=== PATIENT | male | born 1950 | race Caucasian/White ===

== ENCOUNTER → 2017-09-12 | Outpatient (CLI) | payer MEDICARE ==
--- NOTE | 2017-09-12 11:01 | CT ---
EXAMINATION TYPE: CT chest wo con DATE OF EXAM: 09/12/2017 COMPARISON: NONE HISTORY: Ascending aortic aneurysm CT DLP: 971.5 mGycm. Automated Exposure Control for Dose Reduction was Utilized. TECHNIQUE: CT scan of the thorax is performed without IV contrast. FINDINGS: The proximal ascending aorta measures approximately 4.1 cm. There are coronary artery calci fications present. Atheromatous change also present in the super aortic branch vessels, the descendin g aorta measures 3.2 cm. Lack of contrast could compromise sensitivity. LUNGS: The lungs are grossly clear, there is no concerning parenchymal mass or nodule identified. T here is no pleural effusion or pneumothorax seen. Some strand-like densities in the right upper lobe compatible with scarring. The tracheobronchial tree is patent. MEDIASTINUM: Lack of IV contrast is noted to limit evaluation for mediastinal and especially hilar ad enopathy. Pretracheal lymph node is enlarged at approximately 1.3 cm transverse dimension, there are some small prevascular nodes. No cardiomegaly or pericardial effusion is seen. OTHER: There is a spinal curvature, thoracic spondylosis is present. Liver shows low attenuation whic h may be due to underlying hepatic steatosis. IMPRESSION: Aortic aneurysm as described. Coronary artery disease. Borderline enlarged mediastinal ly mph nodes.
== END | disposition home or self-care (01) ==
LOC: RADCTMAIN 08:53
PROVIDERS: ATTEND Internal Medicine
DX: I71.2 Thoracic aortic aneurysm, without rupture (principal); I25.10 Atherosclerotic heart disease of native coronary artery without angina pectoris; R59.0 Localized enlarged lymph nodes
CPT/HCPCS: 71250

== ENCOUNTER → 2018-01-06 | Outpatient (CLI) | payer MEDICARE ==
--- NOTE | 2018-01-06 16:14 | XR ---
EXAMINATION TYPE: XR chest 2V DATE OF EXAM: 01/06/2018 COMPARISON: 08/15/2015 HISTORY: Shortness of breath TECHNIQUE: Frontal and lateral views of the chest are obtained. FINDINGS: Scattered senescent parenchymal changes noted. Hyperinflation compatible with COPD. No evidence for infiltrate. No evidence for atelectasis. Heart size is stable. Mediastinal structures are stable and grossly unremarkable. No evidence for hilar prominence. Degenerative changes dorsal spine. IMPRESSION: 1. No evidence for acute pulmonary disease.
== END | disposition home or self-care (01) ==
LOC: RADXRMAIN 15:57
PROVIDERS: ATTEND Family Medicine
DX: R05 Cough (principal)
CPT/HCPCS: 71046

== ENCOUNTER → 2018-09-21 | Outpatient (CLI) | payer MEDICARE ==
--- NOTE | 2018-09-22 10:21 | CT ---
EXAMINATION TYPE: CT chest wo con DATE OF EXAM: 09/21/2018 COMPARISON: CT chest September 12, 2017 HISTORY: Follow up for thoracic aortic aneurysm, without rupture. CT DLP: 620.4 mGycm. Automated Exposure Control for Dose Reduction was Utilized. TECHNIQUE: CT scan of the thorax is performed without IV contrast. FINDINGS: LUNGS: There is stable patchy scarring medial right midlung filling of azygoesophageal recess centere d near axial image 28. There is stable right suprahilar scarring with mild bronchiectatic change seen best paracoronal image 77 in the right upper lobe. No new suspicious consolidation is identified. No suspicious nodules or masses are present. There is no pleural effusion or pneumothorax seen. The tr acheobronchial tree is patent. MEDIASTINUM: Lack of IV contrast is noted to limit evaluation for mediastinal and especially hilar ad enopathy. There are no definitive greater than 1 cm hilar or mediastinal lymph nodes. No cardiomega ly or pericardial effusion is seen. Moderate coronary artery calcification LAD and left circumflex di stribution is present. Stable aneurysm of ascending aorta up to 4.1 cm axial image 24. Adjacent main pulmonary artery measures 2.9 cm in diameter. OTHER: Multilevel lateral and anterior spurring in the mid to lower thoracic spine is redemonstrated. IMPRESSION: Stable 4.1 cm aneurysm of ascending aorta.
== END | disposition home or self-care (01) ==
LOC: RADCTMAIN 15:47
PROVIDERS: ATTEND Internal Medicine
DX: I71.2 Thoracic aortic aneurysm, without rupture (principal)
CPT/HCPCS: 71250

== ENCOUNTER 2020-01-26 11:11 | Emergency (ER) | payer MEDICARE ==
[2020-01-26 11:17] VITALS: RESP 18
[2020-01-26] MEDS ORDERED: SODIUM CHLORIDE 0.9% 1,000 ML IV STA (11:31)
--- NOTE | 2020-01-26 11:57 | ED ---
General Adult HPI - General Chief complaint: Recheck/Abnormal Lab/Rx Stated complaint: Low BP Time Seen by Provider: 01/26/20 11:21 Source: patient Mode of arrival: ambulatory Limitations: no limitations - History of Present Illness Initial comments: Patient is a 69-year-old male presenting to emergency Department with a chief c omplaint of dehydration. States yesterday he was out on the sun for prolonged periods of time as she was helping his brother build a deck. States he believes that he drink enough fluids but feels dehydrated. States he was admitted to the hospital several years ago for dehydration and felt the same way. States he called his primary care doctor who advised him to come today ED for evaluation. Patient states yesterday he obtain a blood pressure of 60/55 but believes his machine is not correct. States he otherwise feels great right now. Patient also reports a "lump" on the on his upper back but he has an ultrasound appointment scheduled in 4 days and after forward is scheduled to see a sp ecialist. Patient has any chest pain or shortness of breath, nausea, vomiting, light headedness, dizziness, visual changes, headaches. - Related Data Home Medications Medication Instructions Recorded Confirmed Atorvastatin [Lipitor] 20 mg PO HS 02/28/15 02/14/16 Gabapentin [Neurontin] 200 mg PO HS 02/28/15 02/14/16 Hydrochlorothiazide [Hydrodiuril] 25 mg PO DAILY 02/28/15 02/14/16 Insulin Glargine [Lantus] 100 unit SQ DAILY 02/28/15 02/14/16 Insulin Glulisine [Apidra] 5 - 20 units SQ AC-TID 02/28/15 02/14/16 Loratadine [Claritin] 10 mg PO DAILY 02/28/15 02/14/16 Losartan Potassium [Cozaar] 50 mg PO DAILY 02/28/15 02/14/16 amLODIPine [Norvasc] 10 mg PO DAILY 02/28/15 02/14/16 Aspirin 325 mg PO HS 02/14/16 02/14/16 Allergies Allergy/AdvReac Type Severity Reaction Status Date / Time Iodinated Contrast Media Allergy Unknown Verified 01/26/20 11:18 [Iodinated Contrast Media - IV Dye] Review of Systems ROS Statement: Those systems with pertinent positive or pertinent negative responses have been documented in the HPI. ROS Other: All systems not noted in ROS Statement are negative. Past Medical History Past Medical History: COPD, Diabetes Mellitus, Hyperlipidemia, Hypertension History of Any Multi-Drug Resistant Organisms: None Reported Past Surgical History: No Surgical Hx Reported Past Psychological History: No Psychological Hx Reported Smoking Status: Former smoker Past Alcohol Use History: None Reported Past Drug Use History: None Reported General Exam Limitations: no limitations General appearance: alert, in no apparent distress, obese Head exam: Present: atraumatic, normocephalic, normal inspection Eye exam: Present: normal appearance, PERRL, EOMI Pupils: Present: normal accommodation ENT exam: Present: normal exam, normal oropharynx, mucous membranes moist Neck exam: Present: normal inspection, full ROM Respiratory exam: Present: normal lung sounds bilaterally. Absent: respiratory distress Cardiovascular Exam: Present: regular rate, normal rhythm, normal heart sounds Extremities exam: Present: normal inspection, full ROM Back exam: Present: normal inspection, full ROM, other (5 cm diameter fluid filled like area of swelling noted on the cervical prominence. No overlying cellulitic changes or pain with palpation. Full range of motion of the neck.) Neurological exam: Present: alert, oriented X3 Psychiatric exam: Present: normal affect, normal mood Skin exam: Present: warm, dry, intact, normal color Course Vital Signs 01/26/20 01/26/20 11:13 13:56 Temperature 98.1 F 98.0 F Pulse Rate 83 80 Respiratory 18 18 Rate Blood Pressure 161/88 155/82 O2 Sat by Pulse 97 98 Oximetry EKG Findings - EKG Comments: EKG Findings:: Sinus rhythm no ST or T-wave changes. Ventricular rate 75, WI 202, QRS 112, QTC 457. Medical Decision Making - Medical Decision Making Patient is 69-year-old male presenting to emergency Department with a chief complaint of dehydration. EKG shows sinus rhythm with Q waves in lead 3. Patient has dry mucous membranes.. CBC is unremarkable. CMP shows elevated glucose but the patient is diabetic. There is elevated BUN and creatinine. Patient was given 1 L of bolus fluids. Reevaluation patient reports improvement of symptoms and feels comfortable going home. The mass noted on his cervical prominence is going to be evaluated with ultrasound the next 4 days followed by a visit to the specialist. Return parameters were thoroughly discussed with patient was understanding and agreeable. Case discussed with physician. - Lab Data Result diagrams: 01/26/20 11:46 01/26/20 11:46 Lab Results 01/26/20 01/26/20 Range/Units 11:46 11:46 WBC 6.5 (3.8-10.6) k/uL RBC 5.72 (4.30-5.90) m/uL Hgb 16.6 (13.0-17.5) gm/dL Hct 48.8 (39.0-53.0) % MCV 85.3 (80.0-100.0) fL MCH 29.0 (25.0-35.0) pg MCHC 34.0 (31.0-37.0) g/dL RDW 13.9 (11.5-15.5) % Plt Count 262 (150-450) k/uL Neutrophils % 59 % Lymphocytes % 26 % Monocytes % 7 % Eosinophils % 6 % Basophils % 1 % Neutrophils # 3.8 (1.3-7.7) k/uL Lymphocytes # 1.7 (1.0-4.8) k/uL Monocytes # 0.4 (0-1.0) k/uL Eosinophils # 0.4 (0-0.7) k/uL Basophils # 0.1 (0-0.2) k/uL Sodium 134 L (137-145) mmol/L Potassium 4.3 (3.5-5.1) mmol/L Chloride 95 L (98-107) mmol/L Carbon Dioxide 26 (22-30) mmol/L Anion Gap 13 mmol/L BUN 33 H (9-20) mg/dL Creatinine 1.30 H (0.66-1.25) mg/dL Est GFR (CKD-EPI)AfAm 66 (>60 ml/min/1.73 sqM) Est GFR (CKD-EPI)NonAf 57 (>60 ml/min/1.73 sqM) Glucose 251 H (74-99) mg/dL Calcium 9.6 (8.4-10.2) mg/dL Total Bilirubin 0.9 (0.2-1.3) mg/dL AST 27 (17-59) U/L ALT 25 (4-49) U/L Alkaline Phosphatase 103 (38-126) U/L Total Protein 7.3 (6.3-8.2) g/dL Albumin 4.7 (3.5-5.0) g/dL Disposition Clinical Impression: Dehydration Disposition: HOME SELF-CARE Condition: Stable Instructions (If sedation given, give patient instructions): Dehydration (ED) Additional Instructions: Follow-up with her primary care. Return to emergency department if symptoms worsen. Is patient prescribed a controlled substance at d/c from ED?: No Referrals: Batool Morillo MD [Primary Care Provider] - 1-2 days Time of Disposition: 12:52
[2020-01-26 12:00] LABS: Basophils # (A) 0.1 k/uL (0-0.2); Basophils % (A) 1 %; Eosinophils # (A) 0.4 k/uL (0-0.7); Eosinophils % (A) 6 %; HCT 48.8 % (39.0-53.0); HGB 16.6 gm/dL (13.0-17.5); Lymphocytes # (A) 1.7 k/uL (1.0-4.8); Lymphocytes % (A) 26 %; MCV 85.3 fL (80.0-100.0); Mean Platelet Volume 8.3; Monocytes # (A) 0.4 k/uL (0-1.0); Monocytes % (A) 7 %; Neutrophils # (A) 3.8 k/uL (1.3-7.7); Neutrophils % (A) 59 %; Platelet Count 262 k/uL (150-450); RBC 5.72 m/uL (4.30-5.90); RDW 13.9 % (11.5-15.5); WBC 6.5 k/uL (3.8-10.6)
[2020-01-26 12:38] LABS: Albumin 4.7 g/dL (3.5-5.0); Calcium 9.6 mg/dL (8.4-10.2); Potassium 4.3 mmol/L (3.5-5.1); Total Bilirubin 0.9 mg/dL (0.2-1.3); Total Protein 7.3 g/dL (6.3-8.2)
[2020-01-26 13:57] VITALS: BP 155/82; PULSE 80; TEMP 98
== END 2020-01-26 13:57 | disposition home or self-care (01) ==
LOC: EC 11:11
DX: E86.0 Dehydration (principal); E11.9 Type 2 diabetes mellitus without complications; I10 Essential (primary) hypertension; E78.5 Hyperlipidemia, unspecified; Z79.4 Long term (current) use of insulin; Z79.82 Long term (current) use of aspirin; Z79.899 Other long term (current) drug therapy; Z91.041 Radiographic dye allergy status; Z87.891 Personal history of nicotine dependence
CPT/HCPCS: 36415; 80053; 85025; 93005; 99284

== ENCOUNTER → 2020-02-01 | Outpatient (CLI) | payer MEDICARE ==
--- NOTE | 2020-02-01 09:09 | US ---
EXAMINATION TYPE: US mass soft tissue chest/back DATE OF EXAM: 02/01/2020 COMPARISON: NONE CLINICAL HISTORY: R22.9 Lump on neck. TECHNIQUE/FINDINGS: Targeted grayscale ultrasound was performed of the patient's palpable abnormality . Patient has large visible mass measuring 15cm from end to end with ruler. Very difficult to visualize with ultrasound mass appears solid with few areas of shadowing and a hype rechoic rim and measures 13.3 cm with 4 MHz probe, unable to visualize with superficial probes. IMPRESSION: Palpable and visible mass measuring 15 cm on physical exam is extremely difficult to vis ualize by ultrasound and contains shadowing indicating calcifications or ossific density. CT neck is recommended with contrast for further characterization.
== END | disposition home or self-care (01) ==
LOC: RADUSWWP 07:50
PROVIDERS: ATTEND Family Medicine
DX: R22.2 Localized swelling, mass and lump, trunk (principal)

== ENCOUNTER → 2020-02-22 | Outpatient (CLI) | payer MEDICARE ==
--- NOTE | 2020-02-22 15:35 | CT ---
EXAMINATION TYPE: CT soft tissue neck wo con DATE OF EXAM: 02/22/2020 COMPARISON: 02/22/2016 HISTORY: Lump on back of neck CT DLP: 903.[address] of the neck was performed from the skull base through the lung apices. The lack of cont rast limits evaluation AIRWAY: The supraglottic, glottic, and subglottic portions of the airway appear patent and free of mass. SALIVARY GLANDS: The submandibular and parotid glands are free of mass or inflammatory process. THYROID GLAND: No nodules or masses seen. LYMPH NODES: No adenopathy seen greater than 1cm. LUNG APICES: No nodule or mass is seen. OTHER: Vascular structures are patent. Moderate degenerative change of the cervical spine. No absce ss seen. IMPRESSION: No distinct mass at the site of clinical concern.
== END | disposition home or self-care (01) ==
LOC: RADCTMAIN 13:27
PROVIDERS: ATTEND Family Medicine
DX: R22.2 Localized swelling, mass and lump, trunk (principal)
CPT/HCPCS: 70490

== ENCOUNTER 2020-11-27 10:54 | Observation (INO) | payer MEDICARE ==
--- NOTE | 2020-11-27 11:40 | ED ---
General Adult HPI - General Source: patient, RN notes reviewed Mode of arrival: ambulatory Limitations: no limitations <Marcello Richter - Last Filed: 11/27/20 11:39> - General Source: patient, RN notes reviewed Mode of arrival: ambulatory Limitations: no limitations <Az Amos - Last Filed: 11/27/20 13:22> - General Chief complaint: Chest Pain Stated complaint: Cough/sob/Chest pain - History of Present Illness Initial comments: Patient is a 70-year-old male that presents to emergency department complaining of increased dyspnea and some chest tightness 1 day, his did test positive for Covid approximately a week ago. (Marcello Richter) Patient is a pleasant 62-year-old male presenting to the emergency Department with complaints of chest discomfort. Symptoms have been intermittent over the past several days. Patient had discomfort again this morning in the left chest without radiation. Patient had associated dyspnea. Discomfort was moderate, now resolved. Patient is currently symptom-free. No associated nausea or diaphoresis. Patient also has had some sinus congestion and was recently diagnosed with Covid (Az Amos) - Related Data Home Medications Medication Instructions Recorded Confirmed Atorvastatin [Lipitor] 20 mg PO HS 02/28/15 02/14/16 Gabapentin [Neurontin] 200 mg PO HS 02/28/15 02/14/16 Insulin Glargine [Lantus] 100 unit SQ DAILY 02/28/15 02/14/16 Insulin Glulisine [Apidra] 5 - 20 units SQ AC-TID 02/28/15 02/14/16 Loratadine [Claritin] 10 mg PO DAILY 02/28/15 02/14/16 Losartan Potassium [Cozaar] 50 mg PO DAILY 02/28/15 02/14/16 amLODIPine [Norvasc] 10 mg PO DAILY 02/28/15 02/14/16 hydroCHLOROthiazide [Hydrodiuril] 25 mg PO DAILY 02/28/15 02/14/16 Aspirin 325 mg PO HS 02/14/16 02/14/16 Allergies Allergy/AdvReac Type Severity Reaction Status Date / Time Iodinated Contrast Media Allergy Unknown Verified 11/27/20 11:21 [Iodinated Contrast Media - IV Dye] Review of Systems ROS Other: All systems not noted in ROS Statement are negative. <Marcello Richter - Last Filed: 11/27/20 11:39> ROS Other: All systems not noted in ROS Statement are negative. Constitutional: Denies: fever ENT: Reports: congestion. Denies: ear pain Respiratory: Reports: dyspnea Cardiovascular: Reports: chest pain Endocrine: Denies: fatigue Gastrointestinal: Denies: abdominal pain Genitourinary: Denies: urgency Musculoskeletal: Denies: back pain Skin: Denies: rash Neurological: Denies: weakness <Az Amos - Last Filed: 11/27/20 13:22> ROS Statement: Those systems with pertinent positive or pertinent negative responses have been documented in the HPI. Past Medical History Past Medical History: COPD, Diabetes Mellitus, Hyperlipidemia, Hypertension History of Any Multi-Drug Resistant Organisms: None Reported Past Surgical History: No Surgical Hx Reported Past Psychological History: No Psychological Hx Reported Smoking Status: Former smoker Past Alcohol Use History: Rare Past Drug Use History: None Reported <Marcello Richter - Last Filed: 11/27/20 11:39> General Exam Limitations: no limitations General appearance: alert, in no apparent distress, obese Head exam: Present: atraumatic, normocephalic, normal inspection Eye exam: Present: normal appearance, PERRL, EOMI. Absent: scleral icterus, conjunctival injection, periorbital swelling Neck exam: Present: normal inspection. Absent: tenderness, meningismus, lympha denopathy Respiratory exam: Present: decreased breath sounds. Absent: respiratory distress, wheezes, rales, rhonchi, stridor Cardiovascular Exam: Present: regular rate, normal rhythm, normal heart sounds. Absent: systolic murmur, diastolic murmur, rubs, gallop, clicks GI/Abdominal exam: Present: soft, normal bowel sounds. Absent: distended, tenderness, guarding, rebound, rigid Extremities exam: Present: normal inspection, full ROM, normal capillary refill, other (Patient was in wheelchair.). Absent: tenderness, pedal edema, joint swelling, calf tenderness Neurological exam: Present: alert, oriented X3, CN II-XII intact Psychiatric exam: Present: normal affect, normal mood Skin exam: Present: warm, dry, intact, normal color. Absent: rash <Marcello Richter - Last Filed: 11/27/20 11:39> Limitations: no limitations General appearance: alert Head exam: Present: atraumatic Eye exam: Present: normal appearance, PERRL ENT exam: Present: normal oropharynx Respiratory exam: Present: normal lung sounds bilaterally Cardiovascular Exam: Present: regular rate, normal rhythm Expanded Peripheral pulses: 2+: Radial (R), Radial (L) GI/Abdominal exam: Present: soft. Absent: tenderness Extremities exam: Present: normal inspection. Absent: pedal edema, calf tenderness Neurological exam: Present: alert Psychiatric exam: Present: normal affect, normal mood Skin exam: Present: normal color <Az Amos - Last Filed: 11/27/20 13:22> Course Vital Signs 11/27/20 11:18 Temperature 98 F Pulse Rate 81 Respiratory 18 Rate Blood Pressure 155/62 O2 Sat by Pulse 97 Oximetry EKG Findings - EKG Comments: EKG Findings:: Sinus rhythm at 83. OH 198. QRS 124. QT 406. QTc 477. Normal axis. Nonspecific intraventricular conduction delay. No acute ST change. <Az Amos - Last Filed: 11/27/20 13:22> Medical Decision Making - Lab Data Result diagrams: 11/27/20 11:31 11/27/20 11:31 - Radiology Data Radiology results: image reviewed (Chest x-ray reveals no acute process) <Az Amos - Last Filed: 11/27/20 13:22> - Medical Decision Making Patient updated on results and plan. Dr. Parker has been paged for admission, covering for Dr. Karol Parker. (Az Amos) - Lab Data Lab Results 11/27/20 11/27/20 11/27/20 Range/Units 11:22 11:31 11:31 WBC 6.0 (3.8-10.6) k/uL RBC 5.75 (4.30-5.90) m/uL Hgb 16.7 (13.0-17.5) gm/dL Hct 48.1 (39.0-53.0) % MCV 83.6 (80.0-100.0) fL MCH 29.0 (25.0-35.0) pg MCHC 34.7 (31.0-37.0) g/dL RDW 14.0 (11.5-15.5) % Plt Count 246 (150-450) k/uL MPV 7.8 Neutrophils % 56 % Lymphocytes % 31 % Monocytes % 6 % Eosinophils % 4 % Basophils % 1 % Neutrophils # 3.3 (1.3-7.7) k/uL Lymphocytes # 1.8 (1.0-4.8) k/uL Monocytes # 0.4 (0-1.0) k/uL Eosinophils # 0.3 (0-0.7) k/uL Basophils # 0.1 (0-0.2) k/uL PT 10.2 (9.0-12.0) sec INR 0.9 (<1.2) APTT 24.5 (22.0-30.0) sec Sodium (137-145) mmol/L Potassium (3.5-5.1) mmol/L Chloride (98-107) mmol/L Carbon Dioxide (22-30) mmol/L Anion Gap mmol/L BUN (9-20) mg/dL Creatinine (0.66-1.25) mg/dL Est GFR (CKD-EPI)AfAm (>60 ml/min/1.73 sqM) Est GFR (CKD-EPI)NonAf (>60 ml/min/1.73 sqM) Glucose (74-99) mg/dL Calcium (8.4-10.2) mg/dL Magnesium (1.6-2.3) mg/dL Total Bilirubin (0.2-1.3) mg/dL AST (17-59) U/L ALT (4-49) U/L Alkaline Phosphatase (38-126) U/L Troponin I (0.000-0.034) ng/mL Total Protein (6.3-8.2) g/dL Albumin (3.5-5.0) g/dL Coronavirus (PCR) Not Detected (Not Detectd) 11/27/20 11/27/20 Range/Units 11:31 11:31 WBC (3.8-10.6) k/uL RBC (4.30-5.90) m/uL Hgb (13.0-17.5) gm/dL Hct (39.0-53.0) % MCV (80.0-100.0) fL MCH (25.0-35.0) pg MCHC (31.0-37.0) g/dL RDW (11.5-15.5) % Plt Count (150-450) k/uL MPV Neutrophils % % Lymphocytes % % Monocytes % % Eosinophils % % Basophils % % Neutrophils # (1.3-7.7) k/uL Lymphocytes # (1.0-4.8) k/uL Monocytes # (0-1.0) k/uL Eosinophils # (0-0.7) k/uL Basophils # (0-0.2) k/uL PT (9.0-12.0) sec INR (<1.2) APTT (22.0-30.0) sec Sodium 136 L (137-145) mmol/L Potassium 4.5 (3.5-5.1) mmol/L Chloride 96 L (98-107) mmol/L Carbon Dioxide 28 (22-30) mmol/L Anion Gap 12 mmol/L BUN 31 H (9-20) mg/dL Creatinine 1.26 H (0.66-1.25) mg/dL Est GFR (CKD-EPI)AfAm 68 (>60 ml/min/1.73 sqM) Est GFR (CKD-EPI)NonAf 59 (>60 ml/min/1.73 sqM) Glucose 221 H (74-99) mg/dL Calcium 9.9 (8.4-10.2) mg/dL Magnesium 2.1 (1.6-2.3) mg/dL Total Bilirubin 0.6 (0.2-1.3) mg/dL AST 28 (17-59) U/L ALT 31 (4-49) U/L Alkaline Phosphatase 101 (38-126) U/L Troponin I <0.012 (0.000-0.034) ng/mL Total Protein 7.3 (6.3-8.2) g/dL Albumin 4.8 (3.5-5.0) g/dL Coronavirus (PCR) (Not Detectd) Disposition <Marcello Richter - Last Filed: 11/27/20 11:39> Is patient prescribed a controlled substance at d/c from ED?: No Decision Time: 13:22 <Az Amos - Last Filed: 11/27/20 13:22> Clinical Impression: Chest pain Disposition: ADMITTED IP TO THIS HOSP Referrals: Batool Morillo MD [Primary Care Provider] - 1-2 days
--- NOTE | 2020-11-27 12:04 | XR ---
EXAMINATION TYPE: XR chest 2V DATE OF EXAM: 11/27/2020 COMPARISON: Chest x-ray 01/16/2019, 05/09/2020, CT chest 09/21/2018 HISTORY: Chest pain, cough and shortness of breath TECHNIQUE: Frontal and lateral views of the chest are obtained. FINDINGS: There is no focal air space opacity, pleural effusion, or pneumothorax seen. Strand-like d ensities at the left lung base are likely guest relations representative of scarring. Lung volumes are low and the pa tient is rotated. The cardiac silhouette size is within normal limits. The osseous structures are i ntact, there is thoracic spondylosis. The aorta is aneurysmal. IMPRESSION: No acute cardiopulmonary process. There is some scarring within the lungs. Additional fi ndings above.
[2020-11-27 12:07] LABS: Basophils # (A) 0.1 k/uL (0-0.2); Basophils % (A) 1 %; Eosinophils # (A) 0.3 k/uL (0-0.7); Eosinophils % (A) 4 %; HCT 48.1 % (39.0-53.0); HGB 16.7 gm/dL (13.0-17.5); Lymphocytes # (A) 1.8 k/uL (1.0-4.8); Lymphocytes % (A) 31 %; MCHC 34.7 g/dL (31.0-37.0); MCV 83.6 fL (80.0-100.0); Mean Platelet Volume 7.8; Monocytes # (A) 0.4 k/uL (0-1.0); Monocytes % (A) 6 %; Neutrophils # (A) 3.3 k/uL (1.3-7.7); Neutrophils % (A) 56 %; Platelet Count 246 k/uL (150-450); RBC 5.75 m/uL (4.30-5.90)
[2020-11-27 12:18] LABS: Albumin 4.8 g/dL (3.5-5.0); Calcium 9.9 mg/dL (8.4-10.2); Magnesium 2.1 mg/dL (1.6-2.3); Potassium 4.5 mmol/L (3.5-5.1); Total Bilirubin 0.6 mg/dL (0.2-1.3); Total Protein 7.3 g/dL (6.3-8.2)
[2020-11-27 12:21] LABS: INR 0.9 (<1.2); Partial Thromboplastin Time 24.5 sec (22.0-30.0); Prothrombin Time 10.2 sec (9.0-12.0)
[2020-11-27] MEDS ORDERED: NITROGLYCERIN SL TABS 0.4 MG TAB SUBLINGUAL PRN (13:22)
[2020-11-27] MEDS ORDERED: ASPIRIN 81 MG PO STA (13:22)
[2020-11-27] MEDS: NITROGLYCERIN OINT 1 INCH/GM PACKET TOPICAL SCH ×2 (21:30→22:05)
[2020-11-27] MEDS: FAMOTIDINE 20 MG/2 ML VIAL IV SCH (21:32)
[2020-11-27] MEDS: HEPARIN SODIUM,PORCINE 5,000 UNIT/ML 1 ML VIAL SQ SCH (21:33)
--- NOTE | 2020-11-27 22:02 | P.HPIM ---
History of Present Illness This is a pleasant 70 years old male with past medical history of diabetes mellitus, hypertension, hyperlipidemia. Patient presents because of intermittent chest pain on and off for the last 2 weeks associated with dyspnea. His chest pain is on the left side nonradiating about 2/10 currently, when it comes close only for minutes. It happens every 3 days and average. And associated with dyspnea and patient herself is morbidly obese Bibiana he says that he has history of COPD with chronic cough and white phlegm although noticed some worsening in his coughing recently. He indexes smoker quit about 15 years ago with no alcohol or illicit drugs He denies history of obstructive sleep apnea nor using CPAP/BiPAP at home Because of his chest pain and dyspnea he was admitted to the hospital in view of his history of coronary artery disease with history of stent. His hide buffer is Dr. Dumont. His cloud systems architect is Dr. Denson Vitals are stable Labs reviewed showing unremarkable CBC and liver enzymes. Creatinine is elevated at 1.2 which is at baseline 1.3 last year. Sodium is slightly low at 136. Troponin is negative less than 0.012. Coronal varus not detected. Chest x-ray: No acute process. EKG: Showing normal sinus rhythm at 83 with PVC and QTC [address]-T changes. In the emergency room patient was started on aspirin Review of Systems CONSTITUTIONAL: No fever, no malaise, no fatigue. HEENT: No recent visual problems or hearing problems. Denied any sore throat. CARDIOVASCULAR: No orthopnea, PND, no palpitations, no syncope. PULMONARY: No chest wall tenderness, no hemoptysis. GASTROINTESTINAL: No diarrhea, no nausea, no vomiting, no abdominal pain. Normoactive bowel sounds. NEUROLOGICAL: No headaches, no weakness, no numbness. HEMATOLOGICAL: Denies any bleeding or petechiae. GENITOURINARY: Denies any burning micturition, frequency, or urgency. MUSCULOSKELETAL/RHEUMATOLOGICAL: Denies any joint pain, swelling, or any muscle pain. ENDOCRINE: Denies any polyuria or polydipsia. Past Medical History Past Medical History: COPD, Diabetes Mellitus, Hyperlipidemia, Hypertension History of Any Multi-Drug Resistant Organisms: None Reported Past Surgical History: No Surgical Hx Reported Past Psychological History: No Psychological Hx Reported Smoking Status: Former smoker Past Alcohol Use History: Rare Past Drug Use History: None Reported Medications and Allergies Home Medications Medication Instructions Recorded Confirmed Type Atorvastatin [Lipitor] 20 mg PO HS 02/28/15 11/27/20 History amLODIPine [Norvasc] 10 mg PO DAILY 02/28/15 11/27/20 History Allopurinol [Zyloprim] 100 mg PO DAILY 11/27/20 11/27/20 History Aspirin EC [Ecotrin Low Dose] 81 mg PO HS 11/27/20 11/27/20 History Dapagliflozin Propanediol [Farxiga] 10 mg PO DAILY 11/27/20 11/27/20 History Dulaglutide [Trulicity] 1.5 mg SQ TH 11/27/20 11/27/20 History Ergocalciferol [Vitamin D2 (1250 1,250 mcg PO Q14D 11/27/20 11/27/20 History Mcg = 43978 Iu)] Furosemide [Lasix] 40 mg PO DAILY 11/27/20 11/27/20 History Insulin Glargine,Hum.rec.anlog 30 unit SQ BID 11/27/20 11/27/20 History [Lantus Solostar] Losartan Potassium 100 mg PO DAILY 11/27/20 11/27/20 History Magnesium(Uknown Dose) 1 tab PO DAILY 11/27/20 11/27/20 History Pioglitazone [Actos] 15 mg PO DAILY 11/27/20 11/27/20 History Vitamin C(Unknown Dose) 1 tab PO DAILY 11/27/20 11/27/20 History metFORMIN HCL ER [Glucophage Xr] 1,000 mg PO BID 11/27/20 11/27/20 History Allergies Allergy/AdvReac Type Severity Reaction Status Date / Time Iodinated Contrast Media Allergy Unknown Verified 11/27/20 14:15 [Iodinated Contrast Media - IV Dye] Physical Exam Vitals: Vital Signs Temp Pulse Resp BP Pulse Ox 11/27/20 13:53 75 18 125/98 96 11/27/20 11:18 98 F 81 18 155/62 97 Intake and Output 11/26/20 11/27/20 11/27/20 22:59 06:59 14:59 Other: Weight 154.221 kg -GENERAL: The patient is alert and oriented x3, not in any acute distress. morbidly obese HEENT: Pupils are round and equally reacting to light. EOMI. No scleral icterus. No conjunctival pallor. Normocephalic, atraumatic. No pharyngeal erythema. No thyromegaly. CARDIOVASCULAR: S1 and S2 present. No murmurs, rubs, or gallops. PULMONARY: Chest is clear to auscultation, no wheezing or crackles. ABDOMEN: Soft, nontender, nondistended, normoactive bowel sounds. No palpable organomegaly. MUSCULOSKELETAL: No joint swelling or deformity. EXTREMITIES: No cyanosis, clubbing, or pedal edema. NEUROLOGICAL: Gross neurological examination did not reveal any focal deficits. SKIN: No rashes. 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 We'll do se rial troponins, cardiology consult. Continue with aspirin Also we'll consult pulmonary service for his dyspnea. In the meantime start duonebs and symbicort Patient is on Actos metformin and long-acting insulin 30 units twice a day, hold all these and continue with Levemir 30 units daily and insulin sliding scale as he may be nothing by mouth after midnight Labs and medication were reviewed.. Continue same treatment. Continue with symptomatic treatment. Resume home medication. Monitor lytes and vitals. DVT and GI prophylaxis. Further recommendations depends on the clinical course of the patient DVT prophylaxis: Subcutaneous heparin GI Prophylaxis: Pepcid Prognosis is guarded
[2020-11-28] MEDS: NITROGLYCERIN OINT 1 INCH/GM PACKET TOPICAL SCH ×2 (04:59→12:50)
[2020-11-28] MEDS ORDERED: INSULIN DETEMIR (LEVEMIR) 100 UNIT/ML SYR SQ SCH (07:00)
[2020-11-28] MEDS: ALBUTEROL HFA INHALER INHALATION SCH ×2 (07:40→11:14)
[2020-11-28 07:41] LABS: Glucose,Whole Blood 165 mg/dL (75-99)
[2020-11-28] MEDS ORDERED: IPRATROPIUM-ALBUTEROL 3 ML NEB INHALATION SCH (08:00)
[2020-11-28 08:08] VITALS: RESP 18
[2020-11-28] MEDS: FAMOTIDINE 20 MG/2 ML VIAL IV SCH (08:54)
[2020-11-28] MEDS: INSULIN ASPART (NovoLOG) 100 UNIT/ML VIAL SQ SCH ×3 (08:55→12:50)
[2020-11-28] MEDS: HEPARIN SODIUM,PORCINE 5,000 UNIT/ML 1 ML VIAL SQ SCH (08:56)
[2020-11-28] MEDS ORDERED: FUROSEMIDE 40 MG TAB PO SCH (09:00)
[2020-11-28] MEDS ORDERED: amLODIPine 10 MG TAB PO SCH (09:00)
[2020-11-28] MEDS ORDERED: allopurinoL 100 MG TAB PO SCH (09:00)
[2020-11-28] MEDS ORDERED: LOSARTAN 50 MG TAB PO SCH (09:00)
[2020-11-28] MEDS ORDERED: PIOGLITAZONE 15 MG TAB PO SCH (09:00)
[2020-11-28] MEDS ORDERED: ASPIRIN 325 MG TAB PO SCH (09:00)
[2020-11-28 09:53] LABS: Chol/HDL Ratio 3.63; LDL Cholesterol,Calculated 46.8 mg/dL (0.0-131.0); VLDL Calculation 37.2 mg/dL (5.00-40.00)
--- NOTE | 2020-11-28 10:30 | P.CRDCN ---
History of Present Illness History of present illness: HISTORY OF PRESENTING ILLNESS This is a pleasant 70-year-old male past medical history significant for hypertension, dyslipidemia, coronary artery disease noted in the form of calcification on a CAT scan, type 2 diabetes. He follows in the office with Dr. Martinez. We have been asked to see in consultation for chest pain. Patient states that he's had left-sided dull chest pressure that is intermittent for more than 2 months. It comes and goes. Mostly occurs when patient gets up in the morning. The chest pressure is nonexertional and nonradiating. Nothing makes the pain better and nothing makes the pain worse. Patient states that he presented to the emergency department more concerned for shortness of breath and a dry nonproductive cough. His was recently diagnosed with covid-19. He thought he may have covid-19, sodium present to the emergency department. Patient recently had a Lexiscan stress test at [facility] on 08/03/2020. Results obtained- no evidence o f stress-induced reversible ischemia, EF was 54%. Patient denies palpitations, fatigue, weakness, lightheadedness, syncope. He denies symptoms of orthopnea or PND. He is a former smoker quit in his 40s. He denies alcohol or illicit drug use. Laboratory data reviewed, troponins negative 3, sodium 136, potassium 4.5, creatinine 1.26, magnesium 2.1, d-dimer 0.8, WBC 6.0, hemoglobin 16.7, platelets 246, triglycerides 186, cholesterol 116, LDL 46.8, HDL 32. Vital signs blood pressure 124/85, heart rate in the 70s, afebrile, maintaining oxygen saturation is on room air. Current home cardiac medications include amlodipine 10 mg daily, losartan 100 mg daily, Lasix 40 mg daily, atorvastatin 20 mg nightly, aspirin 81 mg daily. DIAGNOSTICS EKG reveals sinus rhythm, with premature ventricular complexes. T wave inversion in lateral leads consistent with prior EKGs, No significant STT wave abnormalities.. Telemetry tracings indicate sinus rhythm Chest xray No acute cardiopulmonary process. Echocardiogram on 08/29/2020EF 50-55%, aortic valve is calcified, trileaflet Lexiscan stress test 11/2018- negative. Fixed inferior wall defect secondary to soft tissue attenuation without any ischemia. Lexiscan stress test at [facility] on 08/03/2020. Results obtained- no evidence o f stress-induced reversible ischemia, EF was 54%. REVIEW OF SYSTEMS At the time of my exam: CONSTITUTIONAL: Denies fever or chills. CARDIOVASCULAR: + left sided chest pain +shortness of breath, Denies orthopnea, PND or palpitations. RESPIRATORY: +dry nonproductive cough. GASTROINTESTINAL: Denies abdominal pain, diarrhea, constipation, nausea or vomiting. MUSCULOSKELETAL: Denies myalgias. NEUROLOGIC: Denies numbness, tingling, headacbe or weakness. ENDOCRINE: Denies fatigue, weight change, polydipsia or polyurina. GENITOURINARY: Denies burning, hematuria or urgency with micturation. HEMATOLOGIC: Denies history of anemia or bleeding. PHYSICAL EXAMINATION CONSTITUTIONAL: No apparent distress. HEENT: Head is normocephalic. Pupils are equal, round. Sclerae anicteric. Mucous membranes of the mouth are moist. No JVD. No carotid bruit. CHEST EXAMINATION: Lungs are clear to auscultation. No chest wall tenderness is noted on palpation or with deep breathing. HEART EXAMINATION: Regular rate and rhythm. S1, S2 heard. No murmurs, gallops or rub. ABDOMEN: Soft, nontender. Positive bowel sounds. EXTREMITIES: 2+ peripheral pulses, trace bilateral pedal edema and no calf tenderness. SKIN:intact NEUROLOGIC EXAMINATION: Patient is awake, alert and oriented x3. ASSESSMENT Chest pain, atypical acute coronary event has been ruled out Hypertension Obesity BMI 51 Type 2 Diabetes Chronic Kidney Disease PLAN An acute coronary event has been ruled out with no EKG evidence of ischemia and negative cardiac enzymes. Resume home cardiac medications No further cardiac workup at this time. Follow up with Dr. Martinez in the outpatient office Thank you kindly for this consultation. Nurse Practitioner note has been reviewed, I agree with a documented findings and plan of care. Patient was seen and examined. Past Medical History Past Medical History: COPD, Diabetes Mellitus, Hyperlipidemia, Hypertension History of Any Multi-Drug Resistant Organisms: None Reported Past Surgical History: No Surgical Hx Reported Past Psychological History: No Psychological Hx Reported Smoking Status: Former smoker Past Alcohol Use History: Rare Past Drug Use History: None Reported Medications and Allergies Home Medications Medication Instructions Recorded Confirmed Type Atorvastatin [Lipitor] 20 mg PO HS 02/28/15 11/27/20 History amLODIPine [Norvasc] 10 mg PO DAILY 02/28/15 11/27/20 History Allopurinol [Zyloprim] 100 mg PO DAILY 11/27/20 11/27/20 History Aspirin EC [Ecotrin Low Dose] 81 mg PO HS 11/27/20 11/27/20 History Dapagliflozin Propanediol [Farxiga] 10 mg PO DAILY 11/27/20 11/27/20 History Dulaglutide [Trulicity] 1.5 mg SQ TH 11/27/20 11/27/20 History Ergocalciferol [Vitamin D2 (1250 1,250 mcg PO Q14D 11/27/20 11/27/20 History Mcg = 22106 Iu)] Furosemide [Lasix] 40 mg PO DAILY 11/27/20 11/27/20 History Insulin Glargine,Hum.rec.anlog 30 unit SQ BID 11/27/20 11/27/20 History [Lantus Solostar] Losartan Potassium 100 mg PO DAILY 11/27/20 11/27/20 History Magnesium(Uknown Dose) 1 tab PO DAILY 11/27/20 11/27/20 History Pioglitazone [Actos] 15 mg PO DAILY 11/27/20 11/27/20 History Vitamin C(Unknown Dose) 1 tab PO DAILY 11/27/20 11/27/20 History metFORMIN HCL ER [Glucophage Xr] 1,000 mg PO BID 11/27/20 11/27/20 History Allergies Allergy/AdvReac Type Severity Reaction Status Date / Time Iodinated Contrast Media Allergy Unknown Verified 11/27/20 14:15 [Iodinated Contrast Media - IV Dye] Physical Exam Vitals: Vital Signs Temp Pulse Pulse Resp BP BP Pulse Ox 11/28/20 07:00 98.1 F 78 18 124/85 91 L 11/28/20 02:00 98.3 F 70 20 134/68 93 L 11/27/20 22:15 99.1 F 92 150/93 94 L 11/27/20 18:25 96 18 121/69 96 11/27/20 16:36 71 18 131/74 96 11/27/20 13:53 75 18 125/98 96 11/27/20 11:18 98 F 81 18 155/62 97 Intake and Output 11/27/20 11/28/20 11/28/20 22:59 06:59 14:59 Other: Voiding Method Toilet # Voids 1 0 Weight 154.221 kg Results 11/27/20 11:31 11/27/20 11:31 Cardiac Enzymes 11/27/20 11/27/20 11/27/20 Range/Units 11:31 11:31 14:25 AST 28 (17-59) U/L Troponin I <0.012 <0.012 (0.000-0.034) ng/mL 11/27/20 Range/Units 17:21 AST (17-59) U/L Troponin I <0.012 (0.000-0.034) ng/mL Coagulation 11/27/20 Range/Units 11:31 PT 10.2 (9.0-12.0) sec APTT 24.5 (22.0-30.0) sec Lipids 11/28/20 Range/Units 05:48 Triglycerides 186.0 H (0.0-149.0) mg/dL Cholesterol 116 (0-200) mg/dL HDL Cholesterol 32.0 L (40.0-60.0) mg/dL Cholesterol/HDL Ratio 3.63 CBC 11/27/20 Range/Units 11:31 WBC 6.0 (3.8-10.6) k/uL RBC 5.75 (4.30-5.90) m/uL Hgb 16.7 (13.0-17.5) gm/dL Hct 48.1 (39.0-53.0) % Plt Count 246 (150-450) k/uL Comprehensive Metabolic Panel 11/27/20 Range/Units 11:31 Sodium 136 L (137-145) mmol/L Potassium 4.5 (3.5-5.1) mmol/L Chloride 96 L (98-107) mmol/L Carbon Dioxide 28 (22-30) mmol/L BUN 31 H (9-20) mg/dL Creatinine 1.26 H (0.66-1.25) mg/dL Glucose 221 H (74-99) mg/dL Calcium 9.9 (8.4-10.2) mg/dL AST 28 (17-59) U/L ALT 31 (4-49) U/L Alkaline Phosphatase 101 (38-126) U/L Total Protein 7.3 (6.3-8.2) g/dL Albumin 4.8 (3.5-5.0) g/dL Current Medications Generic Name Dose Route Start Last Admin Trade Name Freq PRN Reason Stop Dose Admin Albuterol Sulfate 2 puff 11/28/20 08:00 11/28/20 07:40 Albuterol Hfa Inhaler INHALATION 2 puff RT-TID [facility] Administration Allopurinol 100 mg 11/28/20 09:00 11/28/20 08:56 Allopurinol 100 Mg Tab PO 100 mg DAILY [facility] Administration Amlodipine Besylate 10 mg 11/28/20 09:00 11/28/20 08:56 Amlodipine 10 Mg Tab PO 10 mg DAILY [facility] Administration Aspirin 325 mg 11/28/20 09:00 11/28/20 08:56 Aspirin 325 Mg Tab PO 325 mg DAILY [facility] Administration Atorvastatin Calcium 20 mg 11/28/20 21:00 Atorvastatin 20 Mg Tab PO HS [facility] Budesonide/Formoterol Fumarate 2 puff 11/28/20 22:00 Symbicort 160-4.5 Mcg Inhaler INHALATION RT-BID [facility] Famotidine 20 mg 11/27/20 21:00 11/28/20 08:54 Famotidine 20 Mg/2 Ml Vial IV 20 mg Q12HR [facility] Administration Furosemide 40 mg 11/28/20 09:00 11/28/20 08:56 Furosemide 40 Mg Tab PO 40 mg DAILY [facility] Administration Heparin Sodium (Porcine) 5,000 unit 11/27/20 21:00 11/28/20 08:56 Heparin Sodium,Porcine 5,000 Unit/Ml 1 Ml Vial SQ 5,000 unit Q12HR [facility] Administration Insulin Aspart 0 unit 11/28/20 07:30 11/28/20 09:01 Insulin Aspart (Novolog) 100 Unit/Ml Vial SQ Not Given ACHS [facility] Protocol Insulin Detemir 30 unit 11/28/20 07:00 11/28/20 08:55 Insulin Detemir (Levemir) 100 Unit/Ml Syr SQ 30 unit DAILY@0700 [facility] Administration Losartan Potassium 100 mg 11/28/20 09:00 11/28/20 08:56 Losartan 50 Mg Tab PO 100 mg DAILY [facility] Administration Nitroglycerin 0.4 mg 11/27/20 13:22 Nitroglycerin Sl Tabs 0.4 Mg Tab SUBLINGUAL Q5M PRN Chest Pain Nitroglycerin 1 inch 11/27/20 18:00 11/28/20 04:59 Nitroglycerin Oint 1 Inch/Gm Packet TOPICAL Not Given Q6HR [facility] Intake and Output 11/27/20 11/28/20 11/28/20 22:59 06:59 14:59 Other: Voiding Method Toilet # Voids 1 0 Weight 154.221 kg 11/27/20 11:31 11/27/20 11:31
[2020-11-28 11:38] LABS: Glucose,Whole Blood 191 mg/dL (75-99)
[2020-11-28 15:11] VITALS: BP 141/73; PULSE 77; TEMP 97.9
--- NOTE | 2020-11-28 17:41 | P.CNPUL ---
History of Present Illness Consult date: 11/28/20 Requesting physician: Hortensia Parker Reason for consult: other (Chest pain) Chief complaint: Chest pain History of present illness: This is a 70-year-old white male with history of multiple medical problems including mild asymptomatic COPD, history of diabetes, coronary artery calcification noted on previous CT scan of the chest, normally sees Dr. Scherer on a regular basis. Patient presented to the hospital with 2 months history of left-sided dull chest pressure and pain. The pain has been on on for the last 2 months and it is intermittent. No specific clear-cut trigger factor for the pain. Sometimes it is related to positioning especially when he lays flat. And it is definitely not related to any exertion pain is not radiating, is not associated with diaphoresis, no nausea no vomiting. Denies any cough denies any shortness of breath, patient was concerned that he may have covid 19 infection. Presented to the ER, and his workup was basically nondiagnostic. His EKG showed T-wave inversion in lateral leads similar to previous EKG. Chest x-ray showed no evidence of acute pulmonary process. His echocardiogram was basically unremarkable. Previous stress test at [facility] showed no evidence of stress-induced ischemia. Patient was ready seen by cardiology, and he was basically get cleared to be discharged home. I saw the patient, I felt his pain was atypical, and did not feel any pulmonary workup is necessary at this point. other then chest x-ray which was reviewed and seems to be unremarkable. Review of Systems CONSTITUTIONAL: Negative CARDIOVASCULAR: Chest pain as noted in HPI. RESPIRATORY: Occasional cough. GASTROINTESTINAL: Negative MUSCULOSKELETAL: Negative NEUROLOGIC: Negative ENDOCRINE: Negative GENITOURINARY: Negative HEMATOLOGIC: Negative Psychiatric: Negative. Skin: Negative. Past Medical History Past Medical History: COPD, Diabetes Mellitus, Hyperlipidemia, Hypertension History of Any Multi-Drug Resistant Organisms: None Reported Past Surgical History: No Surgical Hx Reported Past Psychological History: No Psychological Hx Reported Smoking Status: Former smoker Past Alcohol Use History: Rare Past Drug Use History: None Reported Medications and Allergies Home Medications Medication Instructions Recorded Confirmed Type Atorvastatin [Lipitor] 20 mg PO HS 02/28/15 11/27/20 History amLODIPine [Norvasc] 10 mg PO DAILY 02/28/15 11/27/20 History Allopurinol [Zyloprim] 100 mg PO DAILY 11/27/20 11/27/20 History Aspirin EC [Ecotrin Low Dose] 81 mg PO HS 11/27/20 11/27/20 History Dapagliflozin Propanediol [Farxiga] 10 mg PO DAILY 11/27/20 11/27/20 History Dulaglutide [Trulicity] 1.5 mg SQ TH 11/27/20 11/27/20 History Ergocalciferol [Vitamin D2 (1250 1,250 mcg PO Q14D 11/27/20 11/27/20 History Mcg = 38941 Iu)] Furosemide [Lasix] 40 mg PO DAILY 11/27/20 11/27/20 History Losartan Potassium 100 mg PO DAILY 11/27/20 11/27/20 History Magnesium(Uknown Dose) 1 tab PO DAILY 11/27/20 11/27/20 History Pioglitazone [Actos] 15 mg PO DAILY 11/27/20 11/27/20 History Vitamin C(Unknown Dose) 1 tab PO DAILY 11/27/20 11/27/20 History Albuterol Inhaler [Ventolin Hfa 2 puff INHALATION RT-TID #1 inh 11/28/20 Rx Inhaler] Insulin Glargine,Hum.rec.anlog 30 unit SQ BID #1 vial 11/28/20 11/27/20 Rx [Lantus Solostar] metFORMIN HCL [Glucophage] 1,000 mg PO BID #30 tab 11/28/20 Rx Allergies Allergy/AdvReac Type Severity Reaction Status Date / Time Iodinated Contrast Media Allergy Unknown Verified 11/27/20 14:15 [Iodinated Contrast Media - IV Dye] Physical Exam Vitals: Vital Signs Temp Pulse Pulse Resp BP BP Pulse Ox 11/28/20 15:00 97.9 F 77 18 141/73 92 L 11/28/20 07:00 98.1 F 78 18 124/85 91 L 11/28/20 02:00 98.3 F 70 20 134/68 93 L 11/27/20 22:15 99.1 F 92 150/93 94 L 11/27/20 18:25 96 18 121/69 96 Intake and Output 11/28/20 11/28/20 11/28/20 06:59 14:59 22:59 Other: Voiding Method Toilet # Voids 0 3 Physical Exam: Revealed a 70-year-old white male obese in no distress. Head: Atraumatic, normocephalic. HEENT:[Neck is supple.] [No neck masses.] [No thyromegaly.] [No JVD.] Chest: [Clear throughout, no crackles, no rhonchi, no wheezes.] Cardiac Exam: [Normal S1 and S2, no S3 gallop, no murmur.] Abdomen: [Soft, nontender, no megaly, no rebound, no guarding, normal bowel sounds.] Extremities: [No clubbing, no edema, no cyanosis.] Neurological Exam: [No focal neurologic deficit.] Alert and oriented 3. Psychiatric: Normal mood affect and normal mental status examination. Skin: No rashes. [place] skeletal: No limitation in range of motion and no deformities. Results - Laboratory Findings CBC and BMP: 11/27/20 11:31 11/27/20 11:31 PT/INR, D-dimer PT 10.2 sec (9.0-12.0) 11/27/20 11:31 INR 0.9 (<1.2) 11/27/20 11:31 D-Dimer 0.80 mg/L FEU (<0.60) H 11/27/20 11:31 Abnormal lab findings: Abnormal Labs 11/27/20 11/27/20 11/28/20 11:31 11:31 05:48 D-Dimer 0.80 H Sodium 136 L Chloride 96 L BUN 31 H Creatinine 1.26 H Glucose 221 H POC Glucose (mg/dL) Triglycerides 186.0 H HDL Cholesterol 32.0 L 11/28/20 11/28/20 07:37 11:36 D-Dimer Sodium Chloride BUN Creatinine Glucose POC Glucose (mg/dL) 165 H 191 H Triglycerides HDL Cholesterol - Diagnostic Findings Chest x-ray: image reviewed (As noted in HPI.) Assessment and Plan Assessment: Impression: Atypical chest pain History of hypertension Type 2 diabetes Chronic kidney disease Recommendation: Reviewed and discussed with the patient his workup. [place] no pulmonary explanation to his chest pain, and the pain is not pulmonary in nature. Patient could be discharged home if cleared by other consultants on the case. Follow-up on outpatient basis. Time with Patient: Greater than 30
[2020-11-28] MEDS ORDERED: ATORVASTATIN 20 MG TAB PO SCH (21:00)
--- NOTE | 2020-11-28 21:16 | P.DS ---
Providers Date of admission: 11/27/20 13:23 Attending physician: Hortensia Parker Consults: 11/27/20 13:23 Consult Physician Urgent Consulting Provider: Casey Galeana Consult Reason/Comments: cp Do you want consulting provider notified?: Yes 11/27/20 21:49 Consult Physician Routine Consulting Provider: Yodit Kramer Consult Reason/Comments: dyspnea , known to your service Do you want consulting provider notified?: Yes, Notify in am Primary care physician: Batool Morillo [facility] Course: Diagnoses: Chest pain, cardiac causes ruled out and cleared by cardiology and pulmonary for discharge. 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 Patient presents because of intermittent chest pain on and off for the last 2 weeks associated with dyspnea. His chest pain is on the left side nonradiating about 2/10 currently, when it comes close only for minutes. It happens every 3 days and average. Patient evaluated by assistant manager trainee who cleared him for discharge. Also pulmonary service evaluated the patient and found him stable for discharge Patient says that his chest pain has resolved, he denies significant dyspnea Currently. No other symptoms, no GI or urinary symptoms. No fever. He uses 60 units of insulin at home besides for more medication, his sugars controlled with 30 units of insulin only, he explained this by different eating habits at home as he eats all the time and not only as 2-3 meals a day and states that sugar is well controlled on his home regimen, patient was instructed to go back to his home regimen and he agrees, also states he has glucometer and he agrees to monitor his sugar Patient was cleared for discharge by cardiology and pulmonary services Problems and management plan were discussed with the patient and he verbalized understanding and acceptance Patient was found stable and can be discharged home however he needs follow-up as an outpatient. Patient was instructed to follow up with PCP Dr. watkins within one week and patient agrees. Also patient was instructed to follow up with assembler tubing Dr. Denson in 1-2 weeks and his assistant manager trainee Dr. Dumont on 12/15 and he agrees Physical -Gen: patient is a AAOx3, no distress. Morbidly obese CVS: S1-S2, RRR, no murmur Lungs: B/L CTA, no wheezing Abdomen: soft, no distention, no tenderness, positive bowel sounds Extremity: no leg edema or induration Time spent more than 35 minutes Plan - Discharge Summary New Discharge Prescriptions: New metFORMIN HCL [Glucophage] 1,000 mg PO BID #30 tab Albuterol Inhaler [Ventolin Hfa Inhaler] 2 puff INHALATION RT-TID #1 inh Continue Atorvastatin [Lipitor] 20 mg PO HS amLODIPine [Norvasc] 10 mg PO DAILY Furosemide [Lasix] 40 mg PO DAILY Pioglitazone [Actos] 15 mg PO DAILY Magnesium(Uknown Dose) 1 tab PO DAILY Insulin Glargine,Hum.rec.anlog [Lantus Solostar] 30 unit SQ BID #1 vial Vitamin C(Unknown Dose) 1 tab PO DAILY Ergocalciferol [Vitamin D2 (1250 Mcg = 40840 Iu)] 1,250 mcg PO Q14D Dapagliflozin Propanediol [Farxiga] 10 mg PO DAILY Allopurinol [Zyloprim] 100 mg PO DAILY Losartan Potassium 100 mg PO DAILY Aspirin EC [Ecotrin Low Dose] 81 mg PO HS Dulaglutide [Trulicity] 1.5 mg SQ TH Discontinued metFORMIN HCL ER [Glucophage Xr] 1,000 mg PO BID Discharge Medication List Atorvastatin [Lipitor] 20 mg PO HS 02/28/15 [History] amLODIPine [Norvasc] 10 mg PO DAILY 02/28/15 [History] Allopurinol [Zyloprim] 100 mg PO DAILY 11/27/20 [History] Aspirin EC [Ecotrin Low Dose] 81 mg PO HS 11/27/20 [History] Dapagliflozin Propanediol [Farxiga] 10 mg PO DAILY 11/27/20 [History] Dulaglutide [Trulicity] 1.5 mg SQ TH 11/27/20 [History] Ergocalciferol [Vitamin D2 (1250 Mcg = 48456 Iu)] 1,250 mcg PO Q14D 11/27/20 [History] Furosemide [Lasix] 40 mg PO DAILY 11/27/20 [History] Losartan Potassium 100 mg PO DAILY 11/27/20 [History] Magnesium(Uknown Dose) 1 tab PO DAILY 11/27/20 [History] Pioglitazone [Actos] 15 mg PO DAILY 11/27/20 [History] Vitamin C(Unknown Dose) 1 tab PO DAILY 11/27/20 [History] Albuterol Inhaler [Ventolin Hfa Inhaler] 2 puff INHALATION RT-TID #1 inh 11/28/20 [Rx] Insulin Glargine,Hum.rec.anlog [Lantus Solostar] 30 unit SQ BID #1 vial 11/28/20 [Rx] metFORMIN HCL [Glucophage] 1,000 mg PO BID #30 tab 11/28/20 [Rx] Follow up Appointment(s)/Referral(s): Yodit Kramer MD [STAFF PHYSICIAN] - 2 Weeks Batool Morillo MD [Primary Care Provider] - 1-2 days Kevin Martinez MD [STAFF PHYSICIAN] - 12/15/20 2:30 pm Patient Instructions/Handouts: Chest Pain (DC) Activity/Diet/Wound Care/Special Instructions: diabetic 1800k westley diet per day activity is restricted till you see your doctor we recommend you check your glucose 4 times per day , before each meal and at bed time and keep the results in a log book and bring it to your doctor on your appointment date if your glucose less than 70 or more than 400 call 911 and go to emergency room Discharge Disposition: HOME SELF-CARE
[2020-11-28] MEDS ORDERED: SYMBICORT 160-4.5 MCG INHALER INHALATION SCH (22:00)
[2020-11-29] MEDS ORDERED: ASPIRIN 81 MG PO SCH (09:00)
== END 2020-11-28 17:41 | disposition home or self-care (01) ==
LOC: EC 10:54 → 6NMEDSUR 13:23
PROVIDERS: ADMIT Hospitalist; ATTEND Hospitalist
DX: R07.89 Other chest pain (principal); J44.9 Chronic obstructive pulmonary disease, unspecified; I49.3 Ventricular premature depolarization; I12.9 Hypertensive chronic kidney disease with stage 1 through stage 4 chronic kidney disease, or unspecified chronic kidney disease; N18.2 Chronic kidney disease, stage 2 (mild); E11.22 Type 2 diabetes mellitus with diabetic chronic kidney disease; I25.10 Atherosclerotic heart disease of native coronary artery without angina pectoris; R09.81 Nasal congestion; E78.5 Hyperlipidemia, unspecified; Z20.822 Contact with and (suspected) exposure to COVID-19; E66.01 Morbid (severe) obesity due to excess calories; Z68.43 Body mass index [BMI] 50.0-59.9, adult; Z79.4 Long term (current) use of insulin; Z79.82 Long term (current) use of aspirin; Z79.899 Other long term (current) drug therapy; Z91.041 Radiographic dye allergy status; Z87.891 Personal history of nicotine dependence; Z95.5 Presence of coronary angioplasty implant and graft
CPT/HCPCS: 96376; 96372 ×2; 93005 ×2; 96374; 99285; 36415; 94640; 85379; 80061; 80053; 83735; 84484; 85025; 85610; 85730; 87635; 71046; G0378 ×2; J1644 ×2

== ENCOUNTER 2020-12-05 13:44 | Inpatient (IN) | payer MEDICARE ==
--- NOTE | 2020-12-05 16:03 | ED ---
General Adult HPI - General Source: patient Mode of arrival: ambulatory Limitations: no limitations <Serafin Guerrero - Last Filed: 12/05/20 16:03> <Marcello Richter - Last Filed: 12/05/20 19:02> <Romario Bingham - Last Filed: 12/05/20 19:58> - General Chief complaint: Upper Respiratory Infection Stated complaint: + covid/Dr. gallegos IV infusion - History of Present Illness Initial comments: 62-year-old male presents to emergency Department with chief complaint cough and congestion. Patient was sent here by his primary care physician for monoclonal antibody infusion. (Serafin Guerrero) Patient is a 70-year-old male that presents to the emergency department complaining of Covid like symptoms with cough, congestion and increased dyspnea. He noted that his tested positive on approximately November 27 and that he tested positive on December 01. He notes that since then he's progressively got worse. He does not use oxygen at home even with a history of COPD. He was sent here by his primary care to get monoclonal antibody therapy. She denied any pain while sitting up in bed during exam and interview. He did have a cough that was dry and nonproductive while answering questions. He denied any nausea vomiting diarrhea constipation fever fatigue chills pain (Marcello Richter) - Related Data Home Medications Medication Instructions Recorded Confirmed Atorvastatin [Lipitor] 20 mg PO HS 02/28/15 11/27/20 amLODIPine [Norvasc] 10 mg PO DAILY 02/28/15 11/27/20 Allopurinol [Zyloprim] 100 mg PO DAILY 11/27/20 11/27/20 Aspirin EC [Ecotrin Low Dose] 81 mg PO HS 11/27/20 11/27/20 Dapagliflozin Propanediol [Farxiga] 10 mg PO DAILY 11/27/20 11/27/20 Dulaglutide [Trulicity] 1.5 mg SQ TH 11/27/20 11/27/20 Ergocalciferol [Vitamin D2 (1250 1,250 mcg PO Q14D 11/27/20 11/27/20 Mcg = 63899 Iu)] Furosemide [Lasix] 40 mg PO DAILY 11/27/20 11/27/20 Losartan Potassium 100 mg PO DAILY 11/27/20 11/27/20 Magnesium(Uknown Dose) 1 tab PO DAILY 11/27/20 11/27/20 Pioglitazone [Actos] 15 mg PO DAILY 11/27/20 11/27/20 Vitamin C(Unknown Dose) 1 tab PO DAILY 11/27/20 11/27/20 Previous Rx's Medication Instructions Recorded Albuterol Inhaler [Ventolin Hfa 2 puff INHALATION RT-TID #1 inh 11/28/20 Inhaler] Insulin Glargine,Hum.rec.anlog 30 unit SQ BID #1 vial 11/28/20 [Lantus Solostar] metFORMIN HCL [Glucophage] 1,000 mg PO BID #30 tab 11/28/20 Allergies Allergy/AdvReac Type Severity Reaction Status Date / Time Iodinated Contrast Media Allergy Unknown Verified 12/05/20 15:59 [Iodinated Contrast Media - IV Dye] Review of Systems ROS Other: All systems not noted in ROS Statement are negative. <Serafin Guerrero - Last Filed: 12/05/20 16:03> ROS Other: All systems not noted in ROS Statement are negative. <Marcello Richter - Last Filed: 12/05/20 19:02> ROS Other: All systems not noted in ROS Statement are negative. <Romario Bingham - Last Filed: 12/05/20 19:58> ROS Statement: Those systems with pertinent positive or pertinent negative responses have been documented in the HPI. Past Medical History Past Medical History: COPD, Diabetes Mellitus, Hyperlipidemia, Hypertension Additional Past Medical History / Comment(s): Covid 4/ History of Any Multi-Drug Resistant Organisms: None Reported Past Surgical History: No Surgical Hx Reported Past Psychological History: No Psychological Hx Reported Smoking Status: Former smoker Past Alcohol Use History: Rare Past Drug Use History: None Reported <Serafin Guerrero - Last Filed: 12/05/20 16:03> General Exam Limitations: no limitations <Serafin Guerrero - Last Filed: 12/05/20 16:03> General appearance: alert, in no apparent distress, obese Head exam: Present: atraumatic, normocephalic, normal inspection Eye exam: Present: normal appearance, PERRL, EOMI. Absent: scleral icterus, conjunctival injection, periorbital swelling Neck exam: Present: normal inspection. Absent: tenderness, meningismus, lymphadenopathy Respiratory exam: Present: normal lung sounds bilaterally. Absent: respiratory distress, wheezes, rales, rhonchi, stridor Cardiovascular Exam: Present: regular rate, normal rhythm, normal heart sounds. Absent: systolic murmur, diastolic murmur, rubs, gallop, clicks GI/Abdominal exam: Present: soft, normal bowel sounds. Absent: distended, te nderness, guarding, rebound, rigid Extremities exam: Present: normal inspection, full ROM, normal capillary refill. Absent: tenderness, pedal edema, joint swelling, calf tenderness Neurological exam: Present: alert, oriented X3, CN II-XII intact Psychiatric exam: Present: normal affect, normal mood Skin exam: Present: warm, dry, intact, normal color. Absent: rash <Marcello Richter - Last Filed: 12/05/20 19:02> Course <Romario Bingham - Last Filed: 12/05/20 19:58> Vital Signs 12/05/20 12/05/20 15:55 18:49 Temperature 99.5 F Pulse Rate 101 H Respiratory 22 26 H Rate Blood Pressure 136/89 O2 Sat by Pulse 91 L Oximetry - Reevaluation(s) Reevaluation #1: 12/05/20 19:57 Case, H&P, test results and ED management thus far were discussed with ELLIE Best. He accepts hospital admission on behalf of himself and Dr. Parker. He agrees with pulmonology consultation. He has no further recommendations at this time. (Romario Bingham) Medical Decision Making - Lab Data Result diagrams: 12/05/20 18:39 12/05/20 18:39 - EKG Data -: EKG Interpreted by Oh EKG shows normal: sinus rhythm Rate: normal - Radiology Data Radiology results: report reviewed, image reviewed <Marcello Richter - Last Filed: 12/05/20 19:02> - Lab Data Result diagrams: 12/05/20 18:39 12/05/20 18:39 <Romario Bingham - Last Filed: 12/05/20 19:58> - Medical Decision Making 70-year-old male sent by primary care for monoclonal antibody therapy. Patient tested positive on December 01. Labs, EKG, chest x-ray, 4 L oxygen via nasal cannula ordered. Labs: Creatinine 1.42 LDH 1164 C-reactive protein 65.2 (Marcello Richter) Patient has evidence of Covid pneumonia on CXR, and he is hypoxic with room air oxygen saturation in the high 80s. Patient's d-dimer is negative. He was given IV Decadron in the ED. ELLIE Juanito Best has accepted hospital admission. A pulmonology consultation was placed. (Romario Bingham) - Lab Data Lab Results 12/05/20 12/05/20 12/05/20 Range/Units 17:19 18:39 18:39 WBC 5.1 (3.8-10.6) k/uL RBC 6.14 H (4.30-5.90) m/uL Hgb 17.1 (13.0-17.5) gm/dL Hct 50.6 (39.0-53.0) % MCV 82.4 (80.0-100.0) fL MCH 27.9 (25.0-35.0) pg MCHC 33.9 (31.0-37.0) g/dL RDW 13.8 (11.5-15.5) % Plt Count 204 (150-450) k/uL MPV 7.6 Neutrophils % 77 % Lymphocytes % 14 % Monocytes % 6 % Eosinophils % 1 % Basophils % 1 % Neutrophils # 3.9 (1.3-7.7) k/uL Lymphocytes # 0.7 L (1.0-4.8) k/uL Monocytes # 0.3 (0-1.0) k/uL Eosinophils # 0.0 (0-0.7) k/uL Basophils # 0.1 (0-0.2) k/uL PT 10.1 (9.0-12.0) sec INR 0.9 (<1.2) APTT 25.3 (22.0-30.0) sec D-Dimer 0.44 (<0.60) mg/L FEU Sodium (137-145) mmol/L Potassium (3.5-5.1) mmol/L Chloride (98-107) mmol/L Carbon Dioxide (22-30) mmol/L Anion Gap mmol/L BUN (9-20) mg/dL Creatinine (0.66-1.25) mg/dL Est GFR (CKD-EPI)AfAm (>60 ml/min/1.73 sqM) Est GFR (CKD-EPI)NonAf (>60 ml/min/1.73 sqM) Glucose (74-99) mg/dL Plasma Lactic Acid [place] (0.7-2.0) mmol/L Calcium (8.4-10.2) mg/dL Magnesium (1.6-2.3) mg/dL Total Bilirubin (0.2-1.3) mg/dL AST (17-59) U/L ALT (4-49) U/L Alkaline Phosphatase (38-126) U/L Lactate Dehydrogenase (313-618) U/L C-Reactive Protein (<10.0) mg/L Total Protein (6.3-8.2) g/dL Albumin (3.5-5.0) g/dL Coronavirus (PCR) Detected A (Not Detectd) 12/05/20 12/05/20 Range/Units 18:39 18:39 WBC (3.8-10.6) k/uL RBC (4.30-5.90) m/uL Hgb (13.0-17.5) gm/dL Hct (39.0-53.0) % MCV (80.0-100.0) fL MCH (25.0-35.0) pg MCHC (31.0-37.0) g/dL RDW (11.5-15.5) % Plt Count (150-450) k/uL MPV Neutrophils % % Lymphocytes % % Monocytes % % Eosinophils % % Basophils % % Neutrophils # (1.3-7.7) k/uL Lymphocytes # (1.0-4.8) k/uL Monocytes # (0-1.0) k/uL Eosinophils # (0-0.7) k/uL Basophils # (0-0.2) k/uL PT (9.0-12.0) sec INR (<1.2) APTT (22.0-30.0) sec D-Dimer (<0.60) mg/L FEU Sodium 136 L (137-145) mmol/L Potassium 4.4 (3.5-5.1) mmol/L Chloride 94 L (98-107) mmol/L Carbon Dioxide 28 (22-30) mmol/L Anion Gap 14 mmol/L BUN 40 H (9-20) mg/dL Creatinine 1.42 H (0.66-1.25) mg/dL Est GFR (CKD-EPI)AfAm 59 (>60 ml/min/1.73 sqM) Est GFR (CKD-EPI)NonAf 51 (>60 ml/min/1.73 sqM) Glucose 240 H (74-99) mg/dL Plasma Lactic Acid [place] 1.3 (0.7-2.0) mmol/L Calcium 8.9 (8.4-10.2) mg/dL Magnesium 2.4 H (1.6-2.3) mg/dL Total Bilirubin 0.6 (0.2-1.3) mg/dL AST 54 (17-59) U/L ALT 38 (4-49) U/L Alkaline Phosphatase 101 (38-126) U/L Lactate Dehydrogenase 1164 H (313-618) U/L C-Reactive Protein 65.2 H (<10.0) mg/L Total Protein 6.8 (6.3-8.2) g/dL Albumin 4.2 (3.5-5.0) g/dL Coronavirus (PCR) (Not Detectd) - EKG Data EKG Comments: Ventricular rate 96 bpm, IL interval 174 ms, QRS duration 106 ms, QT/QTC 368/464 ms, PRT axes 34/1/74. Normal sinus rhythm, minimal voltage criteria for LVH may be normal variant, inferior infarct, age undetermined, abnormal ECG. (Marcello Richter) - Radiology Data Chest x-ray: Vague perihilar and basilar interstitial infiltrates. Correlate clinically for developing pneumonia. (Marcello Richter) Disposition <Serafin Guerrero - Last Filed: 12/05/20 16:03> <Marcello Richter - Last Filed: 12/05/20 19:02> Is patient prescribed a controlled substance at d/c from ED?: No Time of Disposition: 19:54 <Romario Bingham - Last Filed: 12/05/20 19:58> Clinical Impression: Pneumonia due to COVID-19 virus, Hypoxia Disposition: ADMITTED IP TO THIS HOSP Condition: Stable Referrals: Batool Morillo MD [Primary Care Provider] - 1-2 days
--- NOTE | 2020-12-05 16:32 | XR ---
EXAMINATION TYPE: XR chest 2V DATE OF EXAM: 12/05/2020 COMPARISON: 11/27/2020 HISTORY: Shortness of breath TECHNIQUE: Frontal and lateral views of the chest are obtained. FINDINGS: Scattered senescent parenchymal changes noted. Hyperinflation compatible with COPD. Vague perihilar and basilar interstitial infiltrates. Correlate clinically for developing pneumonia. Heart size is stable. Mediastinal structures are stable and grossly unremarkable. No evidence for hilar prominence. Degenerative changes dorsal spine. IMPRESSION: 1. Vague perihilar and basilar interstitial infiltrates. Correlate clinically for developing pneumoni a.
[2020-12-05 18:49] LABS: Basophils # (A) 0.1 k/uL (0-0.2); Basophils % (A) 1 %; Eosinophils % (A) 1 %; HCT 50.6 % (39.0-53.0); HGB 17.1 gm/dL (13.0-17.5); Lymphocytes # (A) 0.7 k/uL (1.0-4.8); Lymphocytes % (A) 14 %; MCH 27.9 pg (25.0-35.0); MCHC 33.9 g/dL (31.0-37.0); MCV 82.4 fL (80.0-100.0); Mean Platelet Volume 7.6; Monocytes # (A) 0.3 k/uL (0-1.0); Monocytes % (A) 6 %; Neutrophils # (A) 3.9 k/uL (1.3-7.7); Neutrophils % (A) 77 %; Platelet Count 204 k/uL (150-450); RBC 6.14 m/uL (4.30-5.90); RDW 13.8 % (11.5-15.5); WBC 5.1 k/uL (3.8-10.6)
[2020-12-05 18:59] LABS: Albumin 4.2 g/dL (3.5-5.0); C Reactive Protein 65.2 mg/L (<10.0); Calcium 8.9 mg/dL (8.4-10.2); Magnesium 2.4 mg/dL (1.6-2.3); Potassium 4.4 mmol/L (3.5-5.1); Total Bilirubin 0.6 mg/dL (0.2-1.3); Total Protein 6.8 g/dL (6.3-8.2)
[2020-12-05 19:14] LABS: INR 0.9 (<1.2); Partial Thromboplastin Time 25.3 sec (22.0-30.0); Prothrombin Time 10.1 sec (9.0-12.0)
[2020-12-05] MEDS ORDERED: DEXAMETHASONE SOD PHOSPHATE 4 MG/ML 1 ML VIAL IV STA (19:14)
[2020-12-05 23:08] LABS: Glucose,Whole Blood 190 mg/dL (75-99)
[2020-12-05] MEDS: INSULIN DETEMIR (LEVEMIR) 100 UNIT/ML SYR SQ SCH (23:39)
[2020-12-05] MEDS: INSULIN ASPART (NovoLOG) 100 UNIT/ML VIAL SQ SCH (23:39)
[2020-12-06] MEDS ORDERED: INSULIN ASPART (NovoLOG) 100 UNIT/ML VIAL SQ SCH (07:30)
[2020-12-06 07:58] LABS: Glucose,Whole Blood 227 mg/dL (75-99)
[2020-12-06] MEDS: INSULIN ASPART (NovoLOG) 100 UNIT/ML VIAL SQ SCH ×4 (08:18→21:23)
[2020-12-06] MEDS: LOSARTAN 50 MG TAB PO SCH (08:19)
[2020-12-06] MEDS: allopurinoL 100 MG TAB PO SCH (08:19)
[2020-12-06] MEDS: amLODIPine 10 MG TAB PO SCH (08:19)
[2020-12-06] MEDS: NON FORMULARY DRUG (Dapagliflozin Propanediol [Farxiga] 10 MG Tablet) PO SCH (08:47)
[2020-12-06] MEDS ORDERED: metFORMIN 500 MG TAB PO SCH (09:00)
[2020-12-06] MEDS ORDERED: FUROSEMIDE 40 MG TAB PO SCH (09:00)
[2020-12-06] MEDS: ALBUTEROL HFA INHALER INHALATION PRN ×3 (09:22→16:47)
[2020-12-06 09:43] LABS: Basophils # (A) 0.01 X 10*3/uL (0.00-0.10); Basophils % (A) 0.2 %; Eosinophils # (A) 0 X 10*3/uL (0.04-0.35); Eosinophils % (A) 0 %; HCT 50.5 % (39.6-50.0); HGB 16.5 g/dL (13.0-17.0); Lymphocytes % (A) 17.8 %; MCH 27.9 pg (27.0-32.0); MCHC 32.7 g/dL (32.0-37.0); MCV 85.3 fL (80.0-97.0); Mean Platelet Volume 11.1 fL (9.5-12.2); Monocytes # (A) 0.26 X 10*3/uL (0.20-1.00); Monocytes % (A) 5.8 %; Neutrophils # (A) 3.42 X 10*3/uL (1.80-7.70); Platelet Count 227 X 10*3/uL (140-440); RBC 5.92 X 10*6/uL (4.40-5.60)
[2020-12-06] MEDS: INSULIN DETEMIR (LEVEMIR) 100 UNIT/ML SYR SQ SCH ×2 (10:05→21:23)
[2020-12-06] MEDS: PIOGLITAZONE 15 MG TAB PO SCH (10:05)
[2020-12-06] MEDS: ASCORBIC ACID 500 MG TAB PO SCH ×2 (10:16→21:22)
[2020-12-06] MEDS: ZINC SULFATE 220 MG CAP PO SCH (10:16)
[2020-12-06] MEDS: SODIUM CHLORIDE 0.9% 1,000 ML IV SCH ×2 (10:17→23:08)
[2020-12-06 10:38] LABS: African American GFR (CKD) 54.7 (60.0-200.0); Anion Gap 13.6 mmol/L (4.00-12.00); BUN/Creat Ratio 28.67 Ratio (12.00-20.00); Calcium 8.8 mg/dL (8.7-10.3); Carbon Dioxide 27.4 mmol/L (21.6-31.8); Non-African American GFR(CKD) 47.2 (60.0-200.0); Potassium 4.5 mmol/L (3.5-5.5)
[2020-12-06] MEDS ORDERED: ENOXAPARIN 40 MG/0.4 ML SYRINGE SQ SCH (10:45)
--- NOTE | 2020-12-06 11:11 | P.CNPUL ---
History of Present Illness Consult date: 12/06/20 Requesting physician: Hortensia Parker Reason for consult: dyspnea, cough, hypoxemia, pneumonia, abnormal CXR/CT Chief complaint: Shortness of breath, cough. History of present illness: 62-year-old male, who presents to the emergency department, with a chief complaint of cough, and congestion. The patient hasn't been feeling well all the way back even before November 27. He was in the ER on the and he tells me he tested negative for coronavirus. The patient sees a family doctor, and my partner for his chronic lung disease. More recently, his symptoms have progressed, and he came into the emergency room to be evaluated. He's complaining of shortness breath, chest congestion, and cough. He is coughing up some phlegm. No fever or chills. He is currently on saline at 75 mL an hour, a nd 4 L nasal cannula. He apparently tested positive on December 01. Again he been sick for 12-14 days. Because of this, he would not be a candidate for REM. He could get vitamins, Ecotrin dry, Lovenox, and, convalescent plasma. White count 4.5, hemoglobin 16.5, hematocrit 50.5, and platelet count 327,000. D-dimer is 0.44. Sodium 138, potassium 4.5, chloride 97, CO2 27, anion gap 14, BUN 43, and creatinine 1.5. LDH is 1164. C-reactive protein 65.2. Pro-calcitonin level was 0.13. Chest x-ray shows bilateral infiltrates. Review of Systems REVIEW OF SYSTEMS: CONSTITUTIONAL: Fatigue and weakness. NEUROLOGIC: [ Negative.] HEENT: [ Negative.] CARDIAC: [Negative.] PULMONARY: Shortness of breath, cough, chest congestion. GI: [Negative.] : [Negative.] RHEUMATOLOGIC: [ Negative.] IMMUNOLOGIC: [ Negative.] ENDOCRINE: [Negative. ] DERMATOLOGIC: [Negative.] Past Medical History Past Medical History: Coronary Artery Disease (CAD), COPD, Diabetes Mellitus, Hyperlipidemia, Hypertension, Osteoarthritis (OA), Pneumonia, Renal Disease, Vascular Disorder Additional Past Medical History / Comment(s): Pt tested covid + on 12/01/[address] Morillo's office. Other hx: Current bronchitis, IDDM type II, neuropathy bilateral feet/hands, CKD stage II-III, cardiac valve disease, murmur, aneurysm per pt, arthritis in back/chrinic back pain/past vertebral fractures, occasional lower leg/pedal edema, bilateral cataracts. History of Any Multi-Drug Resistant Organisms: None Reported Past Surgical History: No Surgical Hx Reported Additional Past Surgical History / Comment(s): Bronchoscopy, colonoscopies. Additional Past Anesthesia/Blood Transfusion Reaction / Comment(s): Pt states he stopped breathing during bronchoscopy. Smoking Status: Former smoker - Past Family History Father Family Medical History: Coronary Artery Disease (CAD) Additional Family Medical History / Comment(s): Father lived to be 85 yrs old. Mother Family Medical History: Cancer Additional Family Medical History / Comment(s): Mother of lung cancer. She was a smoker. Medications and Allergies Home Medications Medication Instructions Recorded Confirmed Type Atorvastatin [Lipitor] 20 mg PO HS 02/28/15 12/05/20 History amLODIPine [Norvasc] 10 mg PO DAILY 02/28/15 12/05/20 History Allopurinol [Zyloprim] 100 mg PO DAILY 11/27/20 12/05/20 History Aspirin EC [Ecotrin Low Dose] 81 mg PO HS 11/27/20 12/05/20 History Dapagliflozin Propanediol [Farxiga] 10 mg PO DAILY 11/27/20 12/05/20 History Ergocalciferol [Vitamin D2 (1250 1,250 mcg PO Q14D 11/27/20 12/05/20 History Mcg = 22865 Iu)] Furosemide [Lasix] 40 mg PO DAILY 11/27/20 12/05/20 History Losartan Potassium 100 mg PO DAILY 11/27/20 12/05/20 History Magnesium(Uknown Dose) 1 tab PO DAILY 11/27/20 12/05/20 History Pioglitazone [Actos] 15 mg PO DAILY 11/27/20 12/05/20 History Vitamin C(Unknown Dose) 1 tab PO DAILY 11/27/20 12/05/20 History Insulin Glargine,Hum.rec.anlog 30 unit SQ BID #1 vial 11/28/20 12/05/20 Rx [Lantus Solostar] metFORMIN HCL [Glucophage] 1,000 mg PO BID #30 tab 11/28/20 12/05/20 Rx Albuterol Inhaler [Ventolin Hfa 2 puff INHALATION RT-QID PRN 12/05/20 12/05/20 History Inhaler] Azithromycin [Zithromax] See Taper PO DIRECTED 12/05/20 12/05/20 History Dulaglutide [Trulicity] 3 mg SQ TH 12/05/20 12/05/20 History methylPREDNISolone [Medrol Dose See Taper PO DIRECTED 12/05/20 12/05/20 History Pack] Allergies Allergy/AdvReac Type Severity Reaction Status Date / Time Iodinated Contrast Media Allergy Unknown Verified 12/05/20 20:39 [Iodinated Contrast Media - IV Dye] Physical Exam Osteopathic Statement: *. No significant issues noted on an osteopathic structural exam other than those noted in the History and Physical/Consult. Vitals: Vital Signs Temp Pulse Pulse Resp BP BP Pulse Ox 12/06/20 07:52 98.2 F 78 18 157/79 91 L 12/06/20 06:00 97.9 F 72 18 133/81 96 12/05/20 23:41 99.7 F H 81 18 141/78 90 L 12/05/20 21:00 84 16 146/86 92 L 12/05/20 18:49 26 H 12/05/20 15:55 99.5 F 101 H 22 136/89 91 L Intake and Output 12/05/20 12/06/20 12/06/20 22:59 06:59 14:59 Other: Weight 154.221 kg 154.221 kg No acute distress, oriented 3. Currently on 4 L. No conversational dyspnea or use of accessory muscles. HEENT examination is grossly unremarkable. Neck supple. Full range of motion. No adenopathy thyromegaly or neck vein distention. Cardiovascular examination reveals regular rhythm rate. S1-S2 normal. No S3 or S4. No discernible murmur noted. Heart rate 70 bpm. Lungs reveal bilateral rhonchi. No wheezes or crackles. Breath sounds equal bilaterally. Abdomen soft bowel sounds are heard. No masses or tenderness. Extremities are intact. No cyanosis clubbing or edema. Skin is without rash or lesion. Neurologic examination is brief but nonfocal. Results - Laboratory Findings CBC and BMP: 12/06/20 04:49 12/06/20 04:49 PT/INR, D-dimer PT 10.1 sec (9.0-12.0) 12/05/20 18:39 INR 0.9 (<1.2) 12/05/20 18:39 D-Dimer 0.44 mg/L FEU (<0.60) 12/05/20 18:39 Abnormal lab findings: Abnormal Labs 12/05/20 12/05/20 12/05/20 17:19 18:39 18:39 RBC 6.14 H Hct Lymphocytes # 0.7 L Eosinophils # Sodium 136 L Chloride 94 L Anion Gap BUN 40 H Creatinine 1.42 H Est GFR (CKD-EPI)AfAm Est GFR (CKD-EPI)NonAf BUN/Creatinine Ratio Glucose 240 H POC Glucose (mg/dL) Magnesium 2.4 H Lactate Dehydrogenase 1164 H C-Reactive Protein 65.2 H Procalcitonin Coronavirus (PCR) Detected A 12/05/20 12/05/20 12/06/20 18:39 23:06 04:49 RBC 5.92 H Hct 50.5 H Lymphocytes # 0.80 L Eosinophils # 0 L Sodium Chloride Anion Gap BUN Creatinine Est GFR (CKD-EPI)AfAm Est GFR (CKD-EPI)NonAf BUN/Creatinine Ratio Glucose POC Glucose (mg/dL) 190 H Magnesium Lactate Dehydrogenase C-Reactive Protein Procalcitonin 0.13 H Coronavirus (PCR) 12/06/20 12/06/20 04:49 07:51 RBC Hct Lymphocytes # Eosinophils # Sodium Chloride Anion Gap 13.60 H BUN 43.0 H Creatinine Est GFR (CKD-EPI)AfAm 54.7 L Est GFR (CKD-EPI)NonAf 47.2 L BUN/Creatinine Ratio 28.67 H Glucose 268 H POC Glucose (mg/dL) 227 H Magnesium Lactate Dehydrogenase C-Reactive Protein Procalcitonin Coronavirus (PCR) - Diagnostic Findings Chest x-ray: image reviewed Assessment and Plan Assessment: Acute hypoxemic respiratory failure secondary to COVID 19 pneumonia/pneumonitis. History of COPD/chronic bronchitis. History of diabetes mellitus. History of hyperlipidemia. History of hypertension. Previous history of tobacco use. Plan: Plan dated 12/06/2020. The patient should get vitamin C, vitamin D3, and zinc. In addition, the patient should get Decadron, 6 mg a day, and Lovenox 40 mg subcu daily. The patient is not a candidate for REM. Continue to watch patient closely. Additional recommendations and suggestions are forthcoming. The patient does have risk factors for deterioration including COPD, and obesity. Additional recommendations and suggestions are forthcoming. Prognosis is guarded. Time with Patient: Greater than 30
[2020-12-06 11:56] LABS: Glucose,Whole Blood 287 mg/dL (75-99)
--- NOTE | 2020-12-06 12:51 | P.HPIM ---
History of Present Illness 62-year-old the female came in with cough congestion symptoms has been going on since November 27 and patient was tested negative in for Covid 19. Patient's symptoms continued to get worse patient was complaining of cough shortness of breath found to be hypoxic present in 4 L of oxygen. Patient denied any symptoms of diarrhea was having some nausea no vomiting. Patient has elevated inflammatory markers creatinine of 1.5 d-dimer of 0.44. Patient had a low-grade fever last night. Review of Systems REVIEW OF SYSTEMS: CONSTITUTIONAL: As mentioned in HPI HEENT: No recent visual problems or hearing problems. Denied any sore throat. CARDIOVASCULAR: No chest pain, orthopnea, PND, no palpitations, no syncope. PULMONARY: As mentioned in HPI GASTROINTESTINAL: No diarrhea, no vomiting, no abdominal pain. NEUROLOGICAL: No headaches, no weakness, no numbness. HEMATOLOGICAL: Denies any bleeding or petechiae. GENITOURINARY: Denies any burning micturition, frequency, or urgency. MUSCULOSKELETAL/RHEUMATOLOGICAL: Denies any joint pain, swelling, or any muscle pain. ENDOCRINE: Denies any polyuria or polydipsia. The rest of the 14-point review of systems is negative. Past Medical History Past Medical History: Coronary Artery Disease (CAD), COPD, Diabetes Mellitus, Hyperlipidemia, Hypertension, Osteoarthritis (OA), Pneumonia, Renal Disease, Vas cular Disorder Additional Past Medical History / Comment(s): Pt tested covid + on 12/01/[address] Morillo's office. Other hx: Current bronchitis, IDDM type II, neuropathy bilateral feet/hands, CKD stage II-III, cardiac valve disease, murmur, aneurysm per pt, arthritis in back/chrinic back pain/past vertebral fractures, occasional lower leg/pedal edema, bilateral cataracts. History of Any Multi-Drug Resistant Organisms: None Reported Past Surgical History: No Surgical Hx Reported Additional Past Surgical History / Comment(s): Bronchoscopy, colonoscopies. Additional Past Anesthesia/Blood Transfusion Reaction / Comment(s): Pt states he stopped breathing during bronchoscopy. Smoking Status: Former smoker - Past Family History Father Family Medical History: Coronary Artery Disease (CAD) Additional Family Medical History / Comment(s): Father lived to be 85 yrs old. Mother Family Medical History: Cancer Additional Family Medical History / Comment(s): Mother of lung cancer. She was a smoker. Medications and Allergies Home Medications Medication Instructions Recorded Confirmed Type Atorvastatin [Lipitor] 20 mg PO HS 02/28/15 12/05/20 History amLODIPine [Norvasc] 10 mg PO DAILY 02/28/15 12/05/20 History Allopurinol [Zyloprim] 100 mg PO DAILY 11/27/20 12/05/20 History Aspirin EC [Ecotrin Low Dose] 81 mg PO HS 11/27/20 12/05/20 History Dapagliflozin Propanediol [Farxiga] 10 mg PO DAILY 11/27/20 12/05/20 History Ergocalciferol [Vitamin D2 (1250 1,250 mcg PO Q14D 11/27/20 12/05/20 History Mcg = 56930 Iu)] Furosemide [Lasix] 40 mg PO DAILY 11/27/20 12/05/20 History Losartan Potassium 100 mg PO DAILY 11/27/20 12/05/20 History Magnesium(Uknown Dose) 1 tab PO DAILY 11/27/20 12/05/20 History Pioglitazone [Actos] 15 mg PO DAILY 11/27/20 12/05/20 History Vitamin C(Unknown Dose) 1 tab PO DAILY 11/27/20 12/05/20 History Insulin Glargine,Hum.rec.anlog 30 unit SQ BID #1 vial 11/28/20 12/05/20 Rx [Lantus Solostar] metFORMIN HCL [Glucophage] 1,000 mg PO BID #30 tab 11/28/20 12/05/20 Rx Albuterol Inhaler [Ventolin Hfa 2 puff INHALATION RT-QID PRN 12/05/20 12/05/20 History Inhaler] Azithromycin [Zithromax] See Taper PO DIRECTED 12/05/20 12/05/20 History Dulaglutide [Trulicity] 3 mg SQ TH 12/05/20 12/05/20 History methylPREDNISolone [Medrol Dose See Taper PO DIRECTED 12/05/20 12/05/20 His tory Pack] Allergies Allergy/AdvReac Type Severity Reaction Status Date / Time Iodinated Contrast Media Allergy Unknown Verified 12/05/20 20:39 [Iodinated Contrast Media - IV Dye] Physical Exam Vitals: Vital Signs Temp Pulse Pulse Resp BP BP Pulse Ox 12/06/20 11:13 90 L 12/06/20 11:07 98 F 24 141/79 12/06/20 07:52 98.2 F 78 18 157/79 91 L 12/06/20 06:00 97.9 F 72 18 133/81 96 12/05/20 23:41 99.7 F H 81 18 141/78 90 L 12/05/20 21:00 84 16 146/86 92 L 12/05/20 18:49 26 H 12/05/20 15:55 99.5 F 101 H 22 136/89 91 L Intake and Output 12/05/20 12/06/20 12/06/20 22:59 06:59 14:59 Other: Weight 154.221 kg 154.221 kg PHYSICAL EXAMINATION: GENERAL: The patient is alert and oriented x3, not in any acute distress. Well developed, well nourished. HEENT: Pupils are round and equally reacting to light. EOMI. No scleral icterus. No conjunctival pallor. Normocephalic, atraumatic. No pharyngeal erythema. No thyromegaly. CARDIOVASCULAR: S1 and S2 present. No murmurs, rubs, or gallops. PULMONARY: Chest is clear to auscultation, no wheezing or crackles. ABDOMEN: Soft, nontender, nondistended, normoactive bowel sounds. No palpable organomegaly. MUSCULOSKELETAL: No joint swelling or deformity. EXTREMITIES: No cyanosis, clubbing, or pedal edema. NEUROLOGICAL: Gross neurological examination did not reveal any focal deficits. SKIN: No rashes. Results CBC & Chem 7: 12/06/20 04:49 12/06/20 04:49 Labs: Abnormal Lab Results - Last 24 Hours (Table) 12/05/20 12/05/20 12/05/20 Range/Units 17:19 18:39 18:39 RBC 6.14 H (4.30-5.90) m/uL Hct (39.6-50.0) % Lymphocytes # 0.7 L (1.0-4.8) k/uL Eosinophils # (0.04-0.35) X 10*3/uL Sodium 136 L (137-145) mmol/L Chloride 94 L (98-107) mmol/L Anion Gap (4.00-12.00) mmol/L BUN 40 H (9-20) mg/dL Creatinine 1.42 H (0.66-1.25) mg/dL Est GFR (CKD-EPI)AfAm (60.0-200.0) Est GFR (CKD-EPI)NonAf (60.0-200.0) BUN/Creatinine Ratio (12.00-20.00) Ratio Glucose 240 H (74-99) mg/dL POC Glucose (mg/dL) (75-99) mg/dL Magnesium 2.4 H (1.6-2.3) mg/dL Lactate Dehydrogenase 1164 H (313-618) U/L C-Reactive Protein 65.2 H (<10.0) mg/L Procalcitonin (0.02-0.09) ng/mL Coronavirus (PCR) Detected A (Not Detectd) 12/05/20 12/05/20 12/06/20 Range/Units 18:39 23:06 04:49 RBC 5.92 H (4.30-5.90) m/uL Hct 50.5 H (39.6-50.0) % Lymphocytes # 0.80 L (1.0-4.8) k/uL Eosinophils # 0 L (0.04-0.35) X 10*3/uL Sodium (137-145) mmol/L Chloride (98-107) mmol/L Anion Gap (4.00-12.00) mmol/L BUN (9-20) mg/dL Creatinine (0.66-1.25) mg/dL Est GFR (CKD-EPI)AfAm (60.0-200.0) Est GFR (CKD-EPI)NonAf (60.0-200.0) BUN/Creatinine Ratio (12.00-20.00) Ratio Glucose (74-99) mg/dL POC Glucose (mg/dL) 190 H (75-99) mg/dL Magnesium (1.6-2.3) mg/dL Lactate Dehydrogenase (313-618) U/L C-Reactive Protein (<10.0) mg/L Procalcitonin 0.13 H (0.02-0.09) ng/mL Coronavirus (PCR) (Not Detectd) 12/06/20 12/06/20 12/06/20 Range/Units 04:49 07:51 11:54 RBC (4.30-5.90) m/uL Hct (39.6-50.0) % Lymphocytes # (1.0-4.8) k/uL Eosinophils # (0.04-0.35) X 10*3/uL Sodium (137-145) mmol/L Chloride (98-107) mmol/L Anion Gap 13.60 H (4.00-12.00) mmol/L BUN 43.0 H (9-20) mg/dL Creatinine (0.66-1.25) mg/dL Est GFR (CKD-EPI)AfAm 54.7 L (60.0-200.0) Est GFR (CKD-EPI)NonAf 47.2 L (60.0-200.0) BUN/Creatinine Ratio 28.67 H (12.00-20.00) Ratio Glucose 268 H (74-99) mg/dL POC Glucose (mg/dL) 227 H 287 H (75-99) mg/dL Magnesium (1.6-2.3) mg/dL Lactate Dehydrogenase (313-618) U/L C-Reactive Protein (<10.0) mg/L Procalcitonin (0.02-0.09) ng/mL Coronavirus (PCR) (Not Detectd) Thrombosis Risk Factor Assmnt - Choose All That Apply Any of the Below Risk Factors Present?: Yes Each Factor Represents 1 point: Abnormal pulmonary function (COPD), Obesity (BMI >25), Serious lung disease incl. pneumonia (< 1month) Other Risk Factors: Yes Each Risk Factor Represents 2 Points: Age 61-74 years Other congenital or acquired thrombophilia - If yes, enter type in comment: No Thrombosis Risk Factor Assessment Total Risk Factor Score: 5 Thrombosis Risk Factor Assessment Level: High Risk Assessment and Plan Plan: -Acute hypoxic respiratory failure secondary to covid 19 pneumonia.: Continue the support With oxygen,, Decadron, Covid vitamins, not a candidate for Remdesivir. COPD without any acute exacerbation Acute renal failure on chronic kidney disease stage III acute renal failure secondary to renal azotemia dehydration patient will be continued on IV fluids repeat basic metabolic profile tomorrow -Hyperlipidemia -Hypertension -Type 2 diabetes mellitus -DVT prophylaxis with subcutaneous heparin because of his renal failure
[2020-12-06 13:28] LABS: Ferritin 397.4 ng/mL (22.0-322.0)
[2020-12-06] MEDS: HEPARIN SODIUM,PORCINE/PF 5,000 UNIT/0.5 ML SYRINGE SQ SCH ×2 (15:14→23:09)
[2020-12-06 16:42] LABS: Glucose,Whole Blood 225 mg/dL (75-99)
[2020-12-06 21:04] LABS: Glucose,Whole Blood 218 mg/dL (75-99)
[2020-12-06] MEDS: ASPIRIN 81 MG PO SCH (21:22)
[2020-12-06] MEDS: ATORVASTATIN 20 MG TAB PO SCH (21:22)
[2020-12-07 07:29] LABS: Glucose,Whole Blood 96 mg/dL (75-99)
[2020-12-07] MEDS: ALBUTEROL HFA INHALER INHALATION PRN ×3 (07:32→18:59)
[2020-12-07] MEDS: INSULIN ASPART (NovoLOG) 100 UNIT/ML VIAL SQ SCH ×4 (08:09→20:22)
[2020-12-07] MEDS: NON FORMULARY DRUG (Dapagliflozin Propanediol [Farxiga] 10 MG Tablet) PO SCH (08:48)
[2020-12-07] MEDS: HEPARIN SODIUM,PORCINE/PF 5,000 UNIT/0.5 ML SYRINGE SQ SCH (09:08)
[2020-12-07] MEDS: PIOGLITAZONE 15 MG TAB PO SCH (09:08)
[2020-12-07] MEDS: ASCORBIC ACID 500 MG TAB PO SCH ×2 (09:09→20:22)
[2020-12-07] MEDS: allopurinoL 100 MG TAB PO SCH (09:09)
[2020-12-07] MEDS: ZINC SULFATE 220 MG CAP PO SCH (09:09)
[2020-12-07] MEDS ORDERED: DEXAMETHASONE SOD PHOSPHATE 10 MG/ML 1 ML VIAL IV SCH (09:45)
[2020-12-07] MEDS ORDERED: guaiFENesin-Coden 100-10MG/5ML 10 ML CUP PO SCH (09:45)
--- NOTE | 2020-12-07 11:10 | P.PN ---
Subjective Progress Note Date: 12/07/20 Principal diagnosis: Dyspnea, hypoxia, COVID 19 70-year-old male, who presents to the emergency department, with a chief complaint of cough, and congestion. The patient hasn't been feeling well all the way back even before November 27. He was in the ER on the and he tells me he tested negative for coronavirus. The patient sees a family doctor, and my partner for his chronic lung disease. More recently, his symptoms have progressed, and he came into the emergency room to be evaluated. He's complaining of shortness breath, chest congestion, and cough. He is coughing up some phlegm. No fever or chills. He is currently on saline at 75 mL an hour, and 4 L nasal cannula. He apparently tested positive on December 01. Again he been sick for 12-14 days. Because of this, he would not be a candidate for REM. He could get vitamins, Ecotrin dry, Lovenox, and, convalescent plasma. White count 4.5, hemoglobin 16.5, hematocrit 50.5, and platelet count 327,000. D-dimer is 0.44. Sodium 138, potassium 4.5, chloride 97, CO2 27, anion gap 14, BUN 43, and creatinine 1.5. LDH is 1164. C-reactive protein 65.2. Pro-calcitonin level was 0.13. Chest x-ray shows bilateral infiltrates. On 12/07/2020 patient seen in follow-up on medical surgical floor, he is currently on 6 L of oxygen which has been increased since yesterday, and his pulse ox is at 92%, he does easily desaturate into the low 70s with exertion and ambulation to the bathroom, patient was out of the window for Remdesivir, he recently dose of Decadron, he is on subcutaneous heparin 8 mg every 8 hours, he is on vitamins, states he still feeling lousy, coughing a lot. Still not able to take in a lot of by mouth, he is on IV hydration 0.9 normal saline at rate is 75 ML per hour, no new labs from today, we will order a set of inflammatory markers, follow-up d-dimer. Lung sounds are diminished, with some fine crackles bilaterally. No wheezing. Objective - Vital Signs Vital signs: Vital Signs Temp 98.3 F 12/07/20 08:00 Pulse 88 12/07/20 08:00 Resp 20 12/07/20 08:54 BP 113/67 12/07/20 08:00 Pulse Ox 92 L 12/07/20 08:54 Intake & Output 12/06/20 12/07/20 12/07/20 18:59 06:59 18:59 Intake Total 1380 Balance 1380 Weight 154.221 kg Intake: Intake, IV Titration 900 Amount Sodium Chloride 0.9% 1, 900 000 ml @ 75 mls/hr IV . [id number] [facility] Rx#:[id number] Oral 480 Other: # Voids 3 4 - Exam GENERAL EXAM: Sleepy, but easily arousable, 70-year-old morbidly obese white male, appears a fatigued, reluctant to interact, frequent nonproductive cough, currently on 6 L of oxygen pulse ox is 92%, comfortable in no apparent distress. HEAD: Normocephalic/atraumatic. EYES: Normal reaction of pupils, equal size. Conjunctiva pink, sclera white. NOSE: Clear with pink turbinates. THROAT: No erythema or exudates. NECK: No masses, no JVD, no thyroid enlargement, no adenopathy. CHEST: No chest wall deformity. Symmetrical expansion. LUNGS: Diminished breath sounds bilaterally, with bilateral crackles CVS: Regular rate and rhythm, normal S1 and S2, no gallops, no murmurs, no rubs ABDOMEN: Soft, nontender. No hepatosplenomegaly, normal bowel sounds, no guarding or rigidity. EXTREMITIES: No clubbing, no edema, no cyanosis, 2+ pulses and upper and lower extremities. MUSCULOSKELETAL: Muscle strength and tone normal. SPINE: No scoliosis or deformity SKIN: No rashes CENTRAL NERVOUS SYSTEM: Alert and oriented -3. No focal deficits, tone is normal in all 4 extremities. - Labs CBC & Chem 7: 12/06/20 04:49 12/06/20 04:49 Labs: Abnormal Lab Results - Last 24 Hours (Table) 12/05/20 12/06/20 12/06/20 Range/Units 18:39 11:54 16:41 POC Glucose (mg/dL) 287 H 225 H (75-99) mg/dL Ferritin 397.4 H (22.0-322.0) ng/mL 12/06/20 Range/Units 20:59 POC Glucose (mg/dL) 218 H (75-99) mg/dL Ferritin (22.0-322.0) ng/mL Microbiology - Last 24 Hours (Table) 12/05/20 18:39 Blood Culture - Preliminary Blood No Growth after 24 hours 12/05/20 18:20 Blood Culture - Preliminary Blood No Growth after 24 hours Assessment and Plan Plan: Assessment: #1. Acute hypoxic respiratory failure related to acute COVID 19 related pneumonia, patient was out of the window for Remdesivir, he's been treated with steroids, prophylactic anticoagulation, vitamins and supportive medical treatment #2. History of COPD/chronic bronchitis #3. History of diabetes mellitus type 2 #4. History of hypertension #5. History of hyperlipidemia #6. Morbid obesity with a BMI of 51.7 kg/m #7. Previous history of tobacco use Plan: We will add the Decadron back on at 6 mg IV push daily, we will switch heparin to subcutaneous Lovenox at prophylactic dose as there is mild anti-inflammatory benefit to Lovenox compared subcutaneous heparin. Continue vitamins, we'll obtain follow-up labs, and follow-up chest x-ray today. Continue to closely follow clinical course, overall prognosis is guarded, will offer a unit of convalescent plasma I performed a history & physical examination of the patient and discussed their management with my nurse practitioner, Sridevi Cannon. I reviewed the nurse practitioner's note and agree with the documented findings and plan of care. Lung sounds are positive for diminished breath sounds with bilateral crackles. The findings and the impression was discussed with the patient. I attest to the documentation by the nurse practitioner. Time with Patient: Less than 30
--- NOTE | 2020-12-07 11:31 | P.PN ---
Subjective 62-year-old the female came in with cough congestion symptoms has been going on since November 27 and patient was tested negative in for Covid 19. Patient's symptoms continued to get worse patient was complaining of cough shortness of breath found to be hypoxic present in 4 L of oxygen. Patient denied any symptoms of diarrhea was having some nausea no vomiting. Patient has elevated inflammatory markers creatinine of 1.5 d-dimer of 0.44. Patient had a low-grade fever last night. 12/07/2020 Patient is presently in 6 L of oxygen his respiratory status is bit worse patient denied any complaints is bit slow because of his Parkinson's. Patient is also receiving normal saline at 75 mL/h repeat labs are still pending. Constitutional: Denied any fatigue denied any fever. Cardio vascular: denied any chest pain, palpitations Gastrointestinal denied any nausea vomiting Pulmonary: Denied any shortness of breath cough Neurologic denied any new focal deficits All inpatient medications were reviewed and appropriate changes in these medic ations as dictated in the interval history and assessment and plan. Objective - Vital Signs Vital signs: Vital Signs Temp 98.3 F 12/07/20 08:00 Pulse 88 12/07/20 08:00 Resp 20 12/07/20 08:54 BP 113/67 12/07/20 08:00 Pulse Ox 92 L 12/07/20 08:54 Intake & Output 12/06/20 12/07/20 12/07/20 18:59 06:59 18:59 Intake Total 1380 Balance 1380 Weight 154.221 kg Intake: Intake, IV Titration 900 Amount Sodium Chloride 0.9% 1, 900 000 ml @ 75 mls/hr IV . [id number] [facility] Rx#:[id number] Oral 480 Other: # Voids 3 4 - Exam PHYSICAL EXAMINATION: GENERAL: The patient is alert and oriented x3, not in any acute distress. Well developed, well nourished. HEENT: Pupils are round and equally reacting to light. EOMI. No scleral icterus. No conjunctival pallor. Normocephalic, atraumatic. No pharyngeal erythema. No t hyromegaly. CARDIOVASCULAR: S1 and S2 present. No murmurs, rubs, or gallops. PULMONARY: Chest is clear to auscultation, no wheezing or crackles. ABDOMEN: Soft, nontender, nondistended, normoactive bowel sounds. No palpable organomegaly. MUSCULOSKELETAL: No joint swelling or deformity. EXTREMITIES: No cyanosis, clubbing, or pedal edema. NEUROLOGICAL: Gross neurological examination did not reveal any focal deficits. SKIN: No rashes. - Labs CBC & Chem 7: 12/06/20 04:49 12/06/20 04:49 Labs: Abnormal Lab Results - Last 24 Hours (Table) 12/05/20 12/06/20 12/06/20 Range/Units 18:39 11:54 16:41 POC Glucose (mg/dL) 287 H 225 H (75-99) mg/dL Ferritin 397.4 H (22.0-322.0) ng/mL 12/06/20 Range/Units 20:59 POC Glucose (mg/dL) 218 H (75-99) mg/dL Ferritin (22.0-322.0) ng/mL Microbiology - Last 24 Hours (Table) 12/05/20 18:39 Blood Culture - Preliminary Blood No Growth after 24 hours 12/05/20 18:20 Blood Culture - Preliminary Blood No Growth after 24 hours Assessment and Plan Plan: -Acute hypoxic respiratory failure secondary to covid 19 pneumonia.: Continue the support With oxygen,, Decadron, Covid vitamins, not a candidate for Remdesivir. Patient is presently on 6 L of oxygen. COPD without any acute exacerbation Acute renal failure on chronic kidney disease stage III acute renal failure secondary to renal azotemia dehydration patient will be continued on IV fluids repeat basic metabolic profile tomorrow -Hyperlipidemia -Hypertension -Type 2 diabetes mellitus -DVT prophylaxis with subcutaneous heparin because of his renal failure
--- NOTE | 2020-12-07 11:45 | P.PN ---
Subjective 62-year-old the female came in with cough congestion symptoms has been going on since November 27 and patient was tested negative in for Covid 19. Patient's symptoms continued to get worse patient was complaining of cough shortness of breath found to be hypoxic present in 4 L of oxygen. Patient denied any symptoms of diarrhea was having some nausea no vomiting. Patient has elevated inflammatory markers creatinine of 1.5 d-dimer of 0.44. Patient had a low-grade fever last night. 12/07/2020 Patient is presently in 6 L of oxygen his respiratory status is bit worse , patient doesn't feel well feels sick and short of breath. Patient is also receiving normal saline at 75 mL/h repeat labs are still pending. Constitutional: As mentioned interval history Cardio vascular: denied any chest pain, palpitations Gastrointestinal denied any nausea vomiting Pulmonary: As mentioned in the interval history Neurologic denied any new focal deficits All inpatient medications were reviewed and appropriate changes in these medications as dictated in the interval history and assessment and plan. Objective - Vital Signs Vital signs: Vital Signs Temp 98.3 F 12/07/20 08:00 Pulse 88 12/07/20 08:00 Resp 20 12/07/20 08:54 BP 113/67 12/07/20 08:00 Pulse Ox 86 L 12/07/20 11:30 Intake & Output 12/06/20 12/07/20 12/07/20 18:59 06:59 18:59 Intake Total 1380 Balance 1380 Weight 154.221 kg Intake: Intake, IV Titration 900 Amount Sodium Chloride 0.9% 1, 900 000 ml @ 75 mls/hr IV . [id number] [facility] Rx#:[id number] Oral 480 Other: # Voids 3 4 - Exam PHYSICAL EXAMINATION: GENERAL: The patient is alert and oriented x3, not in any acute distress. Well developed, well nourished. HEENT: Pupils are round and equally reacting to light. EOMI. No scleral icterus. No conjunctival pallor. Normocephalic, atraumatic. No pharyngeal erythema. No thyromegaly. CARDIOVASCULAR: S1 and S2 present. No murmurs, rubs, or gallops. PULMONARY: Chest is clear to auscultation, no wheezing or crackles. ABDOMEN: Soft, nontender, nondistended, normoactive bowel sounds. No palpable organomegaly. MUSCULOSKELETAL: No joint swelling or deformity. EXTREMITIES: No cyanosis, clubbing, or pedal edema. NEUROLOGICAL: Gross neurological examination did not reveal any focal deficits. SKIN: No rashes. - Labs CBC & Chem 7: 12/06/20 04:49 12/06/20 04:49 Labs: Abnormal Lab Results - Last 24 Hours (Table) 12/05/20 12/06/20 12/06/20 Range/Units 18:39 11:54 16:41 POC Glucose (mg/dL) 287 H 225 H (75-99) mg/dL Ferritin 397.4 H (22.0-322.0) ng/mL 12/06/20 Range/Units 20:59 POC Glucose (mg/dL) 218 H (75-99) mg/dL Ferritin (22.0-322.0) ng/mL Microbiology - Last 24 Hours (Table) 12/05/20 18:39 Blood Culture - Preliminary Blood No Growth after 24 hours 12/05/20 18:20 Blood Culture - Preliminary Blood No Growth after 24 hours Assessment and Plan Plan: -Acute hypoxic respiratory failure secondary to covid 19 pneumonia.: Continue the support With oxygen,, Decadron, Covid vitamins, not a candidate for Remdesivir. Patient is presently on 6 L of oxygen. COPD without any acute exacerbation Acute renal failure on chronic kidney disease stage III acute renal failure secondary to renal azotemia dehydration patient will be continued on IV fluids repeat basic metabolic profile tomorrow -Hyperlipidemia -Hypertension -Type 2 diabetes mellitus -DVT prophylaxis with subcutaneous heparin because of his renal failure
[2020-12-07 11:49] LABS: Basophils % (A) 0 %; Eosinophils % (A) 0 %; HCT 46.4 % (39.0-53.0); HGB 15.9 gm/dL (13.0-17.5); Lymphocytes # (A) 0.9 k/uL (1.0-4.8); Lymphocytes % (A) 13 %; MCH 28.3 pg (25.0-35.0); MCHC 34.3 g/dL (31.0-37.0); MCV 82.5 fL (80.0-100.0); Mean Platelet Volume 7.8; Monocytes # (A) 0.2 k/uL (0-1.0); Monocytes % (A) 3 %; Neutrophils # (A) 5.7 k/uL (1.3-7.7); Neutrophils % (A) 82 %; Platelet Count 226 k/uL (150-450); RBC 5.63 m/uL (4.30-5.90); RDW 13.6 % (11.5-15.5)
[2020-12-07 12:00] LABS: Albumin 3.3 g/dL (3.5-5.0); C Reactive Protein 57.6 mg/L (<10.0); Calcium 7.9 mg/dL (8.4-10.2); Potassium 3.8 mmol/L (3.5-5.1); Total Bilirubin 0.5 mg/dL (0.2-1.3); Total Protein 5.7 g/dL (6.3-8.2)
[2020-12-07] MEDS: amLODIPine 10 MG TAB PO SCH (12:04)
[2020-12-07] MEDS: INSULIN DETEMIR (LEVEMIR) 100 UNIT/ML SYR SQ SCH ×2 (12:05→20:21)
[2020-12-07] MEDS: LOSARTAN 50 MG TAB PO SCH (12:05)
[2020-12-07 12:08] LABS: Glucose,Whole Blood 124 mg/dL (75-99)
[2020-12-07] MEDS: ENOXAPARIN 40 MG/0.4 ML SYRINGE SQ SCH (12:31)
[2020-12-07] MEDS: SODIUM CHLORIDE 0.9% 1,000 ML IV SCH (12:32)
--- NOTE | 2020-12-07 12:45 | XR ---
EXAMINATION TYPE: XR chest 1V portable DATE OF EXAM: 12/07/2020 COMPARISON: 12/05/2020 HISTORY: Shortness of breath, cough TECHNIQUE: Single frontal view of the chest is obtained. FINDINGS: Patchy bilateral infiltrates are stable. Heart size is enlarged. Ectasia of the aorta is s table. No pneumothorax. Osseous structures are stable. IMPRESSION: 1. Patchy bilateral diffuse infiltrates correlate for pneumonia.
[2020-12-07 17:01] LABS: Glucose,Whole Blood 156 mg/dL (75-99)
[2020-12-07 19:55] LABS: Glucose,Whole Blood 257 mg/dL (75-99)
[2020-12-07] MEDS: DULAGLUTIDE 3 MG/0.5 ML SQ SCH (20:20)
[2020-12-07] MEDS: ASPIRIN 81 MG PO SCH (20:22)
[2020-12-07] MEDS: ATORVASTATIN 20 MG TAB PO SCH (20:22)
[2020-12-08] MEDS: guaiFENesin-Coden 100-10MG/5ML 10 ML CUP PO SCH ×6 (01:08→23:39)
[2020-12-08] MEDS: SODIUM CHLORIDE 0.9% 1,000 ML IV SCH ×2 (02:01→15:45)
[2020-12-08 07:07] LABS: ALT 25 U/L (4-49); AST 53 U/L (17-59); African American GFR (CKD) >90 (>60 ml/min/1.73 sqM); Albumin 3.3 g/dL (3.5-5.0); Alkaline Phosphatase 84 U/L (38-126); Anion Gap 7 mmol/L; Blood Urea Nitrogen 26 mg/dL (9-20); C Reactive Protein 76.6 mg/L (<10.0); Calcium 8.1 mg/dL (8.4-10.2); Carbon Dioxide 31 mmol/L (22-30); Chloride 100 mmol/L (98-107); Glucose 174 mg/dL (74-99); LDH 2137 U/L (313-618); Non-African American GFR(CKD) 80 (>60 ml/min/1.73 sqM); Potassium 4.7 mmol/L (3.5-5.1); Sodium 138 mmol/L (137-145); Total Bilirubin 0.5 mg/dL (0.2-1.3); Total Protein 5.7 g/dL (6.3-8.2)
[2020-12-08 07:17] LABS: Glucose,Whole Blood 178 mg/dL (75-99)
[2020-12-08] MEDS: ALBUTEROL HFA INHALER INHALATION PRN ×2 (07:44→15:33)
[2020-12-08] MEDS ORDERED: FUROSEMIDE 10 MG/ML 4 ML VIAL IV STA (08:12)
[2020-12-08] MEDS: methylPREDNISolone SOD SUCCI 125 MG/2 ML VIAL IV SCH ×4 (08:28→23:40)
[2020-12-08] MEDS: INSULIN ASPART (NovoLOG) 100 UNIT/ML VIAL SQ SCH ×4 (08:33→21:13)
[2020-12-08] MEDS: NON FORMULARY DRUG (Dapagliflozin Propanediol [Farxiga] 10 MG Tablet) PO SCH (09:22)
[2020-12-08 09:51] LABS: ABG Base Excess 6.1 mmol/L; ABG HCO3 30 mmol/L (21-25); ABG Oxygen Saturation 89.4 % (94-97); ABG PCO2 43 mmHg (35-45); ABG PH 7.45 (7.35-7.45); ABG TCO2 31 mmol/L (19-24); Allen Test Performed? Yes
[2020-12-08 09:53] LABS: ABG PO2 55 mmHg (83-108)
[2020-12-08] MEDS ORDERED: TOCILIZUMAB 800 MG in SODIUM CHLORIDE 0.9% 60 ML IV ONE (10:00)
[2020-12-08] MEDS: ZINC SULFATE 220 MG CAP PO SCH (10:23)
[2020-12-08] MEDS: ASCORBIC ACID 500 MG TAB PO SCH ×2 (10:23→22:04)
[2020-12-08] MEDS: allopurinoL 100 MG TAB PO SCH (10:23)
[2020-12-08] MEDS: INSULIN DETEMIR (LEVEMIR) 100 UNIT/ML SYR SQ SCH ×2 (10:24→21:13)
[2020-12-08] MEDS: ENOXAPARIN 40 MG/0.4 ML SYRINGE SQ SCH (10:24)
[2020-12-08] MEDS: LOSARTAN 50 MG TAB PO SCH (10:26)
[2020-12-08] MEDS: PIOGLITAZONE 15 MG TAB PO SCH (10:26)
[2020-12-08 10:46] LABS: Glucose,Whole Blood 156 mg/dL (75-99)
[2020-12-08 11:42] LABS: Glucose,Whole Blood 141 mg/dL (75-99)
--- NOTE | 2020-12-08 14:20 | P.PN ---
Subjective Progress Note Date: 12/08/20 Principal diagnosis: Dyspnea, hypoxia, COVID 19 70-year-old male, who presents to the emergency department, with a chief complaint of cough, and congestion. The patient hasn't been feeling well all the way back even before November 27. He was in the ER on the and he tells me he tested negative for coronavirus. The patient sees a family doctor, and my partner for his chronic lung disease. More recently, his symptoms have progressed, and he came into the emergency room to be evaluated. He's complaining of shortness breath, chest congestion, and cough. He is coughing up some phlegm. No fever or chills. He is currently on saline at 75 mL an hour, and 4 L nasal cannula. He apparently tested positive on December 01. Again he been sick for 12-14 days. Because of this, he would not be a candidate for REM. He could get vitamins, Ecotrin dry, Lovenox, and, convalescent plasma. White count 4.5, hemoglobin 16.5, hematocrit 50.5, and platelet count 327,000. D-dimer is 0.44. Sodium 138, potassium 4.5, chloride 97, CO2 27, anion gap 14, BUN 43, and creatinine 1.5. LDH is 1164. C-reactive protein 65.2. Pro-calcitonin level was 0.13. Chest x-ray shows bilateral infiltrates. On 12/07/2020 patient seen in follow-up on medical surgical floor, he is currently on 6 L of oxygen which has been increased since yesterday, and his pulse ox is at 92%, he does easily desaturate into the low 70s with exertion and ambulation to the bathroom, patient was out of the window for Remdesivir, he recently dose of Decadron, he is on subcutaneous heparin 8 mg every 8 hours, he is on vitamins, states he still feeling lousy, coughing a lot. Still not able to take in a lot of by mouth, he is on IV hydration 0.9 normal saline at rate is 75 ML per hour, no new labs from today, we will order a set of inflammatory markers, follow-up d-dimer. Lung sounds are diminished, with some fine crackles bilaterally. No wheezing. On 12/08/2020 patient is seen in follow-up on medical surgical floor, overnight his breathing has Been much worse, he was placed on 15 L high flow oxygen and her percent nonrebreather, he still desaturating, he was subsequently placed on BiPAP support with pressures of 14/6 and FiO2 of 100%, last day he received 1 unit of convalescent plasma, today's chest x-ray still shows diffuse infiltrates, she was given a dose of IV Lasix, Buchanan catheter was placed, we switched his Decadron to IV Solu-Medrol 60 mg every 6 hours. He continued to struggle with his breathing, the decision was made to transfer the patient to the intensive care unit. Gas was obtained on the BiPAP support pressures of 14/6 and FiO2 100%, showing pO2 of 55, pCO2 43, and pH of 7.45, and subsequently his IPAP was increased to 16. Today's labs have been reviewed, showing sodium of 139, potassium is 4.7, CO2 is 31, B1 is 26, creatinine 0.98, LDH is increased at 2137, and CRP is 76. Blood culture is negative 2. Today's d-dimer is 0.47 Objective - Vital Signs Vital signs: Vital Signs Temp 98.7 F 12/08/20 07:15 Pulse 84 12/08/20 07:15 Resp 28 H 12/08/20 12:00 BP 151/86 12/08/20 10:05 Pulse Ox 88 L 12/08/20 07:15 Intake & Output 12/07/20 12/08/20 12/08/20 18:59 06:59 18:59 Intake Total 496 200 Output Total 1000 1950 Balance -504 -1750 Intake: IV 140 Sodium Chloride 0.9% 1, 40 000 ml @ 20 mls/hr IV . Q24H [facility] Rx#:[id number] Tocilizumab 800 mg In 100 Sodium Chloride 0.9% 60 ml @ 100 mls/hr IV ONCE ONE Rx#:[id number] Oral 180 60 Blood Product 316 Ffp Convalescent Plasma 316 Cpd Unit [id number] Output: Urine 1000 1950 Uretheral (Buchanan) 1600 Other: Voiding Method Toilet Indwelling Catheter # Voids 2 2 - Exam GENERAL EXAM: Sleepy, but easily arousable, 70-year-old morbidly obese white male, patient is currently on BiPAP support with pressures of 14/6 and FiO2 of 100%, GERD and tachypneic and breathing frequent cough HEAD: Normocephalic/atraumatic. EYES: Normal reaction of pupils, equal size. Conjunctiva pink, sclera white. NOSE: Clear with pink turbinates. THROAT: No erythema or exudates. NECK: No masses, no JVD, no thyroid enlargement, no adenopathy. CHEST: No chest wall deformity. Symmetrical expansion. LUNGS: Diminished breath sounds bilaterally, with bilateral crackles CVS: Regular rate and rhythm, normal S1 and S2, no gallops, no murmurs, no rubs ABDOMEN: Soft, nontender. No hepatosplenomegaly, normal bowel sounds, no guarding or rigidity. EXTREMITIES: No clubbing, no edema, no cyanosis, 2+ pulses and upper and lower extremities. MUSCULOSKELETAL: Muscle strength and tone normal. SPINE: No scoliosis or deformity SKIN: No rashes CENTRAL NERVOUS SYSTEM: Alert and oriented -3. No focal deficits, tone is normal in all 4 extremities. - Labs CBC & Chem 7: 12/07/20 11:23 12/08/20 06:02 Labs: Abnormal Lab Results - Last 24 Hours (Table) 12/07/20 12/07/20 12/08/20 Range/Units 16:59 19:53 06:02 ABG pO2 (83-108) mmHg ABG HCO3 (21-25) mmol/L ABG Total CO2 (19-24) mmol/L ABG O2 Saturation (94-97) % Carbon Dioxide 31 H (22-30) mmol/L BUN 26 H (9-20) mg/dL Glucose 174 H (74-99) mg/dL POC Glucose (mg/dL) 156 H 257 H (75-99) mg/dL Calcium 8.1 L (8.4-10.2) mg/dL Lactate Dehydrogenase 2137 H (313-618) U/L C-Reactive Protein 76.6 H (<10.0) mg/L Total Protein 5.7 L (6.3-8.2) g/dL Albumin 3.3 L (3.5-5.0) g/dL 12/08/20 12/08/20 12/08/20 Range/Units 07:01 09:48 10:44 ABG pO2 55 L* (83-108) mmHg ABG HCO3 30 H (21-25) mmol/L ABG Total CO2 31 H (19-24) mmol/L ABG O2 Saturation 89.4 L (94-97) % Carbon Dioxide (22-30) mmol/L BUN (9-20) mg/dL Glucose (74-99) mg/dL POC Glucose (mg/dL) 178 H 156 H (75-99) mg/dL Calcium (8.4-10.2) mg/dL Lactate Dehydrogenase (313-618) U/L C-Reactive Protein (<10.0) mg/L Total Protein (6.3-8.2) g/dL Albumin (3.5-5.0) g/dL 12/08/20 Range/Units 11:41 ABG pO2 (83-108) mmHg ABG HCO3 (21-25) mmol/L ABG Total CO2 (19-24) mmol/L ABG O2 Saturation (94-97) % Carbon Dioxide (22-30) mmol/L BUN (9-20) mg/dL Glucose (74-99) mg/dL POC Glucose (mg/dL) 141 H (75-99) mg/dL Calcium (8.4-10.2) mg/dL Lactate Dehydrogenase (313-618) U/L C-Reactive Protein (<10.0) mg/L Total Protein (6.3-8.2) g/dL Albumin (3.5-5.0) g/dL Microbiology - Last 24 Hours (Table) 12/05/20 18:39 Blood Culture - Preliminary Blood No Growth after 48 hours 12/05/20 18:20 Blood Culture - Preliminary Blood No Growth after 48 hours Assessment and Plan Plan: Assessment: #1. Acute hypoxic respiratory failure related to acute COVID 19 related [facility], patient was out of the window for Remdesivir, he's been treated with steroids, prophylactic anticoagulation, vitamins and supportive medical treatment. Transferred to the intensive care unit on 12/08/2020 for worsening hypoxemia, on BiPAP support #2. History of COPD/chronic bronchitis #3. History of diabetes mellitus type 2 #4. History of hypertension #5. History of hyperlipidemia #6. Morbid obesity with a BMI of 51.7 kg/m #7. Previous history of tobacco use Plan: Transfer the patient to the intensive care unit, continue BiPAP support, currently at 16/6 and FiO2 100%, patient was given a dose of IV Lasix, his Decadron has been increased to Solu-Medrol 60 mgrams every 6 hours, will continue same dose Lovenox, we'll give the patient 1 dose of Actemra 800 mg. We'll continue to closely follow in the intensive care unit, overall prognosis is quite guarded I performed a history & physical examination of the patient and discussed their management with my nurse practitioner, Sridevi Cannon. I reviewed the nurse practitioner's note and agree with the documented findings and plan of care. Lung sounds are positive for diminished breath sounds with bilateral crackles. The findings and the impression was discussed with the patient. I attest to the documentation by the nurse practitioner. Time with Patient: Greater than 30
--- NOTE | 2020-12-08 15:34 | P.PN ---
Subjective 62-year-old the female came in with cough congestion symptoms has been going on since November 27 and patient was tested negative in for Covid 19. Patient's symptoms continued to get worse patient was complaining of cough shortness of breath found to be hypoxic present in 4 L of oxygen. Patient denied any symptoms of diarrhea was having some nausea no vomiting. Patient has elevated inflammatory markers creatinine of 1.5 d-dimer of 0.44. Patient had a low-grade fever last night. 12/07/2020 Patient is presently in 6 L of oxygen his respiratory status is bit worse , patient doesn't feel well feels sick and short of breath. Patient is also receiving normal saline at 75 mL/h repeat labs are still pending. 12/08/2020 Patient the breathing has been worse patient was on 9:15 liters and the 100% nonrebreather and was still desaturating was patient was started on BiPAP was transferred to ICU patient is presently on 100% FiO2 with the IPAP/EPAP , patient did receive plasma patient is presently on Solu-Medrol continues to have elevated inflammatory markers. Constitutional: As mentioned interval history Cardio vascular: denied any chest pain, palpitations Gastrointestinal denied any nausea vomiting Pulmonary: As mentioned in the interval history Neurologic denied any new focal deficits All inpatient medications were reviewed and appropriate changes in these medications as dictated in the interval history and assessment and plan. Objective - Vital Signs Vital signs: Vital Signs Temp 98.7 F 12/08/20 07:15 Pulse 84 12/08/20 07:15 Resp 28 H 12/08/20 12:00 BP 151/86 12/08/20 10:05 Pulse Ox 88 L 12/08/20 07:15 Intake & Output 12/07/20 12/08/20 12/08/20 18:59 06:59 18:59 Intake Total 496 200 Output Total 1000 1950 Balance -969 -2891 Intake: IV 140 Sodium Chloride 0.9% 1, 40 000 ml @ 20 mls/hr IV . Q24H [facility] Rx#:[id number] Tocilizumab 800 mg In 100 Sodium Chloride 0.9% 60 ml @ 100 mls/hr IV ONCE ONE Rx#:[id number] Oral 180 60 Blood Product 316 Ffp Convalescent Plasma 316 Cpd Unit [id number] Output: Urine 1000 1950 Uretheral (Buchanan) 1600 Other: Voiding Method Toilet Indwelling Catheter # Voids 2 2 - Exam PHYSICAL EXAMINATION: GENERAL: The patient is alert and oriented x3, patient is not in respiratory distress on BiPAP, obese. Well developed, well nourished. HEENT: Pupils are round and equally reacting to light. EOMI. No scleral icterus. No conjunctival pallor. Normocephalic, atraumatic. No pharyngeal erythema. No thyromegaly. CARDIOVASCULAR: S1 and S2 present. No murmurs, rubs, or gallops. PULMONARY: Chest is clear to auscultation, no wheezing or crackles. ABDOMEN: Soft, nontender, nondistended, normoactive bowel sounds. No palpable organomegaly. MUSCULOSKELETAL: No joint swelling or deformity. EXTREMITIES: No cyanosis, clubbing, or pedal edema. NEUROLOGICAL: Gross neurological examination did not reveal any focal deficits. SKIN: No rashes. - Labs CBC & Chem 7: 12/07/20 11:23 12/08/20 06:02 Labs: Abnormal Lab Results - Last 24 Hours (Table) 12/07/20 12/07/20 12/08/20 Range/Units 16:59 19:53 06:02 ABG pO2 (83-108) mmHg ABG HCO3 (21-25) mmol/L ABG Total CO2 (19-24) mmol/L ABG O2 Saturation (94-97) % Carbon Dioxide 31 H (22-30) mmol/L BUN 26 H (9-20) mg/dL Glucose 174 H (74-99) mg/dL POC Glucose (mg/dL) 156 H 257 H (75-99) mg/dL Calcium 8.1 L (8.4-10.2) mg/dL Lactate Dehydrogenase 2137 H (313-618) U/L C-Reactive Protein 76.6 H (<10.0) mg/L Total Protein 5.7 L (6.3-8.2) g/dL Albumin 3.3 L (3.5-5.0) g/dL 12/08/20 12/08/20 12/08/20 Range/Units 07:01 09:48 10:44 ABG pO2 55 L* (83-108) mmHg ABG HCO3 30 H (21-25) mmol/L ABG Total CO2 31 H (19-24) mmol/L ABG O2 Saturation 89.4 L (94-97) % Carbon Dioxide (22-30) mmol/L BUN (9-20) mg/dL Glucose (74-99) mg/dL POC Glucose (mg/dL) 178 H 156 H (75-99) mg/dL Calcium (8.4-10.2) mg/dL Lactate Dehydrogenase (313-618) U/L C-Reactive Protein (<10.0) mg/L Total Protein (6.3-8.2) g/dL Albumin (3.5-5.0) g/dL 12/08/20 Range/Units 11:41 ABG pO2 (83-108) mmHg ABG HCO3 (21-25) mmol/L ABG Total CO2 (19-24) mmol/L ABG O2 Saturation (94-97) % Carbon Dioxide (22-30) mmol/L BUN (9-20) mg/dL Glucose (74-99) mg/dL POC Glucose (mg/dL) 141 H (75-99) mg/dL Calcium (8.4-10.2) mg/dL Lactate Dehydrogenase (313-618) U/L C-Reactive Protein (<10.0) mg/L Total Protein (6.3-8.2) g/dL Albumin (3.5-5.0) g/dL Microbiology - Last 24 Hours (Table) 12/05/20 18:39 Blood Culture - Preliminary Blood No Growth after 48 hours 12/05/20 18:20 Blood Culture - Preliminary Blood No Growth after 48 hours Assessment and Plan Plan: -Acute hypoxic respiratory failure secondary to covid 19 pneumonia.: Continue the support With oxygen,, Decadron, Covid vitamins, not a candidate for Remdesivir. Much worse compared to yesterday patient is on BiPAP now. Patient is presently in ICU COPD without any acute exacerbation Acute renal failure on chronic kidney disease stage III acute renal failure secondary to renal azotemia dehydration patient will be continued on IV fluids repeat basic metabolic profile tomorrow -Hyperlipidemia -Hypertension -Type 2 diabetes mellitus -DVT prophylaxis with subcutaneous heparin because of his renal failure
[2020-12-08 17:37] LABS: Glucose,Whole Blood 263 mg/dL (75-99)
[2020-12-08 20:50] LABS: Glucose,Whole Blood 246 mg/dL (75-99)
[2020-12-08] MEDS: ASPIRIN 81 MG PO SCH (22:04)
[2020-12-08] MEDS: ATORVASTATIN 20 MG TAB PO SCH (22:04)
[2020-12-09] MEDS: methylPREDNISolone SOD SUCCI 125 MG/2 ML VIAL IV SCH ×4 (06:50→23:43)
[2020-12-09] MEDS: guaiFENesin-Coden 100-10MG/5ML 10 ML CUP PO SCH ×4 (06:51→23:44)
[2020-12-09] MEDS: ALBUTEROL HFA INHALER INHALATION PRN ×4 (07:59→19:49)
[2020-12-09] MEDS: NON FORMULARY DRUG (Dapagliflozin Propanediol [Farxiga] 10 MG Tablet) PO SCH (08:41)
[2020-12-09 08:51] LABS: Glucose,Whole Blood 237 mg/dL (75-99)
[2020-12-09] MEDS: ENOXAPARIN 40 MG/0.4 ML SYRINGE SQ SCH (08:58)
[2020-12-09] MEDS: INSULIN DETEMIR (LEVEMIR) 100 UNIT/ML SYR SQ SCH ×2 (08:59→20:30)
[2020-12-09] MEDS: INSULIN ASPART (NovoLOG) 100 UNIT/ML VIAL SQ SCH ×4 (08:59→20:33)
[2020-12-09] MEDS: PIOGLITAZONE 15 MG TAB PO SCH (09:00)
[2020-12-09] MEDS: ASCORBIC ACID 500 MG TAB PO SCH ×2 (09:00→20:25)
[2020-12-09] MEDS: ZINC SULFATE 220 MG CAP PO SCH (09:00)
[2020-12-09] MEDS: LOSARTAN 50 MG TAB PO SCH (09:00)
[2020-12-09] MEDS: allopurinoL 100 MG TAB PO SCH (09:00)
[2020-12-09 10:36] LABS: Basophils % (A) 0 %; Eosinophils % (A) 0 %; HCT 47.7 % (39.0-53.0); HGB 15.6 gm/dL (13.0-17.5); Lymphocytes # (A) 0.5 k/uL (1.0-4.8); Lymphocytes % (A) 7 %; MCH 27.3 pg (25.0-35.0); MCHC 32.8 g/dL (31.0-37.0); MCV 83.4 fL (80.0-100.0); Mean Platelet Volume 8.1; Monocytes # (A) 0.2 k/uL (0-1.0); Monocytes % (A) 3 %; Neutrophils # (A) 6.2 k/uL (1.3-7.7); Neutrophils % (A) 89 %; Platelet Count 263 k/uL (150-450); RBC 5.72 m/uL (4.30-5.90); RDW 14.1 % (11.5-15.5)
[2020-12-09 10:51] LABS: African American GFR (CKD) >90 (>60 ml/min/1.73 sqM); Anion Gap 7 mmol/L; Blood Urea Nitrogen 26 mg/dL (9-20); Calcium 8.2 mg/dL (8.4-10.2); Carbon Dioxide 30 mmol/L (22-30); Chloride 101 mmol/L (98-107); Glucose 261 mg/dL (74-99); Magnesium 2.7 mg/dL (1.6-2.3); Non-African American GFR(CKD) >90 (>60 ml/min/1.73 sqM); Phosphorus 2.7 mg/dL (2.5-4.5); Potassium 4.2 mmol/L (3.5-5.1); Sodium 138 mmol/L (137-145)
[2020-12-09 11:29] LABS: Glucose,Whole Blood 219 mg/dL (75-99)
--- NOTE | 2020-12-09 11:50 | P.PN ---
Subjective Progress Note Date: 12/09/20 Principal diagnosis: CoVID 19 pneumonia 70-year-old male, who presents to the emergency department, with a chief complaint of cough, and congestion. The patient hasn't been feeling well all the way back even before November 27. He was in the ER on the and he tells me he tested negative for coronavirus. The patient sees a family doctor, and my partner for his chronic lung disease. More recently, his symptoms have progressed, and he came into the emergency room to be evaluated. He's complaining of shortness breath, chest congestion, and cough. He is coughing up some phlegm. No fever or chills. He is currently on saline at 75 mL an hour, and 4 L nasal cannula. He apparently tested positive on December 01. Again he been sick for 12-14 days. Because of this, he would not be a candidate for REM. He could get vitamins, Ecotrin dry, Lovenox, and, convalescent plasma. White count 4.5, hemoglobin 16.5, hematocrit 50.5, and platelet count 327,000. D-dimer is 0.44. Sodium 138, potassium 4.5, chloride 97, CO2 27, anion gap 14, BUN 43, and creatinine 1.5. LDH is 1164. C-reactive protein 65.2. Pro-calcitonin level was 0.13. Chest x-ray shows bilateral infiltrates. On 12/07/2020 patient seen in follow-up on medical surgical floor, he is currently on 6 L of oxygen which has been increased since yesterday, and his pulse ox is at 92%, he does easily desaturate into the low 70s with exertion and ambulation to the bathroom, patient was out of the window for Remdesivir, he recently dose of Decadron, he is on subcutaneous heparin 8 mg every 8 hours, he is on vitamins, states he still feeling lousy, coughing a lot. Still not able to take in a lot of by mouth, he is on IV hydration 0.9 normal saline at rate is 75 ML per hour, no new labs from today, we will order a set of inflammatory markers, follow-up d-dimer. Lung sounds are diminished, with some fine crackles bilaterally. No wheezing. On 12/08/2020 patient is seen in follow-up on medical surgical floor, overnight his breathing has Been much worse, he was placed on 15 L high flow oxygen and h er percent nonrebreather, he still desaturating, he was subsequently placed on BiPAP support with pressures of 14/6 and FiO2 of 100%, last day he received 1 unit of convalescent plasma, today's chest x-ray still shows diffuse infiltrates, she was given a dose of IV Lasix, Buchanan catheter was placed, we switched his Decadron to IV Solu-Medrol 60 mg every 6 hours. He continued to struggle with his breathing, the decision was made to transfer the patient to the intensive care unit. Gas was obtained on the BiPAP support pressures of 14/6 and FiO2 100%, showing pO2 of 55, pCO2 43, and pH of 7.45, and subsequently his IPAP was increased to 16. Today's labs have been reviewed, showing sodium of 139, potassium is 4.7, CO2 is 31, B1 is 26, creatinine 0.98, LDH is increased at 2137, and CRP is 76. Blood culture is negative 2. Today's d-dimer is 0.47 The patient is seen today 12/09/2020 in follow-up in the intensive care unit. He required increasing oxygen supplementation including BiPAP currently 16/600% FiO2. He was transferred here for closer monitoring. He is 0.9 normal saline at 10 mL per hour. Yesterday's blood gases revealed a PaO2 of 55, pCO2 43 and as pH of 7.45 on 100% FiO2. He did receive 1 unit of convalescent plasma. Blood cultures reveal no growth. White count 7.0. Hemoglobin 15.6. Lymphocytes 0.5. Sodium 138. Potassium 4.2. Creatinine 0.83. Glucose 261. He remains on Lovenox, IV Solu-Medrol, vitamin supplements. Objective - Vital Signs Vital signs: Vital Signs Temp 98.0 F 12/09/20 08:00 Pulse 78 12/09/20 11:00 Resp 23 12/09/20 11:00 BP 145/69 12/09/20 11:00 Pulse Ox 89 L 12/09/20 11:00 Intake & Output 12/08/20 12/09/20 12/09/20 18:59 06:59 18:59 Intake Total 460 500 200 Output Total 2450 1300 250 Balance -1989 Weight 150.3 kg Intake: IV 340 150 50 Sodium Chloride 0.9% 1, 140 150 50 000 ml @ 20 mls/hr IV . Q24H [facility] Rx#:[id number] Tocilizumab 800 mg In 200 Sodium Chloride 0.9% 60 ml @ 100 mls/hr IV ONCE ONE Rx#:[id number] Intake, IV Titration 30 Amount Sodium Chloride 0.9% 1, 30 000 ml @ 20 mls/hr IV . Q24H [facility] Rx#:[id number] Oral 120 320 150 Output: Urine 2450 1300 250 Uretheral (Buchanan) 1600 Other: Voiding Method Indwelling Catheter Indwelling Catheter Indwelling Catheter # Voids 2 - Exam GENERAL EXAM: Sleepy, but easily arousable, 70-year-old morbidly obese male, currently on BiPAP support with pressures of 16/6 and FiO2 of 100% HEAD: Normocephalic/atraumatic. EYES: Normal reaction of pupils, equal size. Conjunctiva pink, sclera white. NOSE: Clear with pink turbinates. THROAT: No erythema or exudates. NECK: No masses, no JVD, no thyroid enlargement, no adenopathy. CHEST: No chest wall deformity. Symmetrical expansion. LUNGS: Diminished breath sounds bilaterally, with bilateral crackles CVS: Regular rate and rhythm, normal S1 and S2, no gallops, no murmurs, no rubs ABDOMEN: Soft, nontender. No hepatosplenomegaly, normal bowel sounds, no g uarding or rigidity. EXTREMITIES: No clubbing, no edema, no cyanosis, 2+ pulses and upper and lower extremities. MUSCULOSKELETAL: Muscle strength and tone normal. SPINE: No scoliosis or deformity SKIN: No rashes CENTRAL NERVOUS SYSTEM: Alert and oriented -3. No focal deficits, tone is normal in all 4 extremities. - Labs CBC & Chem 7: 12/09/20 09:41 12/09/20 09:41 Labs: Abnormal Lab Results - Last 24 Hours (Table) 12/08/20 12/08/20 12/08/20 Range/Units 11:41 17:35 20:48 Lymphocytes # (1.0-4.8) k/uL BUN (9-20) mg/dL Glucose (74-99) mg/dL POC Glucose (mg/dL) 141 H 263 H 246 H (75-99) mg/dL Calcium (8.4-10.2) mg/dL Magnesium (1.6-2.3) mg/dL 12/09/20 12/09/20 12/09/20 Range/Units 08:50 09:41 09:41 Lymphocytes # 0.5 L (1.0-4.8) k/uL BUN 26 H (9-20) mg/dL Glucose 261 H (74-99) mg/dL POC Glucose (mg/dL) 237 H (75-99) mg/dL Calcium 8.2 L (8.4-10.2) mg/dL Magnesium 2.7 H (1.6-2.3) mg/dL 12/09/20 Range/Units 11:28 Lymphocytes # (1.0-4.8) k/uL BUN (9-20) mg/dL Glucose (74-99) mg/dL POC Glucose (mg/dL) 219 H (75-99) mg/dL Calcium (8.4-10.2) mg/dL Magnesium (1.6-2.3) mg/dL Microbiology - Last 24 Hours (Table) 12/05/20 18:39 Blood Culture - Preliminary Blood No Growth after 72 hours 12/05/20 18:20 Blood Culture - Preliminary Blood No Growth after 72 hours Assessment and Plan Assessment: 1 Acute hypoxic respiratory failure related to acute COVID 19 related pneumonia, patient was out of the window for Remdesivir. Received tocilizumab and convalescent plasma. Transferred to the intensive care unit on 12/08/2020 for worsening hypoxemia, on BiPAP support currently at 16/6 and 100% 2 History of COPD/chronic bronchitis 3 History of diabetes mellitus type 2 4 History of hypertension 5 History of hyperlipidemia 6 Morbid obesity with a BMI of 51.7 kg/m 7 Previous history of tobacco use Plan: The patient is seen and evaluated by Dr. Corado We'll continue with the current BiPAP settings for now Continue IV Solu-Medrol, Lovenox, vitamin supplement Received convalescent plasma 1, tocilizumab Continue to monitor closely here in the ICU Repeat chest x-ray, inflammatory markers in the a.m. We'll continue to follow and make further recommendations based on his clinical status I, the cosigning physician, performed a history & physical examination of the patient. Lungs sounds with crackles in the bilateral posterior bases Maintaining O2 saturations in the 90s on 100% FiO2 via the BiPAP 16/. I discussed the assessment and plan of care with my nurse practitioner, Ariana Pretty. I attest to the above note as dictated by her.
--- NOTE | 2020-12-09 13:48 | P.PN ---
Subjective 62-year-old the female came in with cough congestion symptoms has been going on since November 27 and patient was tested negative in for Covid 19. Patient's symptoms continued to get worse patient was complaining of cough shortness of breath found to be hypoxic present in 4 L of oxygen. Patient denied any symptoms of diarrhea was having some nausea no vomiting. Patient has elevated inflammatory markers creatinine of 1.5 d-dimer of 0.44. Patient had a low-grade fever last night. 12/07/2020 Patient is presently in 6 L of oxygen his respiratory status is bit worse , patient doesn't feel well feels sick and short of breath. Patient is also receiving normal saline at 75 mL/h repeat labs are still pending. 12/08/2020 Patient the breathing has been worse patient was on 9:15 liters and the 100% nonrebreather and was still desaturating was patient was started on BiPAP was transferred to ICU patient is presently on 100% FiO2 with the IPAP/EPAP /, patient did receive plasma patient is presently on Solu-Medrol continues to have elevated inflammatory markers. 12/09/2020 Patient remains on 100% FiO2 on BiPAP. And looks better with no significant improvement in his respiratory status doesn't desaturate then easily when he removes his BiPAP mask. Constitutional: As mentioned interval history Cardio vascular: denied any chest pain, palpitations Gastrointestinal denied any nausea vomiting Pulmonary: As mentioned in the interval history Neurologic denied any new focal deficits All inpatient medications were reviewed and appropriate changes in these medications as dictated in the interval history and assessment and plan. Objective - Vital Signs Vital signs: Vital Signs Temp 98.2 F 12/09/20 12:00 Pulse 78 12/09/20 13:00 Resp 24 12/09/20 12:00 BP 164/99 12/09/20 13:00 Pulse Ox 87 L 12/09/20 13:00 Intake & Output 12/08/20 12/09/20 12/09/20 18:59 06:59 18:59 Intake Total 460 500 320 Output Total 2450 1300 500 Balance -1989800 -180 Weight 150.3 kg Intake: IV 340 150 70 Sodium Chloride 0.9% 1, 140 150 70 000 ml @ 20 mls/hr IV . Q24H [facility] Rx#:[id number] Tocilizumab 800 mg In 200 Sodium Chloride 0.9% 60 ml @ 100 mls/hr IV ONCE ONE Rx#:[id number] Intake, IV Titration 30 Amount Sodium Chloride 0.9% 1, 30 000 ml @ 20 mls/hr IV . Q24H [facility] Rx#:[id number] Oral 120 320 250 Output: Urine 2450 1300 500 Uretheral (Buchanan) 1600 Other: Voiding Method Indwelling Catheter Indwelling Catheter Indwelling Catheter # Voids 2 - Exam PHYSICAL EXAMINATION: GENERAL: The patient is alert and oriented x3, patient is not in respiratory distress on BiPAP, obese. Well developed, well nourished. HEENT: Pupils are round and equally reacting to light. EOMI. No scleral icterus. No conjunctival pallor. Normocephalic, atraumatic. No pharyngeal erythema. No thyromegaly. CARDIOVASCULAR: S1 and S2 present. No murmurs, rubs, or gallops. PULMONARY: Chest is clear to auscultation, no wheezing or crackles. ABDOMEN: Soft, nontender, nondistended, normoactive bowel sounds. No palpable organomegaly. MUSCULOSKELETAL: No joint swelling or deformity. EXTREMITIES: No cyanosis, clubbing, or pedal edema. NEUROLOGICAL: Gross neurological examination did not reveal any focal deficits. SKIN: No rashes. - Labs CBC & Chem 7: 12/09/20 09:41 12/09/20 09:41 Labs: Abnormal Lab Results - Last 24 Hours (Table) 12/08/20 12/08/20 12/09/20 Range/Units 17:35 20:48 08:50 Lymphocytes # (1.0-4.8) k/uL BUN (9-20) mg/dL Glucose (74-99) mg/dL POC Glucose (mg/dL) 263 H 246 H 237 H (75-99) mg/dL Calcium (8.4-10.2) mg/dL Magnesium (1.6-2.3) mg/dL 12/09/20 12/09/20 12/09/20 Range/Units 09:41 09:41 11:28 Lymphocytes # 0.5 L (1.0-4.8) k/uL BUN 26 H (9-20) mg/dL Glucose 261 H (74-99) mg/dL POC Glucose (mg/dL) 219 H (75-99) mg/dL Calcium 8.2 L (8.4-10.2) mg/dL Magnesium 2.7 H (1.6-2.3) mg/dL Microbiology - Last 24 Hours (Table) 12/05/20 18:39 Blood Culture - Preliminary Blood No Growth after 72 hours 12/05/20 18:20 Blood Culture - Preliminary Blood No Growth after 72 hours Assessment and Plan Plan: -Acute hypoxic respiratory failure secondary to covid 19 pneumonia.: Continue the support With oxygen,, Decadron, Covid vitamins, not a candidate for Remdesivir. Much worse compared to yesterday patient is on BiPAP now. Patient is presently in ICU COPD without any acute exacerbation Acute renal failure on chronic kidney disease stage III acute renal failure secondary to renal azotemia dehydration patient will be continued on IV fluids repeat basic metabolic profile tomorrow -Hyperlipidemia -Hypertension -Type 2 diabetes mellitus -DVT prophylaxis with subcutaneous heparin because of his renal failure
[2020-12-09 17:15] LABS: Glucose,Whole Blood 204 mg/dL (75-99)
[2020-12-09] MEDS: SODIUM CHLORIDE 0.9% 1,000 ML IV SCH (17:31)
[2020-12-09] MEDS: ATORVASTATIN 20 MG TAB PO SCH (20:25)
[2020-12-09] MEDS: ASPIRIN 81 MG PO SCH (20:25)
[2020-12-09 20:30] LABS: Glucose,Whole Blood 182 mg/dL (75-99)
[2020-12-10 05:13] LABS: C Reactive Protein 46.3 mg/L (<10.0)
[2020-12-10] MEDS: guaiFENesin-Coden 100-10MG/5ML 10 ML CUP PO SCH ×3 (05:53→15:15)
[2020-12-10] MEDS: methylPREDNISolone SOD SUCCI 125 MG/2 ML VIAL IV SCH ×3 (05:53→16:57)
[2020-12-10] MEDS: ALBUTEROL HFA INHALER INHALATION PRN ×4 (08:12→19:39)
--- NOTE | 2020-12-10 08:26 | XR ---
EXAMINATION TYPE: XR chest 1V DATE OF EXAM: 12/10/2020 COMPARISON: 12/07/2020 INDICATION: Increased O2 demand TECHNIQUE: Single frontal view of the chest is obtained. FINDINGS: The heart size is prominent. The pulmonary vasculature is normal. Mild diffuse increased lung markings are present slightly greater in the mid to lower lung lee. IMPRESSION: 1. Mild increasing bibasilar infiltrates. Correlate for a focal pneumonia
[2020-12-10] MEDS: NON FORMULARY DRUG (Dapagliflozin Propanediol [Farxiga] 10 MG Tablet) PO SCH (08:29)
[2020-12-10] MEDS: allopurinoL 100 MG TAB PO SCH (08:32)
[2020-12-10] MEDS: PIOGLITAZONE 15 MG TAB PO SCH (08:32)
[2020-12-10] MEDS: ZINC SULFATE 220 MG CAP PO SCH (08:32)
[2020-12-10] MEDS: LOSARTAN 50 MG TAB PO SCH (08:32)
[2020-12-10] MEDS: ENOXAPARIN 40 MG/0.4 ML SYRINGE SQ SCH (08:32)
[2020-12-10] MEDS: ASCORBIC ACID 500 MG TAB PO SCH ×2 (08:32→21:42)
[2020-12-10 08:38] LABS: Glucose,Whole Blood 184 mg/dL (75-99)
[2020-12-10] MEDS: INSULIN ASPART (NovoLOG) 100 UNIT/ML VIAL SQ SCH ×5 (08:40→23:53)
[2020-12-10] MEDS: INSULIN DETEMIR (LEVEMIR) 100 UNIT/ML SYR SQ SCH ×2 (08:40→21:42)
[2020-12-10 08:45] LABS: ABG Base Excess 5.2 mmol/L; ABG HCO3 30 mmol/L (21-25); ABG Oxygen Saturation 89.8 % (94-97); ABG PCO2 43 mmHg (35-45); ABG PH 7.45 (7.35-7.45); Allen Test Performed? Yes
[2020-12-10 08:46] LABS: ABG PO2 55 mmHg (83-108)
[2020-12-10] MEDS ORDERED: propofoL 100 ML IV ONE (09:05)
[2020-12-10] MEDS ORDERED: SUCCINYLCHOLINE CHLORIDE VIAL 200 MG/10 ML VIAL IV ONE (09:20)
[2020-12-10] MEDS ORDERED: PROPOFOL 10 MG/ML 20 ML VIAL IV ONE (09:20)
[2020-12-10] MEDS ORDERED: CISATRACURIUM 2 MG/ML 5 ML VIAL IV ONE ×2 (09:26→09:58)
[2020-12-10 09:58] LABS: Basophils % (A) 0 %; Eosinophils % (A) 0 %; HCT 47.9 % (39.0-53.0); HGB 16.6 gm/dL (13.0-17.5); Lymphocytes # (A) 0.7 k/uL (1.0-4.8); Lymphocytes % (A) 7 %; MCH 28.5 pg (25.0-35.0); MCHC 34.6 g/dL (31.0-37.0); MCV 82.3 fL (80.0-100.0); Mean Platelet Volume 8.3; Monocytes # (A) 0.4 k/uL (0-1.0); Monocytes % (A) 4 %; Neutrophils # (A) 8.4 k/uL (1.3-7.7); Neutrophils % (A) 88 %; Platelet Count 300 k/uL (150-450); RBC 5.82 m/uL (4.30-5.90); RDW 13.6 % (11.5-15.5); WBC 9.6 k/uL (3.8-10.6)
[2020-12-10 10:05] LABS: ABG Base Excess 2.3 mmol/L; ABG HCO3 30 mmol/L (21-25); ABG Oxygen Saturation 66.6 % (94-97); ABG PCO2 58 mmHg (35-45); ABG PH 7.33 (7.35-7.45)
[2020-12-10 10:06] LABS: ABG PO2 39 mmHg (83-108)
[2020-12-10 10:11] LABS: African American GFR (CKD) >90 (>60 ml/min/1.73 sqM); Anion Gap 4 mmol/L; Blood Urea Nitrogen 29 mg/dL (9-20); Calcium 8.5 mg/dL (8.4-10.2); Carbon Dioxide 33 mmol/L (22-30); Chloride 102 mmol/L (98-107); Glucose 199 mg/dL (74-99); Magnesium 2.7 mg/dL (1.6-2.3); Non-African American GFR(CKD) >90 (>60 ml/min/1.73 sqM); Phosphorus 2.8 mg/dL (2.5-4.5); Potassium 4.4 mmol/L (3.5-5.1); Sodium 139 mmol/L (137-145)
[2020-12-10] MEDS: CISATRACURIUM 200 MG in SODIUM CHLORIDE 0.9% 180 ML IV SCH (10:20)
--- NOTE | 2020-12-10 10:24 | XR ---
EXAMINATION TYPE: XR chest 1V portable DATE OF EXAM: 12/10/2020 COMPARISON: 12/10/2020 INDICATION: Respiratory failure TECHNIQUE: Single frontal view of the chest is obtained. FINDINGS: The heart size is enlarged. The pulmonary vasculature is prominent. Patchy infiltrates are present bilaterally. Findings are worsening over the interval. There is interval placement of an endotracheal tube with tip 4.6 cm above the neil. Nasogastric tub e transverses the thorax. Left central venous catheter is present with the tip in the superior vena c henrique. No pneumothorax is evident. IMPRESSION: 1. Diffuse increasing patchy infiltrates. Correlate for atypical pneumonia. 2. Lines and catheters discussed above.
[2020-12-10] MEDS ORDERED: SODIUM CHLORIDE 0.9% 1,000 ML IV ONE (11:13)
[2020-12-10] MEDS: ARTIFICIAL TEARS-HYPROMELLOSE DROPS 15 ML BTL BOTH EYES SCH ×2 (11:26→15:15)
--- NOTE | 2020-12-10 11:45 | PCN ---
PROCEDURE NOTE PULMONARY/CRITICAL CARE PROCEDURE NOTE: PROCEDURE: Right radial arterial line. PREOP DIAGNOSIS: Frequent blood draws and blood gas monitoring. POSTOP DIAGNOSIS: Frequent blood draws and blood gas monitoring. LIME MIXER: Dr. Corado and Dr. Pretty. ARTERIAL LINE PLACEMENT: Indications: Hemodynamic monitoring. A time-out was completed verifying correct patient, procedure, site, positioning, and implant(s) or special equipment if applicable. Chong's test was performed to ensure adequate perfusion. The patient's right wrist was prepped and draped in sterile fashion. 1% Lidocaine was used to anesthetize the area. An 18G Arrow arterial line was introduced into the right radial artery. The catheter was threaded over the guide wire and the needle was removed with appropriate pulsatile blood return. Blood loss was minimal. The catheter was then sutured in place to the skin and a sterile dressing applied. Perfusion to the extremity distal to the point of catheter insertion was checked and found to be adequate. The patient tolerated the procedure well and there were no complications. There was informed consent and universal timeout. There were no immediate complications. There was good blood return and waveform. The catheter was sutured in place. Sterile dressing was applied by the nurse. There was no immediate complication. The patient tolerated the procedure well. MMODL / IJN: [id number] /
--- NOTE | 2020-12-10 11:45 | PCN ---
PROCEDURE NOTE PROCEDURE PERFORMED: Left internal jugular triple-lumen catheter. PREOP DIAGNOSIS: Administration of fluids and pressors. POSTOP DIAGNOSIS: Administration of fluids and pressors. OPERATORS: Dr. Corado and Dr. Pretty. TRIPLE LUMEN CATHETER PLACEMENT: Indication: Hemodynamic monitoring/Intravenous access. A time-out was completed verifying correct patient, procedure, site, positioning, and implant(s) or special equipment if applicable. The patient was placed in a dependent position appropriate for triple lumen catheter placement based on the vein to be cannulated. The patient's left neck was prepped and draped in sterile fashion. 1% Lidocaine was used to anesthetize the surrounding skin area. A triple lumen 9F Cordis catheter was introduced into the left internal jugular vein using Seldinger technique. The catheter was threaded smoothly over the guide wire and appropriate blood return was obtained. Each lumen of the catheter was evacuated of air and flushed with sterile saline. The catheter was then sutured in place to the skin and a sterile dressing applied. Perfusion to the extremity distal to the point of catheter insertion was checked and found to be adequate. There was informed consent universal timeout. There was no immediate complication. There was good blood return from all 3 ports. The patient tolerated the procedure well. The catheter was sutured in place. Sterile dressing was applied by the nurse. The catheter was seen in the area of the superior vena caval and right atrial junction. A chest x-ray was ordered. There was no immediate complication. Patient tolerated the procedure well. MMODL / IJN: [id number] /
[2020-12-10 12:06] LABS: Glucose,Whole Blood 194 mg/dL (75-99)
--- NOTE | 2020-12-10 12:20 | P.PN ---
Subjective Progress Note Date: 12/10/20 Principal diagnosis: CoVID 19 pneumonia 70-year-old male, who presents to the emergency department, with a chief complaint of cough, and congestion. The patient hasn't been feeling well all the way back even before November 27. He was in the ER on the and he tells me he tested negative for coronavirus. The patient sees a family doctor, and my partner for his chronic lung disease. More recently, his symptoms have progressed, and he came into the emergency room to be evaluated. He's complaining of shortness breath, chest congestion, and cough. He is coughing up some phlegm. No fever or chills. He is currently on saline at 75 mL an hour, and 4 L nasal cannula. He apparently tested positive on December 01. Again he been sick for 12-14 days. Because of this, he would not be a candidate for REM. He could get vitamins, Ecotrin dry, Lovenox, and, convalescent plasma. White count 4.5, hemoglobin 16.5, hematocrit 50.5, and platelet count 327,000. D-dimer is 0.44. Sodium 138, potassium 4.5, chloride 97, CO2 27, anion gap 14, BUN 43, and creatinine 1.5. LDH is 1164. C-reactive protein 65.2. Pro-calcitonin level was 0.13. Chest x-ray shows bilateral infiltrates. On 12/07/2020 patient seen in follow-up on medical surgical floor, he is currently on 6 L of oxygen which has been increased since yesterday, and his pulse ox is at 92%, he does easily desaturate into the low 70s with exertion and ambulation to the bathroom, patient was out of the window for Remdesivir, he recently dose of Decadron, he is on subcutaneous heparin 8 mg every 8 hours, he is on vitamins, states he still feeling lousy, coughing a lot. Still not able to take in a lot of by mouth, he is on IV hydration 0.9 normal saline at rate is 75 ML per hour, no new labs from today, we will order a set of inflammatory markers, follow-up d-dimer. Lung sounds are diminished, with some fine crackles bilaterally. No wheezing. On 12/08/2020 patient is seen in follow-up on medical surgical floor, overnight his breathing has Been much worse, he was placed on 15 L high flow oxygen and h er percent nonrebreather, he still desaturating, he was subsequently placed on BiPAP support with pressures of 14/6 and FiO2 of 100%, last day he received 1 unit of convalescent plasma, today's chest x-ray still shows diffuse infiltrates, she was given a dose of IV Lasix, Buchanan catheter was placed, we switched his Decadron to IV Solu-Medrol 60 mg every 6 hours. He continued to struggle with his breathing, the decision was made to transfer the patient to the intensive care unit. Gas was obtained on the BiPAP support pressures of 14/6 and FiO2 100%, showing pO2 of 55, pCO2 43, and pH of 7.45, and subsequently his IPAP was increased to 16. Today's labs have been reviewed, showing sodium of 139, potassium is 4.7, CO2 is 31, B1 is 26, creatinine 0.98, LDH is increased at 2137, and CRP is 76. Blood culture is negative 2. Today's d-dimer is 0.47 The patient is seen today 12/09/2020 in follow-up in the intensive care unit. He required increasing oxygen supplementation including BiPAP currently 16/600% FiO2. He was transferred here for closer monitoring. He is 0.9 normal saline at 10 mL per hour. Yesterday's blood gases revealed a PaO2 of 55, pCO2 43 and as pH of 7.45 on 100% FiO2. He did receive 1 unit of convalescent plasma. Blood cultures reveal no growth. White count 7.0. Hemoglobin 15.6. Lymphocytes 0.5. Sodium 138. Potassium 4.2. Creatinine 0.83. Glucose 261. He remains on Lovenox, IV Solu-Medrol, vitamin supplements. The patient is seen today 12/10/2020 in follow-up in the intensive care unit. He was still on BiPAP 16/6 at 100% FiO2. Blood gases revealed a PaO2 of 55, pCO2 43, 7.45 on 100% FiO2. White count 9.6. Hemoglobin 16.6. Lymphocytes 0.7. Sodium 139. Potassium 4.4. Creatinine 0.78. As this morning went on the patient became to fatigue required intubation and mechanical ventilatory support. Vent settings of assist control mode, rate 24, FiO2 450, FiO2 100% and a PEEP of 10. Follow-up blood gases revealed a PaO2 of 39, pCO2 of 58, pH 7.33 on 100% FiO2. At that time the PEEP was increased to 15. He is sedated on propofol at 60 mcg/kg/m. Nimbex at 1 mcg/kg/m. He received an additional liter of fluid. He has 0.9 and 20 ML's per hour currently. He remains on IV Solu- Medrol, Lovenox, vitamin supplements. Left internal jugular catheter was placed, right radial arterial line placed. Nasogastric tube placed. Chest x-ray reveals diffuse increasing patchy infiltrates. Objective - Vital Signs Vital signs: Vital Signs Temp 98.7 F 12/10/20 06:18 Pulse 67 12/10/20 07:03 Resp 28 H 12/10/20 07:03 BP 147/93 12/10/20 07:03 Pulse Ox 81 L 12/10/20 08:12 Intake & Output 12/09/20 12/10/20 12/10/20 18:59 06:59 18:59 Intake Total 620 440 80.85 Output Total 845 615 50 Balance -225 -175 30.85 Weight 150 kg Intake: IV 120 50 Sodium Chloride 0.9% 1, 120 50 000 ml @ 20 mls/hr IV . Q24H [facility] Rx#:[id number] Intake, IV Titration 80.85 Amount propofoL 1,000 mg In 80.85 Empty Bag 1 bag @ Titrate IV .Q0M [facility] Rx#: [id number] Oral 500 390 Output: Urine 845 615 50 Other: Voiding Method Indwelling Catheter Indwelling Catheter - Exam GENERAL EXAM: Intubated, sedated 70-year-old morbidly obese male, currently on the mechanical ventilator with FiO2 100% and a PEEP of 15 HEAD: Normocephalic/atraumatic. EYES: Normal reaction of pupils, equal size. Conjunctiva pink, sclera white. NOSE: Clear with pink turbinates. THROAT: Oral endotracheal and gastric tubes are secured in place. No erythema or exudates. NECK: No masses, no JVD, no thyroid enlargement, no adenopathy. CHEST: No chest wall deformity. Symmetrical expansion. Left IJ catheter in place LUNGS: Diminished breath sounds bilaterally, with bilateral crackles CVS: Regular rate and rhythm, normal S1 and S2, no gallops, no murmurs, no rubs ABDOMEN: Soft, nontender. No hepatosplenomegaly, normal bowel sounds, no guarding or rigidity. EXTREMITIES: No clubbing, no edema, no cyanosis, 2+ pulses and upper and lower extremities. MUSCULOSKELETAL: Muscle strength and tone normal. SPINE: No scoliosis or deformity SKIN: No rashes CENTRAL NERVOUS SYSTEM: Sedated. Intubated. No focal deficits, tone is normal in all 4 extremities. - Labs CBC & Chem 7: 12/10/20 08:45 12/10/20 08:45 Labs: Abnormal Lab Results - Last 24 Hours (Table) 12/09/20 12/09/20 12/10/20 Range/Units 17:13 20:29 04:23 Neutrophils # (1.3-7.7) k/uL Lymphocytes # (1.0-4.8) k/uL D-Dimer 1.54 H (<0.60) mg/L FEU ABG pH (7.35-7.45) ABG pCO2 (35-45) mmHg ABG pO2 (83-108) mmHg ABG HCO3 (21-25) mmol/L ABG O2 Saturation (94-97) % Carbon Dioxide (22-30) mmol/L BUN (9-20) mg/dL Glucose (74-99) mg/dL POC Glucose (mg/dL) 204 H 182 H (75-99) mg/dL Magnesium (1.6-2.3) mg/dL Lactate Dehydrogenase (313-618) U/L C-Reactive Protein (<10.0) mg/L 12/10/20 12/10/20 12/10/20 Range/Units 04:23 08:26 08:37 Neutrophils # (1.3-7.7) k/uL Lymphocytes # (1.0-4.8) k/uL D-Dimer (<0.60) mg/L FEU ABG pH (7.35-7.45) ABG pCO2 (35-45) mmHg ABG pO2 55 L* (83-108) mmHg ABG HCO3 30 H (21-25) mmol/L ABG O2 Saturation 89.8 L (94-97) % Carbon Dioxide (22-30) mmol/L BUN (9-20) mg/dL Glucose (74-99) mg/dL POC Glucose (mg/dL) 184 H (75-99) mg/dL Magnesium (1.6-2.3) mg/dL Lactate Dehydrogenase 2559 H (313-618) U/L C-Reactive Protein 46.3 H (<10.0) mg/L 12/10/20 12/10/20 12/10/20 Range/Units 08:45 08:45 09:59 Neutrophils # 8.4 H (1.3-7.7) k/uL Lymphocytes # 0.7 L (1.0-4.8) k/uL D-Dimer (<0.60) mg/L FEU ABG pH 7.33 L (7.35-7.45) ABG pCO2 58 H (35-45) mmHg ABG pO2 39 L* (83-108) mmHg ABG HCO3 30 H (21-25) mmol/L ABG O2 Saturation 66.6 L (94-97) % Carbon Dioxide 33 H (22-30) mmol/L BUN 29 H (9-20) mg/dL Glucose 199 H (74-99) mg/dL POC Glucose (mg/dL) (75-99) mg/dL Magnesium 2.7 H (1.6-2.3) mg/dL Lactate Dehydrogenase (313-618) U/L C-Reactive Protein (<10.0) mg/L 12/10/20 Range/Units 12:05 Neutrophils # (1.3-7.7) k/uL Lymphocytes # (1.0-4.8) k/uL D-Dimer (<0.60) mg/L FEU ABG pH (7.35-7.45) ABG pCO2 (35-45) mmHg ABG pO2 (83-108) mmHg ABG HCO3 (21-25) mmol/L ABG O2 Saturation (94-97) % Carbon Dioxide (22-30) mmol/L BUN (9-20) mg/dL Glucose (74-99) mg/dL POC Glucose (mg/dL) 194 H (75-99) mg/dL Magnesium (1.6-2.3) mg/dL Lactate Dehydrogenase (313-618) U/L C-Reactive Protein (<10.0) mg/L Microbiology - Last 24 Hours (Table) 12/05/20 18:39 Blood Culture - Preliminary Blood No Growth after 96 hours 12/05/20 18:20 Blood Culture - Preliminary Blood No Growth after 96 hours Assessment and Plan Assessment: 1 Acute hypoxic respiratory failure related to acute COVID 19 related pneumonia, patient was out of the window for Remdesivir. Received tocilizumab and convalescent plasma. Transferred to the intensive care unit on 12/08/2020 for worsening hypoxemia, on BiPAP support at 16/6 and 100%, subsequent intubation and placed on mechanical ventilator on 12/10/2020. 2 History of COPD/chronic bronchitis 3 History of diabetes mellitus type 2 4 History of hypertension 5 History of hyperlipidemia 6 Morbid obesity with a BMI of 51.7 kg/m 7 Previous history of tobacco use Plan: The patient is seen and evaluated by Dr. Corado The patient became too fatigued and hypoxemic on BiPAP Intubated and placed on mechanical ventilator this morning Currently on 100percent FiO2 and a PEEP of 15 Continue IV Solu-Medrol, Lovenox, vitamin supplement Received convalescent plasma 1, tocilizumab Repeat chest x-ray, inflammatory markers in the a.m. We'll continue to follow and make further recommendations based on his clinical status Critical care time, not including procedures, 40 minutes. I, the cosigning physician, performed a history & physical examination of the patient. Lungs sounds with crackles in the bilateral posterior bases Maintaining O2 saturations in the 90s on 100% FiO2 and a PEEP of 15 via the mechanical ventilator I discussed the assessment and plan of care with my nurse practitioner, Ariana Pretty. I attest to the above note as dictated by her.
[2020-12-10] MEDS: SODIUM CHLORIDE 0.9% 1,000 ML IV SCH (15:15)
--- NOTE | 2020-12-10 15:29 | P.PN ---
Subjective 62-year-old the female came in with cough congestion symptoms has been going on since November 27 and patient was tested negative in for Covid 19. Patient's symptoms continued to get worse patient was complaining of cough shortness of breath found to be hypoxic present in 4 L of oxygen. Patient denied any symptoms of diarrhea was having some nausea no vomiting. Patient has elevated inflammatory markers creatinine of 1.5 d-dimer of 0.44. Patient had a low-grade fever last night. 12/07/2020 Patient is presently in 6 L of oxygen his respiratory status is bit worse , patient doesn't feel well feels sick and short of breath. Patient is also receiving normal saline at 75 mL/h repeat labs are still pending. 12/08/2020 Patient the breathing has been worse patient was on 9:15 liters and the 100% nonrebreather and was still desaturating was patient was started on BiPAP was transferred to ICU patient is presently on 100% FiO2 with the IPAP/EPAP , patient did receive plasma patient is presently on Solu-Medrol continues to have elevated inflammatory markers. 12/09/2020 Patient remains on 100% FiO2 on BiPAP. And looks better with no significant improvement in his respiratory status doesn't desaturate then easily when he removes his BiPAP mask. 12/10/2020 Patient respiratory status worsened patient was desaturating on 100% BiPAP patient was subsequently intubated patient is on mechanical ventilator patient is on FiO2 of 20% PEEP of 10. Patient is on propofol and Nimbex as well. Review of systems: Unable to obtain due to his clinical condition All inpatient medications were reviewed and appropriate changes in these medications as dictated in the interval history and assessment and plan. Objective - Vital Signs Vital signs: Vital Signs Temp 98.2 F 12/10/20 12:00 Pulse 80 12/10/20 14:00 Resp 24 12/10/20 14:00 BP 166/87 12/10/20 09:00 Pulse Ox 66 L 12/10/20 14:09 Intake & Output 12/09/20 12/10/20 12/10/20 18:59 06:59 18:59 Intake Total 791 701 2857.55 Output Total 845 615 290 Balance -225 -175 2215.55 Weight 150 kg Intake: IV 888 65 4305 Sodium Chloride 0.9% 1, 120 50 100 000 ml @ 20 mls/hr IV . Q24H [facility] Rx#:[id number] Sodium Chloride 0.9% 1, 2000 000 ml @ 999 mls/hr IV . Q1H1M [facility] Rx#:[id number] Intake, IV Titration 255.55 Amount propofoL 1,000 mg In 255.55 Empty Bag 1 bag @ Titrate IV .Q0M [facility] Rx#: [id number] Oral 500 390 150 Output: Urine 845 615 290 Other: Voiding Method Indwelling Catheter Indwelling Catheter Indwelling Catheter ABP, PAP, CO, CI - Last Documented Arterial Blood Pressure 128/56 - Exam PHYSICAL EXAMINATION: GENERAL: The patient is alert and oriented x3, patient is not in respiratory distress on BiPAP, obese. Well developed, well nourished. HEENT: Pupils are round and equally reacting to light. EOMI. No scleral icterus. No conjunctival pallor. Normocephalic, atraumatic. No pharyngeal erythema. No thyromegaly. CARDIOVASCULAR: S1 and S2 present. No murmurs, rubs, or gallops. PULMONARY: Chest is clear to auscultation, no wheezing or crackles. ABDOMEN: Soft, nontender, nondistended, normoactive bowel sounds. No palpable organomegaly. MUSCULOSKELETAL: No joint swelling or deformity. EXTREMITIES: No cyanosis, clubbing, or pedal edema. NEUROLOGICAL: Gross neurological examination did not reveal any focal deficits. SKIN: No rashes. - Labs CBC & Chem 7: 12/10/20 08:45 12/10/20 08:45 Labs: Abnormal Lab Results - Last 24 Hours (Table) 12/09/20 12/09/20 12/10/20 Range/Units 17:13 20:29 04:23 Neutrophils # (1.3-7.7) k/uL Lymphocytes # (1.0-4.8) k/uL D-Dimer 1.54 H (<0.60) mg/L FEU ABG pH (7.35-7.45) ABG pCO2 (35-45) mmHg ABG pO2 (83-108) mmHg ABG HCO3 (21-25) mmol/L ABG O2 Saturation (94-97) % Carbon Dioxide (22-30) mmol/L BUN (9-20) mg/dL Glucose (74-99) mg/dL POC Glucose (mg/dL) 204 H 182 H (75-99) mg/dL Magnesium (1.6-2.3) mg/dL Lactate Dehydrogenase (313-618) U/L C-Reactive Protein (<10.0) mg/L 12/10/20 12/10/20 12/10/20 Range/Units 04:23 08:26 08:37 Neutrophils # (1.3-7.7) k/uL Lymphocytes # (1.0-4.8) k/uL D-Dimer (<0.60) mg/L FEU ABG pH (7.35-7.45) ABG pCO2 (35-45) mmHg ABG pO2 55 L* (83-108) mmHg ABG HCO3 30 H (21-25) mmol/L ABG O2 Saturation 89.8 L (94-97) % Carbon Dioxide (22-30) mmol/L BUN (9-20) mg/dL Glucose (74-99) mg/dL POC Glucose (mg/dL) 184 H (75-99) mg/dL Magnesium (1.6-2.3) mg/dL Lactate Dehydrogenase 2559 H (313-618) U/L C-Reactive Protein 46.3 H (<10.0) mg/L 12/10/20 12/10/20 12/10/20 Range/Units 08:45 08:45 09:59 Neutrophils # 8.4 H (1.3-7.7) k/uL Lymphocytes # 0.7 L (1.0-4.8) k/uL D-Dimer (<0.60) mg/L FEU ABG pH 7.33 L (7.35-7.45) ABG pCO2 58 H (35-45) mmHg ABG pO2 39 L* (83-108) mmHg ABG HCO3 30 H (21-25) mmol/L ABG O2 Saturation 66.6 L (94-97) % Carbon Dioxide 33 H (22-30) mmol/L BUN 29 H (9-20) mg/dL Glucose 199 H (74-99) mg/dL POC Glucose (mg/dL) (75-99) mg/dL Magnesium 2.7 H (1.6-2.3) mg/dL Lactate Dehydrogenase (313-618) U/L C-Reactive Protein (<10.0) mg/L 12/10/20 Range/Units 12:05 Neutrophils # (1.3-7.7) k/uL Lymphocytes # (1.0-4.8) k/uL D-Dimer (<0.60) mg/L FEU ABG pH (7.35-7.45) ABG pCO2 (35-45) mmHg ABG pO2 (83-108) mmHg ABG HCO3 (21-25) mmol/L ABG O2 Saturation (94-97) % Carbon Dioxide (22-30) mmol/L BUN (9-20) mg/dL Glucose (74-99) mg/dL POC Glucose (mg/dL) 194 H (75-99) mg/dL Magnesium (1.6-2.3) mg/dL Lactate Dehydrogenase (313-618) U/L C-Reactive Protein (<10.0) mg/L Microbiology - Last 24 Hours (Table) 12/05/20 18:39 Blood Culture - Preliminary Blood No Growth after 96 hours 12/05/20 18:20 Blood Culture - Preliminary Blood No Growth after 96 hours Assessment and Plan Plan: -Acute hypoxic respiratory failure secondary to covid 19 pneumonia.: Continue the support With oxygen,, Decadron, Covid vitamins, not a candidate for Remdesivir. Patient is presently intubated respiratory status has worsened. Patient is intubated on now for 07/21/2021 COPD with acute exacerbation Acute renal failure on chronic kidney disease stage III acute renal failure secondary to renal azotemia dehydration patient will be continued on IV fluids repeat basic metabolic profile tomorrow -Hyperlipidemia -Hypertension -Type 2 diabetes mellitus -DVT prophylaxis with subcutaneous heparin because of his renal failure
[2020-12-10 17:23] LABS: Glucose,Whole Blood 244 mg/dL (75-99)
[2020-12-10 21:42] LABS: Glucose,Whole Blood 251 mg/dL (75-99)
[2020-12-10] MEDS: ATORVASTATIN 20 MG TAB PO SCH (21:42)
[2020-12-10] MEDS: ASPIRIN 81 MG PO SCH (21:42)
[2020-12-10] MEDS: CHLORHEXIDINE GLUCONATE 15 ML CUP MUCOUS MEM SCH (21:42)
[2020-12-10 23:40] LABS: Glucose,Whole Blood 274 mg/dL (75-99)
[2020-12-11] MEDS: methylPREDNISolone SOD SUCCI 125 MG/2 ML VIAL IV SCH ×5 (00:20→23:17)
[2020-12-11] MEDS: guaiFENesin-Coden 100-10MG/5ML 10 ML CUP PO SCH ×5 (00:21→23:17)
[2020-12-11] MEDS: ARTIFICIAL TEARS-HYPROMELLOSE DROPS 15 ML BTL BOTH EYES SCH ×6 (02:10→20:03)
[2020-12-11 04:20] LABS: Basophils % (A) 0 %; Eosinophils % (A) 0 %; HCT 48.3 % (39.0-53.0); HGB 15.7 gm/dL (13.0-17.5); Lymphocytes # (A) 0.2 k/uL (1.0-4.8); Lymphocytes % (A) 2 %; MCH 27.6 pg (25.0-35.0); MCHC 32.6 g/dL (31.0-37.0); MCV 84.9 fL (80.0-100.0); Mean Platelet Volume 7.5; Monocytes # (A) 0.2 k/uL (0-1.0); Monocytes % (A) 3 %; Neutrophils # (A) 8.1 k/uL (1.3-7.7); Neutrophils % (A) 95 %; Platelet Count 276 k/uL (150-450); RBC 5.69 m/uL (4.30-5.90); RDW 13.9 % (11.5-15.5); WBC 8.5 k/uL (3.8-10.6)
[2020-12-11 04:45] LABS: ALT 15 U/L (4-49); AST 24 U/L (17-59); African American GFR (CKD) >90 (>60 ml/min/1.73 sqM); Alkaline Phosphatase 98 U/L (38-126); Anion Gap 5 mmol/L; Blood Urea Nitrogen 37 mg/dL (9-20); C Reactive Protein 30.1 mg/L (<10.0); Calcium 8.2 mg/dL (8.4-10.2); Carbon Dioxide 30 mmol/L (22-30); Chloride 102 mmol/L (98-107); Creatine Kinase 37 U/L (55-170); Glucose 250 mg/dL (74-99); LDH 1799 U/L (313-618); Non-African American GFR(CKD) 82 (>60 ml/min/1.73 sqM); Potassium 4.5 mmol/L (3.5-5.1); Sodium 137 mmol/L (137-145); Total Bilirubin 0.5 mg/dL (0.2-1.3); Total Protein 5.3 g/dL (6.3-8.2)
[2020-12-11 06:02] LABS: Glucose,Whole Blood 264 mg/dL (75-99)
[2020-12-11] MEDS: INSULIN ASPART (NovoLOG) 100 UNIT/ML VIAL SQ SCH ×4 (06:03→20:17)
[2020-12-11 06:21] LABS: ABG Base Excess 4.5 mmol/L; ABG HCO3 32 mmol/L (21-25); ABG Oxygen Saturation 94.4 % (94-97); ABG PH 7.24 (7.35-7.45); ABG PO2 79 mmHg (83-108); ABG TCO2 34 mmol/L (19-24); Allen Test Performed? Yes
[2020-12-11 06:23] LABS: ABG PCO2 74 mmHg (35-45)
--- NOTE | 2020-12-11 07:38 | P.PN ---
Subjective Progress Note Date: 12/11/20 On 12/11/2020 on seeing the patient for a follow-up. This is a case of a 70-year-old male patient COVID 19 related pneumonia and hypoxic respiratory failure. The patient was transferred to the intensive care unit because of ongoing difficulties with hypoxemia and shortness of breath and the patient was treated with BiPAP and ultimately the patient to be intubated and placed on a mechanical ventilator. At this point in time, the patient's control mode at the rate of 24 with a tidal volume of 450 and FiO2 of 100% with a PEEP of 15. Note that during the course of the treatment, the patient received convalescent plasma, Tocilizumab and the patient is also received steroids. Patient is known to have COPD, diabetes mellitus type 2, hypertension and hyperlipidemia. The patient is morbidly obese and carries a body mass index of 50.3. The patient is currently sedated with propofol running at 60 mg/kg/m. The patient is also paralyzed with Nimbex at 0.5 mcg/kg per minute. The patient is a triple lumen catheter in the left IJ. The patient has a right radial arterial line. NG tube is in place and tube feeds were restarted. The patient has a CRP of 30and a LDH level of 1799 and this is based on labs that was obtained yesterday on 12/10/2020. Meanwhile, the patient remains on Solu Medrol 60 mg every 6 hours IV, Lovenox 40 mg subcu for DVT prophylaxis, and the patient is also on Levemir insulin for blood sugar control @ 30 units twice a day along with a NovoLog sliding scale coverage. The chest x-ray showing diffuse bilateral pulmonary infiltrates, consolidations interstitial infiltrates in addition orotracheal tube which is an inadequate location 2 cm above the neil. D-dimer is at 4.26. The blood gases from today showing a pH of 7.24 with pCO2 of 74 and pO2 of 79. This was an FiO2 of 100%. The peak and static pressures on a mechanical ventilator are 36/34 respectively. Objective - Vital Signs Vital signs: Vital Signs Temp 99.1 F 12/11/20 04:00 Pulse 86 12/11/20 07:00 Resp 24 12/11/20 07:00 BP 166/87 12/10/20 09:00 Pulse Ox 93 L 12/11/20 07:00 Intake & Output 12/10/20 12/11/20 12/11/20 18:59 06:59 18:59 Intake Total 2778.25 672.4 23 Output Total 430 595 60 Balance 2348.25 77.4 -37 Weight 152.5 kg Intake: IV 2180 258 23 Sodium Chloride 0.9% 1, 180 240 20 000 ml @ 20 mls/hr IV . Q24H [facility] Rx#:[id number] Sodium Chloride 0.9% 1, 2000 000 ml @ 999 mls/hr IV . Q1H1M [facility] Rx#:[id number] pressure bag 18 3 Intake, IV Titration 448.25 414.4 Amount Cisatracurium 200 mg In 127.2 Sodium Chloride 0.9% 180 ml @ 1 MCG/KG/MIN 9 mls/ hr IV .[id number] [facility] Rx#: [id number] propofoL 1,000 mg In 448.25 287.2 Empty Bag 1 bag @ Titrate IV .Q0M [facility] Rx#: [id number] Oral 150 Output: Urine 430 595 60 Other: Voiding Method Indwelling Catheter Indwelling Catheter ABP, PAP, CO, CI - Last Documented Arterial Blood Pressure 158/68 - Exam GENERAL EXAM: Intubated, sedated 70-year-old morbidly obese male, currently on the mechanical ventilator with FiO2 100% and a PEEP of 15, tidal volume of 450, currently sedated and paralyzed. HEAD: Normocephalic/atraumatic. EYES: Normal reaction of pupils, equal size. Conjunctiva pink, sclera white. NOSE: Clear with pink turbinates. THROAT: Oral endotracheal and gastric tubes are secured in place. No erythema or exudates. NECK: No masses, no JVD, no thyroid enlargement, no adenopathy. CHEST: No chest wall deformity. Symmetrical expansion. Left IJ catheter in place LUNGS: Diminished breath sounds bilaterally, with bilateral crackles CVS: Regular rate and rhythm, normal S1 and S2, no gallops, no murmurs, no rubs ABDOMEN: Soft, nontender. No hepatosplenomegaly, normal bowel sounds, no guarding or rigidity. EXTREMITIES: No clubbing, no edema, no cyanosis, 2+ pulses and upper and lower extremities. MUSCULOSKELETAL: Muscle strength and tone normal. SPINE: No scoliosis or deformity SKIN: No rashes CENTRAL NERVOUS SYSTEM: Sedated. Intubated. No focal deficits, tone is normal in all 4 extremities. - Labs CBC & Chem 7: 12/11/20 03:50 12/11/20 03:50 Labs: Abnormal Lab Results - Last 24 Hours (Table) 12/10/20 12/10/20 12/10/20 Range/Units 08:26 08:37 08:45 Neutrophils # 8.4 H (1.3-7.7) k/uL Lymphocytes # 0.7 L (1.0-4.8) k/uL D-Dimer (<0.60) mg/L FEU ABG pH (7.35-7.45) ABG pCO2 (35-45) mmHg ABG pO2 55 L* (83-108) mmHg ABG HCO3 30 H (21-25) mmol/L ABG Total CO2 (19-24) mmol/L ABG O2 Saturation 89.8 L (94-97) % Carbon Dioxide (22-30) mmol/L BUN (9-20) mg/dL Glucose (74-99) mg/dL POC Glucose (mg/dL) 184 H (75-99) mg/dL Calcium (8.4-10.2) mg/dL Magnesium (1.6-2.3) mg/dL Lactate Dehydrogenase (313-618) U/L Creatine Kinase (55-170) U/L C-Reactive Protein (<10.0) mg/L Total Protein (6.3-8.2) g/dL Albumin (3.5-5.0) g/dL 12/10/20 12/10/20 12/10/20 Range/Units 08:45 09:59 12:05 Neutrophils # (1.3-7.7) k/uL Lymphocytes # (1.0-4.8) k/uL D-Dimer (<0.60) mg/L FEU ABG pH 7.33 L (7.35-7.45) ABG pCO2 58 H (35-45) mmHg ABG pO2 39 L* (83-108) mmHg ABG HCO3 30 H (21-25) mmol/L ABG Total CO2 (19-24) mmol/L ABG O2 Saturation 66.6 L (94-97) % Carbon Dioxide 33 H (22-30) mmol/L BUN 29 H (9-20) mg/dL Glucose 199 H (74-99) mg/dL POC Glucose (mg/dL) 194 H (75-99) mg/dL Calcium (8.4-10.2) mg/dL Magnesium 2.7 H (1.6-2.3) mg/dL Lactate Dehydrogenase (313-618) U/L Creatine Kinase (55-170) U/L C-Reactive Protein (<10.0) mg/L Total Protein (6.3-8.2) g/dL Albumin (3.5-5.0) g/dL 12/10/20 12/10/20 12/10/20 Range/Units 17:21 21:40 23:39 Neutrophils # (1.3-7.7) k/uL Lymphocytes # (1.0-4.8) k/uL D-Dimer (<0.60) mg/L FEU ABG pH (7.35-7.45) ABG pCO2 (35-45) mmHg ABG pO2 (83-108) mmHg ABG HCO3 (21-25) mmol/L ABG Total CO2 (19-24) mmol/L ABG O2 Saturation (94-97) % Carbon Dioxide (22-30) mmol/L BUN (9-20) mg/dL Glucose (74-99) mg/dL POC Glucose (mg/dL) 244 H 251 H 274 H (75-99) mg/dL Calcium (8.4-10.2) mg/dL Magnesium (1.6-2.3) mg/dL Lactate Dehydrogenase (313-618) U/L Creatine Kinase (55-170) U/L C-Reactive Protein (<10.0) mg/L Total Protein (6.3-8.2) g/dL Albumin (3.5-5.0) g/dL 12/11/20 12/11/20 12/11/20 Range/Units 03:50 03:50 03:50 Neutrophils # 8.1 H (1.3-7.7) k/uL Lymphocytes # 0.2 L (1.0-4.8) k/uL D-Dimer 4.26 H (<0.60) mg/L FEU ABG pH (7.35-7.45) ABG pCO2 (35-45) mmHg ABG pO2 (83-108) mmHg ABG HCO3 (21-25) mmol/L ABG Total CO2 (19-24) mmol/L ABG O2 Saturation (94-97) % Carbon Dioxide (22-30) mmol/L BUN 37 H (9-20) mg/dL Glucose 250 H (74-99) mg/dL POC Glucose (mg/dL) (75-99) mg/dL Calcium 8.2 L (8.4-10.2) mg/dL Magnesium (1.6-2.3) mg/dL Lactate Dehydrogenase 1799 H (313-618) U/L Creatine Kinase 37 L (55-170) U/L C-Reactive Protein 30.1 H (<10.0) mg/L Total Protein 5.3 L (6.3-8.2) g/dL Albumin 3.0 L (3.5-5.0) g/dL 12/11/20 12/11/20 Range/Units 06:00 06:18 Neutrophils # (1.3-7.7) k/uL Lymphocytes # (1.0-4.8) k/uL D-Dimer (<0.60) mg/L FEU ABG pH 7.24 L (7.35-7.45) ABG pCO2 74 H* (35-45) mmHg ABG pO2 79 L (83-108) mmHg ABG HCO3 32 H (21-25) mmol/L ABG Total CO2 34 H (19-24) mmol/L ABG O2 Saturation (94-97) % Carbon Dioxide (22-30) mmol/L BUN (9-20) mg/dL Glucose (74-99) mg/dL POC Glucose (mg/dL) 264 H (75-99) mg/dL Calcium (8.4-10.2) mg/dL Magnesium (1.6-2.3) mg/dL Lactate Dehydrogenase (313-618) U/L Creatine Kinase (55-170) U/L C-Reactive Protein (<10.0) mg/L Total Protein (6.3-8.2) g/dL Albumin (3.5-5.0) g/dL Microbiology - Last 24 Hours (Table) 12/05/20 18:39 Blood Culture - Preliminary Blood No Growth after 120 hours 12/05/20 18:20 Blood Culture - Preliminary Blood No Growth after 120 hours Assessment and Plan Plan: 1 Acute hypoxic respiratory failure related to acute COVID 19 related pneumonia, patient was out of the window for Remdesivir. Received tocilizumab and convalescent plasma. Transferred to the intensive care unit on 12/08/2020 for worsening hypoxemia, on BiPAP support, subsequent intubation and placed on mechanical ventilator on 12/10/2020. . Chest x-ray showing diffuse bilateral pulmonary infiltrates. Orotracheal tube is in a good location. Chest x-ray was noted. Blood gases were noted. We'll proceed with low tidal volume mechanical ventilation and allow permissive hypercapnia. Continue IV Solu-Medrol. Continue anticoagulation with Lovenox. Monitor the inflammatory markers. The peak and static pressures are quite elevated. The patient is barely oxygenating on a PEEP of 15 with an FiO2 of 100%. 2 History of COPD/chronic bronchitis 3 History of diabetes mellitus type 2, currently on Levemir insulin 30 units twice a day along with his scale 4 History of hypertension 5 History of hyperlipidemia 6 Morbid obesity with a BMI of 51.7 kg/m 7 Previous history of tobacco use Plan: Keep the patient sedated and paralyzed for now Keep ventilator support , drop the tidal volume to 400, increase the PEEP up to 18 and keep the FiO2 at 100% and drop the flow down to 60. If oxygenation improves, we'll gradually wean down the FiO2. Chest x-ray and blood gases were noted Continue IV Solu Medrol 60 mg every 6 hours Lovenox and adjust the dose to 70 mg every 12 hours for a d-dimer of 4.28 Monitor inflammatory markers including d-dimer Enteral feeding for nutritional support and this will be started today Monitor fluid balance Received convalescent plasma 1, tocilizumab Repeat chest x-ray, inflammatory markers in the a.m. IV fluids at [facility]. We'll continue to follow and make further recommendations based on his clinical status Critical care time, >30 min minutes. Time with Patient: Greater than 30
[2020-12-11] MEDS: ALBUTEROL HFA INHALER INHALATION PRN ×4 (07:57→19:35)
--- NOTE | 2020-12-11 09:11 | XR ---
EXAMINATION TYPE: XR chest 1V portable DATE OF EXAM: 12/11/2020 COMPARISON: 12/10/2020 HISTORY: Respiratory failure TECHNIQUE: Single frontal view of the chest is obtained. FINDINGS: ET tube, NG tube and central line stable. Diffuse bilateral alveolar and interstitial stab le. No pneumothorax. Small bilateral pleural effusions. Heart size enlarged. IMPRESSION: Diffuse bilateral infiltrate stable
[2020-12-11] MEDS: ASCORBIC ACID 500 MG TAB PO SCH ×2 (09:24→20:04)
[2020-12-11] MEDS: ZINC SULFATE 220 MG CAP PO SCH (09:24)
[2020-12-11] MEDS: allopurinoL 100 MG TAB PO SCH (09:24)
[2020-12-11] MEDS: CHLORHEXIDINE GLUCONATE 15 ML CUP MUCOUS MEM SCH ×2 (09:24→20:03)
[2020-12-11] MEDS: LOSARTAN 50 MG TAB PO SCH (09:24)
[2020-12-11] MEDS: NON FORMULARY DRUG (Dapagliflozin Propanediol [Farxiga] 10 MG Tablet) PO SCH (09:26)
[2020-12-11] MEDS: INSULIN DETEMIR (LEVEMIR) 100 UNIT/ML SYR SQ SCH (09:30)
[2020-12-11] MEDS: PIOGLITAZONE 15 MG TAB PO SCH (09:30)
[2020-12-11] MEDS: ENOXAPARIN 80 MG/0.8 ML SYRINGE SQ SCH ×2 (09:45→20:16)
[2020-12-11] MEDS: CISATRACURIUM 200 MG in SODIUM CHLORIDE 0.9% 180 ML IV SCH (09:45)
[2020-12-11 12:21] LABS: Glucose,Whole Blood 363 mg/dL (75-99)
--- NOTE | 2020-12-11 15:06 | P.PN ---
Subjective 62-year-old the female came in with cough congestion symptoms has been going on since November 27 and patient was tested negative in for Covid 19. Patient's symptoms continued to get worse patient was complaining of cough shortness of breath found to be hypoxic present in 4 L of oxygen. Patient denied any symptoms of diarrhea was having some nausea no vomiting. Patient has elevated inflammatory markers creatinine of 1.5 d-dimer of 0.44. Patient had a low-grade fever last night. 12/07/2020 Patient is presently in 6 L of oxygen his respiratory status is bit worse , patient doesn't feel well feels sick and short of breath. Patient is also receiving normal saline at 75 mL/h repeat labs are still pending. 12/08/2020 Patient the breathing has been worse patient was on 9:15 liters and the 100% nonrebreather and was still desaturating was patient was started on BiPAP was transferred to ICU patient is presently on 100% FiO2 with the IPAP/EPAP , patient did receive plasma patient is presently on Solu-Medrol continues to have elevated inflammatory markers. 12/09/2020 Patient remains on 100% FiO2 on BiPAP. And looks better with no significant improvement in his respiratory status doesn't desaturate then easily when he removes his BiPAP mask. 12/10/2020 Patient respiratory status worsened patient was desaturating on 100% BiPAP patient was subsequently intubated patient is on mechanical ventilator patient is on FiO2 of 20% PEEP of 10. Patient is on propofol and Nimbex as well. 12/11/2020 Patient is presently on 90% FiO2 still PEEP of 15. Still sedated and paralyzed. was started on solid Medrol and the patient blood sugars are very high patient's long-acting insulin dose will be increased to 45 units twice a day will be continued on sliding scale insulin Review of systems: Unable to obtain due to his clinical condition All inpatient medications were reviewed and appropriate changes in these medications as dictated in the interval history and assessment and plan. Objective - Vital Signs Vital signs: Vital Signs Temp 97.5 F L 12/11/20 12:00 Pulse 87 12/11/20 14:00 Resp 24 12/11/20 14:00 BP 136/73 12/11/20 14:00 Pulse Ox 92 L 12/11/20 14:00 Intake & Output 12/10/20 12/11/20 12/11/20 18:59 06:59 18:59 Intake Total 2778.25 772.4 315.775 Output Total 430 595 645 Balance 2348.25 177.4 -329.225 Weight 152.5 kg 152.5 kg Intake: IV 2180 258 184 Sodium Chloride 0.9% 1, 180 240 160 000 ml @ 20 mls/hr IV . Q24H [facility] Rx#:[id number] Sodium Chloride 0.9% 1, 2000 000 ml @ 999 mls/hr IV . Q1H1M [facility] Rx#:[id number] pressure bag 18 24 Intake, IV Titration 448.25 514.4 41.775 Amount Cisatracurium 200 mg In 127.2 41.775 Sodium Chloride 0.9% 180 ml @ 1 MCG/KG/MIN 9 mls/ hr IV .[id number] [facility] Rx#: [id number] propofoL 1,000 mg In 448.25 387.2 Empty Bag 1 bag @ Titrate IV .Q0M [facility] Rx#: [id number] Oral 150 Tube Feeding 60 Other 30 Output: Gastric Drainage 200 Urine 430 595 445 Other: Voiding Method Indwelling Catheter Indwelling Catheter Indwelling Catheter ABP, PAP, CO, CI - Last Documented Arterial Blood Pressure 119/57 - Exam PHYSICAL EXAMINATION: GENERAL: Patient is intubated sedated and paralyzed HEENT: Pupils are round and equally reacting to light. EOMI. No scleral icterus. No conjunctival pallor. Normocephalic, atraumatic. No pharyngeal erythema. No thyromegaly. CARDIOVASCULAR: S1 and S2 present. No murmurs, rubs, or gallops. PULMONARY: Bibasilar crackles were appreciated ABDOMEN: Soft, nontender, nondistended, normoactive bowel sounds. No palpable organomegaly. MUSCULOSKELETAL: No joint swelling or deformity. EXTREMITIES: No cyanosis, clubbing, or pedal edema. NEUROLOGICAL: Sedated SKIN: No rashes. - Labs CBC & Chem 7: 12/11/20 03:50 12/11/20 03:50 Labs: Abnormal Lab Results - Last 24 Hours (Table) 12/10/20 12/10/20 12/10/20 Range/Units 17:21 21:40 23:39 Neutrophils # (1.3-7.7) k/uL Lymphocytes # (1.0-4.8) k/uL D-Dimer (<0.60) mg/L FEU ABG pH (7.35-7.45) ABG pCO2 (35-45) mmHg ABG pO2 (83-108) mmHg ABG HCO3 (21-25) mmol/L ABG Total CO2 (19-24) mmol/L BUN (9-20) mg/dL Glucose (74-99) mg/dL POC Glucose (mg/dL) 244 H 251 H 274 H (75-99) mg/dL Calcium (8.4-10.2) mg/dL Lactate Dehydrogenase (313-618) U/L Creatine Kinase (55-170) U/L C-Reactive Protein (<10.0) mg/L Total Protein (6.3-8.2) g/dL Albumin (3.5-5.0) g/dL 12/11/20 12/11/20 12/11/20 Range/Units 03:50 03:50 03:50 Neutrophils # 8.1 H (1.3-7.7) k/uL Lymphocytes # 0.2 L (1.0-4.8) k/uL D-Dimer 4.26 H (<0.60) mg/L FEU ABG pH (7.35-7.45) ABG pCO2 (35-45) mmHg ABG pO2 (83-108) mmHg ABG HCO3 (21-25) mmol/L ABG Total CO2 (19-24) mmol/L BUN 37 H (9-20) mg/dL Glucose 250 H (74-99) mg/dL POC Glucose (mg/dL) (75-99) mg/dL Calcium 8.2 L (8.4-10.2) mg/dL Lactate Dehydrogenase 1799 H (313-618) U/L Creatine Kinase 37 L (55-170) U/L C-Reactive Protein 30.1 H (<10.0) mg/L Total Protein 5.3 L (6.3-8.2) g/dL Albumin 3.0 L (3.5-5.0) g/dL 12/11/20 12/11/20 12/11/20 Range/Units 06:00 06:18 12:20 Neutrophils # (1.3-7.7) k/uL Lymphocytes # (1.0-4.8) k/uL D-Dimer (<0.60) mg/L FEU ABG pH 7.24 L (7.35-7.45) ABG pCO2 74 H* (35-45) mmHg ABG pO2 79 L (83-108) mmHg ABG HCO3 32 H (21-25) mmol/L ABG Total CO2 34 H (19-24) mmol/L BUN (9-20) mg/dL Glucose (74-99) mg/dL POC Glucose (mg/dL) 264 H 363 H (75-99) mg/dL Calcium (8.4-10.2) mg/dL Lactate Dehydrogenase (313-618) U/L Creatine Kinase (55-170) U/L C-Reactive Protein (<10.0) mg/L Total Protein (6.3-8.2) g/dL Albumin (3.5-5.0) g/dL Microbiology - Last 24 Hours (Table) 12/05/20 18:39 Blood Culture - Preliminary Blood No Growth after 120 hours 12/05/20 18:20 Blood Culture - Preliminary Blood No Growth after 120 hours Assessment and Plan Plan: -Acute hypoxic respiratory failure secondary to covid 19 pneumonia.: Patient is on IV Solu-Medrol Covid vitamins, not a candidate for Remdesivir. Patient is presently intubated respiratory status has worsened. Patient is intubated on now for 07/21/2021 COPD with acute exacerbation Acute renal failure on chronic kidney disease stage III acute renal failure secondary to renal azotemia dehydration patient will be continued on IV fluids repeat basic metabolic profile tomorrow -Hyperlipidemia -Hypertension -Type 2 diabetes mellitus uncontrolled elevated blood sugars patient's Levemir dose is being increased as mentioned above -DVT prophylaxis with subcutaneous heparin because of his renal failure
[2020-12-11 16:19] LABS: Glucose,Whole Blood 368 mg/dL (75-99)
[2020-12-11 17:02] LABS: ABG Base Excess 1.1 mmol/L; ABG HCO3 31 mmol/L (21-25); ABG Oxygen Saturation 93.2 % (94-97); ABG PO2 77 mmHg (83-108); ABG TCO2 34 mmol/L (19-24); Allen Test Performed? Yes
[2020-12-11 17:09] LABS: ABG PCO2 99 mmHg (35-45)
[2020-12-11] MEDS ORDERED: SODIUM BICARB 8.4% 50 ML SYR (1 MEQ/ML) ONE ×2 (17:31)
[2020-12-11] MEDS: SODIUM CHLORIDE 0.9% 1,000 ML IV SCH (17:34)
[2020-12-11 19:09] LABS: ABG Base Excess 4.2 mmol/L; ABG HCO3 32 mmol/L (21-25); ABG Oxygen Saturation 92.8 % (94-97); ABG PH 7.23 (7.35-7.45); ABG PO2 66 mmHg (83-108); ABG TCO2 34 mmol/L (19-24); Allen Test Performed? Yes
[2020-12-11 19:10] LABS: ABG PCO2 77 mmHg (35-45)
[2020-12-11] MEDS: ATORVASTATIN 20 MG TAB PO SCH (20:04)
[2020-12-11] MEDS: ASPIRIN 81 MG PO SCH (20:04)
[2020-12-11 20:11] LABS: Glucose,Whole Blood 383 mg/dL (75-99)
[2020-12-11] MEDS ORDERED: INSULIN DETEMIR (LEVEMIR) 100 UNIT/ML SYR SQ SCH (21:00)
[2020-12-11 23:28] LABS: Glucose,Whole Blood 337 mg/dL (75-99)
[2020-12-11] MEDS ORDERED: INSULIN REGULAR BOLUS (FROM DRIP BAG) IV PRN (23:30)
[2020-12-11] MEDS: INSULIN REGULAR 100 UNIT in SODIUM CHLORIDE 0.9% 100 ML IV SCH (23:53)
[2020-12-12] MEDS: ARTIFICIAL TEARS-HYPROMELLOSE DROPS 15 ML BTL BOTH EYES SCH ×6 (00:01→21:18)
[2020-12-12] MEDS: guaiFENesin-Coden 100-10MG/5ML 10 ML CUP PO SCH (00:01)
[2020-12-12] MEDS: HYDROmorphone 0.5 MG/0.5 ML SYRINGE IVP PRN ×2 (00:05→19:38)
[2020-12-12 00:41] LABS: Glucose,Whole Blood 326 mg/dL (75-99)
[2020-12-12 01:11] LABS: Glucose,Whole Blood 317 mg/dL (75-99)
[2020-12-12 01:53] LABS: Glucose,Whole Blood 282 mg/dL (75-99)
[2020-12-12 02:54] LABS: Glucose,Whole Blood 263 mg/dL (75-99)
[2020-12-12 04:15] LABS: Glucose,Whole Blood 226 mg/dL (75-99)
[2020-12-12 04:45] LABS: Basophils % (A) 0 %; Eosinophils % (A) 0 %; HGB 15.2 gm/dL (13.0-17.5); Lymphocytes # (A) 0.1 k/uL (1.0-4.8); Lymphocytes % (A) 1 %; MCH 27.9 pg (25.0-35.0); MCHC 33.1 g/dL (31.0-37.0); MCV 84.3 fL (80.0-100.0); Mean Platelet Volume 7.7; Monocytes # (A) 0.3 k/uL (0-1.0); Monocytes % (A) 3 %; Neutrophils # (A) 9.4 k/uL (1.3-7.7); Neutrophils % (A) 95 %; Platelet Count 226 k/uL (150-450); RBC 5.45 m/uL (4.30-5.90); RDW 13.8 % (11.5-15.5); WBC 9.9 k/uL (3.8-10.6)
[2020-12-12 05:04] LABS: Potassium 3.9 mmol/L (3.5-5.1)
[2020-12-12 05:05] LABS: ABG Base Excess 6.9 mmol/L; ABG HCO3 34 mmol/L (21-25); ABG Oxygen Saturation 95.2 % (94-97); ABG PH 7.28 (7.35-7.45); ABG PO2 77 mmHg (83-108); ABG TCO2 36 mmol/L (19-24); Allen Test Performed? Yes
[2020-12-12 05:07] LABS: Albumin 2.7 g/dL (3.5-5.0); C Reactive Protein 20.9 mg/L (<10.0); Calcium 8.1 mg/dL (8.4-10.2); Total Bilirubin 0.4 mg/dL (0.2-1.3)
[2020-12-12 05:07] LABS: ABG PCO2 72 mmHg (35-45)
[2020-12-12 05:32] LABS: Glucose,Whole Blood 199 mg/dL (75-99)
[2020-12-12] MEDS: methylPREDNISolone SOD SUCCI 125 MG/2 ML VIAL IV SCH ×4 (05:38→23:00)
[2020-12-12 06:06] LABS: Glucose,Whole Blood 214 mg/dL (75-99)
[2020-12-12 07:12] LABS: Glucose,Whole Blood 236 mg/dL (75-99)
--- NOTE | 2020-12-12 07:41 | P.PN ---
Subjective Progress Note Date: 12/12/20 On 12/11/2020 on seeing the patient for a follow-up. This is a case of a 70-year-old male patient COVID 19 related pneumonia and hypoxic respiratory failure. The patient was transferred to the intensive care unit because of ongoing difficulties with hypoxemia and shortness of breath and the patient was treated with BiPAP and ultimately the patient to be intubated and placed on a mechanical ventilator. At this point in time, the patient's control mode at the rate of 24 with a tidal volume of 450 and FiO2 of 100% with a PEEP of 15. Note that during the course of the treatment, the patient received convalescent plasma, Tocilizumab and the patient is also received steroids. Patient is known to have COPD, diabetes mellitus type 2, hypertension and hyperlipidemia. The patient is morbidly obese and carries a body mass index of 50.3. The patient is currently sedated with propofol running at 60 mg/kg/m. The patient is also paralyzed with Nimbex at 0.5 mcg/kg per minute. The patient is a triple lumen catheter in the left IJ. The patient has a right radial arterial line. NG tube is in place and tube feeds were restarted. The patient has a CRP of 30and a LDH level of 1799 and this is based on labs that was obtained yesterday on 12/10/2020. Meanwhile, the patient remains on Solu Medrol 60 mg every 6 hours IV, Lovenox 40 mg subcu for DVT prophylaxis, and the patient is also on Levemir insulin for blood sugar control @ 30 units twice a day along with a NovoLog sliding scale coverage. The chest x-ray showing diffuse bilateral pulmonary infiltrates, consolidations interstitial infiltrates in addition orotracheal tube which is an inadequate location 2 cm above the neil. D-dimer is at 4.26. The blood gases from today showing a pH of 7.24 with pCO2 of 74 and pO2 of 79. This was an FiO2 of 100%. The peak and static pressures on a mechanical ventilator are 36/34 respectively. 12/12/2020 the patient is being seen for a follow-up. This is a case of 70-year-old male patient with Covid 19 related pneumonia and secondary hypoxic respiratory failure. The patient has been intubated since 12/11/2019. The patient currently is sedated and the patient is currently on propofol running at 60 mcg/kg per minute and the patient is also on Nimbex at 0.7 mg/kg per minute. The patient is currently on a mechanical ventilator. The patient on assist control mode with a tidal volume of 400 rate of 34, PEEP of 18 and FiO2 of 80%. The morning blood gases showed improvement and acid base status. His pH is at 7.27 with a pCO2 of 72 and pO2 of 76. His chest x-ray is showing bilateral pulmonary infiltrates most on the lower lobes and the patient has extensive consolidations. ET tube is very high and the trachea and can be pushed down easily. The overall pulmonary infiltrates are essentially stable for now. The patient remains on treatment and the patient is receiving Solu-Medrol 60 mg IV every 6 hours. The patient is also on Lovenox 70 mg subcu every 12 hours. In terms of his inflammatory markers, the patient has an LDH level of 1247 which is improved compared to yesterday and his CRP is down to 20.9. This morning, we having an issue with the patient's ventilator as the patient is losing some volume. I think this is related to the ET tube which is high in the trachea (to be pushed out. On his blood work, the patient has developed an acute kidney injury. His creatinine is up 1.4 with a BUN of 51 and this is of a new finding. The neck fluid balance has been in the order of positive fluid balance of 1.6 L over the past 24 hours. The patient is a triple lumen catheter in his left IJ. NG tube is also in place and the patient is receiving enteral feeding for nutritional support and the patient is currently on vitamin H. At the rate of 36 an hour. He is currently at goal. He is known to have COPD, diabetes mellitus type 2, hypertension and hyperlipidemia. His BMI is a 52. His blood sugar control is through insulin drip running at 11 units an hour and the Lantus and the NovoLog sliding scale were discontinued. Actos can be also discontin ued. Objective - Vital Signs Vital signs: Vital Signs Temp 98 F 12/12/20 04:00 Pulse 90 12/12/20 06:00 Resp 33 H 12/12/20 06:00 BP 115/64 12/12/20 05:00 Pulse Ox 94 L 12/12/20 06:00 Intake & Output 0412/12/20 12/12/20 18:59 06:59 18:59 Intake Total 520.795 0728.142 9.831 Output Total 840 505 Balance -262.253 4030.142 9.831 Weight 152.5 kg 155.8 kg Intake: IV 276 1256 Sodium Chloride 0.9% 1, 240 1220 000 ml @ 20 mls/hr IV . Q24H [facility] Rx#:[id number] pressure bag 36 36 Intake, IV Titration 195.760 531.142 9.831 Amount Cisatracurium 200 mg In 41.775 105.382 Sodium Chloride 0.9% 180 ml @ 1 MCG/KG/MIN 9 mls/ hr IV .[id number] [facility] Rx#: [id number] Insulin Regular 100 unit 80.228 9.831 In Sodium Chloride 0.9% 100 ml @ Per Protocol IV .Q0M [facility] Rx#:[id number] propofoL 1,000 mg In 153.985 345.532 Empty Bag 1 bag @ Titrate IV .Q0M [facility] Rx#: [id number] Tube Feeding 180 360 Other 60 90 Output: Gastric Drainage 200 Urine 640 505 Other: Voiding Method Indwelling Catheter Indwelling Catheter ABP, PAP, CO, CI - Last Documented Arterial Blood Pressure 160/62 - Exam GENERAL EXAM: Intubated, sedated 70-year-old morbidly obese male, currently on the mechanical ventilator with FiO2 100% and a PEEP of 18, tidal volume of 400, currently sedated and paralyzed. HEAD: Normocephalic/atraumatic. EYES: Normal reaction of pupils, equal size. Conjunctiva pink, sclera white. NOSE: Clear with pink turbinates. THROAT: Oral endotracheal and gastric tubes are secured in place. No erythema or exudates. NECK: No masses, no JVD, no thyroid enlargement, no adenopathy. CHEST: No chest wall deformity. Symmetrical expansion. Left IJ catheter in place LUNGS: Diminished breath sounds bilaterally, with bilateral crackles CVS: Regular rate and rhythm, normal S1 and S2, no gallops, no murmurs, no rubs ABDOMEN: Soft, nontender. No hepatosplenomegaly, normal bowel sounds, no gu arding or rigidity. EXTREMITIES: No clubbing, no edema, no cyanosis, 2+ pulses and upper and lower e xtremities. MUSCULOSKELETAL: Muscle strength and tone normal. SPINE: No scoliosis or deformity SKIN: No rashes CENTRAL NERVOUS SYSTEM: Sedated. Intubated. No focal deficits, tone is normal in all 4 extremities. - Labs CBC & Chem 7: 12/12/20 04:10 12/12/20 04:10 Labs: Abnormal Lab Results - Last 24 Hours (Table) 12/11/20 12/11/20 12/11/20 Range/Units 12:20 16:18 16:59 Neutrophils # (1.3-7.7) k/uL Lymphocytes # (1.0-4.8) k/uL ABG pH 7.10 L* (7.35-7.45) ABG pCO2 99 H* (35-45) mmHg ABG pO2 77 L (83-108) mmHg ABG HCO3 31 H (21-25) mmol/L ABG Total CO2 34 H (19-24) mmol/L ABG O2 Saturation 93.2 L (94-97) % Carbon Dioxide (22-30) mmol/L BUN (9-20) mg/dL Creatinine (0.66-1.25) mg/dL Glucose (74-99) mg/dL POC Glucose (mg/dL) 363 H 368 H (75-99) mg/dL Calcium (8.4-10.2) mg/dL Lactate Dehydrogenase (313-618) U/L C-Reactive Protein (<10.0) mg/L Total Protein (6.3-8.2) g/dL Albumin (3.5-5.0) g/dL 12/11/20 12/11/20 12/11/20 Range/Units 19:05 20:09 23:27 Neutrophils # (1.3-7.7) k/uL Lymphocytes # (1.0-4.8) k/uL ABG pH 7.23 L (7.35-7.45) ABG pCO2 77 H* (35-45) mmHg ABG pO2 66 L (83-108) mmHg ABG HCO3 32 H (21-25) mmol/L ABG Total CO2 34 H (19-24) mmol/L ABG O2 Saturation 92.8 L (94-97) % Carbon Dioxide (22-30) mmol/L BUN (9-20) mg/dL Creatinine (0.66-1.25) mg/dL Glucose (74-99) mg/dL POC Glucose (mg/dL) 383 H 337 H (75-99) mg/dL Calcium (8.4-10.2) mg/dL Lactate Dehydrogenase (313-618) U/L C-Reactive Protein (<10.0) mg/L Total Protein (6.3-8.2) g/dL Albumin (3.5-5.0) g/dL 12/12/20 12/12/20 12/12/20 Range/Units 00:39 01:09 01:52 Neutrophils # (1.3-7.7) k/uL Lymphocytes # (1.0-4.8) k/uL ABG pH (7.35-7.45) ABG pCO2 (35-45) mmHg ABG pO2 (83-108) mmHg ABG HCO3 (21-25) mmol/L ABG Total CO2 (19-24) mmol/L ABG O2 Saturation (94-97) % Carbon Dioxide (22-30) mmol/L BUN (9-20) mg/dL Creatinine (0.66-1.25) mg/dL Glucose (74-99) mg/dL POC Glucose (mg/dL) 326 H 317 H 282 H (75-99) mg/dL Calcium (8.4-10.2) mg/dL Lactate Dehydrogenase (313-618) U/L C-Reactive Protein (<10.0) mg/L Total Protein (6.3-8.2) g/dL Albumin (3.5-5.0) g/dL 12/12/20 12/12/20 12/12/20 Range/Units 02:53 04:10 04:10 Neutrophils # 9.4 H (1.3-7.7) k/uL Lymphocytes # 0.1 L (1.0-4.8) k/uL ABG pH (7.35-7.45) ABG pCO2 (35-45) mmHg ABG pO2 (83-108) mmHg ABG HCO3 (21-25) mmol/L ABG Total CO2 (19-24) mmol/L ABG O2 Saturation (94-97) % Carbon Dioxide 33 H (22-30) mmol/L BUN 51 H (9-20) mg/dL Creatinine 1.40 H (0.66-1.25) mg/dL Glucose 236 H (74-99) mg/dL POC Glucose (mg/dL) 263 H (75-99) mg/dL Calcium 8.1 L (8.4-10.2) mg/dL Lactate Dehydrogenase 1247 H (313-618) U/L C-Reactive Protein 20.9 H (<10.0) mg/L Total Protein 5.0 L (6.3-8.2) g/dL Albumin 2.7 L (3.5-5.0) g/dL 12/12/20 12/12/20 12/12/20 Range/Units 04:13 04:59 05:30 Neutrophils # (1.3-7.7) k/uL Lymphocytes # (1.0-4.8) k/uL ABG pH 7.28 L (7.35-7.45) ABG pCO2 72 H* (35-45) mmHg ABG pO2 77 L (83-108) mmHg ABG HCO3 34 H (21-25) mmol/L ABG Total CO2 36 H (19-24) mmol/L ABG O2 Saturation (94-97) % Carbon Dioxide (22-30) mmol/L BUN (9-20) mg/dL Creatinine (0.66-1.25) mg/dL Glucose (74-99) mg/dL POC Glucose (mg/dL) 226 H 199 H (75-99) mg/dL Calcium (8.4-10.2) mg/dL Lactate Dehydrogenase (313-618) U/L C-Reactive Protein (<10.0) mg/L Total Protein (6.3-8.2) g/dL Albumin (3.5-5.0) g/dL 12/12/20 12/12/20 Range/Units 06:03 07:10 Neutrophils # (1.3-7.7) k/uL Lymphocytes # (1.0-4.8) k/uL ABG pH (7.35-7.45) ABG pCO2 (35-45) mmHg ABG pO2 (83-108) mmHg ABG HCO3 (21-25) mmol/L ABG Total CO2 (19-24) mmol/L ABG O2 Saturation (94-97) % Carbon Dioxide (22-30) mmol/L BUN (9-20) mg/dL Creatinine (0.66-1.25) mg/dL Glucose (74-99) mg/dL POC Glucose (mg/dL) 214 H 236 H (75-99) mg/dL Calcium (8.4-10.2) mg/dL Lactate Dehydrogenase (313-618) U/L C-Reactive Protein (<10.0) mg/L Total Protein (6.3-8.2) g/dL Albumin (3.5-5.0) g/dL Microbiology - Last 24 Hours (Table) 12/05/20 18:39 Blood Culture - Final Blood No Growth after 144 hours 12/05/20 18:20 Blood Culture - Final Blood No Growth after 144 hours Assessment and Plan Plan: 1 Acute hypoxic respiratory failure related to acute COVID 19 related pneumonia , patient was out of the window for Remdesivir. Received tocilizumab and convalescent plasma. Transferred to the intensive care unit on 12/08/2020 for worsening hypoxemia, on BiPAP support, subsequent intubation and placed on mechanical ventilator on 12/10/2020. The peak and static pressures are r emaining to be elevated. The patient has a stable chest x-ray. Blood gases was noted that there is some improvement in her acid base status of the patient was given bicarb replacement. Most recent blood gas was noted. Chest x-ray was also noted. No room for improvement of his oxygenation. The patient is having leaks around the orotracheal tube. The ET tube needs to be pushed in. 2 History of COPD/chronic bronchitis 3 History of diabetes mellitus type 2, currently on insulin drip for blood sugar control 4 History of hypertension 5 History of hyperlipidemia 6 Morbid obesity with a BMI of 52 kg/m 7 Previous history of tobacco use 8 acute kidney injury, probably related to hypotension that occurred yesterday, considered hypotension-induced ATN. The patient's urine output is adequate at 30 mL an hour. Plan: Keep the patient sedated and paralyzed for now The pushed ET tube in for 2 cm Give the patient paralytic holiday Keep the patient sedated with propofol Keep ventilator support , drop the tidal volume to 400, increase the PEEP up to 18 and keep the FiO2 at 80% . If oxygenation improves, we'll gradually wean down the FiO2. Chest x-ray and blood gases were noted Continue IV Solu Medrol 60 mg every 6 hours Lovenox and adjust the dose to 70 mg every 12 hours for a d-dimer of 4.28 Monitor inflammatory markers including d-dimer Enteral feeding for nutritional support and this will be started today Monitor fluid balance Received convalescent plasma 1, tocilizumab Repeat chest x-ray, inflammatory markers in the a.m. IV fluids at [facility]. Insulin drip for blood sugar control currently running at 11 units an hour We'll continue to follow and make further recommendations based on his clinical status Critical care time, >30 min minutes. Time with Patient: Greater than 30
[2020-12-12 07:56] LABS: Glucose,Whole Blood 213 mg/dL (75-99)
[2020-12-12] MEDS: ALBUTEROL HFA INHALER INHALATION PRN ×4 (08:31→19:23)
--- NOTE | 2020-12-12 08:45 | XR ---
EXAMINATION TYPE: XR chest 1V portable DATE OF EXAM: 12/12/2020 COMPARISON: 12/11/2020 HISTORY: Tube placement TECHNIQUE: Single frontal view of the chest is obtained. FINDINGS: ET and NG tube stable. Central line stable. Diffuse bilateral alveolar and interstitial in filtrates stable with tiny bilateral effusion. Heart size stable. Atherosclerotic change aorta. IMPRESSION: Diffuse bilateral infiltrates correlate for ARDS, diffuse pneumonia or pulmonary edema. Findings stable.
[2020-12-12] MEDS: ENOXAPARIN 80 MG/0.8 ML SYRINGE SQ SCH ×2 (09:10→20:27)
[2020-12-12] MEDS: ASCORBIC ACID 500 MG TAB PO SCH ×2 (09:11→20:26)
[2020-12-12] MEDS: LOSARTAN 50 MG TAB PO SCH (09:11)
[2020-12-12] MEDS: CHLORHEXIDINE GLUCONATE 15 ML CUP MUCOUS MEM SCH ×2 (09:11→20:27)
[2020-12-12] MEDS: allopurinoL 100 MG TAB PO SCH (09:11)
[2020-12-12] MEDS: ZINC SULFATE 220 MG CAP PO SCH (09:11)
[2020-12-12] MEDS: CISATRACURIUM 200 MG in SODIUM CHLORIDE 0.9% 180 ML IV SCH ×2 (09:12→09:15)
[2020-12-12] MEDS: NON FORMULARY DRUG (Dapagliflozin Propanediol [Farxiga] 10 MG Tablet) PO SCH (09:13)
[2020-12-12 10:11] LABS: Glucose,Whole Blood 241 mg/dL (75-99)
[2020-12-12 11:33] LABS: Glucose,Whole Blood 267 mg/dL (75-99)
[2020-12-12] MEDS: INSULIN REGULAR 100 UNIT in SODIUM CHLORIDE 0.9% 100 ML IV SCH ×3 (11:36→20:20)
[2020-12-12 12:14] LABS: Glucose,Whole Blood 257 mg/dL (75-99)
--- NOTE | 2020-12-12 12:42 | P.PN ---
Subjective 62-year-old the female came in with cough congestion symptoms has been going on since November 27 and patient was tested negative in for Covid 19. Patient's symptoms continued to get worse patient was complaining of cough shortness of breath found to be hypoxic present in 4 L of oxygen. Patient denied any symptoms of diarrhea was having some nausea no vomiting. Patient has elevated inflammatory markers creatinine of 1.5 d-dimer of 0.44. Patient had a low-grade fever last night. 12/07/2020 Patient is presently in 6 L of oxygen his respiratory status is bit worse , patient doesn't feel well feels sick and short of breath. Patient is also receiving normal saline at 75 mL/h repeat labs are still pending. 12/08/2020 Patient the breathing has been worse patient was on 9:15 liters and the 100% nonrebreather and was still desaturating was patient was started on BiPAP was transferred to ICU patient is presently on 100% FiO2 with the IPAP/EPAP , patient did receive plasma patient is presently on Solu-Medrol continues to have elevated inflammatory markers. 12/09/2020 Patient remains on 100% FiO2 on BiPAP. And looks better with no significant improvement in his respiratory status doesn't desaturate then easily when he removes his BiPAP mask. 12/10/2020 Patient respiratory status worsened patient was desaturating on 100% BiPAP patient was subsequently intubated patient is on mechanical ventilator patient is on FiO2 of 20% PEEP of 10. Patient is on propofol and Nimbex as well. 12/11/2020 Patient is presently on 90% FiO2 still PEEP of 15. Still sedated and paralyzed. was started on solid Medrol and the patient blood sugars are very high patient's long-acting insulin dose will be increased to 45 units twice a day will be continued on sliding scale insulin 12/12/2020 Patient is on IV insulin drip which will be continued at this time. Insulin drip was started by pulmonology. Patient remains on propofol and Nimbex on mechanical ventilator with assist-control ventilation 80% FiO2 PEEP of 18 tender volume 400 with set up respiratory rate of around 34. Patient remains on IV steroids improved inflammatory markers patient is on Lovenox 70 twice a day reacting and is around 1.4. If creatinine goes up we need to cut down on Lovenox. Review of systems: Unable to obtain due to his clinical condition All inpatient medications were reviewed and appropriate changes in these medications as dictated in the interval history and assessment and plan. Objective - Vital Signs Vital signs: Vital Signs Temp 98.1 F 12/12/20 12:00 Pulse 104 H 12/12/20 12:30 Resp 34 H 12/12/20 12:30 BP 123/71 12/12/20 12:00 Pulse Ox 95 12/12/20 12:30 Intake & Output 12/11/20 12/12/20 12/12/20 18:59 06:59 18:59 Intake Total 289.308 4424.142 519.812 Output Total 840 505 275 Balance -172.115 7484.142 244.812 Weight 152.5 kg 155.8 kg Intake: IV 276 1256 138 Sodium Chloride 0.9% 1, 240 1220 120 000 ml @ 20 mls/hr IV . Q24H [facility] Rx#:[id number] pressure bag 36 36 18 Intake, IV Titration 195.760 531.142 141.812 Amount Cisatracurium 200 mg In 41.775 105.382 18.375 Sodium Chloride 0.9% 180 ml @ 1 MCG/KG/MIN 9 mls/ hr IV .[id number] [facility] Rx#: [id number] Insulin Regular 100 unit 80.228 29.357 In Sodium Chloride 0.9% 100 ml @ Per Protocol IV .Q0M [facility] Rx#:[id number] propofoL 1,000 mg In 153.985 345.532 94.080 Empty Bag 1 bag @ Titrate IV .Q0M [facility] Rx#: [id number] Tube Feeding 180 360 180 Other 60 90 60 Output: Gastric Drainage 200 Urine 640 505 275 Other: Voiding Method Indwelling Catheter Indwelling Catheter Indwelling Catheter ABP, PAP, CO, CI - Last Documented Arterial Blood Pressure 219/97 - Exam PHYSICAL EXAMINATION: GENERAL: Patient is intubated sedated and paralyzed HEENT: Pupils are round and equally reacting to light. EOMI. No scleral icterus. No conjunctival pallor. Normocephalic, atraumatic. No pharyngeal erythema. No thyromegaly. CARDIOVASCULAR: S1 and S2 present. No murmurs, rubs, or gallops. PULMONARY: Bibasilar crackles were appreciated ABDOMEN: Soft, nontender, nondistended, normoactive bowel sounds. No palpable organomegaly. MUSCULOSKELETAL: No joint swelling or deformity. EXTREMITIES: No cyanosis, clubbing, or pedal edema. NEUROLOGICAL: Sedated SKIN: No rashes. - Labs CBC & Chem 7: 12/12/20 04:10 12/12/20 04:10 Labs: Abnormal Lab Results - Last 24 Hours (Table) 12/11/20 12/11/20 12/11/20 Range/Units 16:18 16:59 19:05 Neutrophils # (1.3-7.7) k/uL Lymphocytes # (1.0-4.8) k/uL ABG pH 7.10 L* 7.23 L (7.35-7.45) ABG pCO2 99 H* 77 H* (35-45) mmHg ABG pO2 77 L 66 L (83-108) mmHg ABG HCO3 31 H 32 H (21-25) mmol/L ABG Total CO2 34 H 34 H (19-24) mmol/L ABG O2 Saturation 93.2 L 92.8 L (94-97) % Carbon Dioxide (22-30) mmol/L BUN (9-20) mg/dL Creatinine (0.66-1.25) mg/dL Glucose (74-99) mg/dL POC Glucose (mg/dL) 368 H (75-99) mg/dL Calcium (8.4-10.2) mg/dL Lactate Dehydrogenase (313-618) U/L C-Reactive Protein (<10.0) mg/L Total Protein (6.3-8.2) g/dL Albumin (3.5-5.0) g/dL 12/11/20 12/11/20 12/12/20 Range/Units 20:09 23:27 00:39 Neutrophils # (1.3-7.7) k/uL Lymphocytes # (1.0-4.8) k/uL ABG pH (7.35-7.45) ABG pCO2 (35-45) mmHg ABG pO2 (83-108) mmHg ABG HCO3 (21-25) mmol/L ABG Total CO2 (19-24) mmol/L ABG O2 Saturation (94-97) % Carbon Dioxide (22-30) mmol/L BUN (9-20) mg/dL Creatinine (0.66-1.25) mg/dL Glucose (74-99) mg/dL POC Glucose (mg/dL) 383 H 337 H 326 H (75-99) mg/dL Calcium (8.4-10.2) mg/dL Lactate Dehydrogenase (313-618) U/L C-Reactive Protein (<10.0) mg/L Total Protein (6.3-8.2) g/dL Albumin (3.5-5.0) g/dL 12/12/20 12/12/20 12/12/20 Range/Units 01:09 01:52 02:53 Neutrophils # (1.3-7.7) k/uL Lymphocytes # (1.0-4.8) k/uL ABG pH (7.35-7.45) ABG pCO2 (35-45) mmHg ABG pO2 (83-108) mmHg ABG HCO3 (21-25) mmol/L ABG Total CO2 (19-24) mmol/L ABG O2 Saturation (94-97) % Carbon Dioxide (22-30) mmol/L BUN (9-20) mg/dL Creatinine (0.66-1.25) mg/dL Glucose (74-99) mg/dL POC Glucose (mg/dL) 317 H 282 H 263 H (75-99) mg/dL Calcium (8.4-10.2) mg/dL Lactate Dehydrogenase (313-618) U/L C-Reactive Protein (<10.0) mg/L Total Protein (6.3-8.2) g/dL Albumin (3.5-5.0) g/dL 12/12/20 12/12/20 12/12/20 Range/Units 04:10 04:10 04:13 Neutrophils # 9.4 H (1.3-7.7) k/uL Lymphocytes # 0.1 L (1.0-4.8) k/uL ABG pH (7.35-7.45) ABG pCO2 (35-45) mmHg ABG pO2 (83-108) mmHg ABG HCO3 (21-25) mmol/L ABG Total CO2 (19-24) mmol/L ABG O2 Saturation (94-97) % Carbon Dioxide 33 H (22-30) mmol/L BUN 51 H (9-20) mg/dL Creatinine 1.40 H (0.66-1.25) mg/dL Glucose 236 H (74-99) mg/dL POC Glucose (mg/dL) 226 H (75-99) mg/dL Calcium 8.1 L (8.4-10.2) mg/dL Lactate Dehydrogenase 1247 H (313-618) U/L C-Reactive Protein 20.9 H (<10.0) mg/L Total Protein 5.0 L (6.3-8.2) g/dL Albumin 2.7 L (3.5-5.0) g/dL 12/12/20 12/12/20 12/12/20 Range/Units 04:59 05:30 06:03 Neutrophils # (1.3-7.7) k/uL Lymphocytes # (1.0-4.8) k/uL ABG pH 7.28 L (7.35-7.45) ABG pCO2 72 H* (35-45) mmHg ABG pO2 77 L (83-108) mmHg ABG HCO3 34 H (21-25) mmol/L ABG Total CO2 36 H (19-24) mmol/L ABG O2 Saturation (94-97) % Carbon Dioxide (22-30) mmol/L BUN (9-20) mg/dL Creatinine (0.66-1.25) mg/dL Glucose (74-99) mg/dL POC Glucose (mg/dL) 199 H 214 H (75-99) mg/dL Calcium (8.4-10.2) mg/dL Lactate Dehydrogenase (313-618) U/L C-Reactive Protein (<10.0) mg/L Total Protein (6.3-8.2) g/dL Albumin (3.5-5.0) g/dL 12/12/20 12/12/20 12/12/20 Range/Units 07:10 07:54 10:10 Neutrophils # (1.3-7.7) k/uL Lymphocytes # (1.0-4.8) k/uL ABG pH (7.35-7.45) ABG pCO2 (35-45) mmHg ABG pO2 (83-108) mmHg ABG HCO3 (21-25) mmol/L ABG Total CO2 (19-24) mmol/L ABG O2 Saturation (94-97) % Carbon Dioxide (22-30) mmol/L BUN (9-20) mg/dL Creatinine (0.66-1.25) mg/dL Glucose (74-99) mg/dL POC Glucose (mg/dL) 236 H 213 H 241 H (75-99) mg/dL Calcium (8.4-10.2) mg/dL Lactate Dehydrogenase (313-618) U/L C-Reactive Protein (<10.0) mg/L Total Protein (6.3-8.2) g/dL Albumin (3.5-5.0) g/dL 12/12/20 12/12/20 Range/Units 11:29 12:12 Neutrophils # (1.3-7.7) k/uL Lymphocytes # (1.0-4.8) k/uL ABG pH (7.35-7.45) ABG pCO2 (35-45) mmHg ABG pO2 (83-108) mmHg ABG HCO3 (21-25) mmol/L ABG Total CO2 (19-24) mmol/L ABG O2 Saturation (94-97) % Carbon Dioxide (22-30) mmol/L BUN (9-20) mg/dL Creatinine (0.66-1.25) mg/dL Glucose (74-99) mg/dL POC Glucose (mg/dL) 267 H 257 H (75-99) mg/dL Calcium (8.4-10.2) mg/dL Lactate Dehydrogenase (313-618) U/L C-Reactive Protein (<10.0) mg/L Total Protein (6.3-8.2) g/dL Albumin (3.5-5.0) g/dL Microbiology - Last 24 Hours (Table) 12/05/20 18:39 Blood Culture - Final Blood No Growth after 144 hours 12/05/20 18:20 Blood Culture - Final Blood No Growth after 144 hours Assessment and Plan Plan: -Acute hypoxic respiratory failure secondary to covid 19 pneumonia.: Patient is on IV Solu-Medrol Covid vitamins, not a candidate for Remdesivir. Patient is presently intubated respiratory status has worsened. Patient is intubated on now for 07/21/2021 COPD with acute exacerbation Acute renal failure on chronic kidney disease stage III acute renal failure secondary to renal azotemia dehydration patient will be continued on IV fluids repeat basic metabolic profile tomorrow -Hyperlipidemia -Hypertension -Type 2 diabetes mellitus uncontrolled elevated blood sugars, patient is now started on insulin drip. -DVT prophylaxis with subcutaneous heparin because of his renal failure
[2020-12-12 13:16] LABS: Glucose,Whole Blood 266 mg/dL (75-99)
[2020-12-12 14:01] LABS: Ferritin 592.3 ng/mL (22.0-322.0)
[2020-12-12 15:07] LABS: Glucose,Whole Blood 264 mg/dL (75-99)
[2020-12-12] MEDS ORDERED: CLEVIDIPINE BUTYRATE 25 MG/50 ML VIAL IV ONE (16:59)
[2020-12-12 17:14] LABS: Glucose,Whole Blood 245 mg/dL (75-99)
[2020-12-12] MEDS ORDERED: CLEVIDIPINE BUTYRATE 25 MG in EMPTY BAG 1 BAG IV SCH (17:15)
[2020-12-12 18:13] LABS: Glucose,Whole Blood 221 mg/dL (75-99)
[2020-12-12 18:56] LABS: Glucose,Whole Blood 244 mg/dL (75-99)
[2020-12-12] MEDS: fentaNYL (PF). 1,000 MCG in SODIUM CHLORIDE 0.9% 80 ML IV SCH (19:51)
[2020-12-12 20:16] LABS: Glucose,Whole Blood 172 mg/dL (75-99)
[2020-12-12] MEDS: ASPIRIN 81 MG PO SCH (20:26)
[2020-12-12] MEDS: ATORVASTATIN 20 MG TAB PO SCH (20:26)
[2020-12-12 20:52] LABS: Glucose,Whole Blood 157 mg/dL (75-99)
[2020-12-12] MEDS ORDERED: INSULIN DETEMIR (LEVEMIR) 100 UNIT/ML SYR SQ SCH (21:00)
[2020-12-12 22:05] LABS: Glucose,Whole Blood 135 mg/dL (75-99)
[2020-12-12 23:06] LABS: Glucose,Whole Blood 128 mg/dL (75-99)
[2020-12-12 23:51] LABS: Glucose,Whole Blood 132 mg/dL (75-99)
[2020-12-13] MEDS: ARTIFICIAL TEARS-HYPROMELLOSE DROPS 15 ML BTL BOTH EYES SCH ×6 (00:29→20:25)
[2020-12-13 01:03] LABS: Glucose,Whole Blood 133 mg/dL (75-99)
[2020-12-13 03:13] LABS: Glucose,Whole Blood 196 mg/dL (75-99)
[2020-12-13] MEDS: SODIUM CHLORIDE 0.9% 1,000 ML IV SCH ×2 (03:35→18:32)
[2020-12-13 04:10] LABS: Glucose,Whole Blood 157 mg/dL (75-99)
[2020-12-13 04:42] LABS: ABG Base Excess 8.3 mmol/L; ABG HCO3 35 mmol/L (21-25); ABG Oxygen Saturation 97.6 % (94-97); ABG PH 7.26 (7.35-7.45); ABG PO2 104 mmHg (83-108); ABG TCO2 38 mmol/L (19-24); Allen Test Performed? Yes
[2020-12-13 04:47] LABS: ABG PCO2 79 mmHg (35-45)
[2020-12-13 04:54] LABS: Glucose,Whole Blood 160 mg/dL (75-99)
[2020-12-13 05:17] LABS: Basophils % (A) 0 %; Eosinophils % (A) 0 %; HCT 50.5 % (39.0-53.0); HGB 15.8 gm/dL (13.0-17.5); Lymphocytes # (A) 0.4 k/uL (1.0-4.8); Lymphocytes % (A) 3 %; MCH 26.8 pg (25.0-35.0); MCHC 31.2 g/dL (31.0-37.0); MCV 85.9 fL (80.0-100.0); Mean Platelet Volume 7.7; Monocytes # (A) 0.3 k/uL (0-1.0); Monocytes % (A) 2 %; Neutrophils # (A) 13.1 k/uL (1.3-7.7); Neutrophils % (A) 94 %; Platelet Count 267 k/uL (150-450); RBC 5.88 m/uL (4.30-5.90); RDW 14.3 % (11.5-15.5); WBC 13.9 k/uL (3.8-10.6)
[2020-12-13] MEDS: CISATRACURIUM 200 MG in SODIUM CHLORIDE 0.9% 180 ML IV SCH (05:44)
[2020-12-13] MEDS: methylPREDNISolone SOD SUCCI 125 MG/2 ML VIAL IV SCH ×3 (05:45→17:56)
[2020-12-13 05:53] LABS: C Reactive Protein 13.5 mg/L (<10.0); Calcium 8.6 mg/dL (8.4-10.2); Potassium 4.5 mmol/L (3.5-5.1); Total Bilirubin 0.4 mg/dL (0.2-1.3); Total Protein 5.2 g/dL (6.3-8.2)
[2020-12-13 06:02] LABS: Glucose,Whole Blood 152 mg/dL (75-99)
--- NOTE | 2020-12-13 06:57 | P.PN ---
Subjective Progress Note Date: 12/13/20 On 12/11/2020 on seeing the patient for a follow-up. This is a case of a 70-year-old male patient COVID 19 related pneumonia and hypoxic respiratory failure. The patient was transferred to the intensive care unit because of ongoing difficulties with hypoxemia and shortness of breath and the patient was treated with BiPAP and ultimately the patient to be intubated and placed on a mechanical ventilator. At this point in time, the patient's control mode at the rate of 24 with a tidal volume of 450 and FiO2 of 100% with a PEEP of 15. Note that during the course of the treatment, the patient received convalescent plasma, Tocilizumab and the patient is also received steroids. Patient is known to have COPD, diabetes mellitus type 2, hypertension and hyperlipidemia. The patient is morbidly obese and carries a body mass index of 50.3. The patient is currently sedated with propofol running at 60 mg/kg/m. The patient is also paralyzed with Nimbex at 0.5 mcg/kg per minute. The patient is a triple lumen catheter in the left IJ. The patient has a right radial arterial line. NG tube is in place and tube feeds were restarted. The patient has a CRP of 30and a LDH level of 1799 and this is based on labs that was obtained yesterday on 12/10/2020. Meanwhile, the patient remains on Solu Medrol 60 mg every 6 hours IV, Lovenox 40 mg subcu for DVT prophylaxis, and the patient is also on Levemir insulin for blood sugar control @ 30 units twice a day along with a NovoLog sliding scale coverage. The chest x-ray showing diffuse bilateral pulmonary infiltrates, consolidations interstitial infiltrates in addition orotracheal tube which is an inadequate location 2 cm above the neil. D-dimer is at 4.26. The blood gases from today showing a pH of 7.24 with pCO2 of 74 and pO2 of 79. This was an FiO2 of 100%. The peak and static pressures on a mechanical ventilator are 36/34 respectively. 12/12/2020 the patient is being seen for a follow-up. This is a case of 70-year-old male patient with Covid 19 related pneumonia and secondary hypoxic respiratory failure. The patient has been intubated since 12/11/2019. The patient currently is sedated and the patient is currently on propofol running at 60 mcg/kg per minute and the patient is also on Nimbex at 0.7 mg/kg per minute. The patient is currently on a mechanical ventilator. The patient on assist control mode with a tidal volume of 400 rate of 34, PEEP of 18 and FiO2 of 80%. The morning blood gases showed improvement and acid base status. His pH is at 7.27 with a pCO2 of 72 and pO2 of 76. His chest x-ray is showing bilateral pulmonary infiltrates most on the lower lobes and the patient has extensive consolidations. ET tube is very high and the trachea and can be pushed down easily. The overall pulmonary infiltrates are essentially stable for now. The patient remains on treatment and the patient is receiving Solu-Medrol 60 mg IV every 6 hours. The patient is also on Lovenox 70 mg subcu every 12 hours. In terms of his inflammatory markers, the patient has an LDH level of 1247 which is improved compared to yesterday and his CRP is down to 20.9. This morning, we having an issue with the patient's ventilator as the patient is losing some volume. I think this is related to the ET tube which is high in the trachea (to be pushed out. On his blood work, the patient has developed an acute kidney injury. His creatinine is up 1.4 with a BUN of 51 and this is of a new finding. The neck fluid balance has been in the order of positive fluid balance of 1.6 L over the past 24 hours. The patient is a triple lumen catheter in his left IJ. NG tube is also in place and the patient is receiving enteral feeding for nutritional support and the patient is currently on vitamin H. At the rate of 36 an hour. He is currently at goal. He is known to have COPD, diabetes mellitus type 2, hypertension and hyperlipidemia. His BMI is a 52. His blood sugar control is through insulin drip running at 11 units an hour and the Lantus and the NovoLog sliding scale were discontinued. Actos can be also discontin ued. 12/12 2020, the patient remains intubated on mechanical ventilator. This morning, per report is running at 50 mcg/kg per minute and the patient also paralyzed with Nimbex at 0.7 mcg/kg per minute. He remains on a mechanical ventilator. He is an assist-control with a tidal volume of 400 and the dates of 34 and a PEEP of 18 and FiO2 of 80%. The blood gases from today is showing a pH of 7.26 with a pCO2 of 79 and pO2 of 104. Note that overnight, the patient was also started on fentanyl for elevated PRESSURE and attempt to wean off the propofol and Nimbex. The follow-up chest x-ray was done today. I will say there is some limited improvement in the aeration. There is also some possible limited improvement in the left lower lobe consolidation. ET tube is very highly trachea needs to be pushed in. The NG tube is in place. The patient is receiving enteral feeding for nutritional support and the patient is currently on vital high protein at the rate of 36 this is an hour. He is currently still at goal. He remains on steroids in the patient on IV Solu-Medrol 60 mg every 6 hours. He is on Lovenox 70 mg subcutaneous every 12 hours. His d-dimer today that 3.53 and his LDH level is 1226 and his CRP is at 13.6. His CPKs up to 75. BUN is at 61 with a creatinine of 1.09 and a white cell count is normal at 15.9. No major interval changes condition since yesterday. Her net fluid balance over the past 24 hours and then +1.6 L for yesterday and +2.5 L for today before. He is getting some increased swelling in the upper and lower extremities bilaterally. Objective - Vital Signs Vital signs: Vital Signs Temp 98.2 F 12/13/20 04:00 Pulse 98 12/13/20 06:00 Resp 34 H 12/13/20 06:00 BP 93/54 12/13/20 00:00 Pulse Ox 92 L 12/13/20 06:00 Intake & Output 12/12/20 12/12/20 12/13/20 06:59 18:59 06:59 Intake Total 2237.142 6953.080 2438.239 Output Total 605 939 9766 Balance 1732.142 447.894 340.239 Weight 155.8 kg 155.8 kg Intake: IV 1256 253 276 Sodium Chloride 0.9% 1, 1220 220 240 000 ml @ 20 mls/hr IV . Q24H [facility] Rx#:[id number] pressure bag 36 33 36 Intake, IV Titration 531.142 434.894 694.239 Amount Cisatracurium 200 mg In 105.382 18.375 129.045 Sodium Chloride 0.9% 180 ml @ 1 MCG/KG/MIN 9 mls/ hr IV .[id number] [facility] Rx#: [id number] Clevidipine Butyrate 25 0.667 49.333 mg In Empty Bag 1 bag @ 1 MG/HR 2 mls/hr IV .Q24H [facility] Rx#:[id number] Insulin Regular 100 unit 80.228 121.772 In Sodium Chloride 0.9% 100 ml @ Per Protocol IV .Q0M [facility] Rx#:[id number] Insulin Regular 100 unit 41.730 In Sodium Chloride 0.9% 100 ml @ Per Protocol IV .Q0M [facility] Rx#:[id number] fentaNYL (PF). 1,000 mcg 65.616 In Sodium Chloride 0.9% 80 ml @ Per Protocol IV . Q0M [facility] Rx#:[id number] propofoL 1,000 mg In 345.532 294.080 408.515 Empty Bag 1 bag @ Titrate IV .Q0M [facility] Rx#: [id number] Tube Feeding 360 330 360 Other 90 90 90 Output: Urine 755 320 4305 Other: Voiding Method Indwelling Catheter Indwelling Catheter Indwelling Catheter ABP, PAP, CO, CI - Last Documented Arterial Blood Pressure 152/62 - Exam GENERAL EXAM: Intubated, sedated 70-year-old morbidly obese male, currently on the mechanical ventilator with FiO2 80% and a PEEP of 18, tidal volume of 400, currently sedated and paralyzed. HEAD: Normocephalic/atraumatic. EYES: Normal reaction of pupils, equal size. Conjunctiva pink, sclera white. NOSE: Clear with pink turbinates. THROAT: Oral endotracheal and gastric tubes are secured in place. No erythema or exudates. NECK: No masses, no JVD, no thyroid enlargement, no adenopathy. CHEST: No chest wall deformity. Symmetrical expansion. Left IJ catheter in place LUNGS: Diminished breath sounds bilaterally, with bilateral crackles CVS: Regular rate and rhythm, normal S1 and S2, no gallops, no murmurs, no rubs ABDOMEN: Soft, nontender. No hepatosplenomegaly, normal bowel sounds, no guarding or rigidity. EXTREMITIES: No clubbing, no edema, no cyanosis, 2+ pulses and upper and lower extremities. MUSCULOSKELETAL: Muscle strength and tone normal. SPINE: No scoliosis or deformity SKIN: No rashes CENTRAL NERVOUS SYSTEM: Sedated. Intubated. No focal deficits, tone is normal in all 4 extremities. - Labs CBC & Chem 7: 12/13/20 04:45 12/13/20 04:45 Labs: Abnormal Lab Results - Last 24 Hours (Table) 12/12/20 12/12/20 12/12/20 Range/Units 04:10 07:10 07:54 WBC (3.8-10.6) k/uL Neutrophils # (1.3-7.7) k/uL Lymphocytes # (1.0-4.8) k/uL D-Dimer (<0.60) mg/L FEU ABG pH (7.35-7.45) ABG pCO2 (35-45) mmHg ABG HCO3 (21-25) mmol/L ABG Total CO2 (19-24) mmol/L ABG O2 Saturation (94-97) % Carbon Dioxide (22-30) mmol/L BUN (9-20) mg/dL Glucose (74-99) mg/dL POC Glucose (mg/dL) 236 H 213 H (75-99) mg/dL Ferritin 592.3 H (22.0-322.0) ng/mL Lactate Dehydrogenase (313-618) U/L Creatine Kinase (55-170) U/L C-Reactive Protein (<10.0) mg/L Total Protein (6.3-8.2) g/dL Albumin (3.5-5.0) g/dL 12/12/20 12/12/20 12/12/20 Range/Units 10:10 11:29 12:12 WBC (3.8-10.6) k/uL Neutrophils # (1.3-7.7) k/uL Lymphocytes # (1.0-4.8) k/uL D-Dimer (<0.60) mg/L FEU ABG pH (7.35-7.45) ABG pCO2 (35-45) mmHg ABG HCO3 (21-25) mmol/L ABG Total CO2 (19-24) mmol/L ABG O2 Saturation (94-97) % Carbon Dioxide (22-30) mmol/L BUN (9-20) mg/dL Glucose (74-99) mg/dL POC Glucose (mg/dL) 241 H 267 H 257 H (75-99) mg/dL Ferritin (22.0-322.0) ng/mL Lactate Dehydrogenase (313-618) U/L Creatine Kinase (55-170) U/L C-Reactive Protein (<10.0) mg/L Total Protein (6.3-8.2) g/dL Albumin (3.5-5.0) g/dL 12/12/20 12/12/20 12/12/20 Range/Units 13:14 15:06 17:12 WBC (3.8-10.6) k/uL Neutrophils # (1.3-7.7) k/uL Lymphocytes # (1.0-4.8) k/uL D-Dimer (<0.60) mg/L FEU ABG pH (7.35-7.45) ABG pCO2 (35-45) mmHg ABG HCO3 (21-25) mmol/L ABG Total CO2 (19-24) mmol/L ABG O2 Saturation (94-97) % Carbon Dioxide (22-30) mmol/L BUN (9-20) mg/dL Glucose (74-99) mg/dL POC Glucose (mg/dL) 266 H 264 H 245 H (75-99) mg/dL Ferritin (22.0-322.0) ng/mL Lactate Dehydrogenase (313-618) U/L Creatine Kinase (55-170) U/L C-Reactive Protein (<10.0) mg/L Total Protein (6.3-8.2) g/dL Albumin (3.5-5.0) g/dL 12/12/20 12/12/20 12/12/20 Range/Units 18:11 18:55 20:15 WBC (3.8-10.6) k/uL Neutrophils # (1.3-7.7) k/uL Lymphocytes # (1.0-4.8) k/uL D-Dimer (<0.60) mg/L FEU ABG pH (7.35-7.45) ABG pCO2 (35-45) mmHg ABG HCO3 (21-25) mmol/L ABG Total CO2 (19-24) mmol/L ABG O2 Saturation (94-97) % Carbon Dioxide (22-30) mmol/L BUN (9-20) mg/dL Glucose (74-99) mg/dL POC Glucose (mg/dL) 221 H 244 H 172 H (75-99) mg/dL Ferritin (22.0-322.0) ng/mL Lactate Dehydrogenase (313-618) U/L Creatine Kinase (55-170) U/L C-Reactive Protein (<10.0) mg/L Total Protein (6.3-8.2) g/dL Albumin (3.5-5.0) g/dL 12/12/20 12/12/20 12/12/20 Range/Units 20:51 22:04 23:05 WBC (3.8-10.6) k/uL Neutrophils # (1.3-7.7) k/uL Lymphocytes # (1.0-4.8) k/uL D-Dimer (<0.60) mg/L FEU ABG pH (7.35-7.45) ABG pCO2 (35-45) mmHg ABG HCO3 (21-25) mmol/L ABG Total CO2 (19-24) mmol/L ABG O2 Saturation (94-97) % Carbon Dioxide (22-30) mmol/L BUN (9-20) mg/dL Glucose (74-99) mg/dL POC Glucose (mg/dL) 157 H 135 H 128 H (75-99) mg/dL Ferritin (22.0-322.0) ng/mL Lactate Dehydrogenase (313-618) U/L Creatine Kinase (55-170) U/L C-Reactive Protein (<10.0) mg/L Total Protein (6.3-8.2) g/dL Albumin (3.5-5.0) g/dL 12/12/20 12/13/20 12/13/20 Range/Units 23:49 01:02 03:11 WBC (3.8-10.6) k/uL Neutrophils # (1.3-7.7) k/uL Lymphocytes # (1.0-4.8) k/uL D-Dimer (<0.60) mg/L FEU ABG pH (7.35-7.45) ABG pCO2 (35-45) mmHg ABG HCO3 (21-25) mmol/L ABG Total CO2 (19-24) mmol/L ABG O2 Saturation (94-97) % Carbon Dioxide (22-30) mmol/L BUN (9-20) mg/dL Glucose (74-99) mg/dL POC Glucose (mg/dL) 132 H 133 H 196 H (75-99) mg/dL Ferritin (22.0-322.0) ng/mL Lactate Dehydrogenase (313-618) U/L Creatine Kinase (55-170) U/L C-Reactive Protein (<10.0) mg/L Total Protein (6.3-8.2) g/dL Albumin (3.5-5.0) g/dL 12/13/20 12/13/20 12/13/20 Range/Units 04:08 04:30 04:45 WBC 13.9 H (3.8-10.6) k/uL Neutrophils # 13.1 H (1.3-7.7) k/uL Lymphocytes # 0.4 L (1.0-4.8) k/uL D-Dimer (<0.60) mg/L FEU ABG pH 7.26 L (7.35-7.45) ABG pCO2 79 H* (35-45) mmHg ABG HCO3 35 H (21-25) mmol/L ABG Total CO2 38 H (19-24) mmol/L ABG O2 Saturation 97.6 H (94-97) % Carbon Dioxide (22-30) mmol/L BUN (9-20) mg/dL Glucose (74-99) mg/dL POC Glucose (mg/dL) 157 H (75-99) mg/dL Ferritin (22.0-322.0) ng/mL Lactate Dehydrogenase (313-618) U/L Creatine Kinase (55-170) U/L C-Reactive Protein (<10.0) mg/L Total Protein (6.3-8.2) g/dL Albumin (3.5-5.0) g/dL 12/13/20 12/13/20 12/13/20 Range/Units 04:45 04:45 04:53 WBC (3.8-10.6) k/uL Neutrophils # (1.3-7.7) k/uL Lymphocytes # (1.0-4.8) k/uL D-Dimer 3.53 H (<0.60) mg/L FEU ABG pH (7.35-7.45) ABG pCO2 (35-45) mmHg ABG HCO3 (21-25) mmol/L ABG Total CO2 (19-24) mmol/L ABG O2 Saturation (94-97) % Carbon Dioxide 36 H (22-30) mmol/L BUN 61 H (9-20) mg/dL Glucose 163 H (74-99) mg/dL POC Glucose (mg/dL) 160 H (75-99) mg/dL Ferritin (22.0-322.0) ng/mL Lactate Dehydrogenase 1226 H (313-618) U/L Creatine Kinase 275 H (55-170) U/L C-Reactive Protein 13.5 H (<10.0) mg/L Total Protein 5.2 L (6.3-8.2) g/dL Albumin 3.0 L (3.5-5.0) g/dL 12/13/20 Range/Units 06:00 WBC (3.8-10.6) k/uL Neutrophils # (1.3-7.7) k/uL Lymphocytes # (1.0-4.8) k/uL D-Dimer (<0.60) mg/L FEU ABG pH (7.35-7.45) ABG pCO2 (35-45) mmHg ABG HCO3 (21-25) mmol/L ABG Total CO2 (19-24) mmol/L ABG O2 Saturation (94-97) % Carbon Dioxide (22-30) mmol/L BUN (9-20) mg/dL Glucose (74-99) mg/dL POC Glucose (mg/dL) 152 H (75-99) mg/dL Ferritin (22.0-322.0) ng/mL Lactate Dehydrogenase (313-618) U/L Creatine Kinase (55-170) U/L C-Reactive Protein (<10.0) mg/L Total Protein (6.3-8.2) g/dL Albumin (3.5-5.0) g/dL Assessment and Plan Plan: 1 Acute hypoxic respiratory failure related to acute COVID 19 related pneumonia, patient was out of the window for Remdesivir. Received tocilizumab and convalescent plasma. Transferred to the intensive care unit on 12/08/2020 for worsening hypoxemia, on BiPAP support, subsequent intubation and placed on mechanical ventilator on 12/10/2020. The peak and static pressures are remaining to be elevated. Your pressure today's a 34 with a static pressure of 27. The patient has a stable chest x-ray. He has was noted. Chest x-ray was also noted. ET tube needs to be pushed in and the patient is having some limited amount of air leak on a mechanical ventilator. 2 History of COPD/chronic bronchitis 3 History of diabetes mellitus type 2, currently on Levemir insulin 4 History of hypertension 5 History of hyperlipidemia 6 Morbid obesity with a BMI of 52 kg/m 7 Previous history of tobacco use 8 acute kidney injury, probably related to hypotension that occurred yesterday, considered hypotension-induced ATN. The patient's urine output is adequate at 30 mL an hour. The patient has adequate urine output for now. He is in a positive fluid balance. He'll be started on Lasix. He was started on Lasix once a day 40 mg IV every 24 hours. Plan: Keep the patient sedated and paralyzed for now, fentanyl was added and paralytics are going to be discontinued today. The pushed ET tube in for 2 cm Give the patient paralytic holiday Keep the patient sedated with propofol and fentanyl for sedation Keep ventilator support , drop the tidal volume to 400, increase the PEEP up to 18 and keep the FiO2 at 80% . If oxygenation improves, we'll gradually wean down the FiO2. I would like to stop the leak around ET tube first and then provide some further weaning of FiO2 Chest x-ray and blood gases were noted Continue IV Solu Medrol 60 mg every 6 hours Lovenox and adjust the dose to 40 mg every 24 hours for a d-dimer of 3.53 Monitor inflammatory markers including d-dimer Enteral feeding for nutritional support Monitor fluid balance, give the patient Lasix 40 mg every 24 hours Received convalescent plasma 1, tocilizumab Repeat chest x-ray, inflammatory markers in the a.m. IV fluids at [facility]. Levimir insulin 45 U daily and the patient is currently off the insulin drip. He is also on a scale for blood sugar control. We'll continue to follow and make further recommendations based on his clinical status Critical care time, >30 min minutes. Time with Patient: Greater than 30
[2020-12-13] MEDS ORDERED: INSULIN DETEMIR (LEVEMIR) 100 UNIT/ML SYR SQ SCH ×2 (07:00→13:19)
[2020-12-13 07:04] LABS: Glucose,Whole Blood 121 mg/dL (75-99)
[2020-12-13] MEDS: ALBUTEROL HFA INHALER INHALATION PRN ×2 (07:50→15:51)
--- NOTE | 2020-12-13 08:21 | XR ---
EXAMINATION TYPE: XR chest 1V portable DATE OF EXAM: 12/13/2020 COMPARISON: Prior chest x-ray 12/13/2020 at earlier time HISTORY: Intubated TECHNIQUE: Single frontal view of the chest is obtained. FINDINGS: There is been interval endotracheal tube placement. Endotracheal tube is overlying appropr iate position. There are overlying leads. No other significant interval change is evident. IMPRESSION: No evident complication status post intubation.
--- NOTE | 2020-12-13 08:26 | XR ---
EXAMINATION TYPE: XR chest 1V portable DATE OF EXAM: 12/13/2020 COMPARISON: Chest x-ray 12/12/2020 HISTORY: Intubated, Covid TECHNIQUE: Single frontal view of the chest is obtained. FINDINGS: Endotracheal tube, NG tube, left jugular central venous catheter are overlying similar pos itions, endotracheal tube near the thoracic inlet level. Bilateral airspace disease is again noted. T here are overlying leads. No evident pneumothorax or pleural effusion. Cardiomediastinal silhouette i s within normal limits. IMPRESSION: Correlate for pneumonia, ARDS, congestive heart failure
[2020-12-13] MEDS: ENOXAPARIN 40 MG/0.4 ML SYRINGE SQ SCH (08:52)
[2020-12-13] MEDS: CHLORHEXIDINE GLUCONATE 15 ML CUP MUCOUS MEM SCH ×2 (08:52→20:25)
[2020-12-13] MEDS: LOSARTAN 50 MG TAB PO SCH (08:53)
[2020-12-13] MEDS: NON FORMULARY DRUG (Dapagliflozin Propanediol [Farxiga] 10 MG Tablet) PO SCH (08:53)
[2020-12-13] MEDS: ASCORBIC ACID 500 MG TAB PO SCH ×2 (08:53→20:25)
[2020-12-13] MEDS: ZINC SULFATE 220 MG CAP PO SCH (08:53)
[2020-12-13] MEDS: allopurinoL 100 MG TAB PO SCH (08:53)
[2020-12-13] MEDS ORDERED: FUROSEMIDE 10 MG/ML 4 ML VIAL IV SCH (09:00)
[2020-12-13] MEDS: fentaNYL (PF). 1,000 MCG in SODIUM CHLORIDE 0.9% 80 ML IV SCH ×2 (09:00→21:59)
[2020-12-13 10:13] LABS: Glucose,Whole Blood 192 mg/dL (75-99)
[2020-12-13] MEDS: INSULIN REGULAR 100 UNIT in SODIUM CHLORIDE 0.9% 100 ML IV SCH (10:14)
[2020-12-13 10:59] LABS: Glucose,Whole Blood 192 mg/dL (75-99)
[2020-12-13] MEDS: NOREPINEPHRINE 8 MG in SODIUM CHLORIDE 0.9% 250 ML IV SCH (11:07)
[2020-12-13 11:46] LABS: Glucose,Whole Blood 151 mg/dL (75-99)
--- NOTE | 2020-12-13 13:19 | P.PN ---
Subjective 62-year-old the female came in with cough congestion symptoms has been going on since November 27 and patient was tested negative in for Covid 19. Patient's symptoms continued to get worse patient was complaining of cough shortness of breath found to be hypoxic present in 4 L of oxygen. Patient denied any symptoms of diarrhea was having some nausea no vomiting. Patient has elevated inflammatory markers creatinine of 1.5 d-dimer of 0.44. Patient had a low-grade fever last night. 12/07/2020 Patient is presently in 6 L of oxygen his respiratory status is bit worse , patient doesn't feel well feels sick and short of breath. Patient is also receiving normal saline at 75 mL/h repeat labs are still pending. 12/08/2020 Patient the breathing has been worse patient was on 9:15 liters and the 100% nonrebreather and was still desaturating was patient was started on BiPAP was transferred to ICU patient is presently on 100% FiO2 with the IPAP/EPAP , patient did receive plasma patient is presently on Solu-Medrol continues to have elevated inflammatory markers. 12/09/2020 Patient remains on 100% FiO2 on BiPAP. And looks better with no significant improvement in his respiratory status doesn't desaturate then easily when he removes his BiPAP mask. 12/10/2020 Patient respiratory status worsened patient was desaturating on 100% BiPAP patient was subsequently intubated patient is on mechanical ventilator patient is on FiO2 of 20% PEEP of 10. Patient is on propofol and Nimbex as well. 12/11/2020 Patient is presently on 90% FiO2 still PEEP of 15. Still sedated and paralyzed. was started on solid Medrol and the patient blood sugars are very high patient's long-acting insulin dose will be increased to 45 units twice a day will be continued on sliding scale insulin 12/12/2020 Patient is on IV insulin drip which will be continued at this time. Insulin drip was started by pulmonology. Patient remains on propofol and Nimbex on mechanical ventilator with assist-control ventilation 80% FiO2 PEEP of 18 tender volume 400 with set up respiratory rate of around 34. Patient remains on IV steroids improved inflammatory markers patient is on Lovenox 70 twice a day reacting and is around 1.4. If creatinine goes up we need to cut down on Lovenox. Review of systems: Unable to obtain due to his clinical condition 12/13/2020 Patient remains on Nimbex drip propofol drip and remains on ventilatory support at the 80% FiO2. Patient's serum creatinine did improve. Patient remains on IV Lasix at this time. Patient is being continued on Lovenox. Patient is on IV insulin because of high dose steroids and patient is a poorly controlled diabetic. IV insulin was discontinued patient will be started on 55 units twice a day along with steroids scale. Patient probably can have every 4 hourly boluses of her short-acting insulin depending on his sliding scale insulin requirements. Patient the is receiving tube feedings. All inpatient medications were reviewed and appropriate changes in these medications as dictated in the interval history and assessment and plan. Objective - Vital Signs Vital signs: Vital Signs Temp 100.4 F H 12/13/20 12:00 Pulse 91 12/13/20 12:00 Resp 34 H 12/13/20 12:00 BP 150/84 12/13/20 08:30 Pulse Ox 94 L 12/13/20 12:00 Intake & Output 12/12/20 12/13/20 12/13/20 18:59 06:59 18:59 Intake Total 9281.830 7386.507 623.083 Output Total 660 1080 910 Balance 447.894 412.507 -286.917 Weight 155.8 kg 158 kg Intake: IV 253 276 115 Sodium Chloride 0.9% 1, 220 240 100 000 ml @ 20 mls/hr IV . Q24H [facility] Rx#:[id number] pressure bag 33 36 15 Intake, IV Titration 434.894 766.507 298.083 Amount Cisatracurium 200 mg In 18.375 136.290 8.85 Sodium Chloride 0.9% 180 ml @ 1 MCG/KG/MIN 9 mls/ hr IV .[id number] [facility] Rx#: [id number] Clevidipine Butyrate 25 0.667 49.333 mg In Empty Bag 1 bag @ 1 MG/HR 2 mls/hr IV .Q24H [facility] Rx#:[id number] Insulin Regular 100 unit 121.772 In Sodium Chloride 0.9% 100 ml @ Per Protocol IV .Q0M [facility] Rx#:[id number] Insulin Regular 100 unit 41.730 61.476 In Sodium Chloride 0.9% 100 ml @ Per Protocol IV .Q0M [facility] Rx#:[id number] fentaNYL (PF). 1,000 mcg 65.616 31.161 In Sodium Chloride 0.9% 80 ml @ Per Protocol IV . Q0M [facility] Rx#:[id number] propofoL 1,000 mg In 294.080 473.538 196.596 Empty Bag 1 bag @ Titrate IV .Q0M [facility] Rx#: [id number] Tube Feeding 330 360 150 Other 90 90 60 Output: Urine 660 1080 910 Other: Voiding Method Indwelling Catheter Indwelling Catheter Indwelling Catheter ABP, PAP, CO, CI - Last Documented Arterial Blood Pressure 122/51 - Exam PHYSICAL EXAMINATION: GENERAL: Patient is intubated sedated and paralyzed HEENT: Pupils are round and equally reacting to light. EOMI. No scleral icterus. No conjunctival pallor. Normocephalic, atraumatic. No pharyngeal erythema. No thyromegaly. CARDIOVASCULAR: S1 and S2 present. No murmurs, rubs, or gallops. PULMONARY: Bibasilar crackles were appreciated ABDOMEN: Soft, nontender, nondistended, normoactive bowel sounds. No palpable organomegaly. MUSCULOSKELETAL: No joint swelling or deformity. EXTREMITIES: No cyanosis, clubbing, or pedal edema. NEUROLOGICAL: Sedated SKIN: No rashes. - Labs CBC & Chem 7: 12/13/20 04:45 12/13/20 04:45 Labs: Abnormal Lab Results - Last 24 Hours (Table) 12/12/20 12/12/20 12/12/20 Range/Units 04:10 13:14 15:06 WBC (3.8-10.6) k/uL Neutrophils # (1.3-7.7) k/uL Lymphocytes # (1.0-4.8) k/uL D-Dimer (<0.60) mg/L FEU ABG pH (7.35-7.45) ABG pCO2 (35-45) mmHg ABG HCO3 (21-25) mmol/L ABG Total CO2 (19-24) mmol/L ABG O2 Saturation (94-97) % Carbon Dioxide (22-30) mmol/L BUN (9-20) mg/dL Glucose (74-99) mg/dL POC Glucose (mg/dL) 266 H 264 H (75-99) mg/dL Ferritin 592.3 H (22.0-322.0) ng/mL Lactate Dehydrogenase (313-618) U/L Creatine Kinase (55-170) U/L C-Reactive Protein (<10.0) mg/L Total Protein (6.3-8.2) g/dL Albumin (3.5-5.0) g/dL 12/12/20 12/12/20 12/12/20 Range/Units 17:12 18:11 18:55 WBC (3.8-10.6) k/uL Neutrophils # (1.3-7.7) k/uL Lymphocytes # (1.0-4.8) k/uL D-Dimer (<0.60) mg/L FEU ABG pH (7.35-7.45) ABG pCO2 (35-45) mmHg ABG HCO3 (21-25) mmol/L ABG Total CO2 (19-24) mmol/L ABG O2 Saturation (94-97) % Carbon Dioxide (22-30) mmol/L BUN (9-20) mg/dL Glucose (74-99) mg/dL POC Glucose (mg/dL) 245 H 221 H 244 H (75-99) mg/dL Ferritin (22.0-322.0) ng/mL Lactate Dehydrogenase (313-618) U/L Creatine Kinase (55-170) U/L C-Reactive Protein (<10.0) mg/L Total Protein (6.3-8.2) g/dL Albumin (3.5-5.0) g/dL 12/12/20 12/12/20 12/12/20 Range/Units 20:15 20:51 22:04 WBC (3.8-10.6) k/uL Neutrophils # (1.3-7.7) k/uL Lymphocytes # (1.0-4.8) k/uL D-Dimer (<0.60) mg/L FEU ABG pH (7.35-7.45) ABG pCO2 (35-45) mmHg ABG HCO3 (21-25) mmol/L ABG Total CO2 (19-24) mmol/L ABG O2 Saturation (94-97) % Carbon Dioxide (22-30) mmol/L BUN (9-20) mg/dL Glucose (74-99) mg/dL POC Glucose (mg/dL) 172 H 157 H 135 H (75-99) mg/dL Ferritin (22.0-322.0) ng/mL Lactate Dehydrogenase (313-618) U/L Creatine Kinase (55-170) U/L C-Reactive Protein (<10.0) mg/L Total Protein (6.3-8.2) g/dL Albumin (3.5-5.0) g/dL 12/12/20 12/12/20 12/13/20 Range/Units 23:05 23:49 01:02 WBC (3.8-10.6) k/uL Neutrophils # (1.3-7.7) k/uL Lymphocytes # (1.0-4.8) k/uL D-Dimer (<0.60) mg/L FEU ABG pH (7.35-7.45) ABG pCO2 (35-45) mmHg ABG HCO3 (21-25) mmol/L ABG Total CO2 (19-24) mmol/L ABG O2 Saturation (94-97) % Carbon Dioxide (22-30) mmol/L BUN (9-20) mg/dL Glucose (74-99) mg/dL POC Glucose (mg/dL) 128 H 132 H 133 H (75-99) mg/dL Ferritin (22.0-322.0) ng/mL Lactate Dehydrogenase (313-618) U/L Creatine Kinase (55-170) U/L C-Reactive Protein (<10.0) mg/L Total Protein (6.3-8.2) g/dL Albumin (3.5-5.0) g/dL 12/13/20 12/13/20 12/13/20 Range/Units 03:11 04:08 04:30 WBC (3.8-10.6) k/uL Neutrophils # (1.3-7.7) k/uL Lymphocytes # (1.0-4.8) k/uL D-Dimer (<0.60) mg/L FEU ABG pH 7.26 L (7.35-7.45) ABG pCO2 79 H* (35-45) mmHg ABG HCO3 35 H (21-25) mmol/L ABG Total CO2 38 H (19-24) mmol/L ABG O2 Saturation 97.6 H (94-97) % Carbon Dioxide (22-30) mmol/L BUN (9-20) mg/dL Glucose (74-99) mg/dL POC Glucose (mg/dL) 196 H 157 H (75-99) mg/dL Ferritin (22.0-322.0) ng/mL Lactate Dehydrogenase (313-618) U/L Creatine Kinase (55-170) U/L C-Reactive Protein (<10.0) mg/L Total Protein (6.3-8.2) g/dL Albumin (3.5-5.0) g/dL 12/13/20 12/13/20 12/13/20 Range/Units 04:45 04:45 04:45 WBC 13.9 H (3.8-10.6) k/uL Neutrophils # 13.1 H (1.3-7.7) k/uL Lymphocytes # 0.4 L (1.0-4.8) k/uL D-Dimer 3.53 H (<0.60) mg/L FEU ABG pH (7.35-7.45) ABG pCO2 (35-45) mmHg ABG HCO3 (21-25) mmol/L ABG Total CO2 (19-24) mmol/L ABG O2 Saturation (94-97) % Carbon Dioxide 36 H (22-30) mmol/L BUN 61 H (9-20) mg/dL Glucose 163 H (74-99) mg/dL POC Glucose (mg/dL) (75-99) mg/dL Ferritin (22.0-322.0) ng/mL Lactate Dehydrogenase 1226 H (313-618) U/L Creatine Kinase 275 H (55-170) U/L C-Reactive Protein 13.5 H (<10.0) mg/L Total Protein 5.2 L (6.3-8.2) g/dL Albumin 3.0 L (3.5-5.0) g/dL 12/13/20 12/13/20 12/13/20 Range/Units 04:53 06:00 07:02 WBC (3.8-10.6) k/uL Neutrophils # (1.3-7.7) k/uL Lymphocytes # (1.0-4.8) k/uL D-Dimer (<0.60) mg/L FEU ABG pH (7.35-7.45) ABG pCO2 (35-45) mmHg ABG HCO3 (21-25) mmol/L ABG Total CO2 (19-24) mmol/L ABG O2 Saturation (94-97) % Carbon Dioxide (22-30) mmol/L BUN (9-20) mg/dL Glucose (74-99) mg/dL POC Glucose (mg/dL) 160 H 152 H 121 H (75-99) mg/dL Ferritin (22.0-322.0) ng/mL Lactate Dehydrogenase (313-618) U/L Creatine Kinase (55-170) U/L C-Reactive Protein (<10.0) mg/L Total Protein (6.3-8.2) g/dL Albumin (3.5-5.0) g/dL 12/13/20 12/13/20 12/13/20 Range/Units 10:12 10:58 11:45 WBC (3.8-10.6) k/uL Neutrophils # (1.3-7.7) k/uL Lymphocytes # (1.0-4.8) k/uL D-Dimer (<0.60) mg/L FEU ABG pH (7.35-7.45) ABG pCO2 (35-45) mmHg ABG HCO3 (21-25) mmol/L ABG Total CO2 (19-24) mmol/L ABG O2 Saturation (94-97) % Carbon Dioxide (22-30) mmol/L BUN (9-20) mg/dL Glucose (74-99) mg/dL POC Glucose (mg/dL) 192 H 192 H 151 H (75-99) mg/dL Ferritin (22.0-322.0) ng/mL Lactate Dehydrogenase (313-618) U/L Creatine Kinase (55-170) U/L C-Reactive Protein (<10.0) mg/L Total Protein (6.3-8.2) g/dL Albumin (3.5-5.0) g/dL Assessment and Plan Plan: -Acute hypoxic respiratory failure secondary to covid 19 pneumonia.: Patient is on IV Solu-Medrol Covid vitamins, not a candidate for Remdesivir. Patient is presently intubated respiratory status has worsened. Patient is intubated on now for 07/21/2021 COPD with acute exacerbation Acute renal failure on chronic kidney disease stage III acute renal failure secondary to renal azotemia dehydration patient will be continued on IV fluids repeat basic metabolic profile tomorrow -Hyperlipidemia -Hypertension -Type 2 diabetes mellitus uncontrolled elevated blood sugars, patient is being started on subcutaneous insulin now insulin-dependent is being discontinued -DVT prophylaxis with subcutaneous heparin because of his renal failure
[2020-12-13 13:34] LABS: Glucose,Whole Blood 149 mg/dL (75-99)
[2020-12-13] MEDS: ACETAMINOPHEN TAB 325 MG TAB PO PRN (13:40)
[2020-12-13] MEDS: INSULIN DETEMIR (LEVEMIR) 100 UNIT/ML SYR SQ SCH ×2 (13:58→19:49)
[2020-12-13 15:43] LABS: Glucose,Whole Blood 216 mg/dL (75-99)
[2020-12-13] MEDS: INSULIN ASPART (NovoLOG) 100 UNIT/ML VIAL SQ SCH ×2 (16:09→20:13)
[2020-12-13] MEDS ORDERED: FUROSEMIDE 10 MG/ML 4 ML VIAL IV STA (18:15)
[2020-12-13 20:03] LABS: Glucose,Whole Blood 245 mg/dL (75-99)
[2020-12-13] MEDS: ASPIRIN 81 MG PO SCH (20:25)
[2020-12-13] MEDS: ATORVASTATIN 20 MG TAB PO SCH (20:25)
[2020-12-14 00:01] LABS: Glucose,Whole Blood 226 mg/dL (75-99)
[2020-12-14] MEDS: methylPREDNISolone SOD SUCCI 125 MG/2 ML VIAL IV SCH ×5 (00:28→23:45)
[2020-12-14] MEDS: INSULIN ASPART (NovoLOG) 100 UNIT/ML VIAL SQ SCH ×7 (00:28→23:46)
[2020-12-14] MEDS: ARTIFICIAL TEARS-HYPROMELLOSE DROPS 15 ML BTL BOTH EYES SCH ×7 (00:30→23:45)
[2020-12-14 04:04] LABS: Glucose,Whole Blood 235 mg/dL (75-99)
[2020-12-14 04:29] LABS: Basophils % (A) 0 %; Eosinophils % (A) 0 %; HCT 45.5 % (39.0-53.0); HGB 14.3 gm/dL (13.0-17.5); Lymphocytes # (A) 0.3 k/uL (1.0-4.8); Lymphocytes % (A) 2 %; MCH 27.1 pg (25.0-35.0); MCHC 31.4 g/dL (31.0-37.0); MCV 86.3 fL (80.0-100.0); Mean Platelet Volume 8.1; Monocytes # (A) 0.4 k/uL (0-1.0); Monocytes % (A) 3 %; Neutrophils # (A) 11.9 k/uL (1.3-7.7); Neutrophils % (A) 93 %; Platelet Count 286 k/uL (150-450); RBC 5.27 m/uL (4.30-5.90); RDW 14.4 % (11.5-15.5); WBC 12.7 k/uL (3.8-10.6)
[2020-12-14 04:39] LABS: Albumin 2.6 g/dL (3.5-5.0); C Reactive Protein 9.9 mg/L (<10.0); Calcium 8.5 mg/dL (8.4-10.2); Potassium 5.1 mmol/L (3.5-5.1); Total Bilirubin 0.4 mg/dL (0.2-1.3); Total Protein 4.7 g/dL (6.3-8.2)
[2020-12-14 05:01] LABS: ABG Base Excess 11.5 mmol/L; ABG HCO3 37 mmol/L (21-25); ABG Oxygen Saturation 96.8 % (94-97); ABG PCO2 70 mmHg (35-45); ABG PH 7.34 (7.35-7.45); ABG PO2 92 mmHg (83-108); ABG TCO2 39 mmol/L (19-24); Allen Test Performed? Yes
[2020-12-14] MEDS: CISATRACURIUM 200 MG in SODIUM CHLORIDE 0.9% 180 ML IV SCH (05:52)
[2020-12-14] MEDS: INSULIN DETEMIR (LEVEMIR) 100 UNIT/ML SYR SQ SCH ×2 (05:59→20:26)
--- NOTE | 2020-12-14 06:35 | P.PN ---
Subjective Progress Note Date: 12/14/20 On 12/11/2020 on seeing the patient for a follow-up. This is a case of a 70-year-old male patient COVID 19 related pneumonia and hypoxic respiratory failure. The patient was transferred to the intensive care unit because of ongoing difficulties with hypoxemia and shortness of breath and the patient was treated with BiPAP and ultimately the patient to be intubated and placed on a mechanical ventilator. At this point in time, the patient's control mode at the rate of 24 with a tidal volume of 450 and FiO2 of 100% with a PEEP of 15. Note that during the course of the treatment, the patient received convalescent plasma, Tocilizumab and the patient is also received steroids. Patient is known to have COPD, diabetes mellitus type 2, hypertension and hyperlipidemia. The patient is morbidly obese and carries a body mass index of 50.3. The patient is currently sedated with propofol running at 60 mg/kg/m. The patient is also paralyzed with Nimbex at 0.5 mcg/kg per minute. The patient is a triple lumen catheter in the left IJ. The patient has a right radial arterial line. NG tube is in place and tube feeds were restarted. The patient has a CRP of 30and a LDH level of 1799 and this is based on labs that was obtained yesterday on 12/10/2020. Meanwhile, the patient remains on Solu Medrol 60 mg every 6 hours IV, Lovenox 40 mg subcu for DVT prophylaxis, and the patient is also on Levemir insulin for blood sugar control @ 30 units twice a day along with a NovoLog sliding scale coverage. The chest x-ray showing diffuse bilateral pulmonary infiltrates, consolidations interstitial infiltrates in addition orotracheal tube which is an inadequate location 2 cm above the neil. D-dimer is at 4.26. The blood gases from today showing a pH of 7.24 with pCO2 of 74 and pO2 of 79. This was an FiO2 of 100%. The peak and static pressures on a mechanical ventilator are 36/34 respectively. 12/12/2020 the patient is being seen for a follow-up. This is a case of 70-year-old male patient with Covid 19 related pneumonia and secondary hypoxic respiratory failure. The patient has been intubated since 12/11/2019. The patient currently is sedated and the patient is currently on propofol running at 60 mcg/kg per minute and the patient is also on Nimbex at 0.7 mg/kg per minute. The patient is currently on a mechanical ventilator. The patient on assist control mode with a tidal volume of 400 rate of 34, PEEP of 18 and FiO2 of 80%. The morning blood gases showed improvement and acid base status. His pH is at 7.27 with a pCO2 of 72 and pO2 of 76. His chest x-ray is showing bilateral pulmonary infiltrates most on the lower lobes and the patient has extensive consolidations. ET tube is very high and the trachea and can be pushed down easily. The overall pulmonary infiltrates are essentially stable for now. The patient remains on treatment and the patient is receiving Solu-Medrol 60 mg IV every 6 hours. The patient is also on Lovenox 70 mg subcu every 12 hours. In terms of his inflammatory markers, the patient has an LDH level of 1247 which is improved compared to yesterday and his CRP is down to 20.9. This morning, we having an issue with the patient's ventilator as the patient is losing some volume. I think this is related to the ET tube which is high in the trachea (to be pushed out. On his blood work, the patient has developed an acute kidney injury. His creatinine is up 1.4 with a BUN of 51 and this is of a new finding. The neck fluid balance has been in the order of positive fluid balance of 1.6 L over the past 24 hours. The patient is a triple lumen catheter in his left IJ. NG tube is also in place and the patient is receiving enteral feeding for nutritional support and the patient is currently on vitamin H. At the rate of 36 an hour. He is currently at goal. He is known to have COPD, diabetes mellitus type 2, hypertension and hyperlipidemia. His BMI is a 52. His blood sugar control is through insulin drip running at 11 units an hour and the Lantus and the NovoLog sliding scale were discontinued. Actos can be also discontin ued. 2020, the patient remains intubated on mechanical ventilator. This morning, per report is running at 50 mcg/kg per minute and the patient also paralyzed with Nimbex at 0.7 mcg/kg per minute. He remains on a mechanical ventilator. He is an assist-control with a tidal volume of 400 and the dates of 34 and a PEEP of 18 and FiO2 of 80%. The blood gases from today is showing a pH of 7.26 with a pCO2 of 79 and pO2 of 104. Note that overnight, the patient was also started on fentanyl for elevated PRESSURE and attempt to wean off the propofol and Nimbex. The follow-up chest x-ray was done today. I will say there is some limited improvement in the aeration. There is also some possible limited improvement in the left lower lobe consolidation. ET tube is very highly trachea needs to be pushed in. The NG tube is in place. The patient is receiving enteral feeding for nutritional support and the patient is currently on vital high protein at the rate of 36 this is an hour. He is currently still at goal. He remains on steroids in the patient on IV Solu-Medrol 60 mg every 6 hours. He is on Lovenox 70 mg subcutaneous every 12 hours. His d-dimer today that 3.53 and his LDH level is 1226 and his CRP is at 13.6. His CPKs up to 75. BUN is at 61 with a creatinine of 1.09 and a white cell count is normal at 15.9. No major interval changes condition since yesterday. Her net fluid balance over the past 24 hours and then +1.6 L for yesterday and +2.5 L for today before. He is getting some increased swelling in the upper and lower extremities bilaterally. 12/14/2020, the patient is still intubated on a mechanical ventilator, sedated and paralyzed. On today's evaluation, propofol is running at 50 mcg/kg per minute which is essentially same as yesterday and the patient is also paralyzed with Nimbex at 0.8 mitral respiratory failure after minutes. The patient is also on fentanyl at a low dose which will be essentially discontinued today. In terms of vent support, the patient remains on assist control mode of ventilation. On today's evaluation the patient is on a mechanical ventilator volume cycle mode with a tidal volume of 400 and a rate of 34 and a PEEP of 18 with an FiO2 of 80%. Her blood gases from today is showing a pH of 7.33 with a pCO2 of 69 pO2 of 92. Peak anesthetic pressures are both elevated. The peak airway pressures are 36 and the static pressure is around 34. Note that the patient was having leak from his orotracheal tube. The tube was exchanged yesterday by [facility]. On today's evaluation, the decubitus in a good location and the patient does not have any leaks. Meanwhile, repeat chest x-ray was done and the patient continues to have diffuse breath and pulmonary infiltrates left more than right. The patient has an orogastric and orotracheal tube are both of them are in good location. Meanwhile, the patient hemodynamically is doing well. We don't have him on any pressors for now. He has required low-dose pressors robbi ier. He is producing adequate amount of urine output. The fluid balance has been +1.6 L over the past 24 hours and the patient is having some increased edema in all 4 extremities. He has gained weight over this past several days. Currently is receiving Lasix 40 mg IV every 24 hours. In regards to his COVID- 19 pneumonia, the patient has a d-dimer of 2.9 with a LDH level of 1082 and a CRP level of 9.9. The numbers have slightly improved compared to yesterday. The patient remains on steroids in the patient is receiving IV Solu-Medrol 60 mg every 6 hours. The patient remains on Lovenox 40 mg subcu for DVT prophylaxis. Blood sugar control as well as Levemir 55 units twice a day along with a sliding scale coverage. IV fluids are currently running at [facility] and the patient is receiving enteral feeding for nutritional support in the form of vital high protein at the rate of 30 mL an hour which is at goal. He is afebrile. He was given a paralytic holiday yesterday. He was off the paralysis for several hours and ultimately the patient became asynchronous and hypoxic and he had to be paralyzed again. The same is going to be done today. Objective - Vital Signs Vital signs: Vital Signs Temp 100.6 F H 12/14/20 04:00 Pulse 53 L 12/14/20 04:00 Resp 34 H 12/14/20 04:00 BP 150/84 12/13/20 08:30 Pulse Ox 95 12/14/20 04:00 Intake & Output 12/13/20 12/13/20 12/14/20 06:59 18:59 06:59 Intake Total 5205.925 7197.151 1476.553 Output Total 1080 1685 1890 Balance 412.507 -194.849 -413.447 Weight 158 kg Intake: IV 276 276 253 Sodium Chloride 0.9% 1, 240 240 220 000 ml @ 20 mls/hr IV . Q24H [facility] Rx#:[id number] pressure bag 36 36 33 Intake, IV Titration 766.507 544.151 803.553 Amount Cisatracurium 200 mg In 136.290 8.85 134.04 Sodium Chloride 0.9% 180 ml @ 1 MCG/KG/MIN 9 mls/ hr IV .[id number] [facility] Rx#: [id number] Clevidipine Butyrate 25 49.333 mg In Empty Bag 1 bag @ 1 MG/HR 2 mls/hr IV .Q24H [facility] Rx#:[id number] Insulin Regular 100 unit 41.730 61.476 In Sodium Chloride 0.9% 100 ml @ Per Protocol IV .Q0M [facility] Rx#:[id number] Norepinephrine 8 mg In 47.135 101.199 Sodium Chloride 0.9% 250 ml @ 0.05 MCG/KG/MIN 15. 287 mls/hr IV .[id number] [facility] Rx#:[id number] fentaNYL (PF). 1,000 mcg 65.616 31.161 93.818 In Sodium Chloride 0.9% 80 ml @ Per Protocol IV . Q0M [facility] Rx#:[id number] propofoL 1,000 mg In 473.538 395.529 474.496 Empty Bag 1 bag @ Titrate IV .Q0M [facility] Rx#: [id number] Tube Feeding 360 360 330 Other 90 310 90 Output: Urine 1080 1685 1890 Other: Voiding Method Indwelling Catheter Indwelling Catheter Indwelling Catheter ABP, PAP, CO, CI - Last Documented Arterial Blood Pressure 116/59 - Exam GENERAL EXAM: Intubated, sedated 70-year-old morbidly obese male, currently on the mechanical ventilator with FiO2 80% and a PEEP of 18, tidal volume of 400, currently sedated and paralyzed. HEAD: Normocephalic/atraumatic. EYES: Normal reaction of pupils, equal size. Conjunctiva pink, sclera white. NOSE: Clear with pink turbinates. THROAT: Oral endotracheal and gastric tubes are secured in place. No erythema or exudates. NECK: No masses, no JVD, no thyroid enlargement, no adenopathy. CHEST: No chest wall deformity. Symmetrical expansion. Left IJ catheter in place LUNGS: Diminished breath sounds bilaterally, with bilateral crackles CVS: Regular rate and rhythm, normal S1 and S2, no gallops, no murmurs, no rubs ABDOMEN: Soft, nontender. No hepatosplenomegaly, normal bowel sounds, no guarding or rigidity. EXTREMITIES: No clubbing, no edema, no cyanosis, 2+ pulses and upper and lower extremities. MUSCULOSKELETAL: Muscle strength and tone normal. SPINE: No scoliosis or deformity SKIN: No rashes CENTRAL NERVOUS SYSTEM: Sedated. Intubated. No focal deficits, tone is normal in all 4 extremities. - Labs CBC & Chem 7: 12/14/20 03:55 12/14/20 03:55 Labs: Abnormal Lab Results - Last 24 Hours (Table) 12/13/20 12/13/20 12/13/20 Range/Units 07:02 10:12 10:58 WBC (3.8-10.6) k/uL Neutrophils # (1.3-7.7) k/uL Lymphocytes # (1.0-4.8) k/uL D-Dimer (<0.60) mg/L FEU ABG pH (7.35-7.45) ABG pCO2 (35-45) mmHg ABG HCO3 (21-25) mmol/L ABG Total CO2 (19-24) mmol/L Carbon Dioxide (22-30) mmol/L BUN (9-20) mg/dL Creatinine (0.66-1.25) mg/dL Glucose (74-99) mg/dL POC Glucose (mg/dL) 121 H 192 H 192 H (75-99) mg/dL Lactate Dehydrogenase (313-618) U/L Total Protein (6.3-8.2) g/dL Albumin (3.5-5.0) g/dL 12/13/20 12/13/20 12/13/20 Range/Units 11:45 13:33 15:41 WBC (3.8-10.6) k/uL Neutrophils # (1.3-7.7) k/uL Lymphocytes # (1.0-4.8) k/uL D-Dimer (<0.60) mg/L FEU ABG pH (7.35-7.45) ABG pCO2 (35-45) mmHg ABG HCO3 (21-25) mmol/L ABG Total CO2 (19-24) mmol/L Carbon Dioxide (22-30) mmol/L BUN (9-20) mg/dL Creatinine (0.66-1.25) mg/dL Glucose (74-99) mg/dL POC Glucose (mg/dL) 151 H 149 H 216 H (75-99) mg/dL Lactate Dehydrogenase (313-618) U/L Total Protein (6.3-8.2) g/dL Albumin (3.5-5.0) g/dL 12/13/20 12/13/20 12/14/20 Range/Units 20:02 23:59 03:55 WBC 12.7 H (3.8-10.6) k/uL Neutrophils # 11.9 H (1.3-7.7) k/uL Lymphocytes # 0.3 L (1.0-4.8) k/uL D-Dimer (<0.60) mg/L FEU ABG pH (7.35-7.45) ABG pCO2 (35-45) mmHg ABG HCO3 (21-25) mmol/L ABG Total CO2 (19-24) mmol/L Carbon Dioxide (22-30) mmol/L BUN (9-20) mg/dL Creatinine (0.66-1.25) mg/dL Glucose (74-99) mg/dL POC Glucose (mg/dL) 245 H 226 H (75-99) mg/dL Lactate Dehydrogenase (313-618) U/L Total Protein (6.3-8.2) g/dL Albumin (3.5-5.0) g/dL 12/14/20 12/14/20 12/14/20 Range/Units 03:55 03:55 04:03 WBC (3.8-10.6) k/uL Neutrophils # (1.3-7.7) k/uL Lymphocytes # (1.0-4.8) k/uL D-Dimer 2.91 H (<0.60) mg/L FEU ABG pH (7.35-7.45) ABG pCO2 (35-45) mmHg ABG HCO3 (21-25) mmol/L ABG Total CO2 (19-24) mmol/L Carbon Dioxide 37 H (22-30) mmol/L BUN 76 H (9-20) mg/dL Creatinine 1.31 H (0.66-1.25) mg/dL Glucose 255 H (74-99) mg/dL POC Glucose (mg/dL) 235 H (75-99) mg/dL Lactate Dehydrogenase 1082 H (313-618) U/L Total Protein 4.7 L (6.3-8.2) g/dL Albumin 2.6 L (3.5-5.0) g/dL 12/14/20 Range/Units 04:49 WBC (3.8-10.6) k/uL Neutrophils # (1.3-7.7) k/uL Lymphocytes # (1.0-4.8) k/uL D-Dimer (<0.60) mg/L FEU ABG pH 7.34 L (7.35-7.45) ABG pCO2 70 H (35-45) mmHg ABG HCO3 37 H (21-25) mmol/L ABG Total CO2 39 H (19-24) mmol/L Carbon Dioxide (22-30) mmol/L BUN (9-20) mg/dL Creatinine (0.66-1.25) mg/dL Glucose (74-99) mg/dL POC Glucose (mg/dL) (75-99) mg/dL Lactate Dehydrogenase (313-618) U/L Total Protein (6.3-8.2) g/dL Albumin (3.5-5.0) g/dL Assessment and Plan Plan: 1 ARDS and secondary acute hypoxic respiratory failure related to acute COVID 19 related pneumonia, patient was out of the window for Remdesivir. Received tocilizumab and convalescent plasma. Transferred to the intensive care unit on 12/08/2020 for worsening hypoxemia, on BiPAP support, subsequent intubation and placed on mechanical ventilator on 12/10/2020. The peak and static pressures airway pressures continued to be elevated. The patient continues to have some permissive hypercapnia and a blood gas in the chest x-ray was noted. No major improvement in the chest x-ray findings. FiO2 may be weaned today as the patient's vaccination is stable for now. He remains sedated and paralyzed. The paralytic holiday was given yesterday and essentially failed. The patient continues to be on a combination of fentanyl, propofol and the patient is also on the backs for paralysis. 2 History of COPD/chronic bronchitis 3 History of diabetes mellitus type 2, currently on Levemir insulin 4 History of hypertension 5 History of hyperlipidemia 6 Morbid obesity with a BMI of 52 kg/m 7 Previous history of tobacco use 8 acute kidney injury, probably related to hypotension that occurred yesterday, considered hypotension-induced ATN. The patient is producing adequate amount of urine output. Creatinine today is at 1.31 9 enteral feeding for nutritional support with vital high protein. Plan: Keep the patient sedated and paralyzed for now, stop the fentanyl.. The patient paralytic holiday. Replaced her orotracheal tube yesterday without any complications Wean down the FiO2 to 60% if possible and monitor the pulse ox Check triglyceride levels Chest x-ray and blood gases from today were noted Continued IV Solu-Medrol Inflammatory markers are slightly improved compared to yesterday Continue enteral feeding for nutritional support Monitor fluid balance, give the patient Lasix 40 mg every 24 hours Received convalescent plasma 1, tocilizumab Repeat chest x-ray, inflammatory markers in the a.m. IV fluids at KVO. Increase the Lasix to 40 mg every 12 hours Levimir insulin 55 U daily and the patient is currently off the insulin drip. He is also on a scale for blood sugar control. We'll continue to follow and make further recommendations based on his clinical status Critical care time, >30 min minutes. Time with Patient: Greater than 30
[2020-12-14] MEDS: ALBUTEROL HFA INHALER INHALATION PRN ×4 (07:20→20:15)
[2020-12-14 07:44] LABS: Glucose,Whole Blood 216 mg/dL (75-99)
--- NOTE | 2020-12-14 08:22 | XR ---
EXAMINATION TYPE: XR chest 1V portable DATE OF EXAM: 12/14/2020 COMPARISON: Chest x-ray 12/13/2020 HISTORY: Intubated TECHNIQUE: Single frontal view of the chest is obtained. FINDINGS: Endotracheal tube and NG tube, left jugular central venous catheter are all appropriately placed. Bilateral airspace disease is again noted. Cardiac mediastinal silhouette is unchanged accoun ting for rotation. No evident pneumothorax or pleural effusion. IMPRESSION: Findings are similar, correlate for pneumonia, edema, ARDS
[2020-12-14] MEDS: NOREPINEPHRINE 8 MG in SODIUM CHLORIDE 0.9% 250 ML IV SCH ×2 (08:58→23:43)
[2020-12-14] MEDS: ZINC SULFATE 220 MG CAP PO SCH (09:24)
[2020-12-14] MEDS: ENOXAPARIN 40 MG/0.4 ML SYRINGE SQ SCH (09:24)
[2020-12-14] MEDS: CHLORHEXIDINE GLUCONATE 15 ML CUP MUCOUS MEM SCH ×2 (09:24→20:02)
[2020-12-14] MEDS: allopurinoL 100 MG TAB PO SCH (09:24)
[2020-12-14] MEDS: LOSARTAN 50 MG TAB PO SCH (09:24)
[2020-12-14] MEDS: NON FORMULARY DRUG (Dapagliflozin Propanediol [Farxiga] 10 MG Tablet) PO SCH (09:24)
[2020-12-14] MEDS: ASCORBIC ACID 500 MG TAB PO SCH ×2 (09:24→20:02)
[2020-12-14] MEDS: FUROSEMIDE 10 MG/ML 4 ML VIAL IV SCH ×2 (09:25→20:02)
[2020-12-14 10:01] LABS: Ferritin 491.2 ng/mL (22.0-322.0)
[2020-12-14 11:30] LABS: Glucose,Whole Blood 205 mg/dL (75-99)
[2020-12-14] MEDS: SODIUM CHLORIDE 0.9% 1,000 ML IV SCH (15:06)
[2020-12-14 15:53] LABS: Glucose,Whole Blood 214 mg/dL (75-99)
--- NOTE | 2020-12-14 16:32 | P.PN ---
Subjective 62-year-old the female came in with cough congestion symptoms has been going on since November 27 and patient was tested negative in for Covid 19. Patient's symptoms continued to get worse patient was complaining of cough shortness of breath found to be hypoxic present in 4 L of oxygen. Patient denied any symptoms of diarrhea was having some nausea no vomiting. Patient has elevated inflammatory markers creatinine of 1.5 d-dimer of 0.44. Patient had a low-grade fever last night. 12/07/2020 Patient is presently in 6 L of oxygen his respiratory status is bit worse , patient doesn't feel well feels sick and short of breath. Patient is also receiving normal saline at 75 mL/h repeat labs are still pending. 12/08/2020 Patient the breathing has been worse patient was on 9:15 liters and the 100% nonrebreather and was still desaturating was patient was started on BiPAP was transferred to ICU patient is presently on 100% FiO2 with the IPAP/EPAP , patient did receive plasma patient is presently on Solu-Medrol continues to have elevated inflammatory markers. 12/09/2020 Patient remains on 100% FiO2 on BiPAP. And looks better with no significant improvement in his respiratory status doesn't desaturate then easily when he removes his BiPAP mask. 12/10/2020 Patient respiratory status worsened patient was desaturating on 100% BiPAP patient was subsequently intubated patient is on mechanical ventilator patient is on FiO2 of 20% PEEP of 10. Patient is on propofol and Nimbex as well. 12/11/2020 Patient is presently on 90% FiO2 still PEEP of 15. Still sedated and paralyzed. was started on solid Medrol and the patient blood sugars are very high patient's long-acting insulin dose will be increased to 45 units twice a day will be continued on sliding scale insulin 12/12/2020 Patient is on IV insulin drip which will be continued at this time. Insulin drip was started by pulmonology. Patient remains on propofol and Nimbex on mechanical ventilator with assist-control ventilation 80% FiO2 PEEP of 18 tender volume 400 with set up respiratory rate of around 34. Patient remains on IV steroids improved inflammatory markers patient is on Lovenox 70 twice a day reacting and is around 1.4. If creatinine goes up we need to cut down on Lovenox. Review of systems: Unable to obtain due to his clinical condition 12/13/2020 Patient remains on Nimbex drip propofol drip and remains on ventilatory support at the 80% FiO2. Patient's serum creatinine did improve. Patient remains on IV Lasix at this time. Patient is being continued on Lovenox. Patient is on IV insulin because of high dose steroids and patient is a poorly controlled diabetic. IV insulin was discontinued patient will be started on 55 units twice a day along with steroids scale. Patient probably can have every 4 hourly boluses of her short-acting insulin depending on his sliding scale insulin requirements. Patient the is receiving tube feedings. 12/14/2020 Patient remains intubated and sedated. Patient is still on antibiotics and a low-dose of the norepinephrine patient remains on FiO2 of 80% no significant improvement. Patient the is on PEEP of 18, patient's endotracheal tube was exchanged yesterday because of the leak patient is positive fluid balance patient is on Lasix at this time patient's inflammatory markers did improve compared to yesterday remains on Solu-Medrol. Patient is an 55 units twice a day of Levemir along with sliding scale with fairly well-controlled blood sugars mildly elevated blood sugars but didn't cover with sliding scale All inpatient medications were reviewed and appropriate changes in these medications as dictated in the interval history and assessment and plan. Objective - Vital Signs Vital signs: Vital Signs Temp 99.7 F H 12/14/20 12:00 Pulse 98 12/14/20 15:00 Resp 34 H 12/14/20 15:00 BP 114/63 12/14/20 13:00 Pulse Ox 94 L 12/14/20 15:00 Intake & Output 12/13/20 12/14/20 12/14/20 18:59 06:59 18:59 Intake Total 1967.638 1699.007 284 Output Total 1685 1965 275 Balance -194.849 -431.993 9 Weight 156.9 kg Intake: IV 276 276 184 Sodium Chloride 0.9% 1, 240 240 160 000 ml @ 20 mls/hr IV . [facility] Rx#:[id number] pressure bag 36 36 24 Intake, IV Titration 544.151 807.007 100 Amount Cisatracurium 200 mg In 8.85 134.04 Sodium Chloride 0.9% 180 ml @ 1 MCG/KG/MIN 9 mls/ hr IV .[id number] [facility] Rx#: [id number] Insulin Regular 100 unit 61.476 In Sodium Chloride 0.9% 100 ml @ Per Protocol IV .Q0M [facility] Rx#:[id number] Norepinephrine 8 mg In 47.135 101.199 Sodium Chloride 0.9% 250 ml @ 0.05 MCG/KG/MIN 15. 287 mls/hr IV .[id number] [facility] Rx#:[id number] fentaNYL (PF). 1,000 mcg 31.161 97.272 In Sodium Chloride 0.9% 80 ml @ Per Protocol IV . Q0M [facility] Rx#:[id number] propofoL 1,000 mg In 395.529 474.496 100 Empty Bag 1 bag @ Titrate IV .Q0M [facility] Rx#: [id number] Tube Feeding 360 360 Other 310 90 Output: Urine 1685 1965 275 Other: Voiding Method Indwelling Catheter Indwelling Catheter Indwelling Catheter ABP, PAP, CO, CI - Last Documented Arterial Blood Pressure 159/73 - Exam PHYSICAL EXAMINATION: GENERAL: Patient is intubated sedated and paralyzed HEENT: Pupils are round and equally reacting to light. EOMI. No scleral icterus. No conjunctival pallor. Normocephalic, atraumatic. No pharyngeal erythema. No thyromegaly. CARDIOVASCULAR: S1 and S2 present. No murmurs, rubs, or gallops. PULMONARY: Bibasilar crackles were appreciated ABDOMEN: Soft, nontender, nondistended, normoactive bowel sounds. No palpable organomegaly. MUSCULOSKELETAL: No joint swelling or deformity. EXTREMITIES: No cyanosis, clubbing, or pedal edema. NEUROLOGICAL: Sedated SKIN: No rashes. - Labs CBC & Chem 7: 12/14/20 03:55 12/14/20 03:55 Labs: Abnormal Lab Results - Last 24 Hours (Table) 12/13/20 12/13/20 12/14/20 Range/Units 20:02 23:59 03:55 WBC 12.7 H (3.8-10.6) k/uL Neutrophils # 11.9 H (1.3-7.7) k/uL Lymphocytes # 0.3 L (1.0-4.8) k/uL D-Dimer (<0.60) mg/L FEU ABG pH (7.35-7.45) ABG pCO2 (35-45) mmHg ABG HCO3 (21-25) mmol/L ABG Total CO2 (19-24) mmol/L Carbon Dioxide (22-30) mmol/L BUN (9-20) mg/dL Creatinine (0.66-1.25) mg/dL Glucose (74-99) mg/dL POC Glucose (mg/dL) 245 H 226 H (75-99) mg/dL Ferritin (22.0-322.0) ng/mL Lactate Dehydrogenase (313-618) U/L Total Protein (6.3-8.2) g/dL Albumin (3.5-5.0) g/dL 12/14/20 12/14/20 12/14/20 Range/Units 03:55 03:55 04:03 WBC (3.8-10.6) k/uL Neutrophils # (1.3-7.7) k/uL Lymphocytes # (1.0-4.8) k/uL D-Dimer 2.91 H (<0.60) mg/L FEU ABG pH (7.35-7.45) ABG pCO2 (35-45) mmHg ABG HCO3 (21-25) mmol/L ABG Total CO2 (19-24) mmol/L Carbon Dioxide 37 H (22-30) mmol/L BUN 76 H (9-20) mg/dL Creatinine 1.31 H (0.66-1.25) mg/dL Glucose 255 H (74-99) mg/dL POC Glucose (mg/dL) 235 H (75-99) mg/dL Ferritin 491.2 H (22.0-322.0) ng/mL Lactate Dehydrogenase 1082 H (313-618) U/L Total Protein 4.7 L (6.3-8.2) g/dL Albumin 2.6 L (3.5-5.0) g/dL 12/14/20 12/14/20 12/14/20 Range/Units 04:49 07:42 11:28 WBC (3.8-10.6) k/uL Neutrophils # (1.3-7.7) k/uL Lymphocytes # (1.0-4.8) k/uL D-Dimer (<0.60) mg/L FEU ABG pH 7.34 L (7.35-7.45) ABG pCO2 70 H (35-45) mmHg ABG HCO3 37 H (21-25) mmol/L ABG Total CO2 39 H (19-24) mmol/L Carbon Dioxide (22-30) mmol/L BUN (9-20) mg/dL Creatinine (0.66-1.25) mg/dL Glucose (74-99) mg/dL POC Glucose (mg/dL) 216 H 205 H (75-99) mg/dL Ferritin (22.0-322.0) ng/mL Lactate Dehydrogenase (313-618) U/L Total Protein (6.3-8.2) g/dL Albumin (3.5-5.0) g/dL 12/14/20 Range/Units 15:52 WBC (3.8-10.6) k/uL Neutrophils # (1.3-7.7) k/uL Lymphocytes # (1.0-4.8) k/uL D-Dimer (<0.60) mg/L FEU ABG pH (7.35-7.45) ABG pCO2 (35-45) mmHg ABG HCO3 (21-25) mmol/L ABG Total CO2 (19-24) mmol/L Carbon Dioxide (22-30) mmol/L BUN (9-20) mg/dL Creatinine (0.66-1.25) mg/dL Glucose (74-99) mg/dL POC Glucose (mg/dL) 214 H (75-99) mg/dL Ferritin (22.0-322.0) ng/mL Lactate Dehydrogenase (313-618) U/L Total Protein (6.3-8.2) g/dL Albumin (3.5-5.0) g/dL Assessment and Plan Plan: -Acute hypoxic respiratory failure secondary to covid 19 pneumonia.: Patient is on IV Solu-Medrol Covid vitamins, not a candidate for Remdesivir. Patient is presently intubated respiratory status has worsened. Patient is intubated on now for 07/21/2021 COPD with acute exacerbation Acute renal failure on chronic kidney disease stage III acute renal failure secondary to renal azotemia dehydration patient will be continued on IV fluids repeat basic metabolic profile tomorrow -Hyperlipidemia -Hypertension -Type 2 diabetes mellitus uncontrolled elevated blood sugars, patient is an above-mentioned regimen we'll increase the long-acting insulin to 60 twice a day continue with sliding scale insulin -DVT prophylaxis with subcutaneous heparin because of his renal failure
[2020-12-14] MEDS: fentaNYL (PF). 1,000 MCG in SODIUM CHLORIDE 0.9% 80 ML IV SCH ×2 (19:15→21:59)
[2020-12-14] MEDS: ASPIRIN 81 MG PO SCH (20:02)
[2020-12-14] MEDS: ATORVASTATIN 20 MG TAB PO SCH (20:03)
[2020-12-14 20:32] LABS: Glucose,Whole Blood 197 mg/dL (75-99)
[2020-12-14] MEDS: DULAGLUTIDE 3 MG/0.5 ML SQ SCH (22:26)
[2020-12-14 23:41] LABS: Glucose,Whole Blood 184 mg/dL (75-99)
[2020-12-15] MEDS: ACETAMINOPHEN TAB 325 MG TAB PO PRN (00:30)
[2020-12-15] MEDS: CISATRACURIUM 200 MG in SODIUM CHLORIDE 0.9% 180 ML IV SCH ×2 (02:35→09:37)
[2020-12-15] MEDS: fentaNYL (PF). 1,000 MCG in SODIUM CHLORIDE 0.9% 80 ML IV SCH (03:29)
[2020-12-15] MEDS: ARTIFICIAL TEARS-HYPROMELLOSE DROPS 15 ML BTL BOTH EYES SCH ×5 (03:30→21:09)
[2020-12-15 03:57] LABS: Glucose,Whole Blood 174 mg/dL (75-99)
[2020-12-15 04:10] LABS: Basophils # (A) 0.1 k/uL (0-0.2); Basophils % (A) 1 %; Eosinophils % (A) 0 %; HCT 44.3 % (39.0-53.0); HGB 14.4 gm/dL (13.0-17.5); Lymphocytes # (A) 0.3 k/uL (1.0-4.8); Lymphocytes % (A) 2 %; MCH 27.6 pg (25.0-35.0); MCHC 32.5 g/dL (31.0-37.0); MCV 84.9 fL (80.0-100.0); Mean Platelet Volume 8.4; Monocytes # (A) 0.5 k/uL (0-1.0); Monocytes % (A) 4 %; Neutrophils # (A) 10.6 k/uL (1.3-7.7); Neutrophils % (A) 92 %; Platelet Count 287 k/uL (150-450); RBC 5.22 m/uL (4.30-5.90); RDW 13.8 % (11.5-15.5); WBC 11.6 k/uL (3.8-10.6)
[2020-12-15] MEDS: INSULIN ASPART (NovoLOG) 100 UNIT/ML VIAL SQ SCH ×5 (04:24→20:25)
[2020-12-15 04:30] LABS: Albumin 2.8 g/dL (3.5-5.0); C Reactive Protein 7.4 mg/L (<10.0); Calcium 8.6 mg/dL (8.4-10.2); Potassium 5.2 mmol/L (3.5-5.1); Total Bilirubin 0.4 mg/dL (0.2-1.3); Total Protein 4.9 g/dL (6.3-8.2)
[2020-12-15 04:47] LABS: ABG Base Excess 17.3 mmol/L; ABG Oxygen Saturation 93.2 % (94-97); ABG PCO2 70 mmHg (35-45); ABG PH 7.39 (7.35-7.45); ABG PO2 70 mmHg (83-108); ABG TCO2 45 mmol/L (19-24); Allen Test Performed? Yes
[2020-12-15 04:52] LABS: ABG HCO3 42 mmol/L (21-25)
--- NOTE | 2020-12-15 06:57 | P.PN ---
Subjective Progress Note Date: 12/15/20 On 12/11/2020 on seeing the patient for a follow-up. This is a case of a 70-year-old male patient COVID 19 related pneumonia and hypoxic respiratory failure. The patient was transferred to the intensive care unit because of ongoing difficulties with hypoxemia and shortness of breath and the patient was treated with BiPAP and ultimately the patient to be intubated and placed on a mechanical ventilator. At this point in time, the patient's control mode at the rate of 24 with a tidal volume of 450 and FiO2 of 100% with a PEEP of 15. Note that during the course of the treatment, the patient received convalescent plasma, Tocilizumab and the patient is also received steroids. Patient is known to have COPD, diabetes mellitus type 2, hypertension and hyperlipidemia. The patient is morbidly obese and carries a body mass index of 50.3. The patient is currently sedated with propofol running at 60 mg/kg/m. The patient is also paralyzed with Nimbex at 0.5 mcg/kg per minute. The patient is a triple lumen catheter in the left IJ. The patient has a right radial arterial line. NG tube is in place and tube feeds were restarted. The patient has a CRP of 30and a LDH level of 1799 and this is based on labs that was obtained yesterday on 12/10/2020. Meanwhile, the patient remains on Solu Medrol 60 mg every 6 hours IV, Lovenox 40 mg subcu for DVT prophylaxis, and the patient is also on Levemir insulin for blood sugar control @ 30 units twice a day along with a NovoLog sliding scale coverage. The chest x-ray showing diffuse bilateral pulmonary infiltrates, consolidations interstitial infiltrates in addition orotracheal tube which is an inadequate location 2 cm above the neil. D-dimer is at 4.26. The blood gases from today showing a pH of 7.24 with pCO2 of 74 and pO2 of 79. This was an FiO2 of 100%. The peak and static pressures on a mechanical ventilator are 36/34 respectively. 12/12/2020 the patient is being seen for a follow-up. This is a case of 70-year-old male patient with Covid 19 related pneumonia and secondary hypoxic respiratory failure. The patient has been intubated since 12/11/2019. The patient currently is sedated and the patient is currently on propofol running at 60 mcg/kg per minute and the patient is also on Nimbex at 0.7 mg/kg per minute. The patient is currently on a mechanical ventilator. The patient on assist control mode with a tidal volume of 400 rate of 34, PEEP of 18 and FiO2 of 80%. The morning blood gases showed improvement and acid base status. His pH is at 7.27 with a pCO2 of 72 and pO2 of 76. His chest x-ray is showing bilateral pulmonary infiltrates most on the lower lobes and the patient has extensive consolidations. ET tube is very high and the trachea and can be pushed down easily. The overall pulmonary infiltrates are essentially stable for now. The patient remains on treatment and the patient is receiving Solu-Medrol 60 mg IV every 6 hours. The patient is also on Lovenox 70 mg subcu every 12 hours. In terms of his inflammatory markers, the patient has an LDH level of 1247 which is improved compared to yesterday and his CRP is down to 20.9. This morning, we having an issue with the patient's ventilator as the patient is losing some volume. I think this is related to the ET tube which is high in the trachea (to be pushed out. On his blood work, the patient has developed an acute kidney injury. His creatinine is up 1.4 with a BUN of 51 and this is of a new finding. The neck fluid balance has been in the order of positive fluid balance of 1.6 L over the past 24 hours. The patient is a triple lumen catheter in his left IJ. NG tube is also in place and the patient is receiving enteral feeding for nutritional support and the patient is currently on vitamin H. At the rate of 36 an hour. He is currently at goal. He is known to have COPD, diabetes mellitus type 2, hypertension and hyperlipidemia. His BMI is a 52. His blood sugar control is through insulin drip running at 11 units an hour and the Lantus and the NovoLog sliding scale were discontinued. Actos can be also discontin ued. 2020, the patient remains intubated on mechanical ventilator. This morning, per report is running at 50 mcg/kg per minute and the patient also paralyzed with Nimbex at 0.7 mcg/kg per minute. He remains on a mechanical ventilator. He is an assist-control with a tidal volume of 400 and the dates of 34 and a PEEP of 18 and FiO2 of 80%. The blood gases from today is showing a pH of 7.26 with a pCO2 of 79 and pO2 of 104. Note that overnight, the patient was also started on fentanyl for elevated PRESSURE and attempt to wean off the propofol and Nimbex. The follow-up chest x-ray was done today. I will say there is some limited improvement in the aeration. There is also some possible limited improvement in the left lower lobe consolidation. ET tube is very highly trachea needs to be pushed in. The NG tube is in place. The patient is receiving enteral feeding for nutritional support and the patient is currently on vital high protein at the rate of 36 this is an hour. He is currently still at goal. He remains on steroids in the patient on IV Solu-Medrol 60 mg every 6 hours. He is on Lovenox 70 mg subcutaneous every 12 hours. His d-dimer today that 3.53 and his LDH level is 1226 and his CRP is at 13.6. His CPKs up to 75. BUN is at 61 with a creatinine of 1.09 and a white cell count is normal at 15.9. No major interval changes condition since yesterday. Her net fluid balance over the past 24 hours and then +1.6 L for yesterday and +2.5 L for today before. He is getting some increased swelling in the upper and lower extremities bilaterally. 12/14/2020, the patient is still intubated on a mechanical ventilator, sedated and paralyzed. On today's evaluation, propofol is running at 50 mcg/kg per minute which is essentially same as yesterday and the patient is also paralyzed with Nimbex at 0.8 mitral respiratory failure after minutes. The patient is also on fentanyl at a low dose which will be essentially discontinued today. In terms of vent support, the patient remains on assist control mode of ventilation. On today's evaluation the patient is on a mechanical ventilator volume cycle mode with a tidal volume of 400 and a rate of 34 and a PEEP of 18 with an FiO2 of 80%. Her blood gases from today is showing a pH of 7.33 with a pCO2 of 69 pO2 of 92. Peak anesthetic pressures are both elevated. The peak airway pressures are 36 and the static pressure is around 34. Note that the patient was having leak from his orotracheal tube. The tube was exchanged yesterday by ARABELLA. On today's evaluation, the decubitus in a good location and the patient does not have any leaks. Meanwhile, repeat chest x-ray was done and the patient continues to have diffuse breath and pulmonary infiltrates left more than right. The patient has an orogastric and orotracheal tube are both of them are in good location. Meanwhile, the patient hemodynamically is doing well. We don't have him on any pressors for now. He has required low-dose pressors robbi ier. He is producing adequate amount of urine output. The fluid balance has been +1.6 L over the past 24 hours and the patient is having some increased edema in all 4 extremities. He has gained weight over this past several days. Currently is receiving Lasix 40 mg IV every 24 hours. In regards to his COVID- 19 pneumonia, the patient has a d-dimer of 2.9 with a LDH level of 1082 and a CRP level of 9.9. The numbers have slightly improved compared to yesterday. The patient remains on steroids in the patient is receiving IV Solu-Medrol 60 mg every 6 hours. The patient remains on Lovenox 40 mg subcu for DVT prophylaxis. Blood sugar control as well as Levemir 55 units twice a day along with a sliding scale coverage. IV fluids are currently running at KVO and the patient is receiving enteral feeding for nutritional support in the form of vital high protein at the rate of 30 mL an hour which is at goal. He is afebrile. He was given a paralytic holiday yesterday. He was off the paralysis for several hours and ultimately the patient became asynchronous and hypoxic and he had to be paralyzed again. The same is going to be done today. 12/15/2020, the patient remains sedated and paralyzed. Not a whole lot of progress on this patient since yesterday. Remains on propofol running at 65 mcg/kg per minute and the patient is also on Nimbex running at 0.8 mcg/kg per minute. Fentanyl is also running at 0.7 mcg/kg/h. The patient is on a mechanical ventilator on assist control mode at the rate of 34, tidal volume of 400 and FiO2 of 70% and a PEEP of 18. The blood gases from today shows a pH of 7.39 with a pCO2 of 70 and pO2 70. The chest x-ray from today remains unchanged. The patient is not having any major leaks around orotracheal tube and he is returning is volumes fine. ET tube is in a good location on today's chest x-ray. Overall chest x-ray findings are essentially stable probably slightly worse in terms of infiltration and atelectasis in the lung bases. The patient has a LDH level of 1050 now which is comparable to yesterday, the CRP is at 7.4 is also comparable to yesterday. D-dimer from yesterday was at 2.9. He remains on steroids in the patient is currently on IV Solu Medrol 60 mg every 6 hours. He is also on Lovenox 40 mg subcu daily. He is on Lasix 40 mg every 12 hours and the net fluid balance over the past 24 hours has been positives 860 m L. He is receiving enteral feeding for nutritional support and the patient is currently on vital high protein at the rate of 30 mL an hour. He is tolerating the enteral feeding for now. He is fe the highest temperature was 101.5. The peak airway pressures around 33. The static pressures 31. No major edema lower extremities. No other significant events. Overall condition is stable and the patient is not making a whole lot of progress. He continues to have high PEEP and FiO2 requirements. Oxygenation remains borderline. The patient had developed an acute kidney injury in the creatinine was up to 1.3 and the creatinine is stable for now. Is producing adequate amount of urine output. Sodium level is up to 146 and the Lasix will be discontinued again. IV fluids currently running at 20 cc of normal saline. Objective - Vital Signs Vital signs: Vital Signs Temp 101.5 F H 12/15/20 04:00 Pulse 57 L 12/15/20 06:00 Resp 34 H 12/15/20 06:00 BP 114/63 12/14/20 18:00 Pulse Ox 92 L 12/15/20 06:00 Intake & Output 12/14/20 12/14/20 12/15/20 06:59 18:59 06:59 Intake Total 1533.758 972 2360.778 Output Total 6033 315 6360 Balance -431.993 -49 -275.222 Weight 156.9 kg 153.5 kg Intake: IV 276 276 253 Sodium Chloride 0.9% 1, 240 240 220 000 ml @ 20 mls/hr IV . Q24H [facility] Rx#:[id number] pressure bag 36 36 33 Intake, IV Titration 807.007 200 656.778 Amount Cisatracurium 200 mg In 134.04 149.16 Sodium Chloride 0.9% 180 ml @ 1 MCG/KG/MIN 9 mls/ hr IV .[id number] [facility] Rx#: [id number] Norepinephrine 8 mg In 101.199 23.135 Sodium Chloride 0.9% 250 ml @ 0.05 MCG/KG/MIN 15. 287 mls/hr IV .[id number] [facility] Rx#:[id number] fentaNYL (PF). 1,000 mcg 97.272 89.793 In Sodium Chloride 0.9% 80 ml @ Per Protocol IV . Q0M [facility] Rx#:[id number] propofoL 1,000 mg In 474.496 200 394.690 Empty Bag 1 bag @ Titrate IV .Q0M [facility] Rx#: [id number] Tube Feeding 360 330 Other 90 110 Output: Urine 2471 517 9840 Other: Voiding Method Indwelling Catheter Indwelling Catheter Indwelling Catheter ABP, PAP, CO, CI - Last Documented Arterial Blood Pressure 122/67 - Exam GENERAL EXAM: Intubated, sedated 70-year-old morbidly obese male, currently on the mechanical ventilator with FiO2 70% and a PEEP of 18, tidal volume of 400, currently sedated and paralyzed. HEAD: Normocephalic/atraumatic. EYES: Normal reaction of pupils, equal size. Conjunctiva pink, sclera white. NOSE: Clear with pink turbinates. THROAT: Oral endotracheal and gastric tubes are secured in place. No erythema or exudates. NECK: No masses, no JVD, no thyroid enlargement, no adenopathy. CHEST: No chest wall deformity. Symmetrical expansion. Left IJ catheter in place LUNGS: Diminished breath sounds bilaterally, with bilateral crackles CVS: Regular rate and rhythm, normal S1 and S2, no gallops, no murmurs, no rubs ABDOMEN: Soft, nontender. No hepatosplenomegaly, normal bowel sounds, no gu arding or rigidity. EXTREMITIES: No clubbing, no edema, no cyanosis, 2+ pulses and upper and lower e xtremities. MUSCULOSKELETAL: Muscle strength and tone normal. SPINE: No scoliosis or deformity SKIN: No rashes CENTRAL NERVOUS SYSTEM: Sedated. Intubated. No focal deficits, tone is normal in all 4 extremities. - Labs CBC & Chem 7: 12/15/20 04:00 12/15/20 04:00 Labs: Abnormal Lab Results - Last 24 Hours (Table) 12/14/20 12/14/20 12/14/20 Range/Units 03:55 07:42 11:28 WBC (3.8-10.6) k/uL Neutrophils # (1.3-7.7) k/uL Lymphocytes # (1.0-4.8) k/uL ABG pCO2 (35-45) mmHg ABG pO2 (83-108) mmHg ABG HCO3 (21-25) mmol/L ABG Total CO2 (19-24) mmol/L ABG O2 Saturation (94-97) % Sodium (137-145) mmol/L Potassium (3.5-5.1) mmol/L Carbon Dioxide (22-30) mmol/L BUN (9-20) mg/dL Creatinine (0.66-1.25) mg/dL Glucose (74-99) mg/dL POC Glucose (mg/dL) 216 H 205 H (75-99) mg/dL Ferritin 491.2 H (22.0-322.0) ng/mL Lactate Dehydrogenase (313-618) U/L Creatine Kinase (55-170) U/L Total Protein (6.3-8.2) g/dL Albumin (3.5-5.0) g/dL 12/14/20 12/14/20 12/14/20 Range/Units 15:52 20:30 23:40 WBC (3.8-10.6) k/uL Neutrophils # (1.3-7.7) k/uL Lymphocytes # (1.0-4.8) k/uL ABG pCO2 (35-45) mmHg ABG pO2 (83-108) mmHg ABG HCO3 (21-25) mmol/L ABG Total CO2 (19-24) mmol/L ABG O2 Saturation (94-97) % Sodium (137-145) mmol/L Potassium (3.5-5.1) mmol/L Carbon Dioxide (22-30) mmol/L BUN (9-20) mg/dL Creatinine (0.66-1.25) mg/dL Glucose (74-99) mg/dL POC Glucose (mg/dL) 214 H 197 H 184 H (75-99) mg/dL Ferritin (22.0-322.0) ng/mL Lactate Dehydrogenase (313-618) U/L Creatine Kinase (55-170) U/L Total Protein (6.3-8.2) g/dL Albumin (3.5-5.0) g/dL 12/15/20 12/15/20 12/15/20 Range/Units 03:55 04:00 04:00 WBC 11.6 H (3.8-10.6) k/uL Neutrophils # 10.6 H (1.3-7.7) k/uL Lymphocytes # 0.3 L (1.0-4.8) k/uL ABG pCO2 (35-45) mmHg ABG pO2 (83-108) mmHg ABG HCO3 (21-25) mmol/L ABG Total CO2 (19-24) mmol/L ABG O2 Saturation (94-97) % Sodium 146 H (137-145) mmol/L Potassium 5.2 H (3.5-5.1) mmol/L Carbon Dioxide 39 H (22-30) mmol/L BUN 76 H (9-20) mg/dL Creatinine 1.31 H (0.66-1.25) mg/dL Glucose 184 H (74-99) mg/dL POC Glucose (mg/dL) 174 H (75-99) mg/dL Ferritin (22.0-322.0) ng/mL Lactate Dehydrogenase 1059 H (313-618) U/L Creatine Kinase 50 L (55-170) U/L Total Protein 4.9 L (6.3-8.2) g/dL Albumin 2.8 L (3.5-5.0) g/dL 12/15/20 Range/Units 04:37 WBC (3.8-10.6) k/uL Neutrophils # (1.3-7.7) k/uL Lymphocytes # (1.0-4.8) k/uL ABG pCO2 70 H (35-45) mmHg ABG pO2 70 L (83-108) mmHg ABG HCO3 42 H* (21-25) mmol/L ABG Total CO2 45 H (19-24) mmol/L ABG O2 Saturation 93.2 L (94-97) % Sodium (137-145) mmol/L Potassium (3.5-5.1) mmol/L Carbon Dioxide (22-30) mmol/L BUN (9-20) mg/dL Creatinine (0.66-1.25) mg/dL Glucose (74-99) mg/dL POC Glucose (mg/dL) (75-99) mg/dL Ferritin (22.0-322.0) ng/mL Lactate Dehydrogenase (313-618) U/L Creatine Kinase (55-170) U/L Total Protein (6.3-8.2) g/dL Albumin (3.5-5.0) g/dL Assessment and Plan Plan: 1 ARDS and secondary acute hypoxic respiratory failure related to acute COVID 19 related pneumonia, patient was out of the window for Remdesivir. Received tocilizumab and convalescent plasma. Transferred to the intensive care unit on 12/08/2020 for worsening hypoxemia, on BiPAP support, subsequent intubation and placed on mechanical ventilator on 12/10/2020. The peak and static pressures airway pressures continued to be elevated, peak and static pressures are 33/31 respectively. Chest x-ray findings are slightly worse with worsening of the patient in the lung bases. The patient continues to have hypoxemia permissive hypercapnia. Blood gases from today was noted. Chest x-ray was noted. Failed a paralytic holiday the patient becomes quite hypoxic off paralytics. 2 History of COPD/chronic bronchitis 3 History of diabetes mellitus type 2, currently on Levemir insulin 4 History of hypertension 5 History of hyperlipidemia 6 Morbid obesity with a BMI of 51 kg/m 7 Previous history of tobacco use 8 acute kidney injury, probably related to hypotension that occurred yesterday, considered hypotension-induced ATN. The patient is producing adequate amount of urine output. Creatinine today is at 1.31 and the creatinine has been stable since yesterday. 9 enteral feeding for nutritional support with vital high protein. Plan: Keep the patient sedated and paralyzed for now, stop the fentanyl.. Unable to wean off the paralytics. He will be given another paralytic holiday t twan on a trial basis. If very much likely that the patient will desaturate off paralytics. Check triglyceride levels Chest x-ray and blood gases from today were noted Continued IV Solu-Medrol Inflammatory markers are slightly improved compared to yesterday Continue enteral feeding for nutritional support Monitor fluid balance, give the patient Lasix 40 mg every 24 hours Received convalescent plasma 1, tocilizumab Repeat chest x-ray, inflammatory markers in the a.m. IV fluids at [facility]. The creatinine is stable and discontinue the Lasix. No signs of any fluid overload. Levimir insulin 60U daily and the patient is currently off the insulin drip. He is also on a scale for blood sugar control. We'll continue to follow and make further recommendations based on his clinical status Critical care time, >30 min minutes.
[2020-12-15] MEDS: ALBUTEROL HFA INHALER INHALATION PRN ×4 (07:18→20:30)
--- NOTE | 2020-12-15 07:57 | XR ---
EXAMINATION TYPE: XR chest 1V portable DATE OF EXAM: 12/15/2020 COMPARISON: 12/15/2019 HISTORY: Shortness of breath TECHNIQUE: Single frontal view of the chest is obtained. FINDINGS: ET tube, NG tube and central line stable. Diffuse interstitial pattern stable. Bilateral a reas of consolidation seen with tiny effusions. Heart size unchanged. Atherosclerotic change aorta. N o pneumothorax. IMPRESSION: Diffuse bilateral infiltrate stable.
[2020-12-15] MEDS: NON FORMULARY DRUG (Dapagliflozin Propanediol [Farxiga] 10 MG Tablet) PO SCH (08:19)
[2020-12-15] MEDS: LOSARTAN 50 MG TAB PO SCH (08:20)
[2020-12-15] MEDS: allopurinoL 100 MG TAB PO SCH (08:59)
[2020-12-15] MEDS: ASCORBIC ACID 500 MG TAB PO SCH ×2 (08:59→20:24)
[2020-12-15] MEDS: methylPREDNISolone SOD SUCCI 125 MG/2 ML VIAL IV SCH ×3 (08:59→18:51)
[2020-12-15] MEDS: ZINC SULFATE 220 MG CAP PO SCH (08:59)
[2020-12-15] MEDS: ENOXAPARIN 40 MG/0.4 ML SYRINGE SQ SCH (08:59)
[2020-12-15] MEDS: INSULIN DETEMIR (LEVEMIR) 100 UNIT/ML SYR SQ SCH ×2 (09:00→20:25)
[2020-12-15] MEDS ORDERED: fentaNYL (PF) 2,500 MCG in SODIUM CHLORIDE 0.9% 200 ML IV SCH ×2 (09:00→09:15)
[2020-12-15] MEDS: CHLORHEXIDINE GLUCONATE 15 ML CUP MUCOUS MEM SCH ×2 (09:02→20:25)
[2020-12-15] MEDS: fentaNYL (PF) 2,500 MCG in SODIUM CHLORIDE 0.9% 200 ML IV SCH ×2 (09:36→22:07)
[2020-12-15] MEDS: NOREPINEPHRINE 8 MG in SODIUM CHLORIDE 0.9% 250 ML IV SCH (09:37)
[2020-12-15 10:00] LABS: Glucose,Whole Blood 192 mg/dL (75-99)
[2020-12-15 10:09] LABS: Ferritin 489.7 ng/mL (22.0-322.0)
[2020-12-15 12:02] LABS: Glucose,Whole Blood 172 mg/dL (75-99)
[2020-12-15 13:06] VITALS: BMI 51.4
--- NOTE | 2020-12-15 15:45 | P.PN ---
Subjective Progress Note Date: 12/15/20 Principal diagnosis: COVID-19 pneumonia Ventilator dependent respiratory failure Acute exacerbation COPD Acute on chronic renal failure 62-year-old the female came in with cough congestion symptoms has been going on since November 27 and patient was tested negative in for Covid 19. Patient was initially maintained on oxygen per nasal cannula with COVID-19 treatment cocktail; patient continued to deteriorate and was intubated and placed on mechanical ventilator 12/15/2020 Patient is seen and evaluated in follow-up in ICU; remains sedated and paralyzed. The patient is on a mechanical ventilator on assist control mode; The chest x-ray from today slightly worse in terms of infiltration and atelectasis in the lung bases. The patient has a LDH level of 1050 now which is comparable to yesterday, the CRP is at 7.4 is also comparable to yesterday. D-dimer from yesterday was at 2.9. He remains on IV Solu Medrol 60 mg every 6 hours; Lovenox 40 mg subcu daily; Lasix 40 mg every 12 hours and the net fluid balance over the past 24 hours has been positives 860 mL. He is receiving enteral feeding for nutritional support and the patient is currently on vital high protein at the rate of 30 mL an hour. He is tolerating the enteral feeding for now. No other significant events. Overall condition is stable and the patient is not making a whole lot of progress Acute kidney injury is stable for now. Is producing adequate amount of urine output. Sodium level is up to 146 and the Lasix will be discontinued again. IV fluids currently running at 20 cc of normal saline. Objective - Vital Signs Vital signs: Vital Signs Temp 101.5 F H 12/15/20 04:00 Pulse 63 12/15/20 07:00 Resp 34 H 12/15/20 07:00 BP 114/63 12/14/20 18:00 Pulse Ox 90 L 12/15/20 07:00 Intake & Output 12/14/20 12/15/20 12/15/20 18:59 06:59 18:59 Intake Total 476 1349.778 245.732 Output Total 525 1625 60 Balance -49 -275.222 185.732 Weight 153.5 kg Intake: IV 276 253 23 Sodium Chloride 0.9% 1, 240 220 20 000 ml @ 20 mls/hr IV . Q24H [facility] Rx#:[id number] pressure bag 36 33 3 Intake, IV Titration 200 656.778 192.732 Amount Cisatracurium 200 mg In 149.16 50.64 Sodium Chloride 0.9% 180 ml @ 1 MCG/KG/MIN 9 mls/ hr IV .[id number] [facility] Rx#: [id number] Norepinephrine 8 mg In 23.135 42.092 Sodium Chloride 0.9% 250 ml @ 0.05 MCG/KG/MIN 15. 287 mls/hr IV .[id number] [facility] Rx#:[id number] fentaNYL (PF). 1,000 mcg 89.793 In Sodium Chloride 0.9% 80 ml @ Per Protocol IV . Q0M [facility] Rx#:[id number] propofoL 1,000 mg In 200 394.690 100 Empty Bag 1 bag @ Titrate IV .Q0M [facility] Rx#: [id number] Tube Feeding 330 30 Other 110 Output: Urine 525 1625 60 Other: Voiding Method Indwelling Catheter Indwelling Catheter ABP, PAP, CO, CI - Last Documented Arterial Blood Pressure 109/57 - Exam GENERAL: Patient is intubated sedated and paralyzed HEENT: Pupils are round and equally reacting to light. EOMI. No scleral icterus. No conjunctival pallor. Normocephalic, atraumatic. No pharyngeal erythema. No thyromegaly. CARDIOVASCULAR: S1 and S2 present. No murmurs, rubs, or gallops. PULMONARY: Bibasilar crackles were appreciated ABDOMEN: Soft, nontender, nondistended, normoactive bowel sounds. No palpable organomegaly. MUSCULOSKELETAL: No joint swelling or deformity. EXTREMITIES: No cyanosis, clubbing, or pedal edema. NEUROLOGICAL: Sedated SKIN: No rashes. - Labs CBC & Chem 7: 12/15/20 04:00 12/15/20 04:00 Labs: Abnormal Lab Results - Last 24 Hours (Table) 12/14/20 12/14/20 12/14/20 Range/Units 11:28 15:52 20:30 WBC (3.8-10.6) k/uL Neutrophils # (1.3-7.7) k/uL Lymphocytes # (1.0-4.8) k/uL ABG pCO2 (35-45) mmHg ABG pO2 (83-108) mmHg ABG HCO3 (21-25) mmol/L ABG Total CO2 (19-24) mmol/L ABG O2 Saturation (94-97) % Sodium (137-145) mmol/L Potassium (3.5-5.1) mmol/L Carbon Dioxide (22-30) mmol/L BUN (9-20) mg/dL Creatinine (0.66-1.25) mg/dL Glucose (74-99) mg/dL POC Glucose (mg/dL) 205 H 214 H 197 H (75-99) mg/dL Ferritin (22.0-322.0) ng/mL Lactate Dehydrogenase (313-618) U/L Creatine Kinase (55-170) U/L Total Protein (6.3-8.2) g/dL Albumin (3.5-5.0) g/dL 12/14/20 12/15/20 12/15/20 Range/Units 23:40 03:55 04:00 WBC 11.6 H (3.8-10.6) k/uL Neutrophils # 10.6 H (1.3-7.7) k/uL Lymphocytes # 0.3 L (1.0-4.8) k/uL ABG pCO2 (35-45) mmHg ABG pO2 (83-108) mmHg ABG HCO3 (21-25) mmol/L ABG Total CO2 (19-24) mmol/L ABG O2 Saturation (94-97) % Sodium (137-145) mmol/L Potassium (3.5-5.1) mmol/L Carbon Dioxide (22-30) mmol/L BUN (9-20) mg/dL Creatinine (0.66-1.25) mg/dL Glucose (74-99) mg/dL POC Glucose (mg/dL) 184 H 174 H (75-99) mg/dL Ferritin (22.0-322.0) ng/mL Lactate Dehydrogenase (313-618) U/L Creatine Kinase (55-170) U/L Total Protein (6.3-8.2) g/dL Albumin (3.5-5.0) g/dL 12/15/20 12/15/20 12/15/20 Range/Units 04:00 04:37 09:58 WBC (3.8-10.6) k/uL Neutrophils # (1.3-7.7) k/uL Lymphocytes # (1.0-4.8) k/uL ABG pCO2 70 H (35-45) mmHg ABG pO2 70 L (83-108) mmHg ABG HCO3 42 H* (21-25) mmol/L ABG Total CO2 45 H (19-24) mmol/L ABG O2 Saturation 93.2 L (94-97) % Sodium 146 H (137-145) mmol/L Potassium 5.2 H (3.5-5.1) mmol/L Carbon Dioxide 39 H (22-30) mmol/L BUN 76 H (9-20) mg/dL Creatinine 1.31 H (0.66-1.25) mg/dL Glucose 184 H (74-99) mg/dL POC Glucose (mg/dL) 192 H (75-99) mg/dL Ferritin 489.7 H (22.0-322.0) ng/mL Lactate Dehydrogenase 1059 H (313-618) U/L Creatine Kinase 50 L (55-170) U/L Total Protein 4.9 L (6.3-8.2) g/dL Albumin 2.8 L (3.5-5.0) g/dL Assessment and Plan Assessment: -Acute hypoxic respiratory failure secondary to covid 19 pneumonia.: Patient is on IV Solu-Medrol Covid vitamins, not a candidate for Remdesivir. Patient is p resently intubated respiratory status has worsened. Patient is intubated on now for 07/21/2021 COPD with acute exacerbation Acute renal failure on chronic kidney disease stage III acute renal failure secondary to renal azotemia dehydration patient will be continued on IV fluids repeat basic metabolic profile tomorrow -Hyperlipidemia -Hypertension -Type 2 diabetes mellitus uncontrolled elevated blood sugars, patient is an above-mentioned regimen we'll increase the long-acting insulin to 60 twice a day continue with sliding scale insulin -DVT prophylaxis with subcutaneous heparin because of his renal failure
[2020-12-15 16:29] LABS: Glucose,Whole Blood 170 mg/dL (75-99)
[2020-12-15] MEDS: SODIUM CHLORIDE 0.9% 1,000 ML IV SCH (17:38)
[2020-12-15 19:57] LABS: Glucose,Whole Blood 171 mg/dL (75-99)
[2020-12-15] MEDS: ASPIRIN 81 MG PO SCH (20:24)
[2020-12-15] MEDS: ATORVASTATIN 20 MG TAB PO SCH (20:25)
[2020-12-15 23:38] LABS: Glucose,Whole Blood 283 mg/dL (75-99)
[2020-12-16] MEDS: ARTIFICIAL TEARS-HYPROMELLOSE DROPS 15 ML BTL BOTH EYES SCH ×7 (00:01→22:44)
[2020-12-16] MEDS: INSULIN ASPART (NovoLOG) 100 UNIT/ML VIAL SQ SCH ×11 (00:02→23:53)
[2020-12-16] MEDS: methylPREDNISolone SOD SUCCI 125 MG/2 ML VIAL IV SCH ×5 (00:03→23:53)
[2020-12-16 04:06] LABS: Glucose,Whole Blood 281 mg/dL (75-99)
[2020-12-16 04:34] LABS: Basophils % (A) 0 %; Eosinophils % (A) 0 %; HCT 46.3 % (39.0-53.0); HGB 14.4 gm/dL (13.0-17.5); Lymphocytes # (A) 0.5 k/uL (1.0-4.8); Lymphocytes % (A) 5 %; MCH 26.9 pg (25.0-35.0); MCV 86.8 fL (80.0-100.0); Mean Platelet Volume 8.6; Monocytes # (A) 0.4 k/uL (0-1.0); Monocytes % (A) 4 %; Neutrophils % (A) 91 %; Platelet Count 231 k/uL (150-450); RBC 5.33 m/uL (4.30-5.90); RDW 14.1 % (11.5-15.5); WBC 10.9 k/uL (3.8-10.6)
[2020-12-16 04:59] LABS: Allen Test Performed? Yes
[2020-12-16 05:00] LABS: ABG HCO3 23 mmol/L (21-25); ABG PCO2 37 mmHg (35-45); ABG PO2 62 mmHg (83-108)
[2020-12-16 05:01] LABS: ABG Base Excess -1.5 mmol/L; ABG TCO2 24 mmol/L (19-24)
[2020-12-16 05:07] LABS: ALT 29 U/L (4-49); AST 26 U/L (17-59); African American GFR (CKD) >90 (>60 ml/min/1.73 sqM); Albumin 2.7 g/dL (3.5-5.0); Alkaline Phosphatase 67 U/L (38-126); Anion Gap 2 mmol/L; Blood Urea Nitrogen 82 mg/dL (9-20); Calcium 8.7 mg/dL (8.4-10.2); Carbon Dioxide 39 mmol/L (22-30); Chloride 105 mmol/L (98-107); Creatine Kinase 44 U/L (55-170); Glucose 291 mg/dL (74-99); LDH 1135 U/L (313-618); Non-African American GFR(CKD) >90 (>60 ml/min/1.73 sqM); Potassium 5.1 mmol/L (3.5-5.1); Sodium 146 mmol/L (137-145); Total Bilirubin 0.5 mg/dL (0.2-1.3); Total Protein 4.9 g/dL (6.3-8.2)
--- NOTE | 2020-12-16 06:28 | P.PN ---
Subjective Progress Note Date: 12/16/20 On 12/11/2020 on seeing the patient for a follow-up. This is a case of a 70-year-old male patient COVID 19 related pneumonia and hypoxic respiratory failure. The patient was transferred to the intensive care unit because of ongoing difficulties with hypoxemia and shortness of breath and the patient was treated with BiPAP and ultimately the patient to be intubated and placed on a mechanical ventilator. At this point in time, the patient's control mode at the rate of 24 with a tidal volume of 450 and FiO2 of 100% with a PEEP of 15. Note that during the course of the treatment, the patient received convalescent plasma, Tocilizumab and the patient is also received steroids. Patient is known to have COPD, diabetes mellitus type 2, hypertension and hyperlipidemia. The patient is morbidly obese and carries a body mass index of 50.3. The patient is currently sedated with propofol running at 60 mg/kg/m. The patient is also paralyzed with Nimbex at 0.5 mcg/kg per minute. The patient is a triple lumen catheter in the left IJ. The patient has a right radial arterial line. NG tube is in place and tube feeds were restarted. The patient has a CRP of 30and a LDH level of 1799 and this is based on labs that was obtained yesterday on 12/10/2020. Meanwhile, the patient remains on Solu Medrol 60 mg every 6 hours IV, Lovenox 40 mg subcu for DVT prophylaxis, and the patient is also on Levemir insulin for blood sugar control @ 30 units twice a day along with a NovoLog sliding scale coverage. The chest x-ray showing diffuse bilateral pulmonary infiltrates, consolidations interstitial infiltrates in addition orotracheal tube which is an inadequate location 2 cm above the neil. D-dimer is at 4.26. The blood gases from today showing a pH of 7.24 with pCO2 of 74 and pO2 of 79. This was an FiO2 of 100%. The peak and static pressures on a mechanical ventilator are 36/34 respectively. 12/12/2020 the patient is being seen for a follow-up. This is a case of 70-year-old male patient with Covid 19 related pneumonia and secondary hypoxic respiratory failure. The patient has been intubated since 12/11/2019. The patient currently is sedated and the patient is currently on propofol running at 60 mcg/kg per minute and the patient is also on Nimbex at 0.7 mg/kg per minute. The patient is currently on a mechanical ventilator. The patient on assist control mode with a tidal volume of 400 rate of 34, PEEP of 18 and FiO2 of 80%. The morning blood gases showed improvement and acid base status. His pH is at 7.27 with a pCO2 of 72 and pO2 of 76. His chest x-ray is showing bilateral pulmonary infiltrates most on the lower lobes and the patient has extensive consolidations. ET tube is very high and the trachea and can be pushed down easily. The overall pulmonary infiltrates are essentially stable for now. The patient remains on treatment and the patient is receiving Solu-Medrol 60 mg IV every 6 hours. The patient is also on Lovenox 70 mg subcu every 12 hours. In terms of his inflammatory markers, the patient has an LDH level of 1247 which is improved compared to yesterday and his CRP is down to 20.9. This morning, we having an issue with the patient's ventilator as the patient is losing some volume. I think this is related to the ET tube which is high in the trachea (to be pushed out. On his blood work, the patient has developed an acute kidney injury. His creatinine is up 1.4 with a BUN of 51 and this is of a new finding. The neck fluid balance has been in the order of positive fluid balance of 1.6 L over the past 24 hours. The patient is a triple lumen catheter in his left IJ. NG tube is also in place and the patient is receiving enteral feeding for nutritional support and the patient is currently on vitamin H. At the rate of 36 an hour. He is currently at goal. He is known to have COPD, diabetes mellitus type 2, hypertension and hyperlipidemia. His BMI is a 52. His blood sugar control is through insulin drip running at 11 units an hour and the Lantus and the NovoLog sliding scale were discontinued. Actos can be also discontin ued. 2020, the patient remains intubated on mechanical ventilator. This morning, per report is running at 50 mcg/kg per minute and the patient also paralyzed with Nimbex at 0.7 mcg/kg per minute. He remains on a mechanical ventilator. He is an assist-control with a tidal volume of 400 and the dates of 34 and a PEEP of 18 and FiO2 of 80%. The blood gases from today is showing a pH of 7.26 with a pCO2 of 79 and pO2 of 104. Note that overnight, the patient was also started on fentanyl for elevated PRESSURE and attempt to wean off the propofol and Nimbex. The follow-up chest x-ray was done today. I will say there is some limited improvement in the aeration. There is also some possible limited improvement in the left lower lobe consolidation. ET tube is very highly trachea needs to be pushed in. The NG tube is in place. The patient is receiving enteral feeding for nutritional support and the patient is currently on vital high protein at the rate of 36 this is an hour. He is currently still at goal. He remains on steroids in the patient on IV Solu-Medrol 60 mg every 6 hours. He is on Lovenox 70 mg subcutaneous every 12 hours. His d-dimer today that 3.53 and his LDH level is 1226 and his CRP is at 13.6. His CPKs up to 75. BUN is at 61 with a creatinine of 1.09 and a white cell count is normal at 15.9. No major interval changes condition since yesterday. Her net fluid balance over the past 24 hours and then +1.6 L for yesterday and +2.5 L for today before. He is getting some increased swelling in the upper and lower extremities bilaterally. 12/14/2020, the patient is still intubated on a mechanical ventilator, sedated and paralyzed. On today's evaluation, propofol is running at 50 mcg/kg per minute which is essentially same as yesterday and the patient is also paralyzed with Nimbex at 0.8 mitral respiratory failure after minutes. The patient is also on fentanyl at a low dose which will be essentially discontinued today. In terms of vent support, the patient remains on assist control mode of ventilation. On today's evaluation the patient is on a mechanical ventilator volume cycle mode with a tidal volume of 400 and a rate of 34 and a PEEP of 18 with an FiO2 of 80%. Her blood gases from today is showing a pH of 7.33 with a pCO2 of 69 pO2 of 92. Peak anesthetic pressures are both elevated. The peak airway pressures are 36 and the static pressure is around 34. Note that the patient was having leak from his orotracheal tube. The tube was exchanged yesterday by ARABELLA. On today's evaluation, the decubitus in a good location and the patient does not have any leaks. Meanwhile, repeat chest x-ray was done and the patient continues to have diffuse breath and pulmonary infiltrates left more than right. The patient has an orogastric and orotracheal tube are both of them are in good location. Meanwhile, the patient hemodynamically is doing well. We don't have him on any pressors for now. He has required low-dose pressors robbi ier. He is producing adequate amount of urine output. The fluid balance has been +1.6 L over the past 24 hours and the patient is having some increased edema in all 4 extremities. He has gained weight over this past several days. Currently is receiving Lasix 40 mg IV every 24 hours. In regards to his COVID- 19 pneumonia, the patient has a d-dimer of 2.9 with a LDH level of 1082 and a CRP level of 9.9. The numbers have slightly improved compared to yesterday. The patient remains on steroids in the patient is receiving IV Solu-Medrol 60 mg every 6 hours. The patient remains on Lovenox 40 mg subcu for DVT prophylaxis. Blood sugar control as well as Levemir 55 units twice a day along with a sliding scale coverage. IV fluids are currently running at KVO and the patient is receiving enteral feeding for nutritional support in the form of vital high protein at the rate of 30 mL an hour which is at goal. He is afebrile. He was given a paralytic holiday yesterday. He was off the paralysis for several hours and ultimately the patient became asynchronous and hypoxic and he had to be paralyzed again. The same is going to be done today. 12/15/2020, the patient remains sedated and paralyzed. Not a whole lot of progress on this patient since yesterday. Remains on propofol running at 65 mcg/kg per minute and the patient is also on Nimbex running at 0.8 mcg/kg per minute. Fentanyl is also running at 0.7 mcg/kg/h. The patient is on a mechanical ventilator on assist control mode at the rate of 34, tidal volume of 400 and FiO2 of 70% and a PEEP of 18. The blood gases from today shows a pH of 7.39 with a pCO2 of 70 and pO2 70. The chest x-ray from today remains unchanged. The patient is not having any major leaks around orotracheal tube and he is returning is volumes fine. ET tube is in a good location on today's chest x-ray. Overall chest x-ray findings are essentially stable probably slightly worse in terms of infiltration and atelectasis in the lung bases. The patient has a LDH level of 1050 now which is comparable to yesterday, the CRP is at 7.4 is also comparable to yesterday. D-dimer from yesterday was at 2.9. He remains on steroids in the patient is currently on IV Solu Medrol 60 mg every 6 hours. He is also on Lovenox 40 mg subcu daily. He is on Lasix 40 mg every 12 hours and the net fluid balance over the past 24 hours has been positives 860 m L. He is receiving enteral feeding for nutritional support and the patient is currently on vital high protein at the rate of 30 mL an hour. He is tolerating the enteral feeding for now. He is fe the highest temperature was 101.5. The peak airway pressures around 33. The static pressures 31. No major edema lower extremities. No other significant events. Overall condition is stable and the patient is not making a whole lot of progress. He continues to have high PEEP and FiO2 requirements. Oxygenation remains borderline. The patient had developed an acute kidney injury in the creatinine was up to 1.3 and the creatinine is stable for now. Is producing adequate amount of urine output. Sodium level is up to 146 and the Lasix will be discontinued again. IV fluids currently running at 20 cc of normal saline. 12/16/2020, the patient is doing limited amount of progress. Remains intubated on a mechanical ventilator related to COVID-19 related to pneumonia/ARDS. We finally were able to get him off the Nimbex. The patient continues to be on propofol running at 65 mcg/kg per minute. He is also on fentanyl at 1 mcg/kg/h. Remains on a mechanical ventilator. Vent settings are essentially the same with an assist-control mode at the rate of 34, tidal volume of 400, FiO2 of 70% with a PEEP of 18. Chest x-ray showing diffuse bilateral pulmonary infiltrates more so in the lower lobes and orotracheal tube is also in good location. NG tube is also in place. Meanwhile, the blood gases from today showed a pH of 7.4 with a pCO2 of 37 and pO2 of 62. Peak and static pressures are 38 and 34 respectively. Meanwhile, the patient is currently receiving IV Solu-Medrol 60 mg every 6 hours. He is also on Lovenox 40 mg subcu on a daily basis. Inflammatory markers show an elevated LDH of 1134 and the CRP from yesterday was 7.4. His white cell count is at 10.9. He continues to have lymphopenia. Sodium level of 146. Normal renal function. The patient's net fluid balance o raul the past 24 hours has been -324 mL. IV fluids with normal saline at the rate of 20 mL an hour. The patient is essentially receiving supportive care. He is currently on no pressors. He is receiving enteral feeding for nutritional support in the form of vital high protein at the rate of 30 mL an hour. He had a component of acute kidney injury with a creatinine came up to creatinine is normalized at 0.8. Blood sugars are running high as the patient is on Levemir 60 units twice a day and a sliding scale coverage. No other active issues for now. Triglycerides were noted to be slightly elevated and the patient is receiving propofol infusion. Objective - Vital Signs Vital signs: Vital Signs Temp 98.3 F 12/16/20 04:00 Pulse 52 L 12/16/20 04:00 Resp 33 H 12/16/20 04:00 BP 114/63 12/15/20 21:00 Pulse Ox 88 L 12/16/20 04:00 Intake & Output 12/15/20 12/15/20 12/16/20 06:59 18:59 06:59 Intake Total 1349.778 990.513 5386.553 Output Total 7499 450 2300 Balance -275.222 211.344 77.553 Weight 153.5 kg 153.5 kg 153.3 kg Intake: IV 253 256 230 Sodium Chloride 0.9% 1, 220 220 200 000 ml @ 20 mls/hr IV . Q24H [facility] Rx#:[id number] pressure bag 33 36 30 Intake, IV Titration 656.778 560.344 507.553 Amount Cisatracurium 200 mg In 149.16 82.275 Sodium Chloride 0.9% 180 ml @ 1 MCG/KG/MIN 9 mls/ hr IV .[id number] [facility] Rx#: [id number] Norepinephrine 8 mg In 23.135 78.069 Sodium Chloride 0.9% 250 ml @ 0.05 MCG/KG/MIN 15. 287 mls/hr IV .[id number] [facility] Rx#:[id number] fentaNYL (PF) 2,500 mcg 106.555 In Sodium Chloride 0.9% 200 ml @ Per Protocol IV .Q0M [facility] Rx#:[id number] fentaNYL (PF). 1,000 mcg 89.793 100 In Sodium Chloride 0.9% 80 ml @ Per Protocol IV . Q0M [facility] Rx#:[id number] propofoL 1,000 mg In 394.690 400 300.998 Empty Bag 1 bag @ Titrate IV .Q0M [facility] Rx#: [id number] Tube Feeding 330 30 270 Other 110 90 Output: Urine 3947 048 5339 Other: Voiding Method Indwelling Catheter Indwelling Catheter Indwelling Catheter ABP, PAP, CO, CI - Last Documented Arterial Blood Pressure 123/57 - Exam GENERAL EXAM: Intubated, sedated 70-year-old morbidly obese male, currently on the mechanical ventilator with FiO2 70% and a PEEP of 18, tidal volume of 400, currently sedated HEAD: Normocephalic/atraumatic. EYES: Normal reaction of pupils, equal size. Conjunctiva pink, sclera white. NOSE: Clear with pink turbinates. THROAT: Oral endotracheal and gastric tubes are secured in place. No erythema or exudates. NECK: No masses, no JVD, no thyroid enlargement, no adenopathy. CHEST: No chest wall deformity. Symmetrical expansion. Left IJ catheter in place LUNGS: Diminished breath sounds bilaterally, with bilateral crackles CVS: Regular rate and rhythm, normal S1 and S2, no gallops, no murmurs, no rubs ABDOMEN: Soft, nontender. No hepatosplenomegaly, normal bowel sounds, no guarding or rigidity. EXTREMITIES: No clubbing, no edema, no cyanosis, 2+ pulses and upper and lower extremities. MUSCULOSKELETAL: Muscle strength and tone normal. SPINE: No scoliosis or deformity SKIN: No rashes CENTRAL NERVOUS SYSTEM: Sedated. Intubated. Pupils are reactive to light. Motor function cannot be assessed. The patient is currently off paralytics. - Labs CBC & Chem 7: 12/16/20 04:00 12/16/20 04:00 Labs: Abnormal Lab Results - Last 24 Hours (Table) 12/15/20 12/15/20 12/15/20 Range/Units 04:00 04:00 09:58 WBC (3.8-10.6) k/uL Neutrophils # (1.3-7.7) k/uL Lymphocytes # (1.0-4.8) k/uL ABG pO2 (83-108) mmHg ABG O2 Saturation (94-97) % Sodium (137-145) mmol/L Carbon Dioxide (22-30) mmol/L BUN (9-20) mg/dL Glucose (74-99) mg/dL POC Glucose (mg/dL) 192 H (75-99) mg/dL Ferritin 489.7 H (22.0-322.0) ng/mL Lactate Dehydrogenase (313-618) U/L Creatine Kinase (55-170) U/L Total Protein (6.3-8.2) g/dL Albumin (3.5-5.0) g/dL Triglycerides 470.0 H (0.0-149.0) mg/dL 12/15/20 12/15/20 12/15/20 Range/Units 11:59 16:27 19:55 WBC (3.8-10.6) k/uL Neutrophils # (1.3-7.7) k/uL Lymphocytes # (1.0-4.8) k/uL ABG pO2 (83-108) mmHg ABG O2 Saturation (94-97) % Sodium (137-145) mmol/L Carbon Dioxide (22-30) mmol/L BUN (9-20) mg/dL Glucose (74-99) mg/dL POC Glucose (mg/dL) 172 H 170 H 171 H (75-99) mg/dL Ferritin (22.0-322.0) ng/mL Lactate Dehydrogenase (313-618) U/L Creatine Kinase (55-170) U/L Total Protein (6.3-8.2) g/dL Albumin (3.5-5.0) g/dL Triglycerides (0.0-149.0) mg/dL 12/15/20 12/16/20 12/16/20 Range/Units 23:36 04:00 04:00 WBC 10.9 H (3.8-10.6) k/uL Neutrophils # 10.0 H (1.3-7.7) k/uL Lymphocytes # 0.5 L (1.0-4.8) k/uL ABG pO2 (83-108) mmHg ABG O2 Saturation (94-97) % Sodium 146 H (137-145) mmol/L Carbon Dioxide 39 H (22-30) mmol/L BUN 82 H (9-20) mg/dL Glucose 291 H (74-99) mg/dL POC Glucose (mg/dL) 283 H (75-99) mg/dL Ferritin (22.0-322.0) ng/mL Lactate Dehydrogenase 1135 H (313-618) U/L Creatine Kinase 44 L (55-170) U/L Total Protein 4.9 L (6.3-8.2) g/dL Albumin 2.7 L (3.5-5.0) g/dL Triglycerides (0.0-149.0) mg/dL 12/16/20 12/16/20 Range/Units 04:00 04:05 WBC (3.8-10.6) k/uL Neutrophils # (1.3-7.7) k/uL Lymphocytes # (1.0-4.8) k/uL ABG pO2 62 L (83-108) mmHg ABG O2 Saturation 92.0 L (94-97) % Sodium (137-145) mmol/L Carbon Dioxide (22-30) mmol/L BUN (9-20) mg/dL Glucose (74-99) mg/dL POC Glucose (mg/dL) 281 H (75-99) mg/dL Ferritin (22.0-322.0) ng/mL Lactate Dehydrogenase (313-618) U/L Creatine Kinase (55-170) U/L Total Protein (6.3-8.2) g/dL Albumin (3.5-5.0) g/dL Triglycerides (0.0-149.0) mg/dL Assessment and Plan Plan: 1 ARDS and secondary hypoxic respiratory failure related to acute COVID 19 related pneumonia, patient was out of the window for Remdesivir. Received tocilizumab and convalescent plasma. Transferred to the intensive care unit on 12/08/2020 for worsening hypoxemia, on BiPAP support, subsequent intubation and placed on mechanical ventilator on 12/10/2020. The peak and static pressures airway pressures continued to be elevated, peak and static pressures are 38/34 respectively. Chest x-ray findings are slightly worse with worsening of the patient in the lung bases. The patient continues to have hypoxemia permissive hypercapnia. Blood gases from today was noted. Chest x-ray was noted. Blood gases was noted. No room for any further weaning. The patient has been taken off paralytics. He is currently on a combination of propofol and fentanyl. 2 History of COPD/chronic bronchitis 3 History of diabetes mellitus type 2, currently on Levemir insulin , blood sugar remains somewhat poorly controlled as the patient is receiving enteral feeding and systemic steroids. 4 History of hypertension 5 History of hyperlipidemia 6 Morbid obesity with a BMI of 51 kg/m 7 Previous history of tobacco use 8 acute kidney injury, probably related to hypotension that occurred yesterday, considered hypotension-induced ATN. Renal function normalized 9 enteral feeding for nutritional support with vital high protein. Plan: Keep the patient sedated Stop paralytics and the patient has been off paralytics for the past 24 hours Wean down the propofol based on his level of sedation Chest x-ray and blood gases from today were noted Continued IV Solu-Medrol Inflammatory markers remain elevated including LDH Continue enteral feeding for nutritional support Continue Levemir insulin 60 units twice a day and add NovoLog 10 units 4 times a day [id number] and a sliding scale coverage Received convalescent plasma 1, tocilizumab Repeat chest x-ray, inflammatory markers in the a.m. IV fluids at KVO. We'll continue to follow and make further recommendations based on his clinical status will update the family. Prognosis poor as the patient has not shown any signs of clinical recovery the patient remains profoundly hypoxic and ARDS secondary to COVID-19 related pneumonia. We'll continue to follow.. Critical care time, >30 min minutes. Time with Patient: Greater than 30
[2020-12-16 06:48] LABS: C Reactive Protein 0.6 mg/dL (<1.0)
[2020-12-16] MEDS: fentaNYL (PF) 2,500 MCG in SODIUM CHLORIDE 0.9% 200 ML IV SCH ×2 (07:06→21:25)
[2020-12-16] MEDS: NOREPINEPHRINE 8 MG in SODIUM CHLORIDE 0.9% 250 ML IV SCH ×2 (07:07→21:28)
[2020-12-16] MEDS: INSULIN DETEMIR (LEVEMIR) 100 UNIT/ML SYR SQ SCH ×2 (07:07→20:28)
[2020-12-16 07:14] VITALS: RESP 34
[2020-12-16 07:59] LABS: ABG Base Excess 15.9 mmol/L; ABG Oxygen Saturation 80.8 % (94-97); ABG PCO2 62 mmHg (35-45); ABG PH 7.42 (7.35-7.45); ABG TCO2 42 mmol/L (19-24); Allen Test Performed? Yes
[2020-12-16 08:08] LABS: ABG HCO3 40 mmol/L (21-25); ABG PO2 46 mmHg (83-108)
[2020-12-16 08:09] LABS: Glucose,Whole Blood 242 mg/dL (75-99)
[2020-12-16] MEDS: ALBUTEROL HFA INHALER INHALATION PRN ×3 (08:09→15:33)
[2020-12-16] MEDS: NON FORMULARY DRUG (Dapagliflozin Propanediol [Farxiga] 10 MG Tablet) PO SCH (08:21)
[2020-12-16] MEDS: LOSARTAN 50 MG TAB PO SCH (08:23)
[2020-12-16] MEDS: CHLORHEXIDINE GLUCONATE 15 ML CUP MUCOUS MEM SCH ×2 (08:46→19:51)
[2020-12-16] MEDS: allopurinoL 100 MG TAB PO SCH (08:46)
[2020-12-16] MEDS: ZINC SULFATE 220 MG CAP PO SCH (08:46)
[2020-12-16] MEDS: ASCORBIC ACID 500 MG TAB PO SCH ×2 (08:46→19:50)
[2020-12-16] MEDS: ENOXAPARIN 40 MG/0.4 ML SYRINGE SQ SCH (08:46)
--- NOTE | 2020-12-16 09:29 | XR ---
EXAMINATION TYPE: XR chest 1V portable DATE OF EXAM: 12/16/2020 CLINICAL HISTORY: Difficulty breathing progress study. TECHNIQUE: Single AP portable upright view of the chest is obtained. COMPARISON: Chest x-ray from one day earlier FINDINGS: Stable endotracheal and orogastric tubes. Stable left internal jugular central venous cath eter. Persistent bilateral multifocal mid to lower lung with reticulonodular opacities. Stable mild cardiom egaly. Multilevel spurring in thoracic spine redemonstrated. IMPRESSION: Cardiomegaly and Bilateral mid to lower lung reticulonodular opacities consistent with co vid-19 infection. No significant change from one day earlier.
[2020-12-16 11:58] LABS: Glucose,Whole Blood 177 mg/dL (75-99)
[2020-12-16] MEDS: SODIUM CHLORIDE 0.9% 1,000 ML IV SCH (12:18)
--- NOTE | 2020-12-16 15:54 | P.PN ---
Subjective Progress Note Date: 12/16/20 Principal diagnosis: COVID-19 pneumonia Ventilator dependent respiratory failure Acute exacerbation COPD Acute on chronic renal failure 62-year-old the female came in with cough congestion symptoms has been going on since November 27 and patient was tested negative in for Covid 19. Patient was initially maintained on oxygen per nasal cannula with COVID-19 treatment cocktail; patient continued to deteriorate and was intubated and placed on mechanical ventilator 12/15/2020 Patient is seen and evaluated in follow-up in ICU; remains sedated and paralyzed. The patient is on a mechanical ventilator on assist control mode; The chest x-ray from today slightly worse in terms of infiltration and atelectasis in the lung bases. The patient has a LDH level of 1050 now which is comparable to yesterday, the CRP is at 7.4 is also comparable to yesterday. D-dimer from yesterday was at 2.9. He remains on IV Solu Medrol 60 mg every 6 hours; Lovenox 40 mg subcu daily; Lasix 40 mg every 12 hours and the net fluid balance over the past 24 hours has been positives 860 mL. He is receiving enteral feeding for nutritional support and the patient is currently on vital high protein at the rate of 30 mL an hour. He is tolerating the enteral feeding for now. No other significant events. Overall condition is stable and the patient is not making a whole lot of progress Acute kidney injury is stable for now. Is producing adequate amount of urine output. Sodium level is up to 146 and the Lasix will be discontinued again. IV fluids currently running at 20 cc of normal saline. 12/16/2020 Patient is seen and evaluated in ICU; remains intubated and mechanically ventilated secondary to pneumonia/ARDS; repeat chest x-ray reveals diffuse bilateral pulmonary infiltrates Lab review reveals an elevated white blood count of 10.9; sodium elevated at 146; d-dimer slow trend down at 2.91 with ferritin and LDH trending down to 291 and 1135 respectively Tube feeding; blood sugars are slightly elevated; patient remains on Levemir 60 mg twice a day Patient remains on Lovenox, IV Solu-Medrol and received convalescent plasma and Actemra Plan is to continue current treatment and follow chest x-ray and inflammatory markers Objective - Vital Signs Vital signs: Vital Signs Temp 98.3 F 12/16/20 04:00 Pulse 53 L 12/16/20 07:00 Resp 34 H 12/16/20 07:00 BP 114/63 12/15/20 21:00 Pulse Ox 82 L 12/16/20 07:00 Intake & Output 12/15/20 12/16/20 12/16/20 18:59 06:59 18:59 Intake Total 761.466 9351.553 191.636 Output Total 635 1090 40 Balance 211.344 213.553 151.636 Weight 153.5 kg 153.3 kg Intake: IV 256 276 23 Sodium Chloride 0.9% 1, 220 240 20 000 ml @ 20 mls/hr IV . Q24H [facility] Rx#:[id number] pressure bag 36 36 3 Intake, IV Titration 560.344 607.553 138.636 Amount Cisatracurium 200 mg In 82.275 Sodium Chloride 0.9% 180 ml @ 1 MCG/KG/MIN 9 mls/ hr IV .[id number] [facility] Rx#: [id number] Norepinephrine 8 mg In 78.069 Sodium Chloride 0.9% 250 ml @ 0.05 MCG/KG/MIN 15. 287 mls/hr IV .[id number] [facility] Rx#:[id number] fentaNYL (PF) 2,500 mcg 106.555 137.638 In Sodium Chloride 0.9% 200 ml @ Per Protocol IV .Q0M [facility] Rx#:[id number] fentaNYL (PF). 1,000 mcg 100 In Sodium Chloride 0.9% 80 ml @ Per Protocol IV . Q0M [facility] Rx#:[id number] propofoL 1,000 mg In 400 400.998 0.998 Empty Bag 1 bag @ Titrate IV .Q0M [facility] Rx#: [id number] Tube Feeding 30 330 30 Other 90 Output: Urine 635 1090 40 Other: Voiding Method Indwelling Catheter Indwelling Catheter ABP, PAP, CO, CI - Last Documented Arterial Blood Pressure 93/53 - Exam GENERAL: Patient is intubated sedated and paralyzed HEENT: Pupils are round and equally reacting to light. EOMI. No scleral icterus. No conjunctival pallor. Normocephalic, atraumatic. No pharyngeal erythema. No thyromegaly. CARDIOVASCULAR: S1 and S2 present. No murmurs, rubs, or gallops. PULMONARY: Bibasilar crackles were appreciated ABDOMEN: Soft, nontender, nondistended, normoactive bowel sounds. No palpable organomegaly. MUSCULOSKELETAL: No joint swelling or deformity. EXTREMITIES: No cyanosis, clubbing, or pedal edema. NEUROLOGICAL: Sedated SKIN: No rashes. - Labs CBC & Chem 7: 12/16/20 04:00 12/16/20 04:00 Labs: Abnormal Lab Results - Last 24 Hours (Table) 12/15/20 12/15/20 12/15/20 Range/Units 04:00 04:00 11:59 WBC (3.8-10.6) k/uL Neutrophils # (1.3-7.7) k/uL Lymphocytes # (1.0-4.8) k/uL ABG pCO2 (35-45) mmHg ABG pO2 (83-108) mmHg ABG HCO3 (21-25) mmol/L ABG Total CO2 (19-24) mmol/L ABG O2 Saturation (94-97) % Sodium (137-145) mmol/L Carbon Dioxide (22-30) mmol/L BUN (9-20) mg/dL Glucose (74-99) mg/dL POC Glucose (mg/dL) 172 H (75-99) mg/dL Ferritin 489.7 H (22.0-322.0) ng/mL Lactate Dehydrogenase (313-618) U/L Creatine Kinase (55-170) U/L Total Protein (6.3-8.2) g/dL Albumin (3.5-5.0) g/dL Triglycerides 470.0 H (0.0-149.0) mg/dL 12/15/20 12/15/20 12/15/20 Range/Units 16:27 19:55 23:36 WBC (3.8-10.6) k/uL Neutrophils # (1.3-7.7) k/uL Lymphocytes # (1.0-4.8) k/uL ABG pCO2 (35-45) mmHg ABG pO2 (83-108) mmHg ABG HCO3 (21-25) mmol/L ABG Total CO2 (19-24) mmol/L ABG O2 Saturation (94-97) % Sodium (137-145) mmol/L Carbon Dioxide (22-30) mmol/L BUN (9-20) mg/dL Glucose (74-99) mg/dL POC Glucose (mg/dL) 170 H 171 H 283 H (75-99) mg/dL Ferritin (22.0-322.0) ng/mL Lactate Dehydrogenase (313-618) U/L Creatine Kinase (55-170) U/L Total Protein (6.3-8.2) g/dL Albumin (3.5-5.0) g/dL Triglycerides (0.0-149.0) mg/dL 12/16/20 12/16/20 12/16/20 Range/Units 04:00 04:00 04:00 WBC 10.9 H (3.8-10.6) k/uL Neutrophils # 10.0 H (1.3-7.7) k/uL Lymphocytes # 0.5 L (1.0-4.8) k/uL ABG pCO2 (35-45) mmHg ABG pO2 62 L (83-108) mmHg ABG HCO3 (21-25) mmol/L ABG Total CO2 (19-24) mmol/L ABG O2 Saturation 92.0 L (94-97) % Sodium 146 H (137-145) mmol/L Carbon Dioxide 39 H (22-30) mmol/L BUN 82 H (9-20) mg/dL Glucose 291 H (74-99) mg/dL POC Glucose (mg/dL) (75-99) mg/dL Ferritin (22.0-322.0) ng/mL Lactate Dehydrogenase 1135 H (313-618) U/L Creatine Kinase 44 L (55-170) U/L Total Protein 4.9 L (6.3-8.2) g/dL Albumin 2.7 L (3.5-5.0) g/dL Triglycerides (0.0-149.0) mg/dL 12/16/20 12/16/20 12/16/20 Range/Units 04:05 07:51 08:08 WBC (3.8-10.6) k/uL Neutrophils # (1.3-7.7) k/uL Lymphocytes # (1.0-4.8) k/uL ABG pCO2 62 H (35-45) mmHg ABG pO2 46 L* (83-108) mmHg ABG HCO3 40 H* (21-25) mmol/L ABG Total CO2 42 H (19-24) mmol/L ABG O2 Saturation 80.8 L (94-97) % Sodium (137-145) mmol/L Carbon Dioxide (22-30) mmol/L BUN (9-20) mg/dL Glucose (74-99) mg/dL POC Glucose (mg/dL) 281 H 242 H (75-99) mg/dL Ferritin (22.0-322.0) ng/mL Lactate Dehydrogenase (313-618) U/L Creatine Kinase (55-170) U/L Total Protein (6.3-8.2) g/dL Albumin (3.5-5.0) g/dL Triglycerides (0.0-149.0) mg/dL Assessment and Plan Assessment: -Acute hypoxic respiratory failure secondary to covid 19 pneumonia.: Patient is on IV Solu-Medrol Covid vitamins, not a candidate for Remdesivir. Patient is presently intubated respiratory status has worsened. Patient is intubated on now for 07/21/2021 COPD with acute exacerbation Acute renal failure on chronic kidney disease stage III acute renal failure secondary to renal azotemia dehydration patient will be continued on IV fluids repeat basic metabolic profile tomorrow -Hyperlipidemia -Hypertension -Type 2 diabetes mellitus uncontrolled elevated blood sugars, patient is an above-mentioned regimen we'll increase the long-acting insulin to 60 twice a day continue with sliding scale insulin -DVT prophylaxis with subcutaneous heparin because of his renal failure
[2020-12-16] MEDS: polyethylene glycoL 3350 17 GM POWD.PACK NG-TUBE SCH (17:10)
[2020-12-16] MEDS: CISATRACURIUM 200 MG in SODIUM CHLORIDE 0.9% 180 ML IV SCH (17:11)
[2020-12-16 17:21] LABS: Glucose,Whole Blood 152 mg/dL (75-99)
[2020-12-16] MEDS: ATORVASTATIN 20 MG TAB PO SCH (19:50)
[2020-12-16] MEDS: ASPIRIN 81 MG PO SCH (19:50)
[2020-12-16 20:01] LABS: Glucose,Whole Blood 163 mg/dL (75-99)
--- NOTE | 2020-12-16 20:31 | XR ---
EXAMINATION TYPE: XR chest 1V portable DATE OF EXAM: 12/16/2020 COMPARISON: Today HISTORY: Check tube placement TECHNIQUE: 2 views upright FINDINGS: The endotracheal tube is 4 cm from the neil. Nasogastric tube is in the stomach. There is bilateral pulmonary airspace infiltrates in both lower lobes. There are chest leads. There is left s rafi central venous catheter with the tip not well seen. There is overlying multiple tubes. Tip is pro bably in the superior vena cava. IMPRESSION: Pulmonary infiltrates in the mid and lower lung field slightly worse than exam this [place] and consistent with worsening heart failure or RDS.
[2020-12-16] MEDS ORDERED: SODIUM BICARB 8.4% 50 ML SYR (1 MEQ/ML) ONE ×3 (21:03→21:04)
[2020-12-16] MEDS ORDERED: SODIUM BICARB 8.4% 50 ML SYR (1 MEQ/ML) IV STA (21:08)
[2020-12-16 21:50] LABS: ABG Base Excess 17.7 mmol/L; ABG Oxygen Saturation 83.6 % (94-97); ABG PH 7.24 (7.35-7.45); ABG TCO2 48 mmol/L (19-24); Allen Test Performed? Yes
[2020-12-16 21:56] LABS: ABG HCO3 45 mmol/L (21-25); ABG PCO2 105 mmHg (35-45); ABG PO2 57 mmHg (83-108)
[2020-12-16] MEDS: ACETAMINOPHEN TAB 325 MG TAB PO PRN (22:39)
[2020-12-16 22:57] LABS: Glucose,Whole Blood 146 mg/dL (75-99)
[2020-12-17] MEDS: CISATRACURIUM 200 MG in SODIUM CHLORIDE 0.9% 180 ML IV SCH (00:50)
--- NOTE | 2020-12-17 02:38 | XR ---
EXAM: XR Chest, 1 View CLINICAL HISTORY: ITS.REASON XR Reason: vent low spo2 TECHNIQUE: Frontal view of the chest. COMPARISON: 12/16/2020 FINDINGS: Endotracheal tube in place, which terminates 4.2 cm above the level of the neil. Right-sided subclavian central venous catheter with tip terminating in the mid SVC. Nasogastric tube terminates below field-of- view in the left upper quadrant. Patchy consolidation in the right base, increased form prior. Increased moderate right pleural effusion with partial right upper lobe collapse. IMPRESSION: 1. Increased right base consolidation compared to prior study 2. Moderate right pleural effusion with partial right upper lobe collapse. 3. Stable lines and tubes. <MYCVCSECTION> Communications: 12/17/20 02:59 Call Doctor Regarding Other, called Dr. Lezama on 12/17 02:59 (-04:00)
[2020-12-17] MEDS ORDERED: VANCOMYCIN IV PER PHARMACY 1 EACH MISC MISCELLANE PRN (02:53)
[2020-12-17 02:56] LABS: ABG Base Excess 11.9 mmol/L; ABG TCO2 45 mmol/L (19-24); Allen Test Performed? Yes
[2020-12-17 03:04] LABS: ABG PCO2 119 mmHg (35-45); ABG PH 7.14 (7.35-7.45)
[2020-12-17 03:05] LABS: ABG HCO3 41 mmol/L (21-25); ABG PO2 49 mmHg (83-108)
[2020-12-17 03:25] LABS: Albumin 3.1 g/dL (3.5-5.0); Calcium 8.8 mg/dL (8.4-10.2); Potassium 5.2 mmol/L (3.5-5.1); Total Bilirubin 0.5 mg/dL (0.2-1.3); Total Protein 5.4 g/dL (6.3-8.2)
[2020-12-17 03:29] LABS: HCT 51.5 % (39.0-53.0); HGB 16.5 gm/dL (13.0-17.5); Hypochromasia Slight; MCH 28.3 pg (25.0-35.0); MCV 88.4 fL (80.0-100.0); Mean Platelet Volume 8.9; Platelet Count 311 k/uL (150-450); RBC 5.82 m/uL (4.30-5.90); RDW 13.8 % (11.5-15.5); WBC 21.1 k/uL (3.8-10.6)
[2020-12-17] MEDS: ACETAMINOPHEN TAB 325 MG TAB PO PRN (03:35)
[2020-12-17 03:57] LABS: Glucose,Whole Blood 172 mg/dL (75-99)
[2020-12-17] MEDS ORDERED: VANCOMYCIN 2,500 MG in SODIUM CHLORIDE 0.9% 500 ML 500 ML IVPB ONE (04:00)
[2020-12-17] MEDS: INSULIN ASPART (NovoLOG) 100 UNIT/ML VIAL SQ SCH ×3 (04:04→08:53)
[2020-12-17] MEDS: ARTIFICIAL TEARS-HYPROMELLOSE DROPS 15 ML BTL BOTH EYES SCH ×2 (04:04→10:44)
[2020-12-17] MEDS: methylPREDNISolone SOD SUCCI 125 MG/2 ML VIAL IV SCH (05:52)
--- NOTE | 2020-12-17 06:36 | P.PN ---
Subjective Progress Note Date: 12/17/20 On 12/11/2020 on seeing the patient for a follow-up. This is a case of a 70-year-old male patient COVID 19 related pneumonia and hypoxic respiratory failure. The patient was transferred to the intensive care unit because of ongoing difficulties with hypoxemia and shortness of breath and the patient was treated with BiPAP and ultimately the patient to be intubated and placed on a mechanical ventilator. At this point in time, the patient's control mode at the rate of 24 with a tidal volume of 450 and FiO2 of 100% with a PEEP of 15. Note that during the course of the treatment, the patient received convalescent plasma, Tocilizumab and the patient is also received steroids. Patient is known to have COPD, diabetes mellitus type 2, hypertension and hyperlipidemia. The patient is morbidly obese and carries a body mass index of 50.3. The patient is currently sedated with propofol running at 60 mg/kg/m. The patient is also paralyzed with Nimbex at 0.5 mcg/kg per minute. The patient is a triple lumen catheter in the left IJ. The patient has a right radial arterial line. NG tube is in place and tube feeds were restarted. The patient has a CRP of 30and a LDH level of 1799 and this is based on labs that was obtained yesterday on 12/10/2020. Meanwhile, the patient remains on Solu Medrol 60 mg every 6 hours IV, Lovenox 40 mg subcu for DVT prophylaxis, and the patient is also on Levemir insulin for blood sugar control @ 30 units twice a day along with a NovoLog sliding scale coverage. The chest x-ray showing diffuse bilateral pulmonary infiltrates, consolidations interstitial infiltrates in addition orotracheal tube which is an inadequate location 2 cm above the neil. D-dimer is at 4.26. The blood gases from today showing a pH of 7.24 with pCO2 of 74 and pO2 of 79. This was an FiO2 of 100%. The peak and static pressures on a mechanical ventilator are 36/34 respectively. 12/12/2020 the patient is being seen for a follow-up. This is a case of 70-year-old male patient with Covid 19 related pneumonia and secondary hypoxic respiratory failure. The patient has been intubated since 12/11/2019. The patient currently is sedated and the patient is currently on propofol running at 60 mcg/kg per minute and the patient is also on Nimbex at 0.7 mg/kg per minute. The patient is currently on a mechanical ventilator. The patient on assist control mode with a tidal volume of 400 rate of 34, PEEP of 18 and FiO2 of 80%. The morning blood gases showed improvement and acid base status. His pH is at 7.27 with a pCO2 of 72 and pO2 of 76. His chest x-ray is showing bilateral pulmonary infiltrates most on the lower lobes and the patient has extensive consolidations. ET tube is very high and the trachea and can be pushed down easily. The overall pulmonary infiltrates are essentially stable for now. The patient remains on treatment and the patient is receiving Solu-Medrol 60 mg IV every 6 hours. The patient is also on Lovenox 70 mg subcu every 12 hours. In terms of his inflammatory markers, the patient has an LDH level of 1247 which is improved compared to yesterday and his CRP is down to 20.9. This morning, we having an issue with the patient's ventilator as the patient is losing some volume. I think this is related to the ET tube which is high in the trachea (to be pushed out. On his blood work, the patient has developed an acute kidney injury. His creatinine is up 1.4 with a BUN of 51 and this is of a new finding. The neck fluid balance has been in the order of positive fluid balance of 1.6 L over the past 24 hours. The patient is a triple lumen catheter in his left IJ. NG tube is also in place and the patient is receiving enteral feeding for nutritional support and the patient is currently on vitamin H. At the rate of 36 an hour. He is currently at goal. He is known to have COPD, diabetes mellitus type 2, hypertension and hyperlipidemia. His BMI is a 52. His blood sugar control is through insulin drip running at 11 units an hour and the Lantus and the NovoLog sliding scale were discontinued. Actos can be also discontin ued. 2020, the patient remains intubated on mechanical ventilator. This morning, per report is running at 50 mcg/kg per minute and the patient also paralyzed with Nimbex at 0.7 mcg/kg per minute. He remains on a mechanical ventilator. He is an assist-control with a tidal volume of 400 and the dates of 34 and a PEEP of 18 and FiO2 of 80%. The blood gases from today is showing a pH of 7.26 with a pCO2 of 79 and pO2 of 104. Note that overnight, the patient was also started on fentanyl for elevated PRESSURE and attempt to wean off the propofol and Nimbex. The follow-up chest x-ray was done today. I will say there is some limited improvement in the aeration. There is also some possible limited improvement in the left lower lobe consolidation. ET tube is very highly trachea needs to be pushed in. The NG tube is in place. The patient is receiving enteral feeding for nutritional support and the patient is currently on vital high protein at the rate of 36 this is an hour. He is currently still at goal. He remains on steroids in the patient on IV Solu-Medrol 60 mg every 6 hours. He is on Lovenox 70 mg subcutaneous every 12 hours. His d-dimer today that 3.53 and his LDH level is 1226 and his CRP is at 13.6. His CPKs up to 75. BUN is at 61 with a creatinine of 1.09 and a white cell count is normal at 15.9. No major interval changes condition since yesterday. Her net fluid balance over the past 24 hours and then +1.6 L for yesterday and +2.5 L for today before. He is getting some increased swelling in the upper and lower extremities bilaterally. 12/14/2020, the patient is still intubated on a mechanical ventilator, sedated and paralyzed. On today's evaluation, propofol is running at 50 mcg/kg per minute which is essentially same as yesterday and the patient is also paralyzed with Nimbex at 0.8 mitral respiratory failure after minutes. The patient is also on fentanyl at a low dose which will be essentially discontinued today. In terms of vent support, the patient remains on assist control mode of ventilation. On today's evaluation the patient is on a mechanical ventilator volume cycle mode with a tidal volume of 400 and a rate of 34 and a PEEP of 18 with an FiO2 of 80%. Her blood gases from today is showing a pH of 7.33 with a pCO2 of 69 pO2 of 92. Peak anesthetic pressures are both elevated. The peak airway pressures are 36 and the static pressure is around 34. Note that the patient was having leak from his orotracheal tube. The tube was exchanged yesterday by ARABELLA. On today's evaluation, the decubitus in a good location and the patient does not have any leaks. Meanwhile, repeat chest x-ray was done and the patient continues to have diffuse breath and pulmonary infiltrates left more than right. The patient has an orogastric and orotracheal tube are both of them are in good location. Meanwhile, the patient hemodynamically is doing well. We don't have him on any pressors for now. He has required low-dose pressors robbi ier. He is producing adequate amount of urine output. The fluid balance has been +1.6 L over the past 24 hours and the patient is having some increased edema in all 4 extremities. He has gained weight over this past several days. Currently is receiving Lasix 40 mg IV every 24 hours. In regards to his COVID- 19 pneumonia, the patient has a d-dimer of 2.9 with a LDH level of 1082 and a CRP level of 9.9. The numbers have slightly improved compared to yesterday. The patient remains on steroids in the patient is receiving IV Solu-Medrol 60 mg every 6 hours. The patient remains on Lovenox 40 mg subcu for DVT prophylaxis. Blood sugar control as well as Levemir 55 units twice a day along with a sliding scale coverage. IV fluids are currently running at KVO and the patient is receiving enteral feeding for nutritional support in the form of vital high protein at the rate of 30 mL an hour which is at goal. He is afebrile. He was given a paralytic holiday yesterday. He was off the paralysis for several hours and ultimately the patient became asynchronous and hypoxic and he had to be paralyzed again. The same is going to be done today. 12/15/2020, the patient remains sedated and paralyzed. Not a whole lot of progress on this patient since yesterday. Remains on propofol running at 65 mcg/kg per minute and the patient is also on Nimbex running at 0.8 mcg/kg per minute. Fentanyl is also running at 0.7 mcg/kg/h. The patient is on a mechanical ventilator on assist control mode at the rate of 34, tidal volume of 400 and FiO2 of 70% and a PEEP of 18. The blood gases from today shows a pH of 7.39 with a pCO2 of 70 and pO2 70. The chest x-ray from today remains unchanged. The patient is not having any major leaks around orotracheal tube and he is returning is volumes fine. ET tube is in a good location on today's chest x-ray. Overall chest x-ray findings are essentially stable probably slightly worse in terms of infiltration and atelectasis in the lung bases. The patient has a LDH level of 1050 now which is comparable to yesterday, the CRP is at 7.4 is also comparable to yesterday. D-dimer from yesterday was at 2.9. He remains on steroids in the patient is currently on IV Solu Medrol 60 mg every 6 hours. He is also on Lovenox 40 mg subcu daily. He is on Lasix 40 mg every 12 hours and the net fluid balance over the past 24 hours has been positives 860 m L. He is receiving enteral feeding for nutritional support and the patient is currently on vital high protein at the rate of 30 mL an hour. He is tolerating the enteral feeding for now. He is fe the highest temperature was 101.5. The peak airway pressures around 33. The static pressures 31. No major edema lower extremities. No other significant events. Overall condition is stable and the patient is not making a whole lot of progress. He continues to have high PEEP and FiO2 requirements. Oxygenation remains borderline. The patient had developed an acute kidney injury in the creatinine was up to 1.3 and the creatinine is stable for now. Is producing adequate amount of urine output. Sodium level is up to 146 and the Lasix will be discontinued again. IV fluids currently running at 20 cc of normal saline. 12/16/2020, the patient is doing limited amount of progress. Remains intubated on a mechanical ventilator related to COVID-19 related to pneumonia/ARDS. We finally were able to get him off the Nimbex. The patient continues to be on propofol running at 65 mcg/kg per minute. He is also on fentanyl at 1 mcg/kg/h. Remains on a mechanical ventilator. Vent settings are essentially the same with an assist-control mode at the rate of 34, tidal volume of 400, FiO2 of 70% with a PEEP of 18. Chest x-ray showing diffuse bilateral pulmonary infiltrates more so in the lower lobes and orotracheal tube is also in good location. NG tube is also in place. Meanwhile, the blood gases from today showed a pH of 7.4 with a pCO2 of 37 and pO2 of 62. Peak and static pressures are 38 and 34 respectively. Meanwhile, the patient is currently receiving IV Solu-Medrol 60 mg every 6 hours. He is also on Lovenox 40 mg subcu on a daily basis. Inflammatory markers show an elevated LDH of 1134 and the CRP from yesterday was 7.4. His white cell count is at 10.9. He continues to have lymphopenia. Sodium level of 146. Normal renal function. The patient's net fluid balance o raul the past 24 hours has been -324 mL. IV fluids with normal saline at the rate of 20 mL an hour. The patient is essentially receiving supportive care. He is currently on no pressors. He is receiving enteral feeding for nutritional support in the form of vital high protein at the rate of 30 mL an hour. He had a component of acute kidney injury with a creatinine came up to creatinine is normalized at 0.8. Blood sugars are running high as the patient is on Levemir 60 units twice a day and a sliding scale coverage. No other active issues for now. Triglycerides were noted to be slightly elevated and the patient is receiving propofol infusion. On today's evaluation of 12/17/2020, the patient is being seen for a follow-up. The patient had progressive deterioration in his overall respiratory status since yesterday. He was having progressive worsening his oxygenation. Note that during the course of his treatment, the patient was sedated and paralyzed. However, despite that, he continued to have oxygen desaturation in the PEEP was progressively increased and overnight he was placed on a PEEP of 24 with an FiO2 of the 100% and a tidal volume of 350 with a rate of 32. A repeat chest x-ray was done and showed significant worsening and obvious consolidation of the right lung. He was in a good location. This was a major change compared to the morning x-ray and the patient has developed significant consolidation most likely related to a hospital-acquired ventilator acquired pneumonia. That point, he was started on a combination of cefepime and vancomycin. Meanwhile, t he most recent blood gases was done this morning showed a pH of 14 with a pCO2 of 119 and pO2 of 48. His current pulse ox is 74%. Peak airway pressures 42. Static pressure is 40. White cell count is up to 21 with a hemoglobin of 16.5. He has also developed an acute kidney injury. Creatinine is up to 1.2. LDH level is up to 8 with a CRP level of 527. Most recent blood work also showed a sodium level of 49 with a potassium of 5.2. The patient remains sedated with propofol which is running currently at 60 mg/kg per minute and the Nimbex is running at 1.5 mcg/kg per minute. He remains on IV Solu-Medrol. As mentioned, a combination of cefepime and vancomycin was started overnight. Urine output is in order of less than 10 mL an hour and none over the past 2 hours. The patient was given a fluid bolus in the fluid rates of increased up to 150 mL an hour. At the same time, the patient will be given another liter bolus and norepinephrine infusion was started early this morning and the dose was progressively increased and currently is up to 38 mics per minute. As such, strongly suspect a right lung pneumonia, septic shock on top of his COVID-19 related ARDS. Enterofeeding is still running at 30 mL an hour. Unfortunately, we are having obvious difficulties and oxygenating the patient. He is a large gilberto who currently weighs 155 pounds and he is felt to be unstable to be placed in the prone body positioning. As such, the patient has been Supine. Objective - Vital Signs Vital signs: Vital Signs Temp 98.6 F 12/16/20 20:00 Pulse 129 H 12/17/20 06:00 Resp 34 H 12/17/20 06:00 BP 126/75 12/16/20 23:00 Pulse Ox 70 L 12/17/20 06:00 Intake & Output 12/16/20 12/16/20 12/17/20 06:59 18:59 06:59 Intake Total 1303.553 845.532 8704.896 Output Total 1090 850 350 Balance 213.553 -320.688 7323.896 Weight 153.3 kg 155.5 kg Intake: IV 276 299 253 Sodium Chloride 0.9% 1, 240 260 220 000 ml @ 20 mls/hr IV . Q24H [facility] Rx#:[id number] pressure bag 36 39 33 Intake, IV Titration 607.553 295.195 4821.896 Amount Cisatracurium 200 mg In 7.68 118.80 Sodium Chloride 0.9% 180 ml @ 1 MCG/KG/MIN 9 mls/ hr IV .[id number] [facility] Rx#: [id number] Norepinephrine 8 mg In 80.306 Sodium Chloride 0.9% 250 ml @ 0.05 MCG/KG/MIN 15. 287 mls/hr IV .[id number] [facility] Rx#:[id number] fentaNYL (PF) 2,500 mcg 106.555 137.638 318.001 In Sodium Chloride 0.9% 200 ml @ Per Protocol IV .Q0M [facility] Rx#:[id number] fentaNYL (PF). 1,000 mcg 100 In Sodium Chloride 0.9% 80 ml @ Per Protocol IV . Q0M [facility] Rx#:[id number] propofoL 1,000 mg In 400.998 200.998 631.789 Empty Bag 1 bag @ Titrate IV .Q0M [facility] Rx#: [id number] Tube Feeding 330 60 330 Other 90 30 90 Output: Urine 1090 850 350 Other: Voiding Method Indwelling Catheter Indwelling Catheter Indwelling Catheter ABP, PAP, CO, CI - Last Documented Arterial Blood Pressure 101/63 - Exam GENERAL EXAM: Intubated, sedated 70-year-old morbidly obese male, currently on the mechanical ventilator with FiO2 100% and a PEEP of 24 tidal volume of 350, currently sedated and paralyzed HEAD: Normocephalic/atraumatic. EYES: Normal reaction of pupils, equal size. Conjunctiva pink, sclera white. NOSE: Clear with pink turbinates. THROAT: Oral endotracheal and gastric tubes are secured in place. No erythema or exudates. NECK: No masses, no JVD, no thyroid enlargement, no adenopathy. CHEST: No chest wall deformity. Symmetrical expansion. Left IJ catheter in place LUNGS: Diminished breath sounds bilaterally, with bilateral crackles CVS: Regular rate and rhythm, normal S1 and S2, no gallops, no murmurs, no rubs ABDOMEN: Soft, nontender. No hepatosplenomegaly, normal bowel sounds, no guarding or rigidity. EXTREMITIES: No clubbing, no edema, no cyanosis, 2+ pulses and upper and lower extremities. MUSCULOSKELETAL: Muscle strength and tone normal. SPINE: No scoliosis or deformity SKIN: No rashes CENTRAL NERVOUS SYSTEM: Sedated. Intubated. Pupils are reactive to light. Motor function cannot be assessed. The patient is sedated and paralyzed - Labs CBC & Chem 7: 12/17/20 02:59 04/18/21 02:59 Labs: Abnormal Lab Results - Last 24 Hours (Table) 12/16/20 12/16/20 12/16/20 Range/Units 07:51 08:08 11:46 WBC (3.8-10.6) k/uL ABG pH (7.35-7.45) ABG pCO2 62 H (35-45) mmHg ABG pO2 46 L* (83-108) mmHg ABG HCO3 40 H* (21-25) mmol/L ABG Total CO2 42 H (19-24) mmol/L ABG O2 Saturation 80.8 L (94-97) % Sodium (137-145) mmol/L Potassium (3.5-5.1) mmol/L Carbon Dioxide (22-30) mmol/L BUN (9-20) mg/dL Creatinine (0.66-1.25) mg/dL Glucose (74-99) mg/dL POC Glucose (mg/dL) 242 H 177 H (75-99) mg/dL AST (17-59) U/L Lactate Dehydrogenase (313-618) U/L Creatine Kinase (55-170) U/L C-Reactive Protein (<1.0) mg/dL Total Protein (6.3-8.2) g/dL Albumin (3.5-5.0) g/dL 12/16/20 12/16/20 12/16/20 Range/Units 17:20 19:59 22:55 WBC (3.8-10.6) k/uL ABG pH (7.35-7.45) ABG pCO2 (35-45) mmHg ABG pO2 (83-108) mmHg ABG HCO3 (21-25) mmol/L ABG Total CO2 (19-24) mmol/L ABG O2 Saturation (94-97) % Sodium (137-145) mmol/L Potassium (3.5-5.1) mmol/L Carbon Dioxide (22-30) mmol/L BUN (9-20) mg/dL Creatinine (0.66-1.25) mg/dL Glucose (74-99) mg/dL POC Glucose (mg/dL) 152 H 163 H 146 H (75-99) mg/dL AST (17-59) U/L Lactate Dehydrogenase (313-618) U/L Creatine Kinase (55-170) U/L C-Reactive Protein (<1.0) mg/dL Total Protein (6.3-8.2) g/dL Albumin (3.5-5.0) g/dL 12/17/20 12/17/20 12/17/20 Range/Units 02:50 02:59 02:59 WBC 21.1 H (3.8-10.6) k/uL ABG pH 7.14 L* (7.35-7.45) ABG pCO2 119 H* (35-45) mmHg ABG pO2 49 L* (83-108) mmHg ABG HCO3 41 H* (21-25) mmol/L ABG Total CO2 45 H (19-24) mmol/L ABG O2 Saturation 74.0 L (94-97) % Sodium 149 H (137-145) mmol/L Potassium 5.2 H (3.5-5.1) mmol/L Carbon Dioxide 40 H (22-30) mmol/L BUN 81 H (9-20) mg/dL Creatinine 1.26 H (0.66-1.25) mg/dL Glucose 166 H (74-99) mg/dL POC Glucose (mg/dL) (75-99) mg/dL AST 65 H (17-59) U/L Lactate Dehydrogenase 2048 H (313-618) U/L Creatine Kinase 527 H (55-170) U/L C-Reactive Protein 2.0 H (<1.0) mg/dL Total Protein 5.4 L (6.3-8.2) g/dL Albumin 3.1 L (3.5-5.0) g/dL 12/17/20 Range/Units 03:54 WBC (3.8-10.6) k/uL ABG pH (7.35-7.45) ABG pCO2 (35-45) mmHg ABG pO2 (83-108) mmHg ABG HCO3 (21-25) mmol/L ABG Total CO2 (19-24) mmol/L ABG O2 Saturation (94-97) % Sodium (137-145) mmol/L Potassium (3.5-5.1) mmol/L Carbon Dioxide (22-30) mmol/L BUN (9-20) mg/dL Creatinine (0.66-1.25) mg/dL Glucose (74-99) mg/dL POC Glucose (mg/dL) 172 H (75-99) mg/dL AST (17-59) U/L Lactate Dehydrogenase (313-618) U/L Creatine Kinase (55-170) U/L C-Reactive Protein (<1.0) mg/dL Total Protein (6.3-8.2) g/dL Albumin (3.5-5.0) g/dL Assessment and Plan Plan: 1 ARDS and secondary hypoxic respiratory failure related to acute COVID 19 related pneumonia, patient was out of the window for Remdesivir. Received tocilizumab and convalescent plasma. Transferred to the intensive care unit on 12/08/2020 for worsening hypoxemia, on BiPAP support, subsequent intubation and placed on mechanical ventilator on 12/10/2020. Obvious decompensation patient's overall condition where the patient developed an acute right lung consolidation with worsening oxygenation, hypotension and the current status is consistent with septic shock. He is producing excess amount of respiratory secretions over the past 12 hours and the repeat chest x-ray showed extensive consolidation of the right lung. Strongly suspect a hospital-acquired pneumonia or a ventilator associated pneumonia on top of his COVID-19 related ARDS. Currently PEEP is a 24 with an FiO2 100%. Unable to control the patient. He is hemodynamically unstable. His of his septic. Oxygenation is poor. Blood gases was noted. Chest x-ray was noted. Broad-spectrum antibiotics has been started. 2 septic shock with secondary hypertension currently on norepinephrine infusion. This is related to the right lung pneumonia, likely hospital- acquired/ventilator acquired. The patient has been on mechanical ventilator for quite some time since 12/10/2020. 3 History of diabetes mellitus type 2, currently on Levemir insulin , blood sugar under adequate control for now 4 History of hypertension 5 History of hyperlipidemia 6 Morbid obesity with a BMI of 51 kg/m 7 Previous history of tobacco use 8 acute kidney injury, probably related to hypotension that occurred yesterday, considered hypotension-induced ATN. 9 enteral feeding for nutritional support with vital high protein. 10 COPD 11 acute leukocytosis 12 hypernatremia, hyperchloremic acute kidney injury Plan: Keep the patient sedated and paralyzed Continue same ventilator settings Unfortunately the oxygenation is quite poor at this point in time. Because of irregular pressures are high in the chest x-ray showing extensive right lung pneumonia. Check a sputum Gram stain and culture Check blood cultures Give 2 L of IV fluid bolus Increase the maintenance of 250 mL an hour of normal saline Vancomycin and cefepime has been initiated Keep the patient sedated and paralyzed Continue IV Solu-Medrol Monitor urine output Continue enteral feeding for nutritional support Continue Levemir insulin 60 units twice a day and add NovoLog 10 units 4 times a day [id number] and a sliding scale coverage Received convalescent plasma 1, tocilizumab Repeat chest x-ray, inflammatory markers from this morning has been noted The patient is extremely critical and the patient will likely decompensated further from his underlying septic shock on top of his COVID-19 related ARDS. Despite self. Is a very high mortality. Family aware he'll be informed of these changes LBS to come in to the hospital for further discussion. His CODE STATUS is full for now. Critical care time, >30 min minutes. Time with Patient: Greater than 30
[2020-12-17] MEDS ORDERED: SODIUM CHLORIDE 0.9% 2,000 ML IV ONE (06:47)
[2020-12-17] MEDS: ALBUTEROL HFA INHALER INHALATION PRN (07:50)
[2020-12-17] MEDS: NOREPINEPHRINE 8 MG in SODIUM CHLORIDE 0.9% 250 ML IV SCH (07:53)
[2020-12-17 08:16] VITALS: BP 99/69; TEMP 99
[2020-12-17] MEDS: NON FORMULARY DRUG (Dapagliflozin Propanediol [Farxiga] 10 MG Tablet) PO SCH (08:29)
[2020-12-17] MEDS: LOSARTAN 50 MG TAB PO SCH (08:29)
[2020-12-17 08:46] LABS: Glucose,Whole Blood 166 mg/dL (75-99)
[2020-12-17] MEDS: INSULIN DETEMIR (LEVEMIR) 100 UNIT/ML SYR SQ SCH (08:53)
[2020-12-17] MEDS: allopurinoL 100 MG TAB PO SCH (08:55)
[2020-12-17] MEDS: ASCORBIC ACID 500 MG TAB PO SCH (08:55)
[2020-12-17] MEDS: ENOXAPARIN 40 MG/0.4 ML SYRINGE SQ SCH (08:59)
[2020-12-17] MEDS: CHLORHEXIDINE GLUCONATE 15 ML CUP MUCOUS MEM SCH (08:59)
[2020-12-17] MEDS: polyethylene glycoL 3350 17 GM POWD.PACK NG-TUBE SCH (08:59)
[2020-12-17] MEDS ORDERED: CEFEPIME 2 GM in SODIUM CHLORIDE 0.9% 100 ML IVPB SCH (09:00)
[2020-12-17] MEDS: ZINC SULFATE 220 MG CAP PO SCH (09:25)
[2020-12-17 11:09] LABS: Band Neutrophils % 15 %; Eosinophils # (M) 0.21 k/uL (0-0.7); Lymphocytes # (M) 0.63 k/uL (1.0-4.8); Metamyelocytes # (M) 3.17 k/uL (0); Metamyelocytes % 15 %; Monocytes # (M) 0.21 k/uL (0-1.0); Myelocytes # (M) 1.69 k/uL (0); Myelocytes % 8 %; Neutrophils % (M) 60 %; Nucleated Red Blood Cells 0 /100 WBC (0-0); Total Cells Counted 200
[2020-12-17 11:51] VITALS: PULSE 101
[2020-12-17] MEDS ORDERED: VANCOMYCIN 2,250 MG in SODIUM CHLORIDE 0.9% 500 ML 500 ML IVPB SCH ×2 (18:00→21:00)
--- NOTE | 2020-12-19 12:46 | CDI ---
Documentation Clarification Form Date: 12/19/20 From: Jessie Levy Phone: Admit Date: 12/05/2020 07:47:00 PM Patient Name: Omi Cantu Visit Number: [id number] Discharge Date: 12/17/2020 01:17:00 PM ATTENTION: The Clinical Documentation Specialists (CDI) and [facility] Coding Staff appreciate your assistance in clarifying documentation. Please respond to the clarification below the line at the bottom and electronically sign. The CDI & [facility] Coding staff will review the response and follow-up if needed. Please note: Queries are made part of the Legal Health Record. If you have any questions, please contact the author of this message via ITS. Dr. Hortensia Parker, Uncontrolled Type [address] Tena's 12/15 PN. Additional specificity regarding the diabetes diagnosis is requested. History/Risk Factors: COVID pneumonia, ARDS, ATN, developed sepsis and septic shock Clinical Indicators: Type 2 diabetes mellitus uncontrolled elevated blood sugars, patient is an above-mentioned regimen we'll increase the long-acting insulin to 60 twice a day continue with sliding scale insulin Please clarify the type of diabetes, if known: [ ] Diabetes Type 2 w hyperglycemia [ ] Unable to Determine Diabetes Type 2 w hyperglycemia MTDD
--- NOTE | 2020-12-25 08:08 | P.DS ---
Providers Date of admission: 12/05/20 19:47 Expected date of discharge: 12/17/20 Attending physician: Hortensia Parker Consults: 12/05/20 19:48 Consult Physician Urgent Consulting Provider: Monico Corado Reason/Comments: Covid pneumonia Do you want consulting provider notified?: Yes Primary care physician: [facility] Course: 62-year-old the female came in with cough congestion symptoms has been going on since November 27 and patient was tested negative in for Covid 19. Patient was initially maintained on oxygen per nasal cannula with COVID-19 treatment cocktail; patient continued to deteriorate and was intubated and placed on mechanical ventilator 12/07/2020 Patient is presently in 6 L of oxygen his respiratory status is bit worse , patient doesn't feel well feels sick and short of breath. Patient is also receiving normal saline at 75 mL/h repeat labs are still pending. 12/08/2020 Patient the breathing has been worse patient was on 9:15 liters and the 100% nonrebreather and was still desaturating was patient was started on BiPAP was transferred to ICU patient is presently on 100% FiO2 with the IPAP/EPAP , patient did receive plasma patient is presently on Solu-Medrol continues to have elevated inflammatory markers. 12/09/2020 Patient remains on 100% FiO2 on BiPAP. And looks better with no significant improvement in his respiratory status doesn't desaturate then easily when he removes his BiPAP mask. 12/10/2020 Patient respiratory status worsened patient was desaturating on 100% BiPAP patient was subsequently intubated patient is on mechanical ventilator patient is on FiO2 of 20% PEEP of 10. Patient is on propofol and Nimbex as well. 12/11/2020 Patient is presently on 90% FiO2 still PEEP of 15. Still sedated and par alyzed. was started on solid Medrol and the patient blood sugars are very high patient's long-acting insulin dose will be increased to 45 units twice a day will be continued on sliding scale insulin 12/12/2020 Patient is on IV insulin drip which will be continued at this time. Insulin drip was started by pulmonology. Patient remains on propofol and Nimbex on mechanical ventilator with assist-control ventilation 80% FiO2 PEEP of 18 tender volume 400 with set up respiratory rate of around 34. Patient remains on IV steroids improved inflammatory markers patient is on Lovenox 70 twice a day reacting and is around 1.4. If creatinine goes up we need to cut down on Lovenox. Review of systems: Unable to obtain due to his clinical condition 12/13/2020 Patient remains on Nimbex drip propofol drip and remains on ventilatory support at the 80% FiO2. Patient's serum creatinine did improve. Patient remains on IV Lasix at this time. Patient is being continued on Lovenox. Patient is on IV insulin because of high dose steroids and patient is a poorly controlled diabetic. IV insulin was discontinued patient will be started on 55 units twice a day along with steroids scale. Patient probably can have every 4 hourly boluses of her short-acting insulin depending on his sliding scale insulin requirements. Patient the is receiving tube feedings. 12/14/2020 Patient remains intubated and sedated. Patient is still on antibiotics and a low-dose of the norepinephrine patient remains on FiO2 of 80% no significant improvement. Patient the is on PEEP of 18, patient's endotracheal tube was exchanged yesterday because of the leak patient is positive fluid balance patient is on Lasix at this time patient's inflammatory markers did improve compared to yesterday remains on Solu-Medrol. Patient is an 55 units twice a day of Levemir along with sliding scale with fairly well-controlled blood sugars mildly elevated blood sugars but didn't cover with sliding scale 12/15/2020 Patient is seen and evaluated in follow-up in ICU; remains sedated and paralyzed. The patient is on a mechanical ventilator on assist control mode; The chest x-ray from today slightly worse in terms of infiltration and atelectasis in the lung bases. The patient has a LDH level of 1050 now which is comparable to yesterday, the CRP is at 7.4 is also comparable to yesterday. D-dimer from yesterday was at 2.9. He remains on IV Solu Medrol 60 mg every 6 hours; Lovenox 40 mg subcu daily; Lasix 40 mg every 12 hours and the net fluid balance over the past 24 hours has been positives 860 mL. He is receiving enteral feeding for nutritional support and the patient is currently on vital high protein at the rate of 30 mL an hour. He is tolerating the enteral feeding for now. No other significant events. Overall condition is stable and the patient is not making a whole lot of progress Acute kidney injury is stable for now. Is producing adequate amount of urine output. Sodium level is up to 146 and the Lasix will be discontinued again. IV fluids currently running at 20 cc of normal saline. 12/16/2020 Patient is seen and evaluated in ICU; remains intubated and mechanically ventilated secondary to pneumonia/ARDS; repeat chest x-ray reveals diffuse bilateral pulmonary infiltrates Lab review reveals an elevated white blood count of 10.9; sodium elevated at 146; d-dimer slow trend down at 2.91 with ferritin and LDH trending down to 291 and 1135 respectively Tube feeding; blood sugars are slightly elevated; patient remains on Levemir 60 mg twice a day Patient remains on Lovenox, IV Solu-Medrol and received convalescent plasma and Actemra Plan is to continue current treatment and follow chest x-ray and inflammatory markers Despite all treatment, patient continued to deteriorate and on 12/17/2020 Patient Condition at Discharge: Stable Plan - Discharge Summary Discharge Rx Participant: No New Discharge Prescriptions: No Action Atorvastatin [Lipitor] 20 mg PO HS amLODIPine [Norvasc] 10 mg PO DAILY Furosemide [Lasix] 40 mg PO DAILY Pioglitazone [Actos] 15 mg PO DAILY Magnesium(Uknown Dose) 1 tab PO DAILY Insulin Glargine,Hum.rec.anlog [Lantus Solostar] 30 unit SQ BID #1 vial metFORMIN HCL [Glucophage] 1,000 mg PO BID #30 tab Albuterol Inhaler [Ventolin Hfa Inhaler] 2 puff INHALATION RT-QID PRN PRN Reason: Shortness Of Breath Vitamin C(Unknown Dose) 1 tab PO DAILY Ergocalciferol [Vitamin D2 (1250 Mcg = 26632 Iu)] 1,250 mcg PO Q14D Dapagliflozin Propanediol [Farxiga] 10 mg PO DAILY Allopurinol [Zyloprim] 100 mg PO DAILY Losartan Potassium 100 mg PO DAILY Aspirin EC [Ecotrin Low Dose] 81 mg PO HS methylPREDNISolone [Medrol Dose Pack] See Taper PO DIRECTED Azithromycin [Zithromax] See Taper PO DIRECTED Dulaglutide [Trulicity] 3 mg SQ TH Discharge Medication List Atorvastatin [Lipitor] 20 mg PO HS 02/28/15 [History] amLODIPine [Norvasc] 10 mg PO DAILY 02/28/15 [History] Allopurinol [Zyloprim] 100 mg PO DAILY 11/27/20 [History] Aspirin EC [Ecotrin Low Dose] 81 mg PO HS 11/27/20 [History] Dapagliflozin Propanediol [Farxiga] 10 mg PO DAILY 11/27/20 [History] Ergocalciferol [Vitamin D2 (1250 Mcg = 31209 Iu)] 1,250 mcg PO Q14D 11/27/20 [History] Furosemide [Lasix] 40 mg PO DAILY 11/27/20 [History] Losartan Potassium 100 mg PO DAILY 11/27/20 [History] Magnesium(Uknown Dose) 1 tab PO DAILY 11/27/20 [History] Pioglitazone [Actos] 15 mg PO DAILY 11/27/20 [History] Vitamin C(Unknown Dose) 1 tab PO DAILY 11/27/20 [History] Insulin Glargine,Hum.rec.anlog [Lantus Solostar] 30 unit SQ BID #1 vial 11/28/20 [Rx] metFORMIN HCL [Glucophage] 1,000 mg PO BID #30 tab 11/28/20 [Rx] Albuterol Inhaler [Ventolin Hfa Inhaler] 2 puff INHALATION RT-QID PRN 12/05/20 [History] Azithromycin [Zithromax] See Taper PO DIRECTED 12/05/20 [History] Dulaglutide [Trulicity] 3 mg SQ TH 12/05/20 [History] methylPREDNISolone [Medrol Dose Pack] See Taper PO DIRECTED 12/05/20 [History] Follow up Appointment(s)/Referral(s): Batool Morillo MD [Primary Care Provider] - 1-2 days Discharge Disposition: - Preliminary Cause of Preliminary Cause of : Respiratory failure due to COVID 19 viral PNA
[2020-12-29] MEDS ORDERED: ERGOCALCIFEROL 1,250 MCG (50,000 IU) CAPSULE PO SCH (09:00)
== END 2020-12-17 13:17 | disposition expired | DRG 207 ==
LOC: EC 13:44 → 4SSUR 19:47 → 1SOBS 12-06 07:09 → 2SICU 12-08 11:01
PROVIDERS: ADMIT Hospitalist; ATTEND Hospitalist
PROC: 5A0935A Assistance with Respiratory Ventilation, Less than 24 Consecutive Hours, High Flow/Velocity Cannula (ICD-10-PCS; 2020-12-07)
PROC: XW13325 Transfusion of Convalescent Plasma (Nonautologous) into Peripheral Vein, Percutaneous Approach, New Technology Group 5 (ICD-10-PCS; 2020-12-08)
PROC: 5A09457 Assistance with Respiratory Ventilation, 24-96 Consecutive Hours, Continuous Positive Airway Pressure (ICD-10-PCS; 2020-12-08)
PROC: XW033H5 Introduction of Tocilizumab into Peripheral Vein, Percutaneous Approach, New Technology Group 5 (ICD-10-PCS; 2020-12-08)
PROC: 02HV33Z Insertion of Infusion Device into Superior Vena Cava, Percutaneous Approach (ICD-10-PCS; principal; 2020-12-10)
PROC: 0D9670Z Drainage of Stomach with Drainage Device, Via Natural or Artificial Opening (ICD-10-PCS; principal; 2020-12-10)
PROC: 03HY32Z Insertion of Monitoring Device into Upper Artery, Percutaneous Approach (ICD-10-PCS; principal; 2020-12-10)
PROC: 5A1955Z Respiratory Ventilation, Greater than 96 Consecutive Hours (ICD-10-PCS; principal; 2020-12-10)
PROC: 4A133B1 Monitoring of Arterial Pressure, Peripheral, Percutaneous Approach (ICD-10-PCS; principal; 2020-12-10)
PROC: 0BH17EZ Insertion of Endotracheal Airway into Trachea, Via Natural or Artificial Opening (ICD-10-PCS; principal; 2020-12-10)
PROC: 4A133J1 Monitoring of Arterial Pulse, Peripheral, Percutaneous Approach (ICD-10-PCS; principal; 2020-12-10)
PROC: 3E0G76Z Introduction of Nutritional Substance into Upper GI, Via Natural or Artificial Opening (ICD-10-PCS; 2020-12-11)
PROC: 3E033XZ Introduction of Vasopressor into Peripheral Vein, Percutaneous Approach (ICD-10-PCS; 2020-12-13)
PROC: 0B21XEZ Change Endotracheal Airway in Trachea, External Approach (ICD-10-PCS; 2020-12-13)
DX: U07.1 COVID-19 (principal); J12.82 Pneumonia due to coronavirus disease 2019; N17.0 Acute kidney failure with tubular necrosis; R65.21 Severe sepsis with septic shock; J80 Acute respiratory distress syndrome; A41.9 Sepsis, unspecified organism; E87.0 Hyperosmolality and hypernatremia; J95.851 Ventilator associated pneumonia; J93.82 Other air leak; Z68.43 Body mass index [BMI] 50.0-59.9, adult; J44.0 Chronic obstructive pulmonary disease with (acute) lower respiratory infection; J44.1 Chronic obstructive pulmonary disease with (acute) exacerbation; E11.36 Type 2 diabetes mellitus with diabetic cataract; E11.22 Type 2 diabetes mellitus with diabetic chronic kidney disease; E11.40 Type 2 diabetes mellitus with diabetic neuropathy, unspecified; D72.810 Lymphocytopenia; E11.51 Type 2 diabetes mellitus with diabetic peripheral angiopathy without gangrene; G20 Parkinson's disease; E66.01 Morbid (severe) obesity due to excess calories; N18.30 Chronic kidney disease, stage 3 unspecified; I72.9 Aneurysm of unspecified site; E11.65 Type 2 diabetes mellitus with hyperglycemia; Z79.4 Long term (current) use of insulin; Z66 Do not resuscitate; Y95 Nosocomial condition; I12.9 Hypertensive chronic kidney disease with stage 1 through stage 4 chronic kidney disease, or unspecified chronic kidney disease; E78.5 Hyperlipidemia, unspecified; E86.0 Dehydration; I25.10 Atherosclerotic heart disease of native coronary artery without angina pectoris; M54.9 Dorsalgia, unspecified; G89.29 Other chronic pain; H26.9 Unspecified cataract; Z79.82 Long term (current) use of aspirin; Z79.899 Other long term (current) drug therapy; Z87.891 Personal history of nicotine dependence; Z71.3 Dietary counseling and surveillance; Z87.81 Personal history of (healed) traumatic fracture; Z87.01 Personal history of pneumonia (recurrent); Z91.041 Radiographic dye allergy status; Z82.49 Family history of ischemic heart disease and other diseases of the circulatory system; Z80.1 Family history of malignant neoplasm of trachea, bronchus and lung; Y84.8 Other medical procedures as the cause of abnormal reaction of the patient, or of later complication, without mention of misadventure at the time of the procedure; Y92.230 Patient room in hospital as the place of occurrence of the external cause
CPT/HCPCS: 36415; 36600; 71045; 71046; 80048; 80053; 82550; 82728; 82805; 83605; 83615; 83721; 83735; 84100; 84145; 84478; 85025; 85379; 85384; 85610; 85730; 86140; 86850; 86900; 86901; 87040; 87635; 93005; 94002; 94003; 94640; 94660; 99285